=== PATIENT | female | born 1945 | race Caucasian/White ===

== ENCOUNTER → 2017-01-17 | Outpatient (CLI) | payer BC ==
[~2017-01-17] MED LIST: ACC10 PO; ALBUAER2 INH; ALL180 PO; ALL300 PO; ASPCH81 PO; CLTP PO; CLX20 PO; DIPH-437 PO; GLC500 PO; HYDC25 PO; LEVO137T14 PO; MCR5 PO; MEDR10TA PO; PLMIN200 INH
[2017-01-17 12:12] LABS: BASO ABS # 0.06 K/uL (0-0.2); COMPLETE YES; EOS % 3.5 %; HEMATOCRIT 37.3 % (37-47); IG% 0.2 %; LYMPH % 36.2 %; LYMPH ABS # 2.18 K/uL (1.2-3.4); MEAN CELL VOLUME 94.2 fL (80-100); MEAN CORPUSCULAR HEMOGLOBIN 31.3 pg (25-34); MEAN CORPUSCULAR HGB CONC 33.2 g/dl (32-36); MEAN PLATELET VOLUME 9.6 fL (7.4-10.4); MONO % 9.8 %; NEUT % 49.3 %; PLATELET COUNT 251 K/uL (130-400); RED BLOOD COUNT 3.96 M/uL (4.2-5.4); WHITE BLOOD COUNT 6.03 K/uL (4.8-10.8)
[2017-01-17 12:26] LABS: ESTIMATED AVERAGE GLUCOSE 128 mg/dl; HA1C FLAG Normal (Normal)
[2017-01-17 12:50] LABS: BLOOD UREA NITROGEN 10 mg/dl (7-18); BUN/CREATININE RATIO 15.4 (10-20); CREATININE 0.67 mg/dl (0.60-1.20); GLUCOSE 118 mg/dl (70-99); SODIUM 138 mmol/L (136-145)
[2017-01-17 12:51] LABS: AST/SGOT 14 U/L (15-37); CALCIUM 9.3 mg/dl (8.5-10.1); CARBON DIOXIDE 27 mmol/L (21-32); CHLORIDE 103 mmol/L (98-107); MAGNESIUM 1.6 mg/dl (1.8-2.4)
[2017-01-17 12:57] LABS: ALB/GLOB RATIO 1.1 (0.9-2); ALKALINE PHOSPHATASE 51 U/L (45-117); ALT/SGPT 21 U/L (12-78); CHOLESTEROL 145 mg/dl (0-200); HDL CHOLESTEROL 74 mg/dl; LDL CHOLESTEROL CALCULATED 54 mg/dl; THYROID STIMULATING HORMONE 0.477 uIu/ml (0.300-4.500); TRIGLYCERIDES 83 mg/dl (0-150); VERY LOW DENSITY LIPOPROT CALC 17 mg/dl
[2017-01-17 18:11] LABS: URINE APPEARANCE CLEAR (CLEAR); URINE BILIRUBIN NEG (NEG); URINE COLOR YELLOW; URINE EPITHELIAL CELL AUTO >30 /lpf (0-5); URINE NITRITE NEG (NEG); URINE SPECIFIC GRAVITY 1.017 (1.000-1.030); UROBILINOGEN NEG (NEG); ZZUR CULT IF INDIC CLEAN CATCH YES
[2017-01-17 18:21] LABS: MANUAL MICROSCOPIC REQUIRED? NO; REVIEW REQ? NO
[2017-01-17 18:30] LABS: RATIO 8.9 mcg/mg (0-30.0)
== END | disposition home or self-care (01) ==
LOC: C.LABBFT 07:38
PROVIDERS: ATTEND Internal Medicine
DX: E11.9 Type 2 diabetes mellitus without complications (principal); E03.9 Hypothyroidism, unspecified; E83.42 Hypomagnesemia

== ENCOUNTER → 2017-01-22 | Outpatient (CLI) | payer BC ==
[2017-01-22 19:18] LABS: URINE APPEARANCE CLEAR (CLEAR); URINE BILIRUBIN NEG (NEG); URINE COLOR YELLOW; URINE NITRITE NEG (NEG); UROBILINOGEN NEG (NEG); ZZUR CULT IF INDIC CLEAN CATCH NO
[2017-01-22 19:31] LABS: MANUAL MICROSCOPIC REQUIRED? NO; REVIEW REQ? NO
== END | disposition home or self-care (01) ==
LOC: C.LABBFT 10:12
PROVIDERS: ATTEND Internal Medicine
DX: R31.29 Other microscopic hematuria (principal)

== ENCOUNTER → 2017-03-14 | Outpatient (CLI) | payer BC | END | disposition home or self-care (01) | LOC: C.MAMM 07:41 | PROVIDERS: ATTEND Internal Medicine | DX: M81.0 Age-related osteoporosis without current pathological fracture (principal); Z78.0 Asymptomatic menopausal state ==

== ENCOUNTER → 2017-03-26 | Outpatient (CLI) | payer BC | END | disposition home or self-care (01) | LOC: C.LABBFT 12:29 | PROVIDERS: ATTEND Physician Assistant Medical | DX: M81.0 Age-related osteoporosis without current pathological fracture (principal) ==

== ENCOUNTER → 2017-07-02 | Outpatient (CLI) | payer BC ==
--- NOTE | 2017-07-03 07:35 | MAMMOGRAPHY REPORT ---
BILATERAL DIGITAL SCREENING MAMMOGRAM WITH CAD: 07/02/2017 CLINICAL HISTORY: Routine screening. Patient has no complaints. TECHNIQUE: Bilateral CC, MLO and repeat right MLO views were obtained. Current study was also evalua daniel with a Computer Aided Detection (CAD) system. COMPARISON: Comparison is made to exams dated: 06/16/2015 mammogram, 06/26/2016 mammogram, 4 mammogram, and 09/09/2013 mammogram. BREAST COMPOSITION: There are scattered areas of fibroglandular density in both breasts. FINDINGS: There are benign coarse calcifications scattered throughout the breasts. There is a metall ic biopsy marker in the left upper outer quadrant, in an area of segmental versus regional faint punc lerma microcalcifications. Both the biopsy marker clip in the calcifications appear similar on all av ailable prior mammograms dating back to at least 09/09/2013. Presumably these represent an area of c alcifications which were sampled and yielded benign pathology, although the specimen radiograph for s tereotactic biopsy images are not currently available. No new suspicious mass, architectural distort ion or cluster of microcalcifications is seen. IMPRESSION: ACR BI-RADS CATEGORY 1: NEGATIVE There is no mammographic evidence of malignancy. A 1 year screening mammogram is recommended. The pa tient will receive written notification of the results. Approximately 10% of breast cancers are not detected with mammography. A negative mammographic report should not delay biopsy if a clinically suggestive mass is present. Susannah Mckeon M.D. ay/:07/02/2017 16:18:57 Compression Molding Machine Tender: Rhianna VASQUEZ,R, M, [facility] letter sent: Normal 1/2 BI-RADS Code: ACR BI-RADS Category 1: Negative
== END | disposition home or self-care (01) ==
LOC: C.MAMM 10:33
PROVIDERS: ATTEND Internal Medicine
DX: Z12.31 Encounter for screening mammogram for malignant neoplasm of breast (principal)

== ENCOUNTER → 2017-07-18 | Outpatient (CLI) | payer BC ==
[2017-07-18 17:43] LABS: BASO % 0.4 %; BASO ABS # 0.03 K/uL (0-0.2); COMPLETE YES; EOS % 1.6 %; HEMATOCRIT 35.5 % (37-47); IG% 0.2 %; LYMPH % 36.1 %; LYMPH ABS # 3.08 K/uL (1.2-3.4); MEAN CORPUSCULAR HEMOGLOBIN 30.8 pg (25-34); MEAN CORPUSCULAR HGB CONC 33.8 g/dl (32-36); MEAN PLATELET VOLUME 8.6 fL (7.4-10.4); MONO % 8.5 %; NEUT % 53.2 %; PLATELET COUNT 238 K/uL (130-400); WHITE BLOOD COUNT 8.54 K/uL (4.8-10.8)
[2017-07-18 18:01] LABS: URINE APPEARANCE CLEAR (CLEAR); URINE BILIRUBIN NEG (NEG); URINE COLOR DK YELLOW; URINE NITRITE NEG (NEG); URINE SPECIFIC GRAVITY 1.021 (1.000-1.030); UROBILINOGEN NEG (NEG); ZZUR CULT IF INDIC CLEAN CATCH NO
[2017-07-18 18:08] LABS: ALT/SGPT 21 U/L (12-78); AST/SGOT 12 U/L (15-37); BLOOD UREA NITROGEN 10 mg/dl (7-18); BUN/CREATININE RATIO 18.3 (10-20); CARBON DIOXIDE 30 mmol/L (21-32); CHLORIDE 94 mmol/L (98-107); CREATININE 0.57 mg/dl (0.60-1.20); GLUCOSE 83 mg/dl (70-99); MAGNESIUM 1.5 mg/dl (1.8-2.4); POTASSIUM 4.1 mmol/L (3.5-5.1); SODIUM 129 mmol/L (136-145)
[2017-07-18 18:12] LABS: MANUAL MICROSCOPIC REQUIRED? NO; REVIEW REQ? NO
[2017-07-18 18:20] LABS: ALB/GLOB RATIO 0.9 (0.9-2); ALKALINE PHOSPHATASE 54 U/L (45-117); THYROID STIMULATING HORMONE 0.195 uIu/ml (0.300-4.500)
[2017-07-19 06:33] LABS: ESTIMATED AVERAGE GLUCOSE 123 mg/dl; HA1C FLAG Normal (Normal)
== END | disposition home or self-care (01) ==
LOC: C.LAB1850 16:58
PROVIDERS: ATTEND Internal Medicine
DX: R10.32 Left lower quadrant pain (principal); E83.42 Hypomagnesemia; E11.9 Type 2 diabetes mellitus without complications; E03.9 Hypothyroidism, unspecified

== ENCOUNTER → 2017-08-05 | Outpatient (CLI) | payer BC ==
[2017-08-05 18:29] LABS: BLOOD UREA NITROGEN 11 mg/dl (7-18); CALCIUM 9.3 mg/dl (8.5-10.1); CARBON DIOXIDE 26 mmol/L (21-32); CREATININE 0.72 mg/dl (0.60-1.20); GLUCOSE 146 mg/dl (70-99); POTASSIUM 4.5 mmol/L (3.5-5.1); SODIUM 131 mmol/L (136-145)
== END | disposition home or self-care (01) ==
LOC: C.LABBFT 12:38
PROVIDERS: ATTEND Internal Medicine
DX: E03.9 Hypothyroidism, unspecified (principal); E83.42 Hypomagnesemia

== ENCOUNTER → 2017-08-08 | Outpatient (CLI) | payer BC ==
[~2017-08-08] MED LIST changes: +OPTIRAY 320 IV PRN
--- NOTE | 2017-08-08 12:20 | DIAGNOSTIC IMAGING REPORT ---
CT SCAN OF THE ABDOMEN AND PELVIS WITH IV CONTRAST CLINICAL HISTORY: Left lower quadrant abdominal pain. COMPARISON STUDY: No priors. TECHNIQUE: Following the IV administration of 94 cc of Optiray 320, CT scan of the abdomen and pelvis is performed from the lung bases to the proximal femora. Images are reviewed in the axial, sagittal, and coronal planes. IV contrast was administered without complication. A dose lowering technique was utilized adhering to the principles of ALARA. The Examination is modestly degraded by motion artifact. CT DOSE: 907.05 mGycm FINDINGS: Lung bases: The heart is normal in size and without pericardial effusion. The lung bases are clear. There is a tiny hiatal hernia. Liver: The contrast-enhanced liver is normal in size, contour, and attenuation. There is no intrahepatic biliary ductal dilatation. The hepatic veins and portal veins are patent. Gallbladder: Surgically absent noting clips in the gallbladder fossa. Spleen: Normal in size and attenuation. Pancreas: Moderately atrophic and grossly unremarkable. Adrenal glands: Unremarkable. Kidneys: The contrast enhanced kidneys demonstrate mild cortical atrophy and are without hydronephrosis. The kidneys enhance symmetrically. There are at least 2 nonobstructing right renal calculi measuring up to 7 mm. Abdominal vasculature: The abdominal aorta is normal in course and caliber noting moderate atherosclerotic calcification. Bowel: There are postoperative changes from sigmoid colon resection with colocolonic anastomosis. No bowel obstruction is seen. There is moderate diverticulosis of the remaining colon without CT evidence of acute diverticulitis. Moderate colonic fecal retention is observed. The appendix is not identified and reported surgically absent. Peritoneum: There is no intraperitoneal free air or abdominal ascites. There is evidence of previous ventral hernia repair. Lymphadenopathy: None. Pelvic viscera: The bladder, uterus, and adnexa are normal as visualized. Skeletal structures: The skeletal structures are osteopenic. There is mild to moderate lumbosacral spondylosis. Degenerative changes also seen in the hips and sacroiliac joints. No lytic or blastic lesions are seen. IMPRESSION: 1. There are no acute infectious or inflammatory findings in the abdomen or pelvis. 2. There are postoperative changes from sigmoid colon resection with colocolonic anastomosis. No bowel obstruction is seen. 3. There is moderate diverticulosis of the remaining colon without CT evidence of acute diverticulitis. 4. Nonobstructing right renal calculi. 5. Additional findings as above. Electronically signed by: Zain Dasilva M.D. 08/08/2017 12:19 PM Dictated Date/Time: 08/08/2017 12:14 PM
== END | disposition home or self-care (01) ==
LOC: C.CTS 11:36
PROVIDERS: ATTEND Physician Assistant Medical
DX: R10.32 Left lower quadrant pain (principal)

== ENCOUNTER → 2017-08-09 | Outpatient (CLI) | payer BC ==
[~2017-08-09] MED LIST changes: -OPTIRAY 320 IV PRN
[2017-08-09 18:14] LABS: BLOOD UREA NITROGEN 7 mg/dl (7-18)
== END | disposition home or self-care (01) ==
LOC: C.LABBFT 12:29
PROVIDERS: ATTEND Physician Assistant Medical
DX: E11.9 Type 2 diabetes mellitus without complications (principal)

== ENCOUNTER → 2017-08-19 | Outpatient (CLI) | payer BC ==
[2017-08-19 17:59] LABS: BLOOD UREA NITROGEN 9 mg/dl (7-18); CALCIUM 8.8 mg/dl (8.5-10.1); CARBON DIOXIDE 27 mmol/L (21-32); CREATININE 0.64 mg/dl (0.60-1.20); GLUCOSE 105 mg/dl (70-99); SODIUM 130 mmol/L (136-145)
== END | disposition home or self-care (01) ==
LOC: C.LABBFT 11:31
PROVIDERS: ATTEND Internal Medicine
DX: I10 Essential (primary) hypertension (principal); E83.42 Hypomagnesemia

== ENCOUNTER → 2017-08-21 | Outpatient (CLI) | payer BC ==
[2017-08-21 17:53] LABS: BLOOD UREA NITROGEN 7 mg/dl (7-18); CALCIUM 9.2 mg/dl (8.5-10.1); CARBON DIOXIDE 25 mmol/L (21-32); CREATININE 0.65 mg/dl (0.60-1.20); GLUCOSE 131 mg/dl (70-99); POTASSIUM 4.2 mmol/L (3.5-5.1); SODIUM 131 mmol/L (136-145)
== END | disposition home or self-care (01) ==
LOC: C.LABBFT 13:32
PROVIDERS: ATTEND Internal Medicine
DX: E87.1 Hypo-osmolality and hyponatremia (principal)

== ENCOUNTER → 2017-08-22 | Outpatient (CLI) | payer BC ==
[~2017-08-22] MED LIST changes: +ACET-1047 PO; +ALEN70TA4 PO; +AMOX875T PO; +ASPI1CHW12 PO; +BUDE180I INH; +CALCCAP17 PO; +COLE1TAB PO; +DEXT1TAB50 PO; +EFFSR75 PO; +FEXO1TAB46 PO; +GLIM2TAB PO; +HYDR25TA4 PO; +LEVO125T72 PO; +LISI40TA PO; +MAGN400T6 PO; +METF500T5 PO; +QUIN40TA18 PO; +TRAZ50TA35 PO; +VENL150C56 PO; +VNTHFA/IN INH
== END | disposition home or self-care (01) ==
LOC: C.LABSPEC 09:51
PROVIDERS: ATTEND Internal Medicine
DX: E87.1 Hypo-osmolality and hyponatremia (principal)

== ENCOUNTER 2017-08-24 12:06 | Inpatient (IN) | payer BC, OTHER ==
[~2017-08-24] VITALS: Ht 160 cm; Wt 79.2 kg
[~2017-08-24 12:06] MED LIST changes: -ACET-1047 PO; -ALEN70TA4 PO; -AMOX875T PO; -ASPI1CHW12 PO; -BUDE180I INH; -CALCCAP17 PO; -COLE1TAB PO; -DEXT1TAB50 PO; -EFFSR75 PO; -FEXO1TAB46 PO; -GLIM2TAB PO; -HYDR25TA4 PO; -LEVO125T72 PO; -LISI40TA PO; -MAGN400T6 PO; -METF500T5 PO; -QUIN40TA18 PO; -TRAZ50TA35 PO; -VENL150C56 PO; -VNTHFA/IN INH
[2017-08-24] MEDS ORDERED: SODIUM CHLORIDE 0.9% 1000ML 1,000 ML IV STA (12:34)
[2017-08-24] MEDS ORDERED: FEXO1TAB46 PO (12:50)
[2017-08-24] MEDS ORDERED: CALCCAP17 PO (12:50)
[2017-08-24] MEDS ORDERED: ASPI1CHW12 PO (12:50)
[2017-08-24] MEDS ORDERED: VNTHFA/IN INH (12:50)
[2017-08-24] MEDS ORDERED: MCR5 PO (12:50)
[2017-08-24] MEDS ORDERED: ALL300 PO (12:50)
[2017-08-24] MEDS ORDERED: GLC500 PO (12:50)
[2017-08-24] MEDS ORDERED: QUIN40TA18 PO (12:50)
[2017-08-24] MEDS ORDERED: BUDE180I INH (12:50)
[2017-08-24] MEDS ORDERED: LEVO125T72 PO (13:13)
--- NOTE | 2017-08-24 13:13 | EMERGENCY ROOM VISIT NOTE ---
History Report prepared by August: Miki Weir Under the Supervision of: Dr. Salomón Montoya M.D. First contact with patient: 12:34 Chief Complaint: ILLNESS Stated Complaint: GENERAL WEAKNESS/FREQ URINATION History of Present Illness The patient is a 72 year old female who presents to the Emergency Room with complaints of generalized weakness that began last night. She has a past medical history of hypertension, diabetes, a hernia repair, a colon resection, an appendectomy, and a cholecystectomy. Four days ago, the patient began to experience sinus congestion, a cough, with a moderate headache. While these symptoms persisted, the patient began to feel moderately weak last night. Throughout the night, she felt chilled and had to urinate very frequently which has never happened to her before. She notes that she has some neck pain that started yesterday as well. This morning, she tried to get out of bed, but felt too weak so she lowered herself to the ground. She then could not get up so her brought her to the ER. Pt denies LOC, fevers, diaphoresis, visual changes, chest pain, breathing difficulties, nausea, vomiting, abdominal pain, back pain, melena, hematochezia, urinary burning or hematuria, numbness, weakness, lymphadenopathy, rash, or other complaints. She notes that she had a mildly low sodium level that was recorded 1 week ago. Source of History: patient Onset: last night Position: other (global) Symptom Intensity: moderate Quality: other (Generalized weakness) Timing: constant Associated Symptoms: + headache, + cough, + neck pain, + urinary symptoms ( frequency) Note: Positive sinus congestion Review of Systems See HPI for pertinent positives and negatives. A total of ten systems were reviewed and were otherwise negative. Past Medical & Surgical Medical Problems: (1) Diabetes (2) HTN (hypertension) Surgical Problems: (1) History of appendectomy (2) History of cholecystectomy (3) History of colon resection (4) History of hernia repair Family History Omitted secondary to the patient's age. Social History Smoking Status: Never Smoker Smokeless Tobacco Use: No Drug Use: none Marital Status: Housing Status: lives with significant other Occupation Status: retired Current/Historical Medications Scheduled Alendronate Sodium (Fosamax), 70 MG PO WK Allopurinol (Allopurinol), 1 TAB PO DAILY Aspirin (Aspirin 81 Low Dose), 1 TAB PO DAILY Calcium Carbonate-Vitamin D (Calcium/Vitamin D), 1 TAB PO DAILY Colestipol Hcl (Colestid), 1 GM PO DAILY Dextromethorphan-Guaifenesin (Mucinex Dm Maximum Streng), 1 TAB PO BID Fexofenadine Hcl (Sarah), 180 MG PO DAILY Glyburide (Glyburide), 1 TAB PO DAILY Hydrochlorothiazide (Hctz), 25 MG PO DAILY Levothyroxine Sodium (Synthroid), 125 MCG PO DAILY Lisinopril (Zestril), 40 MG PO DAILY Magnesium Oxide (Mag-Ox), 400 MG PO BID Metformin Hcl Er (Glucophage Er), 1,000 MG PO BID Quinapril Hcl (Accupril), 40 MG PO DAILY Trazodone Hcl (Trazodone), 0.5-1 TAB PO HS Venlafaxine Hcl (Effexor Extended Rel), 150 MG PO DAILY Scheduled PRN Albuterol Hfa (Ventolin Hfa), 2 PUFFS INH QID PRN for SOB/Wheezing Budesonide (Inhalation) (Pulmicort Flexhaler), 1 PUFF INH UD PRN for SOB/ Wheezing Allergies Coded Allergies: POLLEN (Unverified Allergy, Mild, sneezing, 08/24/17) Animal Dander (Unverified Allergy, Unknown, unknown, 08/24/17) Uncoded Allergies: CIGARETTS (Allergy, Mild, sob, 08/10/09) PINE TREE/ SCENTS (Allergy, Unknown, unknown, 08/10/09) Physical Exam Vital Signs Date Time Temp Pulse Resp B/P (MAP) Pulse Ox O2 Delivery O2 Flow Rate FiO2 08/24/17 14:20 82 16 117/64 93 08/24/17 12:16 80 08/24/17 12:12 37.6 83 20 136/50 95 Room Air Physical Exam GENERAL: Awake, alert, very tired appearing, in no distress HENT: Normocephalic, atraumatic. Oropharynx unremarkable. EYES: Normal conjunctiva. Sclera non-icteric. NECK: Supple. No nuchal rigidity. FROM. No JVD. RESPIRATORY: Clear to auscultation. CARDIAC: Regular rate, normal rhythm. Extremities warm and well perfused. Pulses equal. ABDOMEN: Soft, non-distended. Mild suprapubic tenderness to palpation. No rebound or guarding. No masses. RECTAL: Deferred. MUSCULOSKELETAL: Chest examination reveals no tenderness. The back is symmetrical on inspection without obvious abnormality. There is no CVA tenderness to palpation. No joint edema. LOWER EXTREMITIES: Calves are equal size bilaterally and non-tender. No edema. No discoloration. NEURO: Normal sensorium. No sensory or motor deficits noted. SKIN: No rash or jaundice noted. Medical Decision & Procedures ER Provider Diagnostic Interpretation: Radiology results as stated below per my review and radiologist interpretation: CHEST ONE VIEW PORTABLE CLINICAL HISTORY: Weakness. COMPARISON STUDY: Chest radiograph August 10, 2009. FINDINGS: Lung volumes are normal. No pneumothorax or pleural effusion is noted. There is no consolidation to suggest pneumonia. Pulmonary vascularity is normal. Cardiomediastinal silhouette is normal. IMPRESSION: No acute cardiopulmonary findings. Electronically signed by: Polo Christensen M.D. 08/24/2017 1:27 PM Dictated Date/Time: 08/24/2017 1:27 PM ABDOMEN AND PELVIS CT WITH IV CONTRAST CT DOSE: 993.92 mGycm HISTORY: dysuria, lower abd pain TECHNIQUE: Multiaxial CT images of the abdomen and pelvis were performed following the use of intravenous contrast. A dose lowering technique was utilized adhering to the principles of ALARA. COMPARISON STUDY: Abdomen and pelvis CT 08/08/2017. FINDINGS: There is again noted a tiny hiatus hernia. Mild bibasilar subsegmental atelectasis. The gallbladder surgically absent. The liver, spleen, adrenal glands, and pancreas are unremarkable. There is a 5 mm stone within the lower pole the right kidney. The kidneys enhance normally. Mild bilateral perinephric edema which is not significantly changed. No retroperitoneal lymphadenopathy. Prior ventral hernia repair. The bladder, uterus, bilateral adnexa are unremarkable. There is no additional 3 mm stone within the right kidney. Prior sigmoid anastomosis. Colonic diverticulosis. The appendix is not identified and reportedly surgically absent. IMPRESSION: 1. No change compared to the prior study. 2. No bowel wall thickening or obstruction. 3. Right-sided nephrolithiasis. No ureteral stones. No hydronephrosis. 4. Mild bilateral perinephric edema which is likely chronic. Recommend correlation with urinalysis. 5. Colonic diverticulosis. Electronically signed by: Kyrie Woodard M.D. 08/24/2017 3:17 PM Dictated Date/Time: 08/24/2017 3:10 PM Laboratory Results 08/24/17 13:30 Red Blood Count 4.06, Mean Corpuscular Volume 89.9, Mean Corpuscular Hemoglobin 31.0, Mean Corpuscular Hemoglobin Concent 34.5, Mean Platelet Volume 8.8, Neutrophils (%) (Auto) 90.0, Lymphocytes (%) (Auto) 3.4, Monocytes (%) (Auto) 6.2, Eosinophils (%) (Auto) 0.0, Basophils (%) (Auto) 0.1, Neutrophils # (Auto) 15.63, Lymphocytes # (Auto) 0.59, Monocytes # (Auto) 1.07, Eosinophils # (Auto) 0.00, Basophils # (Auto) 0.02 08/24/17 13:30 Test 08/24/17 12:46 08/24/17 13:00 08/24/17 13:30 Influenza Type A Antigen Neg for Influ A (NEG) Influenza Type B Antigen Neg for Influ B (NEG) Urine Color DK YELLOW Urine Appearance CLEAR (CLEAR) Urine pH 5.5 (4.5-7.5) Urine Specific [place] 1.021 (1.000-1.030) Urine Protein TRACE (NEG) Urine Glucose (UA) TRACE (NEG) Urine Ketones 3+ (NEG) Urine Occult Blood NEG (NEG) Urine Nitrite NEG (NEG) Urine Bilirubin NEG (NEG) Urine Urobilinogen NEG (NEG) Urine Leukocyte Esterase NEG (NEG) Urine WBC (Auto) 1-5 /hpf (0-5) Urine RBC (Auto) 0-4 /hpf (0-4) Urine Hyaline Casts (Auto) 1-5 /lpf (0-5) Urine Epithelial Cells (Auto) 20-30 /lpf (0-5) Urine Bacteria (Auto) NEG (NEG) White Blood Count 17.36 K/uL (4.8-10.8) Red Blood Count 4.06 M/uL (4.2-5.4) Hemoglobin 12.6 g/dL (12.0-16.0) Hematocrit 36.5 % (37-47) Mean Corpuscular Volume 89.9 fL (80-100) Mean Corpuscular Hemoglobin 31.0 pg (25-34) Mean Corpuscular Hemoglobin Concent 34.5 g/dl (32-36) Platelet Count 227 K/uL (130-400) Mean Platelet Volume 8.8 fL (7.4-10.4) Neutrophils (%) (Auto) 90.0 % Lymphocytes (%) (Auto) 3.4 % Monocytes (%) (Auto) 6.2 % Eosinophils (%) (Auto) 0.0 % Basophils (%) (Auto) 0.1 % Neutrophils # (Auto) 15.63 K/uL (1.4-6.5) Lymphocytes # (Auto) 0.59 K/uL (1.2-3.4) Monocytes # (Auto) 1.07 K/uL (0.11-0.59) Eosinophils # (Auto) 0.00 K/uL (0-0.5) Basophils # (Auto) 0.02 K/uL (0-0.2) RDW Standard Deviation 48.9 fL (36.4-46.3) RDW Coefficient of Variation 15.1 % (11.5-14.5) Immature Granulocyte % (Auto) 0.3 % Immature Granulocyte # (Auto) 0.05 K/uL (0.00-0.02) Prothrombin Time 11.5 SECONDS (9.0-12.0) Prothromb Time International Ratio 1.1 (0.9-1.1) Activated Partial Thromboplast Time 25.7 SECONDS (21.0-31.0) Partial Thromboplastin Ratio 1.0 Anion Gap 6.0 mmol/L (3-11) Est Creatinine Clear Calc Drug Dose 68.8 ml/min Estimated GFR () 96.0 Estimated GFR (Non- 82.9 BUN/Creatinine Ratio 18.3 (10-20) Calcium Level 8.9 mg/dl (8.5-10.1) Magnesium Level 1.3 mg/dl (1.8-2.4) Total Bilirubin 0.8 mg/dl (0.2-1) Direct Bilirubin 0.2 mg/dl (0-0.2) Aspartate Amino Transf (AST/SGOT) 11 U/L (15-37) Alanine Aminotransferase (ALT/SGPT) 18 U/L (12-78) Alkaline Phosphatase 53 U/L (45-117) Total Creatine Kinase 114 U/L (26-192) Creatine Kinase MB 1.2 ng/ml (0.5-3.6) Creatine Kinase MB Ratio 1.1 (0-3.0) Troponin I < 0.015 ng/ml (0-0.045) Total Protein 7.6 gm/dl (6.4-8.2) Albumin 3.4 gm/dl (3.4-5.0) Lipase 93 U/L (73-393) Thyroid Stimulating Hormone (TSH) 0.243 uIu/ml (0.300-4.500) Laboratory results reviewed by me Medications Administered Medications (Trade) Dose Ordered Sig/Agustin Route Start Time Stop Time Status Last Admin Dose Admin Sodium Chloride 1,000 ml @ 125 mls/hr Q8H STAT IV 08/24/17 12:34 08/24/17 18:33 DC 08/24/17 13:23 125 MLS/HR Magnesium Sulfate (Magnesium Sulfate) 2 gm NOW STAT IV 08/24/17 14:28 08/24/17 14:29 DC 08/24/17 14:35 2 GM Ceftriaxone Sodium (Rocephin Inj) 1 gm NOW STAT IV 08/24/17 15:30 08/24/17 15:32 DC 08/24/17 17:07 1 GM ECG Indication: weakness Rate (beats per minute): 81 Rhythm: normal sinus Findings: no acute ischemic change, no ectopy Change: ECG interpreted by me ED Course 1234: The patient was evaluated in room C1. A complete history and physical exam was performed. 1234: Ordered Sodium Chloride 1000 ml @ 125 mls/hr IV 1358: Upon reevaluation, the patient is resting and is stable. 1428: Ordered Magnesium Sulfate 2 gm IV 1530: Ordered Rocephin Inj 1 gm IV 1546: Upon reexamination, the patient was resting. I discussed the test results and treatment plan with her. I discussed the patient's case with Dr. Galvna of [facility]. The patient will be evaluated for further management. Medical Decision Prior records/ancillary studies reviewed and summarized above. Nursing notes reviewed and agree them. Additional history obtained from her . The patient's history was concerning for weakness. Differential diagnosis: Etiologies such as metabolic, infection, hypo/hyperglycemia, electrolyte abnormalities, cardiac sources, intracerebral event, toxicologic, neurologic, as well as others were entertained. Physical examination: As above. ER treatment provided: IV Lock IV normal saline IV magnesium IV Rocephin On reassessment the patient felt better. Diagnostics interpretation by me: ECG: Normal The labs revealed a significant leukocytosis on CBC. Chemistry panel revealed hyponatremia and hypomagnesemia. Flu testing negative. Urinalysis unremarkable Imaging studies: Chest x-ray and CT scan as above The patient had significant urinary symptoms. Her kidneys appeared abnormal on CT imaging. She does not have any evidence of pneumonia significant sinusitis, meningitis, or influenza on her physical or laboratory workup. There is concerns about possible UTI even though her urinalysis is unremarkable. Culture is pending. She was empirically treated with a dose of IV Rocephin pending culture results. As she is weak, has hypomagnesemia and hyponatremia she will benefit from treatment in the hospital. The patient and were in agreement. Consultation: A consultation was placed with the hospitalist. The case was discussed and diagnostics were reviewed. The patient was evaluated in the ER for further treatment. Medication Reconcilliation Current Medication List: was personally reviewed by me Blood Pressure Screening Patient's blood pressure: Normal blood pressure Blood pressure disposition: Did not require urgent referral Consults Time Called: 1540 Consulting Physician: Dr. Cole DUBOIS Returned Call: [phone] Discussed the patient's case. The patient will be evaluated for further treatment and disposition. Impression Primary Impression: Hyponatremia Additional Impressions: Hypomagnesemia Leukocytosis Weakness Symptoms of urinary tract infection Scribe Attestation The scribe's documentation has been prepared under my direction and personally reviewed by me in its entirety. I confirm that the note above accurately reflects all work, treatment, procedures, and medical decision making performed by me. Departure Information Dispostion Being Evaluated By Hospitalist Referrals Abad Garcia M.D. (PCP) Patient Instructions My [facility] Problem Qualifiers
[2017-08-24] MEDS ORDERED: DEXT1TAB50 PO (13:17)
[2017-08-24] MEDS ORDERED: VENL150C56 PO (13:17)
[2017-08-24] MEDS ORDERED: TRAZ50TA35 PO (13:17)
[2017-08-24] MEDS ORDERED: ALEN70TA4 PO (13:17)
[2017-08-24] MEDS ORDERED: HYDR25TA4 PO (13:17)
[2017-08-24] MEDS ORDERED: LISI40TA PO (13:17)
[2017-08-24] MEDS ORDERED: COLE1TAB PO (13:17)
[2017-08-24] MEDS ORDERED: MAGN400T6 PO (13:17)
--- NOTE | 2017-08-24 13:28 | DIAGNOSTIC IMAGING REPORT ---
CHEST ONE VIEW PORTABLE CLINICAL HISTORY: Weakness. COMPARISON STUDY: Chest radiograph August 10, 2009. FINDINGS: Lung volumes are normal. No pneumothorax or pleural effusion is noted. There is no consolidation to suggest pneumonia. Pulmonary vascularity is normal. Cardiomediastinal silhouette is normal. IMPRESSION: No acute cardiopulmonary findings. Electronically signed by: Polo Christensen M.D. 08/24/2017 1:27 PM Dictated Date/Time: 08/24/2017 1:27 PM
[2017-08-24] MEDS ORDERED: GLIM2TAB PO (13:32)
[2017-08-24] MEDS ORDERED: METF500T5 PO (13:32)
[2017-08-24 13:41] LABS: INFLUENZA B ANTIGEN Neg for Influ B (NEG)
[2017-08-24 13:54] LABS: BASO % 0.1 %; BASO ABS # 0.02 K/uL (0-0.2); HEMATOCRIT 36.5 % (37-47); HEMOGLOBIN 12.6 g/dL (12.0-16.0); IG# 0.05 K/uL (0.00-0.02); LYMPH % 3.4 %; LYMPH ABS # 0.59 K/uL (1.2-3.4); MEAN CELL VOLUME 89.9 fL (80-100); MEAN CORPUSCULAR HGB CONC 34.5 g/dl (32-36); MEAN PLATELET VOLUME 8.8 fL (7.4-10.4); MONO % 6.2 %; MONO ABS # 1.07 K/uL (0.11-0.59); NEUT ABS # 15.63 K/uL (1.4-6.5); PLATELET COUNT 227 K/uL (130-400); RED CELL DISTRIBUTION WIDTH CV 15.1 % (11.5-14.5); RED CELL DISTRIBUTION WIDTH SD 48.9 fL (36.4-46.3); WHITE BLOOD COUNT 17.36 K/uL (4.8-10.8)
[2017-08-24 14:13] LABS: ALBUMIN 3.4 gm/dl (3.4-5.0); ALT/SGPT 18 U/L (12-78); AST/SGOT 11 U/L (15-37); BLOOD UREA NITROGEN 13 mg/dl (7-18); CALCIUM 8.9 mg/dl (8.5-10.1); CARBON DIOXIDE 27 mmol/L (21-32); CREATININE 0.73 mg/dl (0.60-1.20); GLUCOSE 186 mg/dl (70-99); INR 1.1 (0.9-1.1); LIPASE 93 U/L (73-393); POTASSIUM 3.7 mmol/L (3.5-5.1); PTT PATIENT 25.7 SECONDS (21.0-31.0); SODIUM 128 mmol/L (136-145)
[2017-08-24] MEDS ORDERED: OPTIRAY 320 IV PRN (14:15)
[2017-08-24 14:21] LABS: ALKALINE PHOSPHATASE 53 U/L (45-117); CKMB 1.2 ng/ml (0.5-3.6); TOTAL PROTEIN 7.6 gm/dl (6.4-8.2)
[2017-08-24] MEDS ORDERED: MAGNESIUM SULFATE 1GM / D5W 1 GM BAG IV STA (14:28)
--- NOTE | 2017-08-24 15:18 | DIAGNOSTIC IMAGING REPORT ---
ABDOMEN AND PELVIS CT WITH IV CONTRAST CT DOSE: 993.92 mGycm HISTORY: dysuria, lower abd pain TECHNIQUE: Multiaxial CT images of the abdomen and pelvis were performed following the use of intravenous contrast. A dose lowering technique was utilized adhering to the principles of ALARA. COMPARISON STUDY: Abdomen and pelvis CT 08/08/2017. FINDINGS: There is again noted a tiny hiatus hernia. Mild bibasilar subsegmental atelectasis. The gallbladder surgically absent. The liver, spleen, adrenal glands, and pancreas are unremarkable. There is a 5 mm stone within the lower pole the right kidney. The kidneys enhance normally. Mild bilateral perinephric edema which is not significantly changed. No retroperitoneal lymphadenopathy. Prior ventral hernia repair. The bladder, uterus, bilateral adnexa are unremarkable. There is no additional 3 mm stone within the right kidney. Prior sigmoid anastomosis. Colonic diverticulosis. The appendix is not identified and reportedly surgically absent. IMPRESSION: 1. No change compared to the prior study. 2. No bowel wall thickening or obstruction. 3. Right-sided nephrolithiasis. No ureteral stones. No hydronephrosis. 4. Mild bilateral perinephric edema which is likely chronic. Recommend correlation with urinalysis. 5. Colonic diverticulosis. Electronically signed by: Kyrie Woodard M.D. 08/24/2017 3:17 PM Dictated Date/Time: 08/24/2017 3:10 PM
[2017-08-24] MEDS ORDERED: CEFTRIAXONE SOD INJ 1 GM ADDVIAL IV STA (15:30)
[2017-08-24] MEDS ORDERED: GLUCOSE 10 TABS/TUBE PO PRN (16:30)
[2017-08-24] MEDS ORDERED: ONDANSETRON INJ 2 MG/ML 2 ML VIAL IV PRN (16:30)
[2017-08-24] MEDS ORDERED: MAGNESIUM HYDROXIDE SUSP 30 ML UDC PO PRN (16:30)
[2017-08-24] MEDS ORDERED: TRAZODONE HCL 50 MG TAB PO PRN (16:30)
[2017-08-24] MEDS ORDERED: GLUCOSE 40% GEL 15 GM TUBE PO PRN (16:30)
[2017-08-24] MEDS ORDERED: ACETAMINOPHEN 325 MG TAB PO PRN (16:30)
[2017-08-24] MEDS ORDERED: ALBUTEROL HFA 8 GM INHALER INH PRN (16:30)
[2017-08-24] MEDS ORDERED: GLUCAGON FOR INJ 1 MG VIAL SQ PRN (16:30)
[2017-08-24] MEDS ORDERED: DEXTROSE 50% 50 ML SYR IV PRN (16:30)
--- NOTE | 2017-08-24 16:48 | History and Physical ---
History & Physical Date & Time of Service: Aug 24, 2017 at 16:29 Chief Complaint: General Weakness/Freq Urination Primary Care Physician: Abad Garcia M.D. History of Present Illness Source: patient 72 y/o F c/o increased urination. Pt states that she was having a regular day yesterday. They ate a rather large meal including dessert with their daughter and her family last night and she had no issues with this. She came home and noted that her BS was 159 after this meal. She attempted to go to bed and was unable to sleep at all due to excessive urination. She states she was urinating large volumes of urine each time she felt triggered to urinate. She had no feelings of dysuria or incomplete voiding. She does admit to being more thirsty as well. She states her BS are generally in the 80s and she checks 4x/ day. After not sleeping all night, pt noted this morning that she was very weak and had difficulty getting out of bed. Pt denies fever, SOB, chest pain, abd pain, n/v/c/d, LE pain or swelling. Pt has been working with Dr. Damon for hypoNa. She saw him last week and it was noted that her Na is continuing to drop. Her HCTZ had been stopped 3 weeks ago, however ongoing Na issues. Dr. Damon has been concerned that pt's hypoNa is related to her effexor use, as this was just started in April at 75mg. It was increased to 150mg around the end of June due to not helping to manage pt's depression. Pt was hesitant to d/c effexor because at the 150mg dose she felt that her sx were well managed and "it's the best I have felt in a long time". Dr. Damon has dx pt with hyperosmolic hyperNa. He referred pt back to PCP to discuss antidepressant options with his recommendation being for amitriptyline or nortriptyline to avoid further Na issues. Pt is willing to change medications at this time. Pt had also seen her PCP in June for abd pain. She had a CT AP 08/08/17 which showed nonobstructing renal stones. This pain has since resolved. Past Medical/Surgical History Medical Problems: (1) Diabetes Status: Chronic (2) HTN (hypertension) Status: Chronic Surgical Problems: (1) History of appendectomy Status: Resolved (2) History of cholecystectomy Status: Resolved (3) History of colon resection Status: Resolved (4) History of hernia repair Status: Resolved Depression HypoNa HypoMg Social History Smoking Status: Never Smoker Smokeless Tobacco Use: No Alcohol Use: none Drug Use: none Marital Status: Occupational Status: retired Allergies Coded Allergies: POLLEN (Unverified Allergy, Mild, sneezing, 08/24/17) Animal Dander (Unverified Allergy, Unknown, unknown, 08/24/17) Uncoded Allergies: CIGARETTS (Allergy, Mild, sob, 08/10/09) PINE TREE/ SCENTS (Allergy, Unknown, unknown, 08/10/09) Home Medications Scheduled Alendronate Sodium (Fosamax), 70 MG PO WK Allopurinol (Allopurinol), 1 TAB PO DAILY Aspirin (Aspirin 81 Low Dose), 1 TAB PO DAILY Calcium Carbonate-Vitamin D (Calcium/Vitamin D), 1 TAB PO DAILY Colestipol Hcl (Colestid), 1 GM PO DAILY Dextromethorphan-Guaifenesin (Mucinex Dm Maximum Streng), 1 TAB PO BID Fexofenadine Hcl (Sarah), 180 MG PO DAILY Glimepiride (Amaryl), 2 MG PO DAILY Glyburide (Glyburide), 1 TAB PO BID Hydrochlorothiazide (Hctz), 25 MG PO DAILY Levothyroxine Sodium (Synthroid), 125 MCG PO DAILY Lisinopril (Zestril), 40 MG PO DAILY Magnesium Oxide (Mag-Ox), 400 MG PO BID Metformin Hcl Er (Glucophage Er), 1,000 MG PO BID Quinapril Hcl (Accupril), 40 MG PO DAILY Trazodone Hcl (Trazodone), 0.5-1 TAB PO HS Venlafaxine Hcl (Effexor Extended Rel), 150 MG PO DAILY Scheduled PRN Albuterol Hfa (Ventolin Hfa), 2 PUFFS INH QID PRN for SOB/Wheezing Budesonide (Inhalation) (Pulmicort Flexhaler), 1 PUFF INH UD PRN for SOB/ Wheezing Review of Systems Pertinent positives and negatives reviewed in HPI--all others negative Physical Exam Vital Signs Date Time Temp Pulse Resp B/P (MAP) Pulse Ox O2 Delivery O2 Flow Rate FiO2 1/27/18 14:20 82 16 117/64 93 08/24/17 12:16 80 08/24/17 12:12 37.6 83 20 136/50 95 Room Air General Appearance: WD/WN, no apparent distress Head: normocephalic, atraumatic Eyes: normal inspection, sclerae normal Respiratory/Chest: normal breath sounds, no respiratory distress Cardiovascular: regular rate, rhythm, no edema Abdomen/GI: non tender, soft Extremities/Musculoskelatal: no calf tenderness, no pedal edema Neurologic/Psych: alert, normal mood/affect, oriented x 3 Skin: normal color, warm/dry Diagnostics Laboratory Results Results Past 24 Hours Test 08/24/17 12:46 08/24/17 13:00 08/24/17 13:30 Range/Units Influenza Type A Antigen Neg for Influ A NEG Influenza Type B Antigen Neg for Influ B NEG Urine Color DK YELLOW Urine Appearance CLEAR CLEAR Urine pH 5.5 4.5-7.5 Urine Specific [place] 1.021 1.000-1.030 Urine Protein TRACE NEG Urine Glucose (UA) TRACE NEG Urine Ketones 3+ NEG Urine Occult Blood NEG NEG Urine Nitrite NEG NEG Urine Bilirubin NEG NEG Urine Urobilinogen NEG NEG Urine Leukocyte Esterase NEG NEG Urine WBC (Auto) 1-5 0-5 /hpf Urine RBC (Auto) 0-4 0-4 /hpf Urine Hyaline Casts (Auto) 1-5 0-5 /lpf Urine Epithelial Cells (Auto) 20-30 0-5 /lpf Urine Bacteria (Auto) NEG NEG White Blood Count 17.36 4.8-10.8 K/uL Red Blood Count 4.06 4.2-5.4 M/uL Hemoglobin 12.6 12.0-16.0 g/dL Hematocrit 36.5 37-47 % Mean Corpuscular Volume 89.9 80-100 fL Mean Corpuscular Hemoglobin 31.0 25-34 pg Mean Corpuscular Hemoglobin Concent 34.5 32-36 g/dl Platelet Count 227 130-400 K/uL Mean Platelet Volume 8.8 7.4-10.4 fL Neutrophils (%) (Auto) 90.0 % Lymphocytes (%) (Auto) 3.4 % Monocytes (%) (Auto) 6.2 % Eosinophils (%) (Auto) 0.0 % Basophils (%) (Auto) 0.1 % Neutrophils # (Auto) 15.63 1.4-6.5 K/uL Lymphocytes # (Auto) 0.59 1.2-3.4 K/uL Monocytes # (Auto) 1.07 0.11-0.59 K/uL Eosinophils # (Auto) 0.00 0-0.5 K/uL Basophils # (Auto) 0.02 0-0.2 K/uL RDW Standard Deviation 48.9 36.4-46.3 fL RDW Coefficient of Variation 15.1 11.5-14.5 % Immature Granulocyte % (Auto) 0.3 % Immature Granulocyte # (Auto) 0.05 0.00-0.02 K/uL Prothrombin Time 11.5 9.0-12.0 SECONDS Prothromb Time International Ratio 1.1 0.9-1.1 Activated Partial Thromboplast Time 25.7 21.0-31.0 SECONDS Partial Thromboplastin Ratio 1.0 Sodium Level 128 136-145 mmol/L Potassium Level 3.7 3.5-5.1 mmol/L Chloride Level 95 98-107 mmol/L Carbon Dioxide Level 27 21-32 mmol/L Anion Gap 6.0 3-11 mmol/L Blood Urea Nitrogen 13 7-18 mg/dl Creatinine 0.73 0.60-1.20 mg/dl Est Creatinine Clear Calc Drug Dose 68.8 ml/min Estimated GFR () 96.0 Estimated GFR (Non- 82.9 BUN/Creatinine Ratio 18.3 10-20 Random Glucose 186 70-99 mg/dl Calcium Level 8.9 8.5-10.1 mg/dl Magnesium Level 1.3 1.8-2.4 mg/dl Total Bilirubin 0.8 0.2-1 mg/dl Direct Bilirubin 0.2 0-0.2 mg/dl Aspartate Amino Transf (AST/SGOT) 11 15-37 U/L Alanine Aminotransferase (ALT/SGPT) 18 12-78 U/L Alkaline Phosphatase 53 45-117 U/L Total Creatine Kinase 114 26-192 U/L Creatine Kinase MB 1.2 0.5-3.6 ng/ml Creatine Kinase MB Ratio 1.1 0-3.0 Troponin I < 0.015 0-0.045 ng/ml Total Protein 7.6 6.4-8.2 gm/dl Albumin 3.4 3.4-5.0 gm/dl Lipase 93 73-393 U/L Thyroid Stimulating Hormone (TSH) 0.243 0.300-4.500 uIu/ml Microbiology Results 08/24/17 Blood Culture, Received Pending 08/24/17 Blood Culture, Received Pending 08/24/17 Urine Culture, Received Pending Diagnostic Radiology CXR neg for acute CT AP: 1. No change compared to the prior study. 2. No bowel wall thickening or obstruction. 3. Right-sided nephrolithiasis. No ureteral stones. No hydronephrosis. 4. Mild bilateral perinephric edema which is likely chronic. Recommend correlation with urinalysis. 5. Colonic diverticulosis. Impression Assessment and Plan 72 y/o F who was admitted on 08/24 for weakness and hypoNa Weakness: likely related to worsening hypoNa Some concern from ED for UTI, however further discussion with pt suggests her increased urination was actually volume based and may have been related to a higher than usual BS/hyperglycemia after a large and carb/sugar heavy meal late last night. BS elevated to 186 in the ED today, which is fasting for the pt at this time and atypical CT AP noted, however UA is WNL other than 3+ ketones which would be consistent with hyperglycemia I think the edema noted on CT AP could be related to her recent kidney stones seen on 08/08/17 Started on rocephin in the ED, will hold further abx until urine cx is available, pt will have 24hrs of coverage from rocephin Leukocytosis noted, however may be related to elevated BS Monitor CXR neg, flu neg PT/OT pending HypoNa: currently being seen with Dr. Damon and felt to have hyperosmolar hypoNa Recs were for d/c of effexor, however pt was hesitant to do so due to its perceived efficacy Trial of d/c HCTZ was attempted, however ongoing and worsening hypoNa Even with Na corrected for mildly elevated BS, Na is still at 129 which is lower than last week Give Na 500mg x1 and recheck in AM May need mild Na replacement as outpt as she tapers off of effexor Depression: can taper effexor as pt has been on 150mg for 4 weeks Drop to 75mg, advised for 2 week taper but Na levels may require something faster Start amitriptyline 50mg and can titrate as needed with PCP HypoMg: replace and monitor DM: holding metformin due to IV contrast SSI PRN A1c pending HTN: continue home meds Hypothyroid: TSH mildly depressed in ED Monitor on home dose Other: Full code, although does not want prolonged mechanical life support, including no feeding tubes SCDs for DVT proph DM diet Level of Care Med/Surg Resuscitation Status FULL RESUSCITATION VTE Prophylaxis VTE Risk Assessment Done? Y/N: Yes Risk Level: Low
[2017-08-24] MEDS ORDERED: SODIUM CHLORIDE 1 GM TAB PO ONE (18:25)
[2017-08-24 18:38] VITALS: BP 126/35; PULSE 90; TEMP 39.6; O2SAT 94
[2017-08-24 18:49] VITALS: BP 130/48
[2017-08-24 19:00] VITALS: BP 126/35; PULSE 90; TEMP 39.6; O2SAT 94; Ht 160 cm; Wt 79.2 kg
[2017-08-24 20:21] VITALS: TEMP 38.1
[2017-08-24] MEDS: INSULIN ASPART 100 UNITS/ML 3 ML PEN SC SCH (21:15)
[2017-08-24] MEDS: GUAIFENESIN 600 MG TABCR PO SCH (21:16)
[2017-08-24] MEDS: MAGNESIUM OXIDE 400 MG TAB PO SCH (21:16)
[2017-08-24 21:19] VITALS: TEMP 37.2
[2017-08-24 23:30] VITALS: BP 115/66; PULSE 59; TEMP 36.8; O2SAT 96
[2017-08-25] MEDS: LEVOTHYROXINE 125 MCG TAB PO SCH (06:56)
[2017-08-25 07:24] LABS: HEMATOCRIT 34.9 % (37-47); HEMOGLOBIN 11.7 g/dL (12.0-16.0); MEAN CELL VOLUME 90.6 fL (80-100); MEAN CORPUSCULAR HEMOGLOBIN 30.4 pg (25-34); MEAN CORPUSCULAR HGB CONC 33.5 g/dl (32-36); MEAN PLATELET VOLUME 8.9 fL (7.4-10.4); PLATELET COUNT 207 K/uL (130-400); RED CELL DISTRIBUTION WIDTH CV 15.2 % (11.5-14.5); RED CELL DISTRIBUTION WIDTH SD 49.4 fL (36.4-46.3); WHITE BLOOD COUNT 11.03 K/uL (4.8-10.8)
[2017-08-25 07:46] VITALS: BP 114/51; PULSE 66; TEMP 36.7; O2SAT 95
[2017-08-25] MEDS: MAGNESIUM OXIDE 400 MG TAB PO SCH ×2 (07:52→21:00)
[2017-08-25] MEDS: VENLAFAXINE HCL XR 75 MG CAPXR PO SCH (07:52)
[2017-08-25] MEDS: ASPIRIN 81 MG CHEW PO SCH (07:52)
[2017-08-25] MEDS: FEXOFENADINE HCL 180 MG TAB PO SCH (07:52)
[2017-08-25] MEDS: ALLOPURINOL 300 MG TAB PO SCH (07:52)
[2017-08-25] MEDS: GUAIFENESIN 600 MG TABCR PO SCH ×2 (07:52→21:00)
[2017-08-25] MEDS: CALCIUM 600MG + VIT D 400 IU TAB PO SCH (07:52)
[2017-08-25] MEDS: INSULIN ASPART 100 UNITS/ML 3 ML PEN SC SCH ×4 (07:58→21:00)
[2017-08-25 08:01] LABS: CALCIUM 8.7 mg/dl (8.5-10.1); CREATININE 0.64 mg/dl (0.60-1.20); POTASSIUM 3.8 mmol/L (3.5-5.1)
[2017-08-25] MEDS ORDERED: GLIMEPIRIDE 2 MG TAB PO SCH (09:00)
[2017-08-25] MEDS ORDERED: HYDROCHLOROTHIAZIDE 25 MG TAB PO SCH (09:00)
[2017-08-25] MEDS: LISINOPRIL 20 MG TAB PO SCH (09:00)
[2017-08-25] MEDS ORDERED: LISINOPRIL 40 MG TAB PO SCH (09:00)
[2017-08-25] MEDS ORDERED: NON-FORMULARY MEDICATION (Quinapril Hcl (Accupril) 40 MG) PO SCH (09:00)
[2017-08-25] MEDS ORDERED: AMITRIPTYLINE HCL 50 MG TAB PO SCH (09:00)
[2017-08-25] MEDS: COLESTIPOL HCL 1 GM TAB PO SCH (09:51)
[2017-08-25 13:00] VITALS: BP 133/71; PULSE 64; O2SAT 96
--- NOTE | 2017-08-25 13:22 | Hospitalist Progress Note ---
Hospitalist Progress Note Date of Service Aug 25, 2017. Subjective Pt evaluation today including: conversation w/ patient, conversation w/ family PO Intake: tolerating po Voiding: no voiding problems Pt feeling significantly improved today. Much stronger, urinary symptoms resolved. Has noticed her nose is swollen, and very tender in her maxilla region bilaterally. Blowing out yellow and some bloody sputum from her nose. Had a DUARET yesterday which is now resolved, has had some neck pain off and on for a week, had a sore throat and ear pressure/pain 2 days ago. She cannot recall anything that happened last evening when she was here. Spiked high fevers last evening. Constitutional: + fever Eyes: No problem reported (no photophobia) ENT: + nasal symptoms, + sore throat Respiratory: No cough, No sputum, No shortness of breath Cardiovascular: No chest pain Abdomen: No pain, No nausea, No vomiting, No diarrhea Female : No dysuria, No urinary frequency Neurologic: + memory loss All Other Systems: Reviewed and Negative Objective Vital Signs Date Time Temp Pulse Resp B/P (MAP) Pulse Ox O2 Delivery O2 Flow Rate FiO2 08/25/17 08:00 Room Air 08/25/17 07:46 36.7 66 20 114/51 (72) 95 Room Air 08/25/17 00:00 Room Air 08/24/17 23:30 36.8 59 20 115/66 (82) 96 Room Air 08/24/17 21:19 37.2 08/24/17 20:21 38.1 08/24/17 19:00 39.6 90 18 126/35 94 Room Air 08/24/17 18:49 130/48 (75) 08/24/17 18:38 39.6 90 18 126/35 (65) 94 Room Air 08/24/17 17:07 95 18 135/53 97 08/24/17 14:20 82 16 117/64 93 Physical Exam General Appearance: WD/WN, no apparent distress Eyes: normal inspection, PERRL, EOMI, sclerae normal ENT: hearing grossly normal, pharynx normal, + pertinent finding (+exquisite tenderness to palpation over bilateral maxillae, with mild erythema of cheeks and nose, nose with bulbous papearance) Neck: supple, no adenopathy, thyroid normal, trachea midline Respiratory/Chest: lungs clear, normal breath sounds, no respiratory distress, no accessory muscle use Cardiovascular: regular rate, rhythm, no edema, no gallop, no murmur Abdomen: normal bowel sounds, non tender, soft Extremities: normal range of motion, non-tender, normal inspection, no pedal edema, no calf tenderness Neurologic/Psychiatric: design engineering specialist II-XII nml as tested, no motor/sensory deficits, alert, normal mood/affect, oriented x 3 Skin: normal color (except cheeks as above are flushed), warm/dry Laboratory Results Last 24 Hours Test 08/24/17 13:30 08/24/17 18:18 08/24/17 19:54 08/25/17 06:48 White Blood Count 17.36 K/uL 11.03 K/uL Red Blood Count 4.06 M/uL 3.85 M/uL Hemoglobin 12.6 g/dL 11.7 g/dL Hematocrit 36.5 % 34.9 % Mean Corpuscular Volume 89.9 fL 90.6 fL Mean Corpuscular Hemoglobin 31.0 pg 30.4 pg Mean Corpuscular Hemoglobin Concent 34.5 g/dl 33.5 g/dl Platelet Count 227 K/uL 207 K/uL Mean Platelet Volume 8.8 fL 8.9 fL Neutrophils (%) (Auto) 90.0 % Lymphocytes (%) (Auto) 3.4 % Monocytes (%) (Auto) 6.2 % Eosinophils (%) (Auto) 0.0 % Basophils (%) (Auto) 0.1 % Neutrophils # (Auto) 15.63 K/uL Lymphocytes # (Auto) 0.59 K/uL Monocytes # (Auto) 1.07 K/uL Eosinophils # (Auto) 0.00 K/uL Basophils # (Auto) 0.02 K/uL RDW Standard Deviation 48.9 fL 49.4 fL RDW Coefficient of Variation 15.1 % 15.2 % Immature Granulocyte % (Auto) 0.3 % Immature Granulocyte # (Auto) 0.05 K/uL Prothrombin Time 11.5 SECONDS Prothromb Time International Ratio 1.1 Activated Partial Thromboplast Time 25.7 SECONDS Partial Thromboplastin Ratio 1.0 Sodium Level 128 mmol/L 131 mmol/L Potassium Level 3.7 mmol/L 3.8 mmol/L Chloride Level 95 mmol/L 97 mmol/L Carbon Dioxide Level 27 mmol/L 27 mmol/L Anion Gap 6.0 mmol/L 7.0 mmol/L Blood Urea Nitrogen 13 mg/dl 13 mg/dl Creatinine 0.73 mg/dl 0.64 mg/dl Est Creatinine Clear Calc Drug Dose 68.8 ml/min 79.2 ml/min Estimated GFR () 96.0 104.1 Estimated GFR (Non- 82.9 89.8 BUN/Creatinine Ratio 18.3 20.8 Random Glucose 186 mg/dl 139 mg/dl Calcium Level 8.9 mg/dl 8.7 mg/dl Magnesium Level 1.3 mg/dl Total Bilirubin 0.8 mg/dl Direct Bilirubin 0.2 mg/dl Aspartate Amino Transf (AST/SGOT) 11 U/L Alanine Aminotransferase (ALT/SGPT) 18 U/L Alkaline Phosphatase 53 U/L Total Creatine Kinase 114 U/L Creatine Kinase MB 1.2 ng/ml Creatine Kinase MB Ratio 1.1 Troponin I < 0.015 ng/ml Total Protein 7.6 gm/dl Albumin 3.4 gm/dl Lipase 93 U/L Thyroid Stimulating Hormone (TSH) 0.243 uIu/ml Bedside Glucose 160 mg/dl 144 mg/dl Test 08/25/17 07:40 08/25/17 12:32 08/25/17 12:39 Bedside Glucose 140 mg/dl 156 mg/dl Assessment and Plan This pt is a 72 y/o F who was admitted on 08/24 for weakness and hypoNa, with recent sore throat and headache, found to have sepsis and symptoms of acute sinusitis after admission. Sepsis/Acute sinusitis/Acute metabolic encephalopathy- WBC count elevated at 17k -->11k now, febrile Tmax 39.6, tachycardia, exquisite tenderness over maxillae. CXR normal, Flu swab neg, UA without evidence of infection. CT abd/pel with chronic perinephric stranding but no evidence of pyelo on UA. Pt cannot recall events of night of admission and was found down on floor by , delirious. -check CT sinuses now given sepsis, r/o any complicated sinusitis -continue Rocephin 1 gram IV q24 hrs -follow CBC -follow BCxs, Ur cx -received IVF resuscitation and BPs stable, mentating well Hyponatremia-acute on chronic-Na+ 128 on admission, now improved to 131 with baseline being 130-131 since increasing her dose of Effexor as outpt in Jun 2017. Seen by [facility] as outpt and suspected her SNRI was the culprit. Was treated with IVFs for sepsis and sodium tablet x 1 -continue reduced dose of Effexor -continue IVFs NS 75 mls/hr -follow PRP while here and as outpt with Nephro Major depressive disorder/SAD: can taper effexor as pt has been on 150mg for 4 weeks -Dropped to 75mg, reports she never had hyponatremia at the 75mg dose -consider starting amitriptyline and can titrate as needed with PCP, but will hold off until acute infection resolved given its potential side effects, not all that efficacious for depression unless higher doses which are limited by ASEs HypoMg: replaced and monitor DMII: holding metformin due to IV contrast SSI PRN A1c pending -continue glyburide as long as taking po HTN: BPs on lower side - continue home meds but lower lisinopril to 20mg daily -NO LONGER ON HCTZ-removed from home med rec Hypothyroid: TSH mildly depressed in ED Monitor on home dose Other: Full code, although does not want prolonged mechanical life support, including no feeding tubes SCDs and Lovenox SQ for DVT proph DM diet
--- NOTE | 2017-08-25 13:41 | DIAGNOSTIC IMAGING REPORT ---
SINUS CT WITHOUT CONTRAST CLINICAL HISTORY: Sinusitis. Sepsis. COMPARISON STUDY: None. Technique: Helical axial images of the sinuses were obtained without IV contrast. Coronal reformats were viewed. A dose lowering technique was utilized adhering to the principles of ALARA. CT DOSE: 687.02 mGy.cm FINDINGS: Orbits are unremarkable on this unenhanced examination. Visualized portions of the intracranial contents are also unremarkable on this unenhanced exam. Multiple dental amalgams are present. There is a small to moderate-sized air-fluid level within the right maxillary sinus. Otherwise, there is minimal mucosal thickening of the sinuses. No bony destruction is present. There is mild rightward deviation the nasal septum with minimal spur formation. The major drainage pathways are patent. The cribriform plate is intact. IMPRESSION: 1. Right maxillary sinus air-fluid level which suggests acute sinusitis. 2. Patent major drainage pathways. 3. Mild rightward deviation of the nasal septum. Electronically signed by: Polo Christensen M.D. 08/25/2017 1:40 PM Dictated Date/Time: 08/25/2017 1:36 PM
[2017-08-25] MEDS: SODIUM CHLORIDE 0.9% 1000ML 1,000 ML IV SCH (13:50)
[2017-08-25] MEDS ORDERED: ENOXAPARIN 40 MG/0.4 ML SYR SQ ONE (14:00)
[2017-08-25 15:25] VITALS: BP 121/72; PULSE 64; TEMP 36.6; O2SAT 98
[2017-08-25] MEDS ORDERED: CEFTRIAXONE SOD INJ 1 GM in DEXTROSE 5% ADD-VANTAGE 50ML 50 ML IV SCH (17:00)
[2017-08-25] MEDS ORDERED: AMITRIPTYLINE HCL 25 MG TAB PO SCH (21:00)
[2017-08-25 23:51] VITALS: BP 119/65; PULSE 58; TEMP 36.7; O2SAT 95
[2017-08-26] MEDS: SODIUM CHLORIDE 0.9% 1000ML 1,000 ML IV SCH (03:27)
[2017-08-26] MEDS: LEVOTHYROXINE 125 MCG TAB PO SCH (06:31)
[2017-08-26 07:37] LABS: HEMOGLOBIN A1C 5.9 % (4.5-5.6)
[2017-08-26 07:50] LABS: BASO % 0.4 %; BASO ABS # 0.03 K/uL (0-0.2); EOS % 2.9 %; EOS ABS # 0.22 K/uL (0-0.5); HEMATOCRIT 34.5 % (37-47); HEMOGLOBIN 11.8 g/dL (12.0-16.0); IG# 0.01 K/uL (0.00-0.02); LYMPH % 23.7 %; LYMPH ABS # 1.77 K/uL (1.2-3.4); MEAN CELL VOLUME 89.8 fL (80-100); MEAN CORPUSCULAR HEMOGLOBIN 30.7 pg (25-34); MEAN CORPUSCULAR HGB CONC 34.2 g/dl (32-36); MEAN PLATELET VOLUME 8.9 fL (7.4-10.4); MONO % 10.2 %; MONO ABS # 0.76 K/uL (0.11-0.59); NEUT % 62.7 %; NEUT ABS # 4.69 K/uL (1.4-6.5); PLATELET COUNT 206 K/uL (130-400); RED CELL DISTRIBUTION WIDTH CV 15.1 % (11.5-14.5); WHITE BLOOD COUNT 7.48 K/uL (4.8-10.8)
[2017-08-26 07:58] VITALS: BP 125/64; PULSE 63; TEMP 36.8; O2SAT 95
[2017-08-26] MEDS: ASPIRIN 81 MG CHEW PO SCH (08:04)
[2017-08-26] MEDS: FEXOFENADINE HCL 180 MG TAB PO SCH (08:04)
[2017-08-26] MEDS: CALCIUM 600MG + VIT D 400 IU TAB PO SCH (08:04)
[2017-08-26] MEDS: MAGNESIUM OXIDE 400 MG TAB PO SCH (08:04)
[2017-08-26] MEDS: VENLAFAXINE HCL XR 75 MG CAPXR PO SCH (08:04)
[2017-08-26] MEDS: ALLOPURINOL 300 MG TAB PO SCH (08:05)
[2017-08-26] MEDS: LISINOPRIL 20 MG TAB PO SCH (08:05)
[2017-08-26] MEDS: GUAIFENESIN 600 MG TABCR PO SCH (08:05)
[2017-08-26] MEDS: INSULIN ASPART 100 UNITS/ML 3 ML PEN SC SCH (08:10)
[2017-08-26 08:15] LABS: CALCIUM 8.8 mg/dl (8.5-10.1); CREATININE 0.44 mg/dl (0.60-1.20); POTASSIUM 3.9 mmol/L (3.5-5.1)
[2017-08-26] MEDS ORDERED: MAGNESIUM SULFATE 1GM / D5W 1 GM in PREMIXED IN D5W 100 ML IV SCH (08:45)
[2017-08-26] MEDS ORDERED: ENOXAPARIN 40 MG/0.4 ML SYR SQ SCH (09:00)
[2017-08-26] MEDS: COLESTIPOL HCL 1 GM TAB PO SCH (09:31)
[2017-08-26] MEDS ORDERED: AMOX875T PO (10:02)
[2017-08-26] MEDS ORDERED: LISI40TA PO (10:02)
[2017-08-26] MEDS ORDERED: EFFSR75 PO (10:02)
--- NOTE | 2017-08-26 10:07 | Discharge Instructions ---
Discharge Instructions Date of Service Aug 26, 2017. Admission Reason for Admission: Hypomagnesemia, Hyponatremia, Weakness Discharge Discharge Diagnosis / Problem: Sepsis, Acute sinusitis, Hyponatremia, Hypomagnesemia Discharge Goals Goal(s): Improve disease control, Diagnostic testing, Therapeutic intervention Activity Recommendations Activity Limitations: resume your previous activity Lifting Limitations: none Exercise/Sports Limitations: gradually increase as tolerated Shower/Bathe: no limitations Driving or Machine Use: no limitations . Instructions / Follow-Up Instructions / Follow-Up You were admitted with low sodium and magnesium, weakness. You were having fevers and sinus pain. CT scan of the sinuses proved an acute sinusitis and you were treated with antibiotics with improvement in your symptoms prior to discharge. Your magnesium was replaced. Your sodium level was much improved after reducing your Effexor dose to 75mg daily and providing you with IV fluids for dehydration. Please finish out the whole course of antibiotics for your sinus infection. Your lisinopril dose was lowered to 20mg daily as your blood pressures were in the low-normal range. Please follow up with your PCP within 1-2 weeks. Current Hospital Diet Patient's current hospital diet: Diabetes Type 2 Diet Discharge Diet Recommended Diet: Diabetes Type 2 Diet Procedures Procedures Performed: CT sinuses Chest xray CT abdomen/pelvis Pending Studies Studies pending at discharge: yes List of pending studies: Final Blood culture result-no growth to date Laboratory Results Last 24 Hours Test 08/25/17 12:39 08/25/17 16:25 08/25/17 16:46 08/25/17 20:19 Bedside Glucose 156 mg/dl 55 mg/dl 70 mg/dl 115 mg/dl Test 08/26/17 07:27 08/26/17 07:50 White Blood Count 7.48 K/uL Red Blood Count 3.84 M/uL Hemoglobin 11.8 g/dL Hematocrit 34.5 % Mean Corpuscular Volume 89.8 fL Mean Corpuscular Hemoglobin 30.7 pg Mean Corpuscular Hemoglobin Concent 34.2 g/dl Platelet Count 206 K/uL Mean Platelet Volume 8.9 fL Neutrophils (%) (Auto) 62.7 % Lymphocytes (%) (Auto) 23.7 % Monocytes (%) (Auto) 10.2 % Eosinophils (%) (Auto) 2.9 % Basophils (%) (Auto) 0.4 % Neutrophils # (Auto) 4.69 K/uL Lymphocytes # (Auto) 1.77 K/uL Monocytes # (Auto) 0.76 K/uL Eosinophils # (Auto) 0.22 K/uL Basophils # (Auto) 0.03 K/uL RDW Standard Deviation 49.0 fL RDW Coefficient of Variation 15.1 % Immature Granulocyte % (Auto) 0.1 % Immature Granulocyte # (Auto) 0.01 K/uL Sodium Level 135 mmol/L Potassium Level 3.9 mmol/L Chloride Level 103 mmol/L Carbon Dioxide Level 22 mmol/L Anion Gap 10.0 mmol/L Blood Urea Nitrogen 10 mg/dl Creatinine 0.44 mg/dl Est Creatinine Clear Calc Drug Dose 116.8 ml/min Estimated GFR () 117.7 Estimated GFR (Non- 101.6 BUN/Creatinine Ratio 22.9 Random Glucose 142 mg/dl Calcium Level 8.8 mg/dl Magnesium Level 1.7 mg/dl Bedside Glucose 138 mg/dl Hemoglobin A1c Test 08/25/17 06:48 Range/Units Estimated Average Glucose 123 mg/dl Hemoglobin A1c 5.9 H 4.5-5.6 % Medical Emergencies . Who to Call and When: Medical Emergencies: If at any time you feel your situation is an emergency, please call 911 immediately. . Non-Emergent Contact Non-Emergency issues call your: Primary Care Provider Call Non-Emergent contact if: temperature is above 100.5, your pain is not controlled, your pain is worsening, your pain is unusual for you, your pain is concerning you, you have any medication questions you have worsening facial pain, headache, rising fevers again, or worsening weakness. . . "Provider Documentation" section prepared by Anne Grimm. . VTE Core Measure Inpt VTE Proph given/why not?: Enoxaparin (Lovenox)SQ
[2017-08-26] MEDS ORDERED: ACET-1047 PO (10:08)
[2017-08-26 10:20] VITALS: BP 125/64; PULSE 63; TEMP 36.8; O2SAT 95
--- NOTE | 2017-08-26 10:26 | Discharge Summary ---
Discharge Summary Date of Service Aug 26, 2017. Discharge Summary Admission Date: Aug 24, 2017 at 16:26 Discharge Date: Aug 26, 2017 Discharge Disposition: Home Principal Diagnosis: Sepsis, Acute sinusitis Problems/Secondary Diagnoses: Hyponatremia Hypomagnesemia Acute metabolic encephalopathy Chronic perinephric stranding Nephrolithiasis Major depressive disorder/SAD DMII HTN Hypothyroidism Procedures: CT Sinuses CT abd/pel CXR Consultations: None Medication Reconciliation New Medications: Amoxicillin & Pot Clavulanate (Augmentin 875-125 mg) 1 Tab Tab 875 MG PO BID for 8 Days, #16 TAB Acetaminophen (Mapap) 325 Mg Tab 650 MG PO Q4H PRN for Pain or Fever for 7 Days Venlafaxine Hcl (Effexor Extended Rel) 75 Mg Capcr 75 MG PO QAM for 30 Days, #30 CAP Changed Medications: Lisinopril (Zestril) 40 Mg Tab 20 MG PO DAILY for 30 Days (Changed from: 40 MG) Continued Medications: Albuterol Hfa (Ventolin Hfa) 200 Puffs/76720 Mcg Aers 2 PUFFS INH QID PRN for SOB/Wheezing, #1 INHALER Alendronate Sodium (Fosamax) 70 Mg Tab 70 MG PO WK, TAB Allopurinol (Allopurinol) 300 Mg Tab 1 TAB PO DAILY Aspirin (Aspirin 81 Low Dose) 81 Mg Chw 1 TAB PO DAILY Budesonide (Inhalation) (Pulmicort Flexhaler) 180 Mcg/Act Inh 1 PUFF INH UD PRN for SOB/Wheezing for 30 Days, #1 INHALER 6 Refills Calcium Carbonate-Vitamin D (Calcium/Vitamin D) 1 Cap Cap 1 TAB PO DAILY Colestipol Hcl (Colestid) 1 Gm Tab 1 GM PO DAILY, TAB Dextromethorphan-Guaifenesin (Mucinex Dm Maximum Streng) 1 Tab Tab 1 TAB PO BID for 15 Days, #30 TAB Fexofenadine Hcl (Sarah) 180 Mg Tab 180 MG PO DAILY, TAB Glyburide (Glyburide) 5 Mg Tab 1 TAB PO DAILY CHANGE MADE PER DR. HARDY Levothyroxine Sodium (Synthroid) 125 Mcg Tab 125 MCG PO DAILY, TAB Magnesium Oxide (Mag-Ox) 400 Mg Tab 400 MG PO BID, TAB Metformin Hcl Er (Glucophage Er) 500 Mg Tab 1000 MG PO BID, TAB Trazodone Hcl (Trazodone) 50 Mg Tab 0.5-1 TAB PO HS, TAB Discontinued Medications: Venlafaxine Hcl (Effexor Extended Rel) 150 Mg Cap 150 MG PO DAILY, CAP Discharge Exam Pt much improved since admission, no further fevers. Pain in face over maxillae is improved, still with some facial swelling and erythema R>L. Is blowing out and coughing up post-nasal drainage that is yellow in color. No chest congestion , no CP or SOB. No abd pain, no diarrhea. No urinary symptoms. Ready for discharge. Physical Exam General Appearance: WD/WN, no apparent distress Eyes: normal inspection, PERRL, EOMI, sclerae normal ENT: hearing grossly normal, pharynx normal, + pertinent finding (+mild tenderness to palpation over bilateral maxillae R>L improved from previous, with mild erythema of cheeks and nose, nose with bulbous appearance) Neck: supple, no adenopathy, thyroid normal, trachea midline Respiratory/Chest: lungs clear, normal breath sounds, no respiratory distress, no accessory muscle use Cardiovascular: regular rate, rhythm, no edema, no gallop, no murmur Abdomen: normal bowel sounds, non tender, soft Extremities: normal range of motion, non-tender, normal inspection, no pedal edema, no calf tenderness Neurologic/Psychiatric: senior visual designer II-XII nml as tested, no motor/sensory deficits, alert, normal mood/affect, oriented x 3 Skin: normal color (except cheeks as above are flushed), warm/dry Review of Systems: Constitutional: No fever, No chills Eyes: No problem reported ENT: + nasal symptoms, + sore throat, No trouble swallowing Respiratory: + cough (from post-nasal gtt) Cardiovascular: No chest pain Abdomen: No pain, No nausea, No vomiting, No diarrhea, No constipation Musculoskeletal: No problem reported Genitourinary - Female: No problem reported Neurologic: No problem reported Psychiatric: No problem reported Endocrine: No problem reported Hematologic / Lymphatic: No problem reported Integumentary: No problem reported Hospital Course This pt is a 72 y/o F who was admitted on 08/24 for weakness and hypoNa, with recent sore throat and headache, found to have sepsis and symptoms of acute sinusitis after admission with fevers, tachycardia,leukocytosis. CT sinuses showed acute right maxillary sinusitis. Sepsis/Acute sinusitis/Acute metabolic encephalopathy- WBC count elevated at 17k -->11k--> 7k now, febrile Tmax 39.6 and now no further fevers in over 24 hrs since starting Rocephin. CT sinuses with acute rt maxillary sinusitis. CXR normal, Flu swab neg, UA and Ur cx without evidence of infection. CT abd/pel with chronic perinephric stranding but no evidence of pyelo on UA. BCxs no growth to date at time of discharge. Pt cannot recall events of night of admission and was found down on floor by , delirious. All delirium resolved. -finish out course of Augmentin 875mg bid for total 10 days of antibiotics -received IVF resuscitation and BPs stable, mentating well -can use nasal saline spray -f/u with PCP within 1-2 weeks Hyponatremia-acute on chronic-Na+ 128 on admission, now improved to 135 with baseline being 130-131 since increasing her dose of Effexor as outpt in Jun 2017. Seen by Nephro as outpt and suspected her SNRI was the culprit. Was treated with IVFs for sepsis and sodium tablet x 1. -continue reduced dose of Effexor 75mg upon discharge -follow up with PCP and Nephro as outpt but most likely will remain stable Major depressive disorder/SAD: decreasing Effexor as above for hyponatremia -Dropped to 75mg, reports she never had hyponatremia at the 75mg dose -consider starting amitriptyline and can titrate as needed with PCP, but will hold off until acute infection resolved given its potential side effects, not all that efficacious for depression unless higher doses which are limited by ASEs HypoMg: replaced DMII: held metformin but can restart on discharge. A1C only 5.9%, very well controlled -continue glyburide HTN: BPs on lower side - continue home meds but lowered lisinopril to 20mg daily -NO LONGER ON HCTZ-removed from home med rec Hypothyroid: TSH mildly depressed in ED Monitor on home dose Stable for dc to home today Total Time Spent: Greater than 30 minutes This includes examination of the patient, discharge planning, medication reconciliation, and communication with other providers. Discharge Instructions Please refer to the electronic Patient Visit Report (Discharge Instructions) for additional information. Follow-Up PCP within 1-2 weeks Additional Copies To Moshe Damon M.D.; Abad Garcia M.D.
--- NOTE | 2017-08-28 12:22 | EDITING REQUIRED CODING QUERY ---
PRESENT ON ADMISSION QUERY To promote full compliance with coding requirements relating to pateint care, physician participation is requested in all cases of radio interference expert uncertainty. Please assist us with the question(s) below: Please place an X within the parenthesis (x). The following diagnosis(es) listed in this patient's medical record require physician assistance to determine if they were present on admission (POA) or not. Please advise for each diagnosis whether it was present on admission, not present on admission, or if it was clinically undetermined. 1.Sepsis - documented from 1st Progress Note on 08/25/17 to Discharge Summary. (x ) Present On Admission ( ) Not Present On Admission ( ) Clinically Undetermined Thank you Liliana Woodward *Definition of the present on admission (POA)-Present on admission is defined as present at the time the order for inpatient admission occurs. Conditions that develop during an outpatient encounter prior to a written order for inpatient admission (including emergency department, observation, or outpatient surgery) are considered present on admission.
== END 2017-08-26 12:05 | disposition home or self-care (01) | DRG 871 ==
LOC: EDBD 12:06 → C.EDC 12:07 → C.MS2W 16:26 → ENRESERV 17:03
PROVIDERS: ADMIT Family Medicine; ATTEND Family Medicine
DX: A41.9 Sepsis, unspecified organism (principal); J01.90 Acute sinusitis, unspecified; G93.41 Metabolic encephalopathy; E87.1 Hypo-osmolality and hyponatremia; E83.42 Hypomagnesemia; R35.0 Frequency of micturition; E11.65 Type 2 diabetes mellitus with hyperglycemia; I10 Essential (primary) hypertension; F32.9 Major depressive disorder, single episode, unspecified; E03.9 Hypothyroidism, unspecified; Z79.899 Other long term (current) drug therapy; Z79.82 Long term (current) use of aspirin; Z79.84 Long term (current) use of oral hypoglycemic drugs

== ENCOUNTER → 2017-09-03 | Outpatient (CLI) | payer BC, OTHER ==
[~2017-09-03] MED LIST changes: -ACC10 PO; +ACET-1047 PO; -ALBUAER2 INH; +ALEN70TA4 PO; -ALL180 PO; +AMOX875T PO; -ASPCH81 PO; +ASPI1CHW12 PO; +BUDE180I INH; +CALCCAP17 PO; -CLTP PO; -CLX20 PO; +COLE1TAB PO; +DEXT1TAB50 PO; -DIPH-437 PO; +EFFSR75 PO; +FEXO1TAB46 PO; -GLC500 PO; -HYDC25 PO; +LEVO125T72 PO; -LEVO137T14 PO; +LISI40TA PO; +MAGN400T6 PO; -MEDR10TA PO; +METF500T5 PO; -PLMIN200 INH; +TRAZ50TA35 PO; +VNTHFA/IN INH
[2017-09-03 17:57] LABS: BASO % 0.3 %; BASO ABS # 0.03 K/uL (0-0.2); EOS % 1.7 %; EOS ABS # 0.17 K/uL (0-0.5); HEMATOCRIT 34.3 % (37-47); HEMOGLOBIN 11.6 g/dL (12.0-16.0); IG# 0.05 K/uL (0.00-0.02); LYMPH % 34.7 %; LYMPH ABS # 3.42 K/uL (1.2-3.4); MEAN CELL VOLUME 90.5 fL (80-100); MEAN CORPUSCULAR HEMOGLOBIN 30.6 pg (25-34); MEAN CORPUSCULAR HGB CONC 33.8 g/dl (32-36); MEAN PLATELET VOLUME 8.9 fL (7.4-10.4); MONO % 7.4 %; MONO ABS # 0.73 K/uL (0.11-0.59); NEUT % 55.4 %; NEUT ABS # 5.46 K/uL (1.4-6.5); PLATELET COUNT 362 K/uL (130-400); RED CELL DISTRIBUTION WIDTH CV 14.9 % (11.5-14.5); RED CELL DISTRIBUTION WIDTH SD 49.1 fL (36.4-46.3); WHITE BLOOD COUNT 9.86 K/uL (4.8-10.8)
[2017-09-03 18:14] LABS: BLOOD UREA NITROGEN 11 mg/dl (7-18); CALCIUM 9.4 mg/dl (8.5-10.1); CARBON DIOXIDE 27 mmol/L (21-32); GLUCOSE 117 mg/dl (70-99); POTASSIUM 4.2 mmol/L (3.5-5.1); SODIUM 130 mmol/L (136-145)
== END | disposition home or self-care (01) ==
LOC: C.LABBFT 15:17
PROVIDERS: ATTEND Physician Assistant Medical
DX: E87.1 Hypo-osmolality and hyponatremia (principal); A41.9 Sepsis, unspecified organism; E03.9 Hypothyroidism, unspecified

== ENCOUNTER → 2017-09-05 | Outpatient (CLI) | payer BC, OTHER | END | disposition home or self-care (01) | LOC: C.LABBFT 10:18 | PROVIDERS: ATTEND Physician Assistant Medical | DX: R32 Unspecified urinary incontinence (principal) ==

== ENCOUNTER → 2017-09-13 | Outpatient (CLI) | payer BC, OTHER ==
[~2017-09-13] MED LIST changes: -AMOX875T PO
[2017-09-13 12:49] LABS: HEMATOCRIT 36.6 % (37-47); HEMOGLOBIN 11.8 g/dL (12.0-16.0); MEAN CELL VOLUME 91.7 fL (80-100); MEAN CORPUSCULAR HEMOGLOBIN 29.6 pg (25-34); MEAN CORPUSCULAR HGB CONC 32.2 g/dl (32-36); MEAN PLATELET VOLUME 8.8 fL (7.4-10.4); PLATELET COUNT 337 K/uL (130-400); RED CELL DISTRIBUTION WIDTH CV 15.6 % (11.5-14.5); RED CELL DISTRIBUTION WIDTH SD 52.3 fL (36.4-46.3); WHITE BLOOD COUNT 6.39 K/uL (4.8-10.8)
[2017-09-13 13:04] LABS: ALBUMIN 3.5 gm/dl (3.4-5.0); BLOOD UREA NITROGEN 10 mg/dl (7-18); CALCIUM 9.7 mg/dl (8.5-10.1); CARBON DIOXIDE 28 mmol/L (21-32); CREATININE 0.79 mg/dl (0.60-1.20); GLUCOSE 162 mg/dl (70-99); POTASSIUM 4.6 mmol/L (3.5-5.1); SODIUM 135 mmol/L (136-145)
[2017-09-13 13:05] LABS: PHOSPHORUS 3.6 mg/dl (2.5-4.9)
== END | disposition home or self-care (01) ==
LOC: C.LABBFT 09:31
PROVIDERS: ATTEND Physician Assistant Medical
DX: E87.1 Hypo-osmolality and hyponatremia (principal); D64.9 Anemia, unspecified

== ENCOUNTER → 2017-11-01 | Outpatient (CLI) | payer BC ==
[2017-11-01 17:38] LABS: BLOOD UREA NITROGEN 11 mg/dl (7-18); CALCIUM 9.3 mg/dl (8.5-10.1); CARBON DIOXIDE 26 mmol/L (21-32); CREATININE 0.68 mg/dl (0.60-1.20); GLUCOSE 111 mg/dl (70-99); POTASSIUM 4.1 mmol/L (3.5-5.1); SODIUM 135 mmol/L (136-145)
== END | disposition home or self-care (01) ==
LOC: C.LABBFT 11:02
PROVIDERS: ATTEND Student in an Organized Health Care Education/Training Program
DX: Z79.899 Other long term (current) drug therapy (principal)

== ENCOUNTER → 2017-11-20 | Outpatient (CLI) | payer BC | END | disposition home or self-care (01) | LOC: C.LABBFT 08:29 | PROVIDERS: ATTEND Internal Medicine | DX: E11.9 Type 2 diabetes mellitus without complications (principal); M81.0 Age-related osteoporosis without current pathological fracture ==

== ENCOUNTER → 2017-11-27 | Outpatient (CLI) | payer BC | END | disposition home or self-care (01) | LOC: C.PAPS 18:04 | PROVIDERS: ATTEND Internal Medicine | DX: Z00.00 Encounter for general adult medical examination without abnormal findings (principal) ==

== ENCOUNTER → 2017-12-03 | Outpatient (CLI) | payer BC ==
[2017-12-03 18:21] LABS: ALBUMIN 3.5 gm/dl (3.4-5.0); BLOOD UREA NITROGEN 9 mg/dl (7-18); CALCIUM 8.9 mg/dl (8.5-10.1); CARBON DIOXIDE 28 mmol/L (21-32); CREATININE 0.71 mg/dl (0.60-1.20); GLUCOSE 168 mg/dl (70-99); POTASSIUM 4.3 mmol/L (3.5-5.1); SODIUM 134 mmol/L (136-145)
[2017-12-03 18:22] LABS: PHOSPHORUS 3.5 mg/dl (2.5-4.9)
== END | disposition home or self-care (01) ==
LOC: C.LABBFT 13:44
PROVIDERS: ATTEND Internal Medicine Nephrology
DX: I10 Essential (primary) hypertension (principal); E83.42 Hypomagnesemia; E87.1 Hypo-osmolality and hyponatremia

== ENCOUNTER → 2018-03-20 | Outpatient (CLI) | payer BC ==
[2018-03-20 17:53] LABS: BLOOD UREA NITROGEN 10 mg/dl (7-18); CALCIUM 9.5 mg/dl (8.5-10.1); CARBON DIOXIDE 26 mmol/L (21-32); CREATININE 0.73 mg/dl (0.60-1.20); GLUCOSE 114 mg/dl (70-99); POTASSIUM 4.9 mmol/L (3.5-5.1); SODIUM 132 mmol/L (136-145)
== END | disposition home or self-care (01) ==
LOC: C.LABBFT 12:24
PROVIDERS: ATTEND Student in an Organized Health Care Education/Training Program
DX: Z79.899 Other long term (current) drug therapy (principal)

== ENCOUNTER 2019-02-10 06:26 | Inpatient (IN) ==
--- NOTE | 2019-01-28 10:32 | PAT Medication Instructions ---
Medication Instructions Date of Service January 28, 2019 Home Medications Medication Instructions Recorded albuterol sulfate HFA 90 2 puffs INH QID PRN #18 gm 12/30/18 mcg/actuation aerosol inhaler metformin 500 mg tablet 1,000 mg PO BID #360 tab 12/30/18 albuterol sulfate HFA 90 mcg/actuation aerosol inhaler 2 puffs INH QID NEEDED aspirin 81 mg tablet,delayed release 81 mg PO QPM bupropion HCl 150 mg tablet,12 hr sustained-release(smoking deterrent) 150 mg PO BID cholecalciferol (vitamin D3) 2,000 unit capsule 2,000 units PO QDD diclofenac 1 % topical gel 2 gm TOP DAILY NEEDED fexofenadine 180 mg tablet 180 mg PO QAM magnesium oxide 400 mg (241.3 mg magnesium) tablet 400 mg PO TID metformin 500 mg tablet 1,000 mg PO BID nystatin 100,000 unit/gram topical powder 1 appln TOP BID NEEDED omeprazole 20 mg capsule,delayed release PO QAM turmeric root extract 500 mg capsule 500 mg PO QDL alendronate [Fosamax] 70 mg PO WK allopurinol 300 mg PO QAM calcium carbonate-vitamin D3 [Calcium 600 + D(3)] 1 tab PO BID colestipol 1 gm PO QDL glimepiride 2 mg PO QPM levothyroxine 125 mcg PO QAM lisinopril 20 mg PO QAM meloxicam 15 mg PO QAM mirtazapine 30 mg PO HS mometasone [Asmanex Twisthaler] 1 puffs INH QAM Continue as directed alendronate [Fosamax] 70 mg PO WK ASK your surgeon for instructions meloxicam 15 mg PO QAM STOP taking 2 weeks before surgery turmeric root extract 500 mg capsule 500 mg PO QDL STOP taking 24 hours before surgery diclofenac 1 % topical gel 2 gm TOP DAILY NEEDED nystatin 100,000 unit/gram topical powder 1 appln TOP BID NEEDED colestipol 1 gm PO QDL DO NOT take the morning of surgery fexofenadine 180 mg tablet 180 mg PO QAM magnesium oxide 400 mg (241.3 mg magnesium) tablet 400 mg PO TID metformin 500 mg tablet 1,000 mg PO BID omeprazole 20 mg capsule,delayed release 20 mg PO QAM allopurinol 300 mg PO QAM calcium carbonate-vitamin D3 [Calcium 600 + D(3)] 1 tab PO BID lisinopril 20 mg PO QAM Take morning of surgery With a small sip of water, OTHERWISE NOTHING TO EAT OR DRINK AFTER MIDNIGHT: bupropion HCl 150 mg tablet,12 hr sustained-release(smoking deterrent) 150 mg PO BID levothyroxine 125 mcg PO QAM mometasone [Asmanex Twisthaler] 1 puffs INH QAM albuterol sulfate HFA 90 mcg/actuation aerosol inhaler 2 puffs INH QID NEEDED (if needed, bring to hospital) Take evening before surgery albuterol sulfate HFA 90 mcg/actuation aerosol inhaler 2 puffs INH QID NEEDED (if needed) aspirin 81 mg tablet,delayed release 81 mg PO QPM bupropion HCl 150 mg tablet,12 hr sustained-release(smoking deterrent) 150 mg PO BID cholecalciferol (vitamin D3) 2,000 unit capsule 2,000 units PO QDD albuterol sulfate HFA 90 mcg/actuation aerosol inhaler 2 puffs INH QID NEEDED magnesium oxide 400 mg (241.3 mg magnesium) tablet 400 mg PO TID metformin 500 mg tablet 1,000 mg PO BID calcium carbonate-vitamin D3 [Calcium 600 + D(3)] 1 tab PO BID glimepiride 2 mg PO QPM mirtazapine 30 mg PO HS Other Notes If you have any questions please call us at [phone] or [phone] or [phone] or [phone]
--- NOTE | 2019-01-28 11:38 | Anesthesiology Consultation ---
Date of Service January 28, 2019 Assessment & Plan (1) Encounter for pre-operative examination: - Discussed sisters history of anesthesia complications with Dr. Story and no further testing needed at this time. - No previous anesthesia records available. Chart Review Chart Review: Acceptable Risk for Surgery and Patient seen in Pre Admission Testing Consults Requested none Teaching & Discussion Pre-Anesthesia Teaching/Discussion Notes: Instructed NPO after midnight before surgery, except medications with 15 cc of water. Medication instructions provided according to the PAT guidelines. History Surgery Operation Date: 02/10/19 10:40 Proposed Procedures p Right Total Knee Arthroplasty - Alexei Lazo MD Height/Weight Height: 5 ft 3 in Weight: 95.8 kg Allergies Allergy/AdvReac Type Severity Reaction Status Date / Time pollen extracts Allergy Mild sneezing Verified 01/21/19 12:21 animal dander Allergy Unknown Sneezing Verified 01/21/19 12:21 naproxen Allergy Rash Verified 01/21/19 12:21 Medications Home Medications Medication Instructions Recorded Confirmed Last Taken albuterol sulfate HFA 90 2 puffs INH QID PRN #18 gm 12/30/18 01/21/19 Unknown mcg/actuation aerosol inhaler aspirin 81 mg tablet,delayed 81 mg PO QPM 12/30/18 01/21/19 Unknown release blood sugar diagnostic strips #10 ea 12/30/18 01/21/19 Unknown bupropion HCl 150 mg tablet,12 hr 150 mg PO BID 12/30/18 01/21/19 Unknown sustained-release(smoking deterrent) cholecalciferol (vitamin D3) 2,000 2,000 units PO QDD 12/30/18 01/21/19 Unknown unit capsule diclofenac 1 % topical gel 2 gm TOP DAILY PRN 12/30/18 01/21/19 Unknown fexofenadine 180 mg tablet 180 mg PO QAM 12/30/18 01/21/19 Unknown magnesium oxide 400 mg (241.3 mg 400 mg PO TID tab 12/30/18 01/21/19 Unknown magnesium) tablet metformin 500 mg tablet 1,000 mg PO BID #360 tab 12/30/18 01/21/19 Unknown nystatin 100,000 unit/gram topical 1 appln TOP BID PRN 12/30/18 01/21/19 Unknown powder omeprazole 20 mg capsule,delayed 20 mg PO QAM 12/30/18 01/21/19 Unknown release turmeric root extract 500 mg 500 mg PO QDL 12/30/18 01/21/19 Unknown capsule alendronate [Fosamax] 70 mg PO WK 01/21/19 01/21/19 Unknown allopurinol 300 mg PO QAM 01/21/19 01/21/19 Unknown calcium carbonate-vitamin D3 1 tab PO BID 01/21/19 01/21/19 Unknown [Calcium 600 + D(3)] colestipol 1 gm PO QDL 01/21/19 01/21/19 Unknown glimepiride 2 mg PO QPM 01/21/19 01/21/19 Unknown levothyroxine 125 mcg PO QAM 01/21/19 01/21/19 Unknown lisinopril 20 mg PO QAM 01/21/19 01/21/19 Unknown meloxicam 15 mg PO QAM 01/21/19 01/21/19 Unknown mirtazapine 30 mg PO HS 01/21/19 01/21/19 Unknown mometasone [Asmanex Twisthaler] 1 puffs INH QAM 01/21/19 01/21/19 Unknown Past Medical History Medical History Anxiety Asthma Depression Diabetes mellitus, type 2 Environmental allergies History of diverticulitis History of kidney stones Hx of gout Hx of intestinal obstruction Hypertension Hypothyroidism Macular degeneration both Osteopenia Osteoporosis Seasonal allergies Exercise / Class Metabolic Activity III < 4 Walking/Shop/Light housework (Very limited currently due to knee pain x 3 months. Able to climb stairs very slowly if holding on to railing. Denies CP. Has had some SOB with activity recently since gaining weight. ) Past Family History Family History Father Family history of diabetes mellitus Grandmother (Paternal) Family history of diabetes mellitus Grandmother (Maternal) Family history of diabetes mellitus Sister Family history of diabetes mellitus Past Surgical History Surgical History History of bowel resection History of cholecystectomy also had appy at same surgery Hx of appendectomy Hx of cataract extraction both eyes Hx of hernia repair Hx of lithotripsy Hx of tubal ligation S/P tonsillectomy Past Anesthesia History No Hx of Anesthesia Complications Sister recently had a colonoscopy 3 months ago where she " on the table" and had to stay on ventilator for at least 24 hours. Patient is unsure of details (fevers, etc). Patient also states that her, her sisters, and her mother all bleed very easily. No one has every been checked for any bleeding/clotting disorders that she is aware of. History of PONV No Hx of PONV and No Hx of Motion Sickness Social History Smoking Status: Never smoker Do You Dip or Chew Tobacco: No Hx Alcohol Use: Yes Alcohol type: wine alcohol intake frequency: holidays/special occasions only Hx Substance Use: No Review of Systems Patient denies chest pain, shortness of breath, dyspnea on exertion, cough, wheezing, palpitations. +Joint Pain (Right Knee, wrist, neck, back, etc) +Acid reflux (Controlled with current medications) Physical Exam Vital Signs BP: 125/68 P: 72 R: 16 T: 98.3 SPO2: 97% on RA Constitutional + obese ENMT Mouth: + dental restorations Thyromental Distance: > or= 3.5 Finger Breadths (4) Mallampati Class: II Neck normal visual inspection and trachea midline; neck extension not limited Respiratory normal respiratory effort Auscultation: lungs clear to auscultation bilaterally Cardiovascular Rate/Rhythm: regular rate and regular rhythm Heart Sounds: no murmur Vessels: no carotid bruit Neurologic moves all extremities Psychiatric Orientation: alert and oriented x 3 Testing Laboratory Results 01/28/19 11:50 01/28/19 11:50 PT 10.1 Seconds (9.0-12.0) 01/28/19 11:50 INR 1.0 (0.9-1.1) 01/28/19 11:50 APTT 25.2 Seconds (21.0-31.0) 01/28/19 11:50 Hemoglobin A1c 7.1 % (4.5-5.6) H 01/28/19 11:50 Blood Type A Positive 01/28/19 11:50 Antibody Screen NEGATIVE 01/28/19 11:50 Electrocardiogram Date: 05/28/18 Findings: + NSR @ (72) Nonspecific T-wave abnormality Chest X-Ray Date: 01/28/19 Findings: + NAD FINDINGS: The lungs are clear. Cardiac silhouette is normal in size. No pleural effusions. No pneumothorax. IMPRESSION: No acute process. Stress Test Date: 06/30/18 Type: DSE Findings: + WNL Resting EF: 55% Other Testing Negative dobutamine stress echo for myocardial ischemia at 88% maximum predicted heart rate. Negative dobutamine stress ECG for myocardial ischemia at 88% maximum predicted heart rate. No dobutamine induced chest pain. The baseline echocardiogram notes normal left ventricular function. Resting ECHO Images: The left ventricle is normal in size and systolic function. There is mild concentric left ventricular hypertrophy. There is no evidence of wall motion abnormalities present. An estimated left ventricular EF is 55%. The left atrial size is normal. The right ventricle is not well seen. The right atrium is not well seen. The aortic root is normal size. The mitral valve is normal. There is mitral annular calcification noted. There is no mitral regurgitation. The aortic valve is not well seen. There is no aortic valve stenosis. No aortic valve insufficiency. The pulmonic valve is not well seen, but is grossly normal. No pulmonic valvular regurgitation. The tricuspid valve is normal. There is no tricuspid regurgitation. No evidence of a pericardial effusion, cardiac mass, or thrombus.
--- NOTE | 2019-01-28 12:44 | XRay Report ---
XR chest Pre-admission PA/Lat HISTORY: Preop. COMPARISON: Chest 08/24/2017. FINDINGS: The lungs are clear. Cardiac silhouette is normal in size. No pleural effusions. No pneumot horax. IMPRESSION: No acute process. Electronically signed by: Kyrie Woodard M.D. 01/28/2019 12:43 PM
[2019-01-28 13:10] LABS: Basophils # (auto) 0.03 K/uL (0-0.2); Basophils % (auto) 0.4 %; Eosinophils # (auto) 0.16 K/uL (0-0.5); Eosinophils % (auto) 2.2 %; Hematocrit (blood only) 35.2 % (37-47); Hemoglobin 11.4 g/dL (12.0-16.0); Immature Granulocytes # (auto) 0.02 K/uL (0.00-0.02); Immature Granulocytes % (auto) 0.3 %; Lymphocytes # (auto) 2.94 K/uL (1.2-3.4); Lymphocytes % (auto) 41.1 %; Mean Corpuscular Hgb Conc 32.4 g/dL (32-36); Mean Corpuscular Volume 86.9 fL (80-100); Mean Platelet Volume 9.4 fL (7.4-10.4); Monocytes # (auto) 0.58 K/uL (0.11-0.59); Monocytes % (auto) 8.1 %; Neutrophils # (auto) 3.42 K/uL (1.4-6.5); Neutrophils % (auto) 47.9 %; Platelet Count 277 K/uL (130-400); RDW Coefficient of Variation 16.6 % (11.5-14.5); RDW Standard Deviation 53.1 fL (36.4-46.3); Red Blood Count 4.05 M/uL (4.2-5.4); White Blood Count 7.15 K/uL (4.8-10.8)
[2019-01-28 13:19] LABS: BUN Creatinine Ratio 18.9 (10-20); Calcium 9.3 mg/dl (8.5-10.1); Creatinine Clr Calc Pharmacy 72.7 ml/min; Est GFR (African American) 89.4; Est GFR (Non-African American) 77.1; Potassium 5.2 mmol/L (3.5-5.1)
[2019-01-28 13:25] LABS: Estimated Average Glucose 157 mg/dl; Hemoglobin A1C 7.1 % (4.5-5.6)
[2019-01-28 13:27] LABS: Partial Thromboplastin Ratio 0.9; Partial Thromboplastin Time 25.2 Seconds (21.0-31.0); Prothrombin Time 10.1 Seconds (9.0-12.0)
--- NOTE | 2019-02-06 18:39 | History and Physical Report ---
DATE OF ADMISSION: 02/10/2019 CHIEF COMPLAINT: Bilateral knee pain and discomfort, right side greater than left. HISTORY OF PRESENT ILLNESS: The patient is a 73-year-old female referred by my partner, Dr. Haque, for surgical treatment of her knees. She has got a long history of bilateral knee pain and discomfort that has gotten gradually worse over time. It is just becoming more debilitating as time goes on. The right side is worse than the left. It is mostly medial pain but some global pain. The more she walks, the more it hurts. She has a limited walking tolerance of a couple blocks. She has difficulty going up and down stairs. She has swelling and nighttime pain. She would like to proceed with surgical treatment. PAST MEDICAL HISTORY: 1. Hypertension. 2. Asthma. 3. Diabetes with an A1c of 7.1. 4. Neuropathy. 5. Anxiety. 6. Hiatal hernia. 7. Arthritis. PAST SURGICAL HISTORY: Includes: 1. Tubal ligation. 2. Cholecystectomy. 3. Lithotripsy. 4. Diverticulitis. ALLERGIES: NAPROXEN. CURRENT MEDICINES: 1. Baby aspirin once a day. 2. Sarah 180 mg a day. 3. Macular Vitamin 2 at supper. 4. Calcium 600 twice a day. 5. Vitamin D3 2000 international units a day. 6. Turmeric. 7. Allopurinol 300 mg in the morning. 8. Metformin 500 mg 2 in the morning, 1 in the evening. 9. Glimepiride 2 mg a day. 10. Levothyroxine 125 mcg daily. 11. Lisinopril 20 mg a day. 12. Magnesium oxide 400 mg with each meal. 13. Asmanex 220 mcg as needed. 14. Nystatin powder as needed. 15. Colestipol 1 g a day. 16. Mirtazapine 30 mg before bedtime. 17. Ventolin inhaler p.r.n. 18. Voltaren gel as needed. 19. Fosamax once a week. 20. Various supplements including vitamin E, Vitamin C, thiamin, riboflavin, and niacin. SOCIAL HISTORY: A 73-year-old female. She is a patient of Dr. Craven. She lives in [place]. She is . Rare alcohol intake. FAMILY HISTORY: Significant for heart disease, diabetes and uterine cancer. REVIEW OF SYSTEMS: Significant for diabetes. Her A1c is 7.1. Denies any chest pain or shortness of breath. No history of DVT or PE. No known bleeding problems. PHYSICAL EXAMINATION: GENERAL: Reveals a healthy, pleasant middle-aged female. Looks to be in reasonably good health. HEENT: Benign. NECK: Supple. No lymphadenopathy. LUNGS: Clear to auscultation. HEART: Regular rate and rhythm. ABDOMEN: Soft, nontender, nondistended. EXTREMITIES: Grossly neurovascularly intact except as follows: Examination of the knees reveals patient ambulates independently. She waddles and has a varus alignment to both knees. She has a varus thrust with weightbearing. Examination of the right knee reveals moderate soft tissue envelope. Varus alignment. Varus thrust with weightbearing. Small knee effusion. She is tender over the medial joint line. Range of motion is 5-120. No instability. She does have some stiffness with hip motion but no particular pain. Negative straight leg raise. X-RAYS: X-rays of the right knee were reviewed. It shows advanced right knee medial compartment DJD. She has complete loss of medial joint space. She has tibial femoral subluxation. She has got diffuse osteopenia. X-rays of the hip reveal fairly mild hip arthritis. ASSESSMENT: A 73-year-old female with advanced right knee degenerative joint disease, unresponsive to conservative treatment. She has got some mild hip arthritis but her knee is a limiting factor. She has failed conservative treatment and would like to have her right knee replaced. PLAN: We will take her to the operating room and do right total knee replacement. The risks and benefits of this procedure were explained to the patient including but not limited to DVT, PE, , infection, neurological injury, vascular injury, bleeding problem, pain, limited range of motion, stiffness, failure to relieve symptoms, incomplete relief of symptoms, need for further surgery in the future, fracture, leg length inequality, nerve palsy, etc. The patient understands and desires to proceed. Informed consent was obtained. As far as discharge plans, she is planning to be discharged to home using [facility] home health program. We did talk about holding her metformin and lisinopril on the morning of surgery. ZORAIDA
[~2019-02-10 06:26] MED LIST changes: -ACET-1047 PO; +ACETAMINOPHEN 500 MG TAB PO SCH; -ALEN70TA4 PO; -ALL300 PO; -ASPI1CHW12 PO; -BUDE180I INH; +BUPIVACAINE LIPOSOME/PF 266 MG, BUPIVACAINE/EPINEPHRINE 50 ML, SODIUM CHLORIDE 0.9% 30 ... INFIL SCH; -CALCCAP17 PO; +CEFAZOLIN 2000MG 2,000 MG/15 ML SYR IV SCH; -COLE1TAB PO; -DEXT1TAB50 PO; -EFFSR75 PO; +FAMOTIDINE 20 MG TAB PO SCH; -FEXO1TAB46 PO; +GABAPENTIN 300 MG CAP PO SCH; -LEVO125T72 PO; -LISI40TA PO; +LR 500ML BOLUS, THEN 15ML/HR IV SCH; +LR 60ML/HR IV SCH; -MAGN400T6 PO; -MCR5 PO; -METF500T5 PO; +METOCLOPRAMIDE HCL 10 MG TABLET PO SCH; +TRANEXAMIC ACID 1,000 MG **IV Pre-op IV SCH; -TRAZ50TA35 PO; -VNTHFA/IN INH
--- NOTE | 2019-02-10 06:44 | History & Physical Bridge Note ---
Date of Service February 10, 2019 History & Physical Bridge Note I have examined the patient, reviewed the History & Physical and in the interval since the performance of the History & Physical I have noted the following changes of clinical significance: no changes noted
[2019-02-10] MEDS ORDERED: LIDOCAINE HCL 2% 2 ML VIAL/AMP(20MG/ML) INFIL ONE (07:18)
[2019-02-10] MEDS ORDERED: MIDAZOLAM HCL 1 MG/ML 2ML VIAL ONE (07:18)
[2019-02-10] MEDS ORDERED: PROPOFOL IV EMULSION 10 MG/ML 20 ML VIAL IV ONE (07:18)
[2019-02-10] MEDS ORDERED: BUPIVACAINE 0.5 % 5 MG/1 ML PF 10ML VIAL ONE (07:30)
[2019-02-10] MEDS ORDERED: ROPIVACAINE 0.5% 5 MG/ML 30 ML VIAL ONE (07:31)
[2019-02-10] MEDS ORDERED: ATROPINE SULFATE 0.1 MG/ML 10ML SYR IV PRN (08:06)
[2019-02-10] MEDS ORDERED: ePHEDrine sulfate 50 MG/ML AMP IV PRN (08:06)
[2019-02-10] MEDS ORDERED: fentaNYL citrate 100 MCG/2 ML VIAL IV PRN (08:06)
[2019-02-10] MEDS ORDERED: ONDANSETRON INJ 2 MG/ML 2 ML VIAL IV PRN ×2 (08:06→12:20)
[2019-02-10] MEDS ORDERED: SODIUM CHLORIDE 0.9% PF 50 ML VIAL ONE (08:26)
[2019-02-10] MEDS ORDERED: BUPIVACAINE LIPOSOME 1.3% 266 MG/20 ML VIAL ONE (08:26)
[2019-02-10] MEDS ORDERED: BACITRACIN INJ 50,000 UNIT VIAL ONE (08:26)
[2019-02-10] MEDS ORDERED: EPINEPHrine INJ 1 MG/ML AMP ONE (08:26)
[2019-02-10] MEDS ORDERED: BUPIVACAINE 0.25% 30 ML VIAL ONE (08:27)
[2019-02-10] MEDS ORDERED: PHENYLEPHRINE 100MCG/ML 5ML SYR ONE (09:13)
--- NOTE | 2019-02-10 10:17 | Post Operative Brief Note ---
Immediate Post Op Note v1 Date of Surgery February 10, 2019 Pre & Post Diagnosis Operation Date: 02/10/19 08:50 Pre-Op Diagnosis: Right Knee Advanced Degenerative Joint Disease Post-Op Diagnosis: Right Knee Advanced Degenerative Joint Disease Procedure Operation Date: 02/10/19 08:50 Actual Procedures p Right Total Knee Arthroplasty(Right) - Alexei Lazo MD Surgeon Alexei Lazo MD Aircraft Maintenance Instructor Scott, PAC Estimated Blood Loss 50 Findings Consistent with Post-Op Diagnosis Fluids 1100 cc Specimens Right Knee Drains Anne Catheter (A 16 Greek anne catheter was inserted by DANDRE Silva, without difficulty, clear yellow urine obtained, output to be monitored by Anesthesia.) Anesthesia Type Spinal MAC Complications none Disposition Accompanied Patient To Recovery: No Disposition: Recovery Room
--- NOTE | 2019-02-10 11:23 | XRay Report ---
TWO VIEWS RIGHT KNEE CLINICAL HISTORY: Postoperative examination. FINDINGS: AP and crosstable lateral portable views of the right knee are obtained. A right knee arthr oplasty is in near anatomic alignment. There has been undersurface remodeling of the patella. No acut e fracture is seen. There are expected postoperative changes around the knee including skin clips, so ft tissue edema, and subcutaneous gas. IMPRESSION: Expected postoperative changes status post right knee arthroplasty. No acute fracture is seen. Electronically signed by: Zain Dasilva M.D. 02/10/2019 11:21 AM
--- NOTE | 2019-02-10 11:35 | Anesthesiology Progress Note ---
Date of Service February 10, 2019 Anesthesia Post Procedure Vital Signs Vital Signs: Temp Pulse Pulse Resp BP Pulse Ox 02/10/19 11:30 68 18 125/58 L 100 02/10/19 11:20 65 17 125/56 L 100 02/10/19 11:10 66 19 110/59 L 100 02/10/19 11:00 66 15 117/53 L 100 02/10/19 10:50 62 14 131/62 100 02/10/19 10:40 66 15 110/47 L 100 02/10/19 10:30 67 16 102/49 L 100 02/10/19 10:21 97.2 F L 65 14 107/51 L 100 02/10/19 07:09 98.2 F 91 H 20 142/73 H 97 Pain Intensity Right Knee: Pain Intensity: 4 Transfer of Care Handoff Completed per policy Notes Mental Status: alert / awake / arousable and participated in evaluation Patient Amnestic to Procedure: Yes Nausea / Vomiting: adequately controlled Pain: adequately controlled Airway Patency, RR, SpO2: stable & adequate BP & HR: stable & adequate Hydration State: stable & adequate Neuraxial Anesthesia: was administered and sensory block is resolving Anesthetic Complications: no major complications apparent and Pt Satisfied with anesthetic care
[2019-02-10] MEDS ORDERED: GLUCAGON FOR INJ 1 MG VIAL SQ PRN (12:20)
[2019-02-10] MEDS ORDERED: BISACODYL 10 MG SUPP PR PRN (12:20)
[2019-02-10] MEDS ORDERED: NYSTATIN POWDER 15GM BTL EXT PRN (12:20)
[2019-02-10] MEDS ORDERED: NALOXONE HCL 0.4 MG/1 ML VIAL/CARP IV PRN (12:20)
[2019-02-10] MEDS ORDERED: GLUCOSE 40% GEL 15 GM TUBE PO PRN (12:20)
[2019-02-10] MEDS ORDERED: [UNRECOGNIZED DRUG - OTHER] SCH (12:20)
[2019-02-10] MEDS ORDERED: DICLOFENAC SOD 1% GEL 100 GM TUBE EXT PRN (12:20)
[2019-02-10] MEDS ORDERED: HYDROmorphone INJ 0.5 MG/0.5 ML SYR IV PRN (12:20)
[2019-02-10] MEDS ORDERED: ALUMINUM/MAGNESIUM SUSP 30 ML UDC PO PRN (12:20)
[2019-02-10] MEDS ORDERED: MAGNESIUM HYDROXIDE SUSP 30 ML UDC PO PRN (12:20)
[2019-02-10] MEDS ORDERED: PHARMACY GLYCEMIC MGMT CONSULT STA (12:20)
[2019-02-10] MEDS ORDERED: CARBOHYDRATES FOR HYPOGLYCEMIA PO PRN (12:20)
[2019-02-10] MEDS ORDERED: DEXTROSE 50% 50 ML SYRINGE IV PRN (12:20)
[2019-02-10] MEDS ORDERED: ALBUTEROL HFA 8 GM INHALER INH PRN (12:20)
[2019-02-10] MEDS ORDERED: BLOOD SUGAR DIAGNOSTIC SCH (12:20)
[2019-02-10] MEDS ORDERED: GLUCOSE 10 TABS/TUBE PO PRN (12:20)
[2019-02-10] MEDS ORDERED: NON-FORMULARY MEDICATION (Turmeric Root Extract 500 MG) PO SCH (12:20)
[2019-02-10] MEDS ORDERED: METOCLOPRAMIDE HCL INJ 5 MG/ML 2 ML VIAL IV PRN (12:20)
[2019-02-10] MEDS ORDERED: PHARMACY GLYCEMIC MGMT CONSULT PRN (12:25)
[2019-02-10] MEDS: SODIUM CHLORIDE 0.9% 1000ML 1,000 ML IV SCH (13:18)
[2019-02-10] MEDS: MAGNESIUM OXIDE 400 MG TAB PO SCH ×2 (13:18→21:27)
[2019-02-10] MEDS: ACETAMINOPHEN 500 MG TAB PO SCH ×2 (13:19→21:29)
[2019-02-10] MEDS: KETOROLAC TROMETHAMINE 15 MG/ML VIAL IV SCH ×3 (13:19→23:54)
--- NOTE | 2019-02-10 13:25 | Operative Report ---
DATE OF OPERATION: 02/10/2019 SURGEON: Alexei Lazo MD CLINIC OFFICE MANAGER: DANDRE Sharma PREOPERATIVE DIAGNOSIS: Right knee degenerative joint disease. POSTOPERATIVE DIAGNOSIS: Right knee degenerative joint disease. PROCEDURE PERFORMED: Right cemented posterior stabilized total knee arthroplasty. COMPLICATIONS: None. ESTIMATED BLOOD LOSS: 50 mL. FLUID REPLACEMENT: 1100 mL crystalloid fluid replacement. ANESTHESIA: Spinal with adductor canal block. DRAINS: None. SPECIMENS: Right knee sent for pathology. OPERATIVE INDICATIONS: The patient is a 73-year-old female diabetic who has had a long history of bilateral knee pain and discomfort, right side greater than left. She has been through extensive conservative treatment over the years, which became less successful over time. X-rays show advanced right knee DJD. She elected to proceed with right total knee arthroplasty. OPERATIVE FINDINGS: Operative findings revealed advanced right knee DJD. She had extensive grade 4 [id number] disease in all 3 compartments, most severe in the medial side. She had eburnation of the medial femoral condyle and medial tibial plateau. She had osteophytes in the medial femoral condyle and medial tibial plateau. She had a fixed varus deformity to her knee with a large knee joint effusion. She also had diffuse osteopenia. OPERATIVE IMPLANTS: Operative implants consisted of: 1. Biomet Vanguard size 62.5 right posterior stabilized femoral component. 2. Biomet size 63 tibial tray. 3. A 12 mm posterior stabilized polyethylene insert. 4. A 28 x 8 all poly patella. OPERATIVE PROCEDURE: The patient was taken to the operating room, identified and placed on the operating table in supine position. All contact areas were appropriately padded. IV antibiotics were provided by anesthesia team. A spinal anesthetic and adductor canal block had been provided in the holding area. Dahl catheter was placed in sterile fashion. Right thigh tourniquet was then placed and the right lower extremity was then prepped and draped in usual sterile fashion. The right leg was elevated and exsanguinated with Esmarch and tourniquet was placed at 300 mmHg. An anterior approach of the right knee was then performed through a longitudinal incision centered over the patella. Sharp dissection was carried through subcutaneous tissues down to the level of the extensor mechanism. A medial parapatellar arthrotomy incision was made. Some subperiosteal dissection was carried out medially. The fat pad resected from beneath the patellar tendon. The lateral patellofemoral ligament was released. The patella was everted and the knee was flexed. The osteophytes were taken off the distal femur. The ACL and PCL were then released from the distal femur. The tibia subluxated anteriorly. The external tibial alignment jig was then placed in the anterior face of the tibia and adjusted 14 mm medially. Proximal tibial cut was made to remove about a millimeter of bone from most deficient aspect of the medial tibial plateau. Some osteophytes were taken off medial and posteromedially. Tibia sized to a size 63. Attention was then drawn to the femur. The distal femur was entered with a sharp drill bit. Intramedullary canal was suctioned. A right 5-degree valgus cutting guide was placed. Distal femoral cutting block was pinned in place. Distal femoral cut was made to take an additional 3 mm of bone off the distal femur. The femur was then sized to a size 62.5. We did downsize this slightly. The AP cutting block was pinned parallel to the epicondylar axis, which was 3 degrees of external rotation. The anterior cut, anterior chamfer, posterior cut, posterior chamfer cuts were made. Box cutting guide was placed and adjusted slightly lateral and the box cut was made. The knee was flexed. The remnants of the medial and lateral menisci were excised. The osteophytes were taken off the posterior aspect of the femur. Trial femoral component was placed. Tibial tray was pinned in maximum external rotation and the drill and stem punch were used to create defect in proximal tibia for the tibial tray. The knee was then trialed and the 12 mm insert fit most appropriately. Attention was then drawn to the patella. The patella was cleaned of all soft tissues. Patella thickness measured 18 mm in thickness, it was cut down to 13. It was sized to a size 28 patella. Lug holes were drilled for the 28 patella. Lateral osteophyte was removed. Patella button was placed. Knee was taken through range of motion and patella tracked nicely with no thumbs test. Attention was then drawn toward placement of the permanent components. All trial components were removed. Bone plug was placed in the distal femur. A double batch of Palacos G cement was mixed. A Biomet Vanguard size 62.5 right posterior stabilized femoral component, size 63 tibial tray, 12 mm posterior stabilized polyethylene insert, 28 x 8 all poly patella then cemented in place. Knee was brought down to full extension until cement hardened. A final cement check was then performed. Pericapsular tissues were injected with a total of 100 mL of a combination of 20 mL of Exparel, 30 mL of normal saline, 50 mL of 0.25% Marcaine with epinephrine. The patient did receive 1 gram of tranexamic acid. The tourniquet was then let down for final tourniquet time of 53 minutes. Hemostasis was assured with use of electrocautery. The extensor mechanism was then closed with a combination of #1 PDS suture and #1 Vicryl suture in [id number] fashion. Extensor mechanism was checked and found to be intact. The subcutaneous tissues were then closed with #2 Dexon suture in buried interrupted fashion. Skin was closed with skin jamie. Leg was then cleaned, dried and a sterile dressing of Xeroform, 4 x 4, sterile cast padding and Med bandage were applied. The patient then transferred to the recovery room in stable condition. The patient tolerated the procedure well with no complication. All needle and sponge counts were correct at the end of the operation. I attest to the content of the Intraoperative Record and any orders documented therein. Any exception s are noted below.
[2019-02-10] MEDS: INSULIN ASPART 100 UNITS/ML 3 ML PEN SC SCH ×3 (13:26→21:34)
--- NOTE | 2019-02-10 13:34 | Pharmacy Report ---
Glycemic Control Consultation - Date of Service February 10, 2019 - Scope Scope: Glycemic Pharmacist consulted by Dr Lazo on 02/10 for glycemic control and to write orders per [facility] inpatient glycemic control protocol - Objective Weight: 93.848 kg Accuchecks BSG (last 24hrs): 02/10/19 02/10/19 02/10/19 06:59 10:26 12:14 POC Glucose 123 H 114 H 101 H HbA1c: Hemoglobin A1c 7.1 % (4.5-5.6) H 01/28/19 11:50 - Recent Pertinent Medications Outpatient Anti-diabetic Regimen: * glimepiride 2 mg Qpm, metformin 1 gm bid * A1c = 7.1 % [02/10] Risk Factors for Insulin Resistance: * Steroids: none * Recent Surgery: POD 0 * Diet: T2DM - Assessment & Plan Assessment & Plan: ASSESSMENT: * 73 year old female now s/p knee arthroplasty. PMHx significant for type 2 diabetes, htn, asthma, anxiety. Managed only on oral agents at home for diabetes * Did not received steroids in OR. BSG after surgery at 101 mg/dL - will utilize novolog postop. Will not initiate Lantus at this time. PLAN FOR INPATIENT GLYCEMIC CONTROL: * Holding outpatient oral diabetes medications * Basal insulin * Lantus - hold for now * Bolus insulin * NovoLog per scale ACHS or Q6hrs while NPO * Goal Range: Low 110 mg/dL - High 140 mg/dL * Correction Factor: 25 mg/dL/unit * Nutritional / Prandial insulin per carb ratio of 1 unit per 8 grams CHO consumed * Please note that the plan above was derived based on current level of insulin resistance and hospital stress. These recommendations are appropriate for inpatient admission only. Plan of care upon discharge will need to be reassessed to avoid potential outpatient hypo/hyperglycemia. Thank you.
[2019-02-10] MEDS: TRAMADOL HCL 50 MG TABLET PO PRN (16:09)
[2019-02-10] MEDS: CEFAZOLIN 2000MG 2,000 MG/15 ML SYR IV SCH (16:12)
[2019-02-10] MEDS: ASCORBIC ACID 500 MG TAB PO SCH (16:15)
[2019-02-10] MEDS: FERROUS GLUCONATE 324 MG TAB PO SCH (16:15)
[2019-02-10] MEDS ORDERED: TRANEXAMIC ACID 1,000 MG in 0.9 % SODIUM CHLORIDE 100 ML IV SCH (16:30)
--- NOTE | 2019-02-10 18:17 | Hospitalist Consultation ---
Date of Consultation February 10, 2019 Assessment & Plan (1) S/P total knee arthroplasty: s/p Right TKA by Dr. Singh on 02/10/19 post-op care as per Dr. singh -pain control, bowel regimen -ASA 81 bid for DVT proph -PT/OT evals -follow CBC in AM (2) Asthma: stable, no acute issues -continue albuterol prn -continue Asmanex from home for maintenance ICS (3) Hypertension: Controlled BPs here -continue lisinopril and watch BP, renal function (4) Anxiety: Stable, follows with Psych Dr. Correia -continue Mirtazapine but dose is actually 45 mg qhs--> corrected here and on home med rec -continue buproprion but dose is actually SR 100mg po bid-corrected on home med rec and here (5) Depression: stab;e -continue meds as above (6) Diabetes mellitus, type 2: controlled, HgbA1C 7.1% -holding home po meds and giving insulin while here -Pharmacy managing (7) Hypothyroidism: TSH 0.53 about 9 months ago -continue home LT4 (8) Osteoporosis: -continue home Fosmax, has upcoming DEXA (9) Hx of gout: no acute flare -continue allopurinol for prophylaxis (10) GERD (gastroesophageal reflux disease): stable -continue PPI (11) Seasonal allergies: noted (12) Hyperlipidemia: continue colestipol (13) Hypomagnesemia: continue po magnesium -follow mag level in AM (14) Anemia: mild, hgb 11.4 on preop labs, normocytic -check iron studies, B12, folate -on po iron here post-op had EGD in 2015 and colonoscopy in 2017 that were normal as per pt -follow CBC in AM (15) DVT prophylaxis: ASA 81mg po bid x 4 weeks SCDs Dispo-Hospitalist Service will follow along History of Present Illness Reason for Consultation: Postop medical management and diabetes Requesting Physician: Dr. Singh Attending Physician: Alexei Singh MD History of Present Illness This patient is a 73-year-old female with a history of HTN, DM 2, osteoporosis, asthma and allergies, gout, GERD, depression/anxiety, osteoarthritis, hypothyroidism, nephrolithiasis, hypomagnesemia and hyponatremia, who is here for a right TKA. She is doing very well, has some burning in right knee. Denies lightheadedness, nausea/vomiting, no CP, no SOB, no abd pain. Allergies Allergy/AdvReac Type Severity Reaction Status Date / Time animal dander Allergy Mild Sneezing Verified 02/10/19 06:59 pollen extracts Allergy Mild sneezing Verified 02/10/19 06:59 naproxen Allergy Rash Verified 02/10/19 06:59 Home Medications Home Medications Medication Instructions Recorded Confirmed Type albuterol sulfate HFA 90 2 puffs INH QID PRN #18 gm 12/30/18 02/10/19 Rx mcg/actuation aerosol inhaler aspirin 81 mg tablet,delayed 81 mg PO QPM 12/30/18 02/10/19 History release blood sugar diagnostic strips #10 ea 12/30/18 01/21/19 History cholecalciferol (vitamin D3) 2,000 2,000 units PO DAILY 12/30/18 02/10/19 History unit capsule diclofenac 1 % topical gel 2 gm TOP DAILY PRN 12/30/18 02/10/19 History fexofenadine 180 mg tablet 180 mg PO QAM 12/30/18 02/10/19 History magnesium oxide 400 mg (241.3 mg 400 mg PO TID tab 12/30/18 02/10/19 History magnesium) tablet metformin 500 mg tablet 1,000 mg PO BID #360 tab 12/30/18 02/10/19 Rx nystatin 100,000 unit/gram topical 1 appln TOP BID PRN 12/30/18 02/10/19 History powder omeprazole 20 mg capsule,delayed 20 mg PO QAM 12/30/18 02/10/19 History release turmeric root extract 500 mg 500 mg PO QDL 12/30/18 02/10/19 History capsule alendronate [Fosamax] 70 mg PO WK 01/21/19 02/10/19 History allopurinol 300 mg PO QAM 01/21/19 02/10/19 History calcium carbonate-vitamin D3 1 tab PO BID 01/21/19 02/10/19 History [Calcium 600 + D(3)] colestipol 1 gm PO DAILY 01/21/19 02/10/19 History glimepiride 2 mg PO QPM 01/21/19 02/10/19 History levothyroxine 125 mcg PO QAM 01/21/19 02/10/19 History lisinopril 20 mg PO QAM 01/21/19 02/10/19 History meloxicam 15 mg PO QAM 01/21/19 02/10/19 History mometasone [Asmanex Twisthaler] 1 puffs INH QAM 01/21/19 02/10/19 History bupropion HCl 100 mg PO BID 02/11/19 02/11/19 History mirtazapine 45 mg PO HS 02/11/19 02/11/19 History Patient History Medical History Anxiety Asthma Depression Diabetes mellitus, type 2 Environmental allergies GERD (gastroesophageal reflux disease) History of diverticulitis History of kidney stones Hx of gout Hx of intestinal obstruction Hyperlipidemia Hypertension Hypomagnesemia Hypothyroidism Macular degeneration both Osteopenia Osteoporosis Seasonal allergies Surgical History History of bowel resection History of cholecystectomy also had appy at same surgery Hx of cataract extraction both eyes Hx of hernia repair Hx of lithotripsy Hx of tubal ligation Hx of appendectomy S/P tonsillectomy Family History Father Family history of diabetes mellitus Grandmother (Paternal) Family history of diabetes mellitus Grandmother (Maternal) Family history of diabetes mellitus Sister Family history of diabetes mellitus Social History Preferred Language: Romansh Communication Ability: Effective Beliefs That Will Affect Care: None marital status: Current Living Situation: Spouse Other Information That Helps Us Care for You: No Feels Safe at Home: Yes Safety Concerns: Feels Safe At This Time Smoking Status: Never smoker Do You Dip or Chew Tobacco: No Second Hand Exposure: No Hx Alcohol Use: Yes Alcohol type: wine Hx Substance Use: No Review of Systems Review of Systems: All systems reviewed & are unremarkable except as noted in HPI & below Physical Exam Constitutional: WD/WN, vitals as above Eyes: PERRL, conjunctivae normal, anicteric sclerae ENMT: external ear and nose normal, oropharynx normal Neck: trachea midline, no thyromegaly Respiratory: normal respiratory effort, lungs clear to auscultation Cardiovascular: RRR, no murmur, no edema Gastrointestinal (Abdomen): normal bowel sounds, soft, nontender, no hepatosplenomegaly Musculoskeletal: Extremities: + extremities abnormal to inspection (R knee w/large DANNY wrap in place not removed, can plantar/dorsiflex ankles), no cyanosis and no clubbing Skin: no rashes, warm and dry Neurologic: moves all extremities and awake; no focal motor deficits Psychiatric: A+Ox3, euthymic affect Results & Data Vital Signs (Past 12 Hours) Vital Signs Temp Pulse Pulse Pulse Pulse Resp BP 02/10/19 14:54 67 16 157/86 H 02/10/19 13:53 36.6 C 72 16 133/76 02/10/19 13:07 36.7 C 79 19 117/74 02/10/19 12:26 36.5 C 62 16 113/69 02/10/19 12:09 36.6 C 66 16 111/70 02/10/19 11:40 36.5 C 65 13 109/55 L 02/10/19 11:30 68 18 125/58 L 02/10/19 11:20 65 17 125/56 L 02/10/19 11:10 66 19 110/59 L 02/10/19 11:00 66 15 117/53 L 02/10/19 10:50 62 14 131/62 02/10/19 10:40 66 15 110/47 L 02/10/19 10:30 67 16 102/49 L 02/10/19 10:21 36.2 C L 65 14 107/51 L 02/10/19 07:09 36.8 C 91 H 20 142/73 H Pulse Ox 02/10/19 14:54 98 02/10/19 13:53 98 02/10/19 13:07 98 02/10/19 12:26 94 02/10/19 12:09 100 02/10/19 11:40 99 02/10/19 11:30 100 02/10/19 11:20 100 02/10/19 11:10 100 02/10/19 11:00 100 02/10/19 10:50 100 02/10/19 10:40 100 02/10/19 10:30 100 02/10/19 10:21 100 02/10/19 07:09 97 Laboratory Results 02/11/19 02/10/1902/10/19 Range/Units 00:00 20:55 17:24 POC Glucose 91 216 H 149 H (70-99) 02/10/19 02/10/19 02/10/19 Range/Units 12:14 10:26 06:59 POC Glucose 101 H 114 H 123 H (70-99) PG Care Time/CCT Total # of Minutes Spent Total Time Spent with Patient: Total time spent is greater than 50% in coordination of care (as documented) at patient's floor/unit and/or counseling patient:
--- NOTE | 2019-02-10 19:22 | Progress Note ---
DATE: 02/10/2019 SUBJECTIVE: A 73-year-old white female postop from right knee replacement. She is doing well. Described she has a burning sensation in her leg. No chest pain or shortness of breath. Not feeling dizzy or lightheaded. OBJECTIVE: VITAL SIGNS: Temperature 36.6. Vital signs stable. PHYSICAL EXAMINATION: GENERAL: Reveals a pleasant elderly female. She is sitting up in bed and talking to her family. LUNGS: Clear to auscultation. HEART: Regular rate and rhythm. ABDOMEN: Soft, nontender, nondistended. EXTREMITIES: Grossly neurovascularly intact except as follows: Examination of the right lower extremity reveals the leg to be well aligned. Dressing is clean, dry and intact. She can dorsiflex and plantarflex her foot appropriately. She is neurologically intact. X-RAYS: X-rays of the right knee from recovery room were reviewed. She has right cemented posterior stabilized total knee arthroplasty. Components looked to be in good position. No signs of problems. ASSESSMENT: A 73-year-old white female postoperative from right knee replacement, doing well. Pain is controlled. She is neurologically intact. PLAN: 1. DVT prophylaxis including thigh-high TEDs, SCDs, and aspirin twice a day. 2. PT/OT. Weight bear as tolerated. Right total knee protocol. 3. Pain control. Doing well with current pain regimen. 4. IV antibiotics x24 hours. 5. Diabetes pill, continue insulin sliding scale coverage. 6. Disposition: Plan to discharge to home with some home health once adequately recovered.
[2019-02-10] MEDS ORDERED: GLIMEPIRIDE 2 MG TAB PO SCH (21:00)
[2019-02-10] MEDS ORDERED: LANTUS PER UNIT CHARGE SQ SCH (21:00)
[2019-02-10] MEDS ORDERED: MIRTAZAPINE TAB 15 MG TAB PO SCH (21:00)
[2019-02-10] MEDS ORDERED: BuPROPion SR 150 MG TABCR PO SCH (21:00)
[2019-02-10] MEDS: DOCUSATE SODIUM 100 MG CAP PO SCH (21:25)
[2019-02-10] MEDS: ASPIRIN 81 MG ECTAB PO SCH (21:27)
[2019-02-10] MEDS: CALCIUM 600MG + VIT D 400 IU TAB PO SCH (21:27)
[2019-02-10] MEDS: SENNA 8.6 MG TAB PO SCH (21:28)
[2019-02-11] MEDS ORDERED: INSULIN ASPART 100 UNITS/ML 3 ML PEN SC SCH
[2019-02-11] MEDS: CEFAZOLIN 2000MG 2,000 MG/15 ML SYR IV SCH (00:24)
[2019-02-11] MEDS: SODIUM CHLORIDE 0.9% 1000ML 1,000 ML IV SCH (00:25)
[2019-02-11] MEDS: TRAMADOL HCL 50 MG TABLET PO PRN ×3 (02:29→20:36)
[2019-02-11] MEDS: KETOROLAC TROMETHAMINE 15 MG/ML VIAL IV SCH ×4 (05:46→23:52)
[2019-02-11] MEDS: ACETAMINOPHEN 500 MG TAB PO SCH ×3 (05:46→21:20)
[2019-02-11] MEDS: LEVOTHYROXINE SODIUM 125 MCG TABLET PO SCH (05:47)
[2019-02-11 06:12] LABS: Hematocrit (blood only) 30.3 % (37-47); Mean Corpuscular Volume 86.8 fL (80-100); Mean Platelet Volume 9.2 fL (7.4-10.4); Platelet Count 233 K/uL (130-400); RDW Coefficient of Variation 16.4 % (11.5-14.5); RDW Standard Deviation 52.5 fL (36.4-46.3); Red Blood Count 3.49 M/uL (4.2-5.4); White Blood Count 7.74 K/uL (4.8-10.8)
[2019-02-11 06:55] LABS: BUN Creatinine Ratio 13.5 (10-20); Calcium 7.9 mg/dl (8.5-10.1); Creatinine Clr Calc Pharmacy 74.8 ml/min; Est GFR (African American) 93.8; Est GFR (Non-African American) 80.9; Magnesium 1.6 mg/dl (1.8-2.4); Potassium 4.3 mmol/L (3.5-5.1)
[2019-02-11 06:57] LABS: Ferritin 17.4 ng/ml (8-388)
[2019-02-11] MEDS: DOCUSATE SODIUM 100 MG CAP PO SCH ×2 (08:45→20:24)
[2019-02-11] MEDS: CALCIUM 600MG + VIT D 400 IU TAB PO SCH ×2 (08:45→20:35)
[2019-02-11] MEDS: ASCORBIC ACID 500 MG TAB PO SCH ×2 (08:45→17:03)
[2019-02-11] MEDS: LISINOPRIL 20 MG TAB PO SCH (08:45)
[2019-02-11] MEDS: ASPIRIN 81 MG ECTAB PO SCH ×2 (08:45→20:26)
[2019-02-11] MEDS: FERROUS GLUCONATE 324 MG TAB PO SCH ×2 (08:45→17:05)
[2019-02-11] MEDS: CHOLECALCIFEROL 1,000 UNITS TAB PO SCH (08:45)
[2019-02-11] MEDS: PANTOprazole 40 MG TAB PO SCH (08:45)
[2019-02-11] MEDS: MOMETASONE FUROATE 14 PUFF/1 INHALER INH SCH (08:46)
[2019-02-11] MEDS: BuPROPion SR 100 MG TABCR PO SCH ×2 (08:46→20:24)
[2019-02-11] MEDS: MAGNESIUM OXIDE 400 MG TAB PO SCH ×3 (08:46→20:26)
[2019-02-11] MEDS: FEXOFENADINE HCL 180 MG TAB PO SCH (08:46)
[2019-02-11] MEDS: MULTIVITAMIN TAB PO SCH (08:46)
[2019-02-11] MEDS: INSULIN ASPART 100 UNITS/ML 3 ML PEN SC SCH ×5 (08:54→23:53)
[2019-02-11 09:05] LABS: Folate (Folic Acid) > 24.00 ng/ml (>5.38); Vitamin B12 468 pg/ml (211-911)
[2019-02-11] MEDS ORDERED: MAGNESIUM SULFATE / D5W 1 GM/100 ML BAG IV ONE (09:51)
[2019-02-11] MEDS: ALLOPURINOL 300 MG TAB PO SCH (10:11)
[2019-02-11] MEDS: COLESTIPOL HCL 1 GM TAB PO SCH (10:11)
--- NOTE | 2019-02-11 13:01 | Hospitalist Progress Note ---
Date of Service February 11, 2019 Assessment & Plan (1) S/P total knee arthroplasty: s/p Right TKA by Dr. Lazo on 02/10/19-she is doing very well Hemoglobin today with only mild drop to 10.0 from 11.4, hemodynamically stable post-op care as per Dr. Lazo -Continue pain control, bowel regimen -ASA 81 bid for DVT proph -PT/OT evals-patient's plan is for home at the time of discharge (2) Asthma: stable, no acute issues -continue albuterol prn -continue Asmanex from home for maintenance ICS (3) Hypertension: Blood pressure is mildly elevated here likely secondary to pain and recent surgery, not concerning Renal function is acceptable -continue lisinopril at current dosing (4) Anxiety: Stable, follows with Psych Dr. Correia -continue Mirtazapine but dose is actually 45 mg qhs--> corrected here and on home med rec -continue buproprion but dose is actually SR 100mg po bid-corrected on home med rec and here (5) Depression: stable -continue meds as above (6) Diabetes mellitus, type 2: controlled, HgbA1C 7.1% Had one episode of hypoglycemia this morning -holding home po meds and giving insulin while here -Pharmacy managing -Can return to p.o. 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 She has seen nephrology in the past -Continue po magnesium as per home dosing Magnesium level here today is mildly low at 1.6 -Replace with magnesium sulfate 1 g IV x1 -follow mag level as an outpatient with PCP (14) Anemia: mild, hgb 11.4 on preop labs, normocytic Iron studies here show iron deficiency with a transferrin saturation low at 11% and a ferritin very low at 17 B12, folate both normal -on po iron here post-op and would recommend continuing ferrous sulfate 325 mg p.o. twice daily along with docusate 100 mg p.o. twice daily after discharge She had EGD in 2016 and colonoscopy in 2017 that were normal as per pt Hemoccult stool ordered while here but if does not give a sample, can follow-up as an outpatient -Would recommend to PCP to return to GI for further evaluation for celiac disease versus source of occult GI bleeding to see if needs repeat EGD/colonoscopy -Should have iron levels followed in 4 to 6 weeks with PCP (15) DVT prophylaxis: ASA 81mg po bid x 4 weeks SCDs Dispo-Hospitalist Service will sign off at this time, please reconsult if new or acute issues arise. Thank you for the consultation. Subjective Patient feeling well today. She worked with PT/OT and is proud of herself for all the work she did. She denies chest pain or shortness of breath, no nausea or vomiting. She is tolerating p.o. She denies abdominal pain. She has not yet moved her bowels. Her pain in the knee is controlled We discussed her iron deficiency. As far as she knows, she is only had bright red blood on the toilet paper with wiping after bowel movement one time, but otherwise no hematuria or melena, no hematochezia or hematemesis. Review of Systems Review of Systems: All systems reviewed & are unremarkable except as noted in HPI & below Physical Exam Constitutional: WD/WN, vitals as above + obese Eyes: PERRL, conjunctivae normal, anicteric sclerae ENMT: external ear and nose normal, oropharynx normal Neck: trachea midline, no thyromegaly Respiratory: normal respiratory effort, lungs clear to auscultation Cardiovascular: RRR, no murmur, no edema Gastrointestinal (Abdomen): normal bowel sounds, soft, nontender, no hepatosplenomegaly Musculoskeletal: Extremities: + extremities abnormal to inspection (R knee w/large DANNY wrap in place not removed, can plantar/dorsiflex ankles), no cyanosis and no clubbing Skin: no rashes, warm and dry Neurologic: moves all extremities and awake; no focal motor deficits Psychiatric: A+Ox3, euthymic affect Results & Data Vital Signs (Past 12 Hours) Vital Signs Temp Pulse Resp BP Pulse Ox 02/11/19 11:04 36.8 C 76 17 156/84 H 97 02/11/19 07:18 36.9 C 76 16 157/76 H 97 02/11/19 03:44 37.1 C 74 16 151/78 H 96 Laboratory Results 02/11/19 02/11/19 02/11/19 Range/Units 08:14 05:33 05:33 WBC (4.8-10.8) K/uL RBC (4.2-5.4) M/uL Hgb (12.0-16.0) g/dL Hct (37-47) % MCV (80-100) fL MCH (25-34) pg MCHC (32-36) g/dL RDW Std Deviation (36.4-46.3) fL RDW Coeff of Carlyle (11.5-14.5) % Plt Count (130-400) K/uL MPV (7.4-10.4) fL Sodium (136-145) mmol/L Potassium (3.5-5.1) mmol/L Chloride (98-107) mmol/L Carbon Dioxide (21-32) mmol/L Anion Gap (3-11) BUN (7-18) mg/dl Creatinine (0.6-1.2) mg/dl Est Cr Clr Drug Dosing ml/min Est GFR ( Amer) Est GFR (Non-Af Amer) BUN/Creatinine Ratio (10-20) Glucose (70-99) mg/dl POC Glucose 212 H (70-99) Calcium (8.5-10.1) mg/dl Magnesium (1.8-2.4) mg/dl Iron (35-150) mcg/dl TIBC (250-450) mcg/dl Transferrin (200-360) mg/dl Transferrin % Sat (15-50) % Ferritin (8-388) ng/ml Vitamin B12 468 (211-911) pg/ml Folate > 24.00 (>5.38) ng/ml Hepatitis C Ab Screen Neg (Neg) 02/11/19 02/11/19 02/11/19 Range/Units 05:33 05:33 00:00 WBC 7.74 (4.8-10.8) K/uL RBC 3.49 L (4.2-5.4) M/uL Hgb 10.0 L (12.0-16.0) g/dL Hct 30.3 L (37-47) % MCV 86.8 (80-100) fL MCH 28.7 (25-34) pg MCHC 33.0 (32-36) g/dL RDW Std Deviation 52.5 H (36.4-46.3) fL RDW Coeff of Carlyle 16.4 H (11.5-14.5) % Plt Count 233 (130-400) K/uL MPV 9.2 (7.4-10.4) fL Sodium 137 (136-145) mmol/L Potassium 4.3 (3.5-5.1) mmol/L Chloride 106 (98-107) mmol/L Carbon Dioxide 25 (21-32) mmol/L Anion Gap 6.0 (3-11) BUN 10 (7-18) mg/dl Creatinine 0.74 (0.6-1.2) mg/dl Est Cr Clr Drug Dosing 74.8 ml/min Est GFR ( Amer) 93.8 Est GFR (Non-Af Amer) 80.9 BUN/Creatinine Ratio 13.5 (10-20) Glucose 133 H (70-99) mg/dl POC Glucose 91 (70-99) Calcium 7.9 L (8.5-10.1) mg/dl Magnesium 1.6 L (1.8-2.4) mg/dl Iron 44 (35-150) mcg/dl TIBC 333 (250-450) mcg/dl Transferrin 279 (200-360) mg/dl Transferrin % Sat 11 L (15-50) % Ferritin 17.4 (8-388) ng/ml Vitamin B12 (211-911) pg/ml Folate (>5.38) ng/ml Hepatitis C Ab Screen (Neg) 02/10/19 02/10/19 02/10/19 Range/Units 20:55 17:24 12:14 WBC (4.8-10.8) K/uL RBC (4.2-5.4) M/uL Hgb (12.0-16.0) g/dL Hct (37-47) % MCV (80-100) fL MCH (25-34) pg MCHC (32-36) g/dL RDW Std Deviation (36.4-46.3) fL RDW Coeff of Carlyle (11.5-14.5) % Plt Count (130-400) K/uL MPV (7.4-10.4) fL Sodium (136-145) mmol/L Potassium (3.5-5.1) mmol/L Chloride (98-107) mmol/L Carbon Dioxide (21-32) mmol/L Anion Gap (3-11) BUN (7-18) mg/dl Creatinine (0.6-1.2) mg/dl Est Cr Clr Drug Dosing ml/min Est GFR ( Amer) Est GFR (Non-Af Amer) BUN/Creatinine Ratio (10-20) Glucose (70-99) mg/dl POC Glucose 216 H 149 H 101 H (70-99) Calcium (8.5-10.1) mg/dl Magnesium (1.8-2.4) mg/dl Iron (35-150) mcg/dl TIBC (250-450) mcg/dl Transferrin (200-360) mg/dl Transferrin % Sat (15-50) % Ferritin (8-388) ng/ml Vitamin B12 (211-911) pg/ml Folate (>5.38) ng/ml Hepatitis C Ab Screen (Neg) PG Care Time/CCT Total # of Minutes Spent Total Time Spent with Patient: Total time spent is greater than 50% in coordination of care (as documented) at patient's floor/unit and/or counseling patient:
--- NOTE | 2019-02-11 13:51 | Progress Note ---
DATE: 02/11/2019 SUBJECTIVE: A 73-year-old white female postop day 1 from right knee replacement. She is doing well. Having a little bit more pain in the middle of the night last night, but doing better this morning. Therapy went pretty well. No chest pain or shortness of breath. Not feeling dizzy or lightheaded. OBJECTIVE: VITAL SIGNS: Temperature 36.8. Vital signs stable. GENERAL: Physical examination shows a pleasant 73-year-old female. She is lying in bed, looks pretty comfortable. EXTREMITIES: Examination of the right leg reveals the leg to be well aligned. Dressing is clean, dry and intact. She can dorsiflex and plantarflex her foot appropriately. She is neurologically intact. LABORATORY DATA: Hemoglobin 10.0, hematocrit 30.3. Electrolytes are stable. ASSESSMENT: A 73-year-old white female postop day 1 from right knee replacement, doing reasonably well. Pain is controlled. She is neurologically intact. PLAN: 1. DVT prophylaxis including thigh-high TEDs, SCDs, and aspirin twice a day. 2. PT/OT. Weight bear as tolerated. Right total knee protocol. 3. Pain control, doing well with current pain regimen. 4. Disposition: She is planning to be discharged to home with home health once adequately recovered.
--- NOTE | 2019-02-11 14:44 | Pharmacy Report ---
Pharmacy Glycemic Short Note 2 - Date of Service February 11, 2019 - Glycemic Short BSG Results (Last 24 hours): 02/10/19 02/10/19 02/11/19 17:24 20:55 00:00 Glucose POC Glucose 149 H 216 H 91 02/11/19 02/11/19 02/11/19 05:33 08:14 12:00 Glucose 133 H POC Glucose 212 H 239 H ASSESSMENT: * see 02/10 note for background information 02/11: * Patient received total of 25 units of insulin yesterday, of which 10 were b fareed * Fasting BSG w/in range at 133 mg/dL - rechecked later at 212 mg/dL. Had called up to nurse and she had given patient crackers to take with morning medications and did not cover carbs * Lunchtime BSG trending up at 239 mg/dL - collected later, nurse already covered. Will tighten carb coverage with dinner. Patient appears to be eating more, will utilize scale for Lantus dosing tonight PLAN FOR INPATIENT GLYCEMIC CONTROL: * Hold outpatient oral diabetes medications * Basal insulin * Lantus HS per scale -For BSG 180 or less - 10 units -For BSG greater than 180 - 15 units * Bolus insulin - tighten * NovoLog per scale ACHS or Q6hrs while NPO * Goal Range: Low 110 mg/dL - High 140 mg/dL * Correction Factor: 25 mg/dL/unit * Nutritional / Prandial insulin per carb ratio of 1 unit per 6 grams CHO consumed
[2019-02-11] MEDS: SENNA 8.6 MG TAB PO SCH (20:24)
[2019-02-11] MEDS ORDERED: MIRTAZAPINE SOLTAB 15 MG PO SCH (21:00)
[2019-02-11] MEDS ORDERED: INSULIN GLARGINE SOLOSTAR 100 UNITS/ML 3 ML PEN SC SCH (21:00)
[2019-02-12] MEDS: TRAMADOL HCL 50 MG TABLET PO PRN ×2 (04:01→10:52)
[2019-02-12] MEDS: INSULIN ASPART 100 UNITS/ML 3 ML PEN SC SCH ×2 (04:24→08:54)
[2019-02-12] MEDS: ACETAMINOPHEN 500 MG TAB PO SCH (05:54)
[2019-02-12] MEDS: LEVOTHYROXINE SODIUM 125 MCG TABLET PO SCH (05:54)
[2019-02-12] MEDS: KETOROLAC TROMETHAMINE 15 MG/ML VIAL IV SCH (05:54)
--- NOTE | 2019-02-12 08:06 | Progress Note ---
DATE: 02/12/2019 SUBJECTIVE: A 73-year-old white female postop day 2 from right knee replacement. She is doing pretty well. Pain seems to be a little bit better this morning. No chest pain or shortness of breath. Not feeling dizzy or lightheaded. OBJECTIVE: VITAL SIGNS: Temperature 36.5. Vital signs stable. GENERAL: Physical examination shows a pleasant elderly female. She is lying in bed, looks pretty comfortable. EXTREMITIES: Examination of the right leg reveals the leg to be well aligned. Some mild swelling. No drainage. Calf is soft and supple. She is neurologically intact. ASSESSMENT: A 73-year-old white female postop day 2 from right knee replacement, doing well. Pain is controlled. PLAN: 1. DVT prophylaxis including thigh-high TEDs, SCDs, and aspirin twice a day. 2. PT/OT. Weight bear as tolerated. Right total knee protocol. 3. Pain control, doing well with current pain regimen. 4. Disposition: Plan to discharge to home with some home health later today.
[2019-02-12] MEDS: CHOLECALCIFEROL 1,000 UNITS TAB PO SCH (08:51)
[2019-02-12] MEDS: MULTIVITAMIN TAB PO SCH (08:51)
[2019-02-12] MEDS: BuPROPion SR 100 MG TABCR PO SCH (08:51)
[2019-02-12] MEDS: PANTOprazole 40 MG TAB PO SCH (08:51)
[2019-02-12] MEDS: DOCUSATE SODIUM 100 MG CAP PO SCH (08:52)
[2019-02-12] MEDS: CALCIUM 600MG + VIT D 400 IU TAB PO SCH (08:52)
[2019-02-12] MEDS: MAGNESIUM OXIDE 400 MG TAB PO SCH (08:52)
[2019-02-12] MEDS: FERROUS GLUCONATE 324 MG TAB PO SCH (08:52)
[2019-02-12] MEDS: ALLOPURINOL 300 MG TAB PO SCH (08:52)
[2019-02-12] MEDS: ASCORBIC ACID 500 MG TAB PO SCH (08:52)
[2019-02-12] MEDS: LISINOPRIL 20 MG TAB PO SCH (08:52)
[2019-02-12] MEDS: FEXOFENADINE HCL 180 MG TAB PO SCH (08:53)
[2019-02-12] MEDS: MOMETASONE FUROATE 14 PUFF/1 INHALER INH SCH (08:53)
[2019-02-12] MEDS: ASPIRIN 81 MG ECTAB PO SCH (10:39)
[2019-02-12] MEDS: COLESTIPOL HCL 1 GM TAB PO SCH (10:39)
--- NOTE | 2019-02-18 12:32 | Discharge Summary ---
ADMITTING PHYSICIAN AND SURGEON: Alexei Lazo MD. ADMITTING DIAGNOSIS: Right knee degenerative joint disease. SURGERY PERFORMED: Right total knee arthroplasty. SECONDARY DIAGNOSES: Asthma, hypertension, diabetes, neuropathy, anxiety, hiatal hernia, arthritis. CONSULTS: [facility] for postoperative medical management. HISTORY AND PHYSICAL EXAMINATION: Well documented in the patient's chart. HOSPITAL COURSE: The patient was admitted on 02/10/2019, underwent a total knee arthroplasty, tolerated the procedure well. There were no complications. She was transferred to the PACU postoperatively and later to the orthopedic floor for further care. She was given Ancef for antibiotic prophylaxis, FIGUEROA stockings, SCDs and aspirin for DVT prophylaxis. Hemoglobin, hematocrit and vital signs were monitored during her hospital stay and remained stable. She did have some postoperative anemia. She was given iron supplement, did not require any blood transfusions. There were no complications. She was followed by the hospitalist service during her stay. By postoperative day 2, she was tolerating a diabetic diet. Pain was controlled with oral pain medicine. She was participating in physical therapy. On postop day 2, she was discharged home, set up with home health services. She was given printed discharge instructions as well as new prescriptions for extra-strength Tylenol, aspirin, docusate, iron supplement and tramadol. Continue her home medications, continue physical therapy, weightbearing as tolerated, FIGUEORA stockings. Follow up in approximately 2 weeks postoperatively or sooner if there are any problems or concerns.
== END 2019-02-12 11:20 | disposition home health service (06) | DRG 470 ==
LOC: ASU 06:26 → 3E 10:23

== ENCOUNTER 2020-06-04 17:22 | Inpatient (IN) ==
--- NOTE | 2020-06-04 17:28 | Emergency Department Note ---
Impression & Plan Syncope, Acute hyponatremia, Fracture, humerus closed, Acute leg pain, Fall ED Provider Note NAME: ALIYAH JALLOH AGE: 75 SEX: F : 1945 ARRIVES VIA: Ambulance INFORMANT: Patient, ED PROVIDER(S): Eduar Bui MD Chief Complaint: Dizziness, fall HPI: Patient does present after having a dizzy spell around 1 PM and the patient subsequently was found down at the bottom of a set of stairs. The patient was complaining of some left upper arm and left ankle pain. The patient does take a baby aspirin but no blood thinning medications. Patient states that she had no presyncopal symptoms. Per EMS the patient did have a BSG in the 150s. Patient was tachycardic into the 130s. The patient currently denies any head neck chest or abdominal pain. The patient does not have pain in the right upper or right lower extremity. Patient's pain is fairly constant and worse with movement or palpation in both the left upper arm and left ankle. The patient is right-hand dominant. Patient denies any numbness tingling or weakness.Patient does not complain of any chest pains or shortness of breath. ROS: See HPI for pertinent positives and negatives. A total of 10 systems were reviewed and otherwise negative. Past medical history: See below Surgical history: See below Social history: See below Physical Exam: GENERAL: C-collar in place on a backboard. NAD, non-toxic. EYE EXAM: Normal conjunctiva. PERRL, no anisocoria and EOM's grossly intact w/o pain. [OROPHARYNX: Moist mucus membranes. Grossly normal dentition. ] NECK: Supple, no nuchal rigidity, no adenopathy, non-tender. No signs of meni ngismus. C-collar broken down momentarily for inspection. No midline C-spine TTP, trachea midline. LUNGS: Clear to auscultation. Normal chest wall mechanics. No reproducible chest wall pain. HEART: Tachycardic and regular, no MRG. ABDOMEN: Abdomen soft, non-tender, normo-active bowel sounds, no masses, no rebound or guarding. BACK: No CVA TTP. SKIN: No rashes and no bruising. UPPER EXTREMITIES: Mild pain to the right proximal humerus with no obvious deformity, neurovascular intact distally, slightly decreased range of motion secondary to pain. LOWER EXTREMITIES: Mild pain and bruising to the distal aspect of the medial tibia. Neurovascular intact no obvious deformities. Patient is able to flex and extend at the hip and knee. The patient is able to wiggle her toes. NEURO EXAM: A&O x3, cranial nerves II-XII grossly intact, normal speech, moves all 4 extremities on command w/o issue. Differential diagnoses: Fracture, dislocation, contusion, intra-abdominal, pneumothorax, intrathoracic, intracranial, neurologic, compartment syndrome, rhabdomyolysis, as well as other pathologies. Course: Patient was seen and evaluated the bedside. Full history physical exam was performed. EKG: Location: Dizziness Sinus tachycardia, rate of 121, normal intervals, normal axis, T wave inversion in the high lateral leads. T wave inversions may be new from prior EKG August 24, 2017. [place] appears unchanged. The patient does have an increase in rate. Imaging Studies: Radiology results as stated below per my review in the radiologist's interpretation: CT abd pelvis IV con only CLINICAL HISTORY: Abdominal pain status post trauma. Elevated white count. COMPARISON STUDY: July 2017 TECHNIQUE: The patient was scanned in a dynamic helical fashion during intravenous and ministration of 90 cc of Optiray 320 A dose lowering technique was utilized adhering to the principles of ALARA. CT DOSE: 869.07 mGy.cm FINDINGS: Lower chest: The heart is normal in size and configuration, without pericardial effusion. The lung bases and pleural spaces are clear. Liver: The contrast-enhanced liver is normal in size, contour, and attenuation. There is no intrahepatic biliary ductal dilatation. The hepatic veins and portal veins are patent. Gallbladder: Surgically absent Spleen: Normal in size and attenuation. 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 There is no pancreatic ductal dilatation. Adrenal glands: Unremarkable. Kidneys: There are bilateral nonobstructing renal calculi. The largest is locate d within the lower pole the right kidney measuring 6 mm. Bowel: There are no transition zones to indicate bowel obstruction. There is pandiverticulosis. Postsurgical changes are present within the rectosigmoid. There is no evidence of acute diverticulitis. There are no findings to indicate acute appendicitis. There are no extraluminal gas collections. There is no pathologic interloop fluid. Peritoneum: There is no intraperitoneal free air or abdominal ascites. There are postsurgical changes of a ventral hernia repair Vasculature: The abdominal aorta is normal in course and caliber. Adenopathy: None. Pelvic viscera: The bladder, and pelvic viscera are unremarkable. Skeletal structures: No destructive osseous lesions are seen. IMPRESSION: 1. No acute intra-abdominal or pelvic findings. No evidence of acute intra- abdominal or pelvic injury 2. No evidence of bowel obstruction. No evidence of free air 3. Bilateral nephrolithiasis. No hydronephrosis 4. No acute inflammatory changes ACT 112: Negative or not required by law. Electronically signed by: Abhishek Sharma M.D. 06/04/2020 7:06 PM Dictated: 06/04/201900 Transcribed: 06/04/201901 XR tibia fibula LT 2V CLINICAL HISTORY: Left lower leg pain status post trauma COMPARISON: None. DISCUSSION: No acute fractures or dislocations are visualized. There is a lower leg medial soft tissue edema. There is chondrocalcinosis within the knee. Degenerative changes are present within the knee. There are faint vascular calcifications. IMPRESSION: No acute fractures identified ACT 112: Negative or not required by law. Electronically signed by: Abhishek Sharma M.D. 06/04/2020 7:51 PM Dictated: 06/04/201950 Transcribed: 06/04/201950 XR shoulder LT min 2V routine CLINICAL HISTORY: Left shoulder pain status post trauma COMPARISON: None. DISCUSSION: There is an acute proximal humeral fracture involving the humeral neck and greater tuberosity. There is no dislocation. IMPRESSION: Acute proximal humeral fracture. No evidence of dislocation. ACT 112: Negative or not required by law. Electronically signed by: Abhishek Sharma M.D. 06/04/2020 7:50 PM Dictated: 06/04/201949 Transcribed: 06/04/201949 XR humerus LT 2V CLINICAL HISTORY: Left humeral pain status post trauma COMPARISON: None. DISCUSSION: There is a proximal humeral fracture involving the humeral neck and greater tuberosity. There is no dislocation. No additional humeral fractures are visualized. IMPRESSION: Acute proximal humeral fracture. No evidence of dislocation ACT 112: Negative or not required by law. Electronically signed by: Abhishek Sharma M.D. 06/04/2020 7:48 PM Dictated: 06/04/201946 Transcribed: 06/04/201946 CT head/brain wo con CLINICAL HISTORY: Head pain status post trauma COMPARISON STUDY: No previous studies for comparison. TECHNIQUE: Axial CT of the brain is performed from the vertex to the skull base. IV contrast was not administered for this examination. A dose lowering technique was utilized adhering to the principles of ALARA. CT DOSE: FINDINGS: No intra or extra-axial mass lesions are visualized. There is no CT evidence of acute cortical infarction. There is no evidence of midline shift. There is no acute hemorrhage. No calvarial fractures are visualized. There are patchy white matter hypodensities likely on a small vessel basis. There is mild ventricular prominence, finding which is felt to be secondary to volume loss There is no evidence of acute sinusitis There is a scalp hematoma at the vertex. IMPRESSION: 1. Scalp hematoma 2. No acute intracranial findings. ACT 112: Negative or not required by law. Electronically signed by: Abhishek Sharma M.D. 06/04/2020 6:56 PM Dictated: 06/04/201854 Transcribed: 06/04/201854 XR chest 1V portable CLINICAL HISTORY: Trauma COMPARISON STUDY: 01/28/2019 FINDINGS: The cardiac and mediastinal contours appear normal given the supine technique. There is no focal pulmonary consolidation. No pneumothorax is visualized on this supine study. There is a proximal left humeral fracture. There is a lucency through the proximal right humerus which may be artifactual.[ IMPRESSION: 1. No acute pulmonary findings on this supine study 2. Proximal left humeral fracture 3. Lucency to the proximal right humerus, possibly artifactual. Correlation with patient's symptoms is recommended ACT 112: Negative or not required by law. Electronically signed by: Abhishek Sharma M.D. 06/04/2020 7:47 PM Dictated: 06/04/201945 Transcribed: 06/04/201945 CT OF THE CERVICAL SPINE CLINICAL HISTORY: Neck pain status post trauma COMPARISON STUDY: No previous studies for comparison. CT DOSE: 1162.62 mGy.cm TECHNIQUE: CT scan of the cervical spine was performed from the skull base to the thoracic inlet. Images are reviewed in the axial, sagittal, and coronal planes. IV contrast was not administered for this examination. A dose lowering technique was utilized adhering to the principles of ALARA. FINDINGS: The visualized portions of the lung apices reveal no evidence of pneumothorax. The prevertebral soft tissues are normal. No fractures or subluxations are visualized. There are multilevel degenerative changes IMPRESSION: No evidence of acute fracture or traumatic subluxation. ACT 112: Negative or not required by law. Electronically signed by: Abhishek Sharma M.D. 06/04/2020 6:59 PM Dictated: 06/04/201855 Transcribed: 06/04/201855 XR ankle LT min 3V routine CLINICAL HISTORY: Ankle pain status post trauma COMPARISON: None. DISCUSSION: The bones are osteopenic. There is calcaneal spurring. There is plantar fascial calcification. There are no acute fractures. The ankle mortise appears intact. There are corticated bony densities adjacent the medial malleolus which are felt to be old. There is medial soft tissue swelling. IMPRESSION: Soft tissue edema. No acute fractures or dislocations identified. ACT 112: Negative or not required by law. Electronically signed by: Abhishek Sharma M.D. 06/04/2020 7:41 PM Dictated: 06/04/201940 Transcribed: 06/04/201940 Cardiac monitoring: An order was placed for continuous cardiac monitoring. The monitor shows a rate of 121 with sinus tachycardia rhythm. MDM: Patient does present with concern for dizziness and fall. The patient did have blood work completed along with an EKG. patient CT of the abdomen pelvis CT head and neck unremarkable. The patient does have some hyponatremia. Patient's heart rate has improved with IV fluids and pain medication. Upon reassessment of the patient patient was informed of her humerus fracture. The patient C- spine was clinically cleared. Given the patient's syncope and hyponatremia I did speak with the on-call hospitalist Dr. Brenda MD. The patient was admitted to the medicine service. I did consider the possibility of PE in a patient with syncope and an elevated heart rate but the patient does not complain of any chest pains or shortness of breath. The patient really does not have great clinical change concerning for right-sided heart strain based on EKG and the patient's heart rate has improved with IV fluids and pain medication. Patient did have some borderline hypoxia after being given narcotic pain medication. Past Med/Surg History Medical History Anxiety Asthma Depression Diabetes mellitus, type 2 Environmental allergies GERD (gastroesophageal reflux disease) History of diverticulitis History of kidney stones Hx of gout Hx of intestinal obstruction Hyperlipidemia Hypertension Hypomagnesemia Hypothyroidism Macular degeneration both Osteopenia Osteoporosis Seasonal allergies Surgical History History of bowel resection History of cholecystectomy also had appy at same surgery Hx of appendectomy Hx of cataract extraction both eyes Hx of hernia repair Hx of lithotripsy Hx of tubal ligation S/P tonsillectomy S/P total knee arthroplasty Status post right knee replacement Family History Father Family history of diabetes mellitus Alcohol abuse Cardiac disorder Diabetes Hypertension Myocardial infarction Grandmother (Paternal) Family history of diabetes mellitus Grandmother (Maternal) Family history of diabetes mellitus Breast cancer Sister Family history of diabetes mellitus Mother Anxiety Depression Lung disease Brother Colonic polyp Denies family history of Ovarian cancer Prostate cancer Colorectal cancer Social History Smoking Status: Never smoker Second Hand Exposure: No; Hx Alcohol Use: Yes Alcohol type: wine Hx Substance Use: No Preferred Language: Mexican Communication Ability: Effective Beliefs That Will Affect Care: None marital status: Current Living Situation: Spouse current occupational status: retired Feels Safe at Home: Yes Dental Care, Regularly: Yes Physical Activity Frequency: Does not Exercise Assistive Devices: Walker Allergies Allergies Allergy/AdvReac Type Severity Reaction Status Date / Time animal dander Allergy Mild Sneezing Verified 06/04/20 18:46 hyde Allergy Mild Verified 06/04/20 18:46 pollen extracts Allergy Mild sneezing Verified 06/04/20 18:46 cigarette smoke Allergy sneezing Verified 06/04/20 18:46 naproxen Allergy Rash Verified 06/04/20 18:46 Home Meds Home Medications Medication Instructions Recorded Confirmed aspirin 81 mg tablet,delayed 81 mg PO QPM 12/30/18 06/04/20 release blood sugar diagnostic #10 ea 12/30/18 05/10/20 fexofenadine 180 mg tablet 180 mg PO QAM 12/30/18 06/04/20 turmeric root extract 500 mg 500 mg PO QDL 12/30/18 06/04/20 capsule Asmanex Twisthaler 1 puffs INH QAM 01/21/19 06/04/20 calcium carbonate-vitamin D3 1 tab PO BID 01/21/19 06/04/20 [Calcium 600 + D(3)] mirtazapine 45 mg PO HS 02/11/19 06/04/20 cholecalciferol (vitamin D3) 50 2,000 units PO PM cap 04/09/19 06/04/20 mcg (2,000 unit) capsule diclofenac sodium [Voltaren] 2 g TOPICAL BID PRN 06/04/20 06/04/20 ferrous sulfate 325 mg PO PM 06/04/20 06/04/20 glimepiride 4 mg PO PM 06/04/20 06/04/20 levothyroxine 175 mcg PO QAM 06/04/20 06/04/20 lisinopril 40 mg PO QAM 06/04/20 06/04/20 loperamide 4 mg PO QID 06/04/20 06/04/20 metformin 1,000 mg PO BID 06/04/20 06/04/20 mirabegron [Myrbetriq] 25 mg PO PM 06/04/20 06/04/20 omeprazole 20 mg PO QAM 06/04/20 06/04/20 vitamins A,C,P-rksh-uxials 1 cap PO BID 06/04/20 06/04/20 [PreserVision AREDS] Previous Rx's Medication Instructions Recorded albuterol sulfate 90 mcg/actuation 2 puffs INH QID PRN #18 gm 12/30/18 aerosol inhaler colestipol 1 gram tablet 1 gm PO DAILY #90 tab 11/12/19 nystatin 100,000 unit/gram topical 1 appln TOP BID #60 gm 12/18/19 powder allopurinol 300 mg tablet 300 mg PO QAM #30 tab 12/28/19 alendronate 70 mg tablet 70 mg PO WEEKLY #4 tab 12/29/19 magnesium oxide 400 mg (241.3 mg 400 mg PO QID 90 Days #360 tab 02/16/20 magnesium) tablet trospium 60 mg capsule,extended 60 mg PO QAM #30 cap 03/23/20 release 24 hr bupropion HCl 150 mg tablet,12 hr 150 mg PO BID #180 ea 04/12/20 sustained-release meloxicam 15 mg tablet 15 mg PO QAM PRN #30 tab 04/12/20 Results & Data (ED) Vital Signs Vital Signs - 24 hr 06/04/20 17:24 06/04/20 19:55 06/04/20 20:07 Temperature 36.6 C Temperature Source Oral Pulse Rate 134 H Pulse Rate [Right Finger] 113 H Respiratory Rate 18 21 Blood Pressure 141/112 H Blood Pressure [Right Arm] 155/66 H Blood Pressure Mean 121 Blood Pressure Mean [Right Arm] 95 Pulse Oximetry 95 93 89 L Oxygen Delivery Method Room Air Room Air Room Air Oxygen Flow Rate Sepsis Recent Fever Within 48 Hours No Sepsis New/Unexplained Change in Mental Status N/A Sepsis Action Taken by Nursing No Action Required 06/04/20 20:10 06/04/20 20:18 Temperature Temperature Source Pulse Rate Pulse Rate [Right Finger] Respiratory Rate Blood Pressure Blood Pressure [Right Arm] Blood Pressure Mean Blood Pressure Mean [Right Arm] Pulse Oximetry 95 97 Oxygen Delivery Method Nasal Cannula Nasal Cannula Oxygen Flow Rate 3 3 Sepsis Recent Fever Within 48 Hours Sepsis New/Unexplained Change in Mental Status Sepsis Action Taken by Intermediate Medications Current Medication List: was personally reviewed by me Laboratory Data Attestation: I reviewed the patient's lab results. Result diagrams: 06/04/20 17:45 06/04/20 17:45 Lab Results 06/04/20 06/04/20 06/04/20 Range/Units 17:45 17:45 17:45 WBC 20.11 H (4.8-10.8) K/uL RBC 4.37 (4.2-5.4) M/uL Hgb 12.4 (12.0-16.0) g/dL Hct 37.9 (37-47) % MCV 86.7 (80-100) fL MCH 28.4 (25-34) pg MCHC 32.7 (32-36) g/dL RDW Std Deviation 59.0 H (36.4-46.3) fL RDW Coeff of Carlyle 18.4 H (11.5-14.5) % Plt Count 264 (130-400) K/uL MPV 8.7 (7.4-10.4) fL Immature Gran % (Auto) 0.5 % Neut % (Auto) 83.7 % Lymph % (Auto) 8.3 % Douglas % (Auto) 7.2 % Eos % (Auto) 0.2 % Baso % (Auto) 0.1 % Neut # (Auto) 16.83 H (1.4-6.5) K/uL Lymph # (Auto) 1.67 (1.2-3.4) K/uL Douglas # (Auto) 1.44 H (0.11-0.59) K/uL Eos # (Auto) 0.04 (0-0.5) K/uL Baso # (Auto) 0.02 (0-0.2) K/uL Immature Gran # (Auto) 0.11 H (0.00-0.02) K/uL PT 10.9 (9.0-12.0) Seconds INR 1.0 (0.9-1.1) Sodium 128 L (136-145) mmol/L Potassium 4.6 (3.5-5.1) mmol/L Chloride 98 (98-107) mmol/L Carbon Dioxide 22 (21-32) mmol/L Anion Gap 8.0 (3-11) BUN 13 (7-18) mg/dl Creatinine 0.90 (0.6-1.2) mg/dl Est Cr Clr Drug Dosing 62.5 ml/min Est GFR ( Amer) 73.0 Est GFR (Non-Af Amer) 63.0 BUN/Creatinine Ratio 14.8 (10-20) Glucose 298 H (70-99) mg/dl Calcium 9.0 (8.5-10.1) mg/dl Magnesium 1.5 L (1.8-2.4) mg/dl Total Bilirubin 0.6 (0.2-1) mg/dl AST 19 (15-37) U/L ALT 23 (12-78) U/L Alkaline Phosphatase 68 (45-117) U/L Troponin I < 0.015 (0-0.045) ng/ml Total Protein 7.2 (6.4-8.2) gm/dl Albumin 3.5 (3.4-5.0) gm/dl Globulin 3.7 (2.5-4.0) gm/dl Albumin/Globulin Ratio 0.9 (0.9-2) Blood Type Antibody Screen 06/04/20 Range/Units 18:35 WBC (4.8-10.8) K/uL RBC (4.2-5.4) M/uL Hgb (12.0-16.0) g/dL Hct (37-47) % MCV (80-100) fL MCH (25-34) pg MCHC (32-36) g/dL RDW Std Deviation (36.4-46.3) fL RDW Coeff of Carlyle (11.5-14.5) % Plt Count (130-400) K/uL MPV (7.4-10.4) fL Immature Gran % (Auto) % Neut % (Auto) % Lymph % (Auto) % Douglas % (Auto) % Eos % (Auto) % Baso % (Auto) % Neut # (Auto) (1.4-6.5) K/uL Lymph # (Auto) (1.2-3.4) K/uL Douglas # (Auto) (0.11-0.59) K/uL Eos # (Auto) (0-0.5) K/uL Baso # (Auto) (0-0.2) K/uL Immature Gran # (Auto) (0.00-0.02) K/uL PT (9.0-12.0) Seconds INR (0.9-1.1) Sodium (136-145) mmol/L Potassium (3.5-5.1) mmol/L Chloride (98-107) mmol/L Carbon Dioxide (21-32) mmol/L Anion Gap (3-11) BUN (7-18) mg/dl Creatinine (0.6-1.2) mg/dl Est Cr Clr Drug Dosing ml/min Est GFR ( Amer) Est GFR (Non-Af Amer) BUN/Creatinine Ratio (10-20) Glucose (70-99) mg/dl Calcium (8.5-10.1) mg/dl Magnesium (1.8-2.4) mg/dl Total Bilirubin (0.2-1) mg/dl AST (15-37) U/L ALT (12-78) U/L Alkaline Phosphatase (45-117) U/L Troponin I (0-0.045) ng/ml Total Protein (6.4-8.2) gm/dl Albumin (3.4-5.0) gm/dl Globulin (2.5-4.0) gm/dl Albumin/Globulin Ratio (0.9-2) Blood Type A Positive Antibody Screen NEGATIVE Administered Medications Discontinued Medications Sodium Chloride (Nss 1000ml) 1,000 mls @ 999 mls/hr IV .Q1H1M DUSTIN Stop: 06/04/20 18:45 Last Infusion: 06/04/20 19:15 Dose: 0 mls/hr Documented by: [id number] Admin: 06/04/20 18:11 Dose: 999 mls/hr Documented by: [id number] Sodium Chloride (Nss 1000ml) 500 mls @ 999 mls/hr IV .Q31M ONE Stop: 06/04/20 20:16 Last Infusion: 06/04/20 20:26 Dose: 0 mls/hr Documented by: [id number] Admin: 06/04/20 19:54 Dose: 999 mls/hr Documented by: [id number] Sodium Chloride (Nss 1000ml) 1,000 mls @ 999 mls/hr IV .Q1H1M DUSTIN Stop: 06/04/20 21:59 Last Admin: 06/04/20 22:25 Dose: 999 mls/hr Documented by: [id number] Ioversol (Ioversol 100ml) 90 ml IV ONCE ONE Stop: 06/04/20 18:49 Last Admin: 06/04/20 18:48 Dose: 90 ml Documented by: [id number] Metoprolol Tartrate (Metoprolol Tartrate 1 Mg/Ml Vial) 5 mg IV NOW STA Stop: 06/04/20 21:04 Last Admin: 06/04/20 21:55 Dose: Not Given Documented by: [id number] Metoprolol Tartrate (Metoprolol Tartrate 1 Mg/Ml Vial) Confirm Administered Dose 5 mg IV .STK-MED ONE Stop: 06/04/20 21:07 Last Admin: 06/04/20 21:09 Dose: 5 mg Documented by: [id number] Morphine Sulfate (Morphine Sulfate 4 Mg/Ml 1 Ml Carp\Vial) 4 mg IV NOW STA Stop: 06/04/20 17:39 Last Admin: 06/04/20 18:10 Dose: 4 mg Documented by: [id number] Morphine Sulfate (Morphine Sulfate 4 Mg/Ml 1 Ml Carp\Vial) 4 mg IV NOW STA Stop: 06/04/20 19:47 Last Admin: 06/04/20 19:52 Dose: 4 mg Documented by: [id number] Ondansetron HCl (Ondansetron Inj 2 Mg/Ml 2 Ml Vial) 4 mg IV NOW STA Stop: 06/04/20 17:39 Last Admin: 06/04/20 18:11 Dose: 4 mg Documented by: [id number] Ondansetron HCl (Ondansetron Inj 2 Mg/Ml 2 Ml Vial) 4 mg IV NOW STA Stop: 06/04/20 20:49 Last Admin: 06/04/20 20:52 Dose: 4 mg Documented by: [id number] Ondansetron HCl (Ondansetron Inj 2 Mg/Ml 2 Ml Vial) Confirm Administered Dose 4 mg .ROUTE .STK-MED ONE Stop: 06/04/20 20:50 Last Admin: 06/04/20 20:57 Dose: Not Given Documented by: [id number] Discharge Plan Visit Data Chief Complaint: Fall ED Provider: Eduar Bui Discharge Problem: Syncope, Acute hyponatremia, Fracture, humerus closed, Acute leg pain, Fall Patient Disposition: Admitted As Inpatient Discharge Instructions Interventions: ED Discharge Assessment Last Done: 06/04/20 21:01 Discharge Problem: Syncope Qualifiers: Syncope type: unspecified Qualified Code(s): R55 - Syncope and collapse Fracture, humerus closed Qualifiers: Encounter type: initial encounter Humerus Location: proximal Fracture morphology: other fracture Fracture alignment: displaced Laterality: left Qualified Code(s): S42.292A - Other displaced fracture of upper end of left humerus, initial encounter for closed fracture Acute leg pain Qualifiers: Laterality: left Qualified Code(s): M79.605 - Pain in left leg Fall Qualifiers: Encounter type: initial encounter Qualified Code(s): W19.XXXA - Unspecified fall, initial encounter
[2020-06-04] MEDS ORDERED: MoRPHine SULFATE 4 MG/ML 1 ML CARP\\VIAL IV STA ×2 (17:38→19:46)
[2020-06-04] MEDS ORDERED: ONDANSETRON INJ 2 MG/ML 2 ML VIAL IV STA ×2 (17:38→20:48)
[2020-06-04] MEDS ORDERED: SODIUM CHLORIDE 0.9% 1000ML 1,000 ML IV SCH ×2 (17:45→20:59)
[2020-06-04 18:11] LABS: Basophils # (auto) 0.02 K/uL (0-0.2); Basophils % (auto) 0.1 %; Eosinophils # (auto) 0.04 K/uL (0-0.5); Eosinophils % (auto) 0.2 %; Hematocrit (blood only) 37.9 % (37-47); Hemoglobin 12.4 g/dL (12.0-16.0); Immature Granulocytes # (auto) 0.11 K/uL (0.00-0.02); Immature Granulocytes % (auto) 0.5 %; Lymphocytes # (auto) 1.67 K/uL (1.2-3.4); Lymphocytes % (auto) 8.3 %; Mean Corpuscular Hemoglobin 28.4 pg (25-34); Mean Corpuscular Hgb Conc 32.7 g/dL (32-36); Mean Corpuscular Volume 86.7 fL (80-100); Mean Platelet Volume 8.7 fL (7.4-10.4); Monocytes # (auto) 1.44 K/uL (0.11-0.59); Monocytes % (auto) 7.2 %; Neutrophils # (auto) 16.83 K/uL (1.4-6.5); Neutrophils % (auto) 83.7 %; Platelet Count 264 K/uL (130-400); RDW Coefficient of Variation 18.4 % (11.5-14.5); Red Blood Count 4.37 M/uL (4.2-5.4); White Blood Count 20.11 K/uL (4.8-10.8)
[2020-06-04 18:23] LABS: Prothrombin Time 10.9 Seconds (9.0-12.0)
[2020-06-04 18:28] LABS: Alanine Aminotransferase 23 U/L (12-78); Albumin Level 3.5 gm/dl (3.4-5.0); Aspartate Aminotransferase 19 U/L (15-37); BUN Creatinine Ratio 14.8 (10-20); Blood Urea Nitrogen 13 mg/dl (7-18); Carbon Dioxide 22 mmol/L (21-32); Chloride 98 mmol/L (98-107); Creatinine Clr Calc Pharmacy 62.5 ml/min; Glucose 298 mg/dl (70-99); Magnesium 1.5 mg/dl (1.8-2.4); Potassium 4.6 mmol/L (3.5-5.1); Sodium 128 mmol/L (136-145)
[2020-06-04 18:33] LABS: Albumin Globulin Ratio 0.9 (0.9-2); Alkaline Phosphatase 68 U/L (45-117); Bilirubin,Total 0.6 mg/dl (0.2-1); Globulin 3.7 gm/dl (2.5-4.0); Total Protein 7.2 gm/dl (6.4-8.2); Troponin I < 0.015 ng/ml (0-0.045)
[2020-06-04] MEDS ORDERED: IOVERSOL 100ml IV ONE (18:48)
--- NOTE | 2020-06-04 18:58 | CT Scan Report ---
CT head/brain wo con CLINICAL HISTORY: Head pain status post trauma COMPARISON STUDY: No previous studies for comparison. TECHNIQUE: Axial CT of the brain is performed from the vertex to the skull base. IV contrast was not administered for this examination. A dose lowering technique was utilized adhering to the principles of ALARA. CT DOSE: FINDINGS: No intra or extra-axial mass lesions are visualized. There is no CT evidence of acute cortical infarc tion. There is no evidence of midline shift. There is no acute hemorrhage. No calvarial fractures ar e visualized. There are patchy white matter hypodensities likely on a small vessel basis. There is mild ventricular prominence, finding which is felt to be secondary to volume loss There is no evidence of acute sinusitis There is a scalp hematoma at the vertex. IMPRESSION: 1. Scalp hematoma 2. No acute intracranial findings. ACT 112: Negative or not required by law. Electronically signed by: Abhishek Sharma M.D. 06/04/2020 6:56 PM
--- NOTE | 2020-06-04 19:01 | CT Scan Report ---
CT OF THE CERVICAL SPINE CLINICAL HISTORY: Neck pain status post trauma COMPARISON STUDY: No previous studies for comparison. CT DOSE: 1162.62 mGy.cm TECHNIQUE: CT scan of the cervical spine was performed from the skull base to the thoracic inlet. Jessica ges are reviewed in the axial, sagittal, and coronal planes. IV contrast was not administered for thi s examination. A dose lowering technique was utilized adhering to the principles of ALARA. FINDINGS: The visualized portions of the lung apices reveal no evidence of pneumothorax. The prevertebral soft tissues are normal. No fractures or subluxations are visualized. There are multilevel degenerative changes IMPRESSION: No evidence of acute fracture or traumatic subluxation. ACT 112: Negative or not required by law. Electronically signed by: Abhishek Sharma M.D. 06/04/2020 6:59 PM
--- NOTE | 2020-06-04 19:07 | CT Scan Report ---
CT abd pelvis IV con only CLINICAL HISTORY: Abdominal pain status post trauma. Elevated white count. COMPARISON STUDY: July 2017 TECHNIQUE: The patient was scanned in a dynamic helical fashion during intravenous and ministration o f 90 cc of Optiray 320 A dose lowering technique was utilized adhering to the principles of ALARA. CT DOSE: 869.07 mGy.cm FINDINGS: Lower chest: The heart is normal in size and configuration, without pericardial effusion. The lung ba ses and pleural spaces are clear. Liver: The contrast-enhanced liver is normal in size, contour, and attenuation. There is no intrahepa tic biliary ductal dilatation. The hepatic veins and portal veins are patent. Gallbladder: Surgically absent Spleen: Normal in size and attenuation. 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 There is no pancreatic ductal dilatation. Adrenal glands: Unremarkable. Kidneys: There are bilateral nonobstructing renal calculi. The largest is located within the lower po le the right kidney measuring 6 mm. Bowel: There are no transition zones to indicate bowel obstruction. There is pandiverticulosis. Posts urgical changes are present within the rectosigmoid. There is no evidence of acute diverticulitis. Th ere are no findings to indicate acute appendicitis. There are no extraluminal gas collections. There is no pathologic interloop fluid. Peritoneum: There is no intraperitoneal free air or abdominal ascites. There are postsurgical changes of a ventral hernia repair Vasculature: The abdominal aorta is normal in course and caliber. Adenopathy: None. Pelvic viscera: The bladder, and pelvic viscera are unremarkable. Skeletal structures: No destructive osseous lesions are seen. IMPRESSION: 1. No acute intra-abdominal or pelvic findings. No evidence of acute intra-abdominal or pelvic injury 2. No evidence of bowel obstruction. No evidence of free air 3. Bilateral nephrolithiasis. No hydronephrosis 4. No acute inflammatory changes ACT 112: Negative or not required by law. Electronically signed by: Abhishek Sharma M.D. 06/04/2020 7:06 PM
--- NOTE | 2020-06-04 19:43 | XRay Report ---
XR ankle LT min 3V routine CLINICAL HISTORY: Ankle pain status post trauma COMPARISON: None. DISCUSSION: The bones are osteopenic. There is calcaneal spurring. There is plantar fascial calcifica tion. There are no acute fractures. The ankle mortise appears intact. There are corticated bony densi ties adjacent the medial malleolus which are felt to be old. There is medial soft tissue swelling. IMPRESSION: Soft tissue edema. No acute fractures or dislocations identified. ACT 112: Negative or not required by law. Electronically signed by: Abhishek Sharma M.D. 06/04/2020 7:41 PM
[2020-06-04] MEDS ORDERED: SODIUM CHLORIDE 0.9% 1000ML 500 ML IV ONE (19:46)
--- NOTE | 2020-06-04 19:48 | XRay Report ---
XR chest 1V portable CLINICAL HISTORY: Trauma COMPARISON STUDY: 01/28/2019 FINDINGS: The cardiac and mediastinal contours appear normal given the supine technique. There is no focal pulmonary consolidation. No pneumothorax is visualized on this supine study. There is a proxima l left humeral fracture. There is a lucency through the proximal right humerus which may be artifactu al.[ IMPRESSION: 1. No acute pulmonary findings on this supine study 2. Proximal left humeral fracture 3. Lucency to the proximal right humerus, possibly artifactual. Correlation with patient's symptoms i s recommended ACT 112: Negative or not required by law. Electronically signed by: Abhishek Sharma M.D. 06/04/2020 7:47 PM
--- NOTE | 2020-06-04 19:49 | XRay Report ---
XR humerus LT 2V CLINICAL HISTORY: Left humeral pain status post trauma COMPARISON: None. DISCUSSION: There is a proximal humeral fracture involving the humeral neck and greater tuberosity. T here is no dislocation. No additional humeral fractures are visualized. IMPRESSION: Acute proximal humeral fracture. No evidence of dislocation ACT 112: Negative or not required by law. Electronically signed by: Abhishek Sharma M.D. 06/04/2020 7:48 PM
--- NOTE | 2020-06-04 19:52 | XRay Report ---
XR shoulder LT min 2V routine CLINICAL HISTORY: Left shoulder pain status post trauma COMPARISON: None. DISCUSSION: There is an acute proximal humeral fracture involving the humeral neck and greater tubero sity. There is no dislocation. IMPRESSION: Acute proximal humeral fracture. No evidence of dislocation. ACT 112: Negative or not required by law. Electronically signed by: Abhishek Sharma M.D. 06/04/2020 7:50 PM
--- NOTE | 2020-06-04 19:53 | XRay Report ---
XR tibia fibula LT 2V CLINICAL HISTORY: Left lower leg pain status post trauma COMPARISON: None. DISCUSSION: No acute fractures or dislocations are visualized. There is a lower leg medial soft tissu e edema. There is chondrocalcinosis within the knee. Degenerative changes are present within the knee . There are faint vascular calcifications. IMPRESSION: No acute fractures identified ACT 112: Negative or not required by law. Electronically signed by: Abhishek Sharma M.D. 06/04/2020 7:51 PM
--- NOTE | 2020-06-04 20:14 | History & Physical Report ---
Date of Service June 04, 2020 Assessment & Plan (1) Syncope: - Admit to med surg with tele - Check 2 D echo - Initial troponin is negative, trend x2 more sets - Given 1.5 L NSS in the ER, give additional 1 L now followed by 125 mL/h x 1 day - EKG reviewed, appears to be in sinus tach, bedside heart rate is in the 120s- appears to be clinically dry with dry mucous membranes, hyponatremia, possibly syncopal episode related to dehydration-we will order one-time dose IV Lopressor 5 mg and give additional fluids -Imaging per EMR reviewed - negative cervical spine, abd/pelvis, tibia/fibula, shoulder, + L humerus fracture - Leukocytosis with WBC 20.11, left shift - Follow infectious work-up, UA and urine culture pending, will order straight cath, history of UTI/nephrolithiasis - Check Blood cultures, UA, UCx - Check CK with likely rhabdomyolysis with lying on the floor for upwards of 3 hours - PT/OT (2) Acute hyponatremia: -Sodium 128 on admission, check random urine sodium and creatinine - -IVF as above -Allow diet for solute if can tolerate PO intake (3) Fracture, humerus closed: -Left -Sustained on fall, orthopedics consulted, Dr. Caesar Espinoza, patient follows with Dr. Lazo as an outpatient however he is not on-call at this time patient would prefer to follow with Dr. Lazo as outpatient (4) Type 2 diabetes mellitus: -ISS with Accu-Cheks AC at bedtime, holding Metformin and glimepiride -Check A1c with a.m. labs -Glucose elevated at 298 on arrival (5) Hypertension: -Hypertensive 155/95, missed afternoon medications - Continue lisinopril 40 mg daily (6) Hyperlipidemia: -Continue colestipol, not on statin therapy (7) Hypothyroidism: -Continue levothyroxine 175 mcg daily (8) Gastroesophageal reflux disease: -Continue PPI (9) Osteoporosis: -Continue vitamin D and calcium supplementation (10) Vitamin D deficiency: -Continue supplementation (11) Anemia: -Hemoglobin 12.4, HCT = 37.9 (12) Anxiety: (13) Depression: - Continue Wellbutrin DVT ppx: - teds, scds CODE: Full code Dispo: From home, likely to remain in the hospital x 1-2 days History of Present Illness Primary Care Provider: Abad Garcia MD This is a 75 yo F with PMhx of HTN, HLD, GERD, asthma, anemia, DM II, hypothyroidism, peripheral neuropathy, osteoporosis, vit D deficiency, with hx of nephrolithiasis who presents after a fall sustained around 1pm. Patient was walking from the bottom of her basement steps upstairs and subsequently became lightheaded and dizzy and fell down backwards. She believes that this occurred around 1 PM, however laid on the ground for approximately 3 hours as she was home by herself. She feels quite sore, denies any acute focal areas of pain at this point. She cannot recall the event itself very well. Her is present at bedside and states that she typically helps with laundry going up and down the basement stairs once every 2 weeks. Patient admits to having history of UTIs and kidney stones, but denies any increased frequency, dysuria, hematuria recently. She wears a brief at all times and changes it 4 times per day. She reports her diet has been fine, no changes in intake and felt well prior to this event. She notes that 13 days ago was at dinner with a family member who 2 days after her exposure tested positive for Covid. She denies any respiratory symptoms, afebrile, no diarrhea and has since been isolating at home and symptom monitoring. Allergies Allergy/AdvReac Type Severity Reaction Status Date / Time animal dander Allergy Mild Sneezing Verified 06/04/20 18:46 hyde Allergy Mild Verified 06/04/20 18:46 pollen extracts Allergy Mild sneezing Verified 06/04/20 18:46 cigarette smoke Allergy sneezing Verified 06/04/20 18:46 naproxen Allergy Rash Verified 06/04/20 18:46 Home Medications Home Medications Medication Instructions Recorded Confirmed Type albuterol sulfate 90 mcg/actuation 2 puffs INH QID PRN #18 gm 12/30/18 06/04/20 Rx aerosol inhaler aspirin 81 mg tablet,delayed 81 mg PO QPM 12/30/18 06/04/20 History release blood sugar diagnostic #10 ea 12/30/18 05/10/20 History fexofenadine 180 mg tablet 180 mg PO QAM 12/30/18 06/04/20 History turmeric root extract 500 mg 500 mg PO QDL 12/30/18 06/04/20 History capsule Asmanex Twisthaler 1 puffs INH QAM 01/21/19 06/04/20 History calcium carbonate-vitamin D3 1 tab PO BID 01/21/19 06/04/20 History [Calcium 600 + D(3)] mirtazapine 45 mg PO HS 02/11/19 06/04/20 History cholecalciferol (vitamin D3) 50 2,000 units PO PM cap 04/09/19 06/04/20 History mcg (2,000 unit) capsule colestipol 1 gram tablet 1 gm PO DAILY #90 tab 11/12/19 06/04/20 Rx nystatin 100,000 unit/gram topical 1 appln TOP BID #60 gm 12/18/19 06/04/20 Rx powder allopurinol 300 mg tablet 300 mg PO QAM #30 tab 12/28/19 06/04/20 Rx alendronate 70 mg tablet 70 mg PO WEEKLY #4 tab 12/29/19 06/04/20 Rx magnesium oxide 400 mg (241.3 mg 400 mg PO QID 90 Days #360 tab 02/16/20 06/04/20 Rx magnesium) tablet trospium 60 mg capsule,extended 60 mg PO QAM #30 cap 03/23/20 06/04/20 Rx release 24 hr bupropion HCl 150 mg tablet,12 hr 150 mg PO BID #180 ea 04/12/20 06/04/20 Rx sustained-release meloxicam 15 mg tablet 15 mg PO QAM PRN #30 tab 04/12/20 06/04/20 Rx diclofenac sodium [Voltaren] 2 g TOPICAL BID PRN 06/04/20 06/04/20 History ferrous sulfate 325 mg PO PM 06/04/20 06/04/20 History glimepiride 4 mg PO PM 06/04/20 06/04/20 History levothyroxine 175 mcg PO QAM 06/04/20 06/04/20 History lisinopril 40 mg PO QAM 06/04/20 06/04/20 History loperamide 4 mg PO QID 06/04/20 06/04/20 History metformin 1,000 mg PO BID 06/04/20 06/04/20 History mirabegron [Myrbetriq] 25 mg PO PM 06/04/20 06/04/20 History omeprazole 20 mg PO QAM 06/04/20 06/04/20 History vitamins A,C,W-zzky-ohhiry 1 cap PO BID 06/04/20 06/04/20 History [PreserVision AREDS] Past Med/Surg History Medical History (Updated 06/05/20 @ 23:13 by Anne Grimm MD) Anxiety Asthma Depression Diabetes mellitus, type 2 Environmental allergies GERD (gastroesophageal reflux disease) History of diverticulitis History of kidney stones Hx of gout Hx of intestinal obstruction Hyperlipidemia Hypertension Hypomagnesemia Hypothyroidism Macular degeneration both Osteopenia Osteoporosis Pancreatic cyst Seasonal allergies Surgical History History of bowel resection History of cholecystectomy also had appy at same surgery Hx of appendectomy Hx of cataract extraction both eyes Hx of hernia repair Hx of lithotripsy Hx of tubal ligation S/P tonsillectomy S/P total knee arthroplasty Status post right knee replacement Family History Father Family history of diabetes mellitus Alcohol abuse Cardiac disorder Diabetes Hypertension Myocardial infarction Grandmother (Paternal) Family history of diabetes mellitus Grandmother (Maternal) Family history of diabetes mellitus Breast cancer Sister Family history of diabetes mellitus Mother Anxiety Depression Lung disease Brother Colonic polyp Denies family history of Ovarian cancer Prostate cancer Colorectal cancer Social History Smoking Status: Unknown if ever smoked Second Hand Exposure: No; Hx Alcohol Use: No Hx Substance Use: No Preferred Language: American Communication Ability: Effective Gear Shaper Required: No Beliefs That Will Affect Care: Restoration marital status: Current Living Situation: Spouse current occupational status: retired Other Information That Helps Us Care for You: No Feels Safe at Home: Yes Safety Concerns: Feels Safe At This Time Dental Care, Regularly: Yes Physical Activity Frequency: Does not Exercise Assistive Devices: Brace/Splint/Immobilizer Review of Systems Review of Systems: Constitutional: No fever, sweats or chills Eyes: No diplopia, no worsening or blurred vision ENT: normal hearing, no trouble swallowing Respiratory: No cough, sputum, dyspnea at rest or on exertion Cardiovascular: No chest pain, tightness or palpitations Abdomen: No pain, + nausea, no vomiting, diarrhea or constipation, last bowel mo vement was 1 day ago Musculoskeletal: + Multiple areas of joint pain s/p fall, worse in the left elbow, no, calf pain, swelling Neurologic: No weakness, numbness/tingling, or balance problems, does not use assistive devices for ambulation Psychiatric: No anxiety or depression Skin: No rash or itch Physical Exam Physical Exam: General: awake, alert, no apparent distress, morbidly obese Head: Normocephalic, atraumatic ENT: PERRL, EOMI, no pharyngeal exudate, + mucous membranes dry Chest: Clear to auscultation, on 3L via NC, no adventitious breath sounds Cardiac: + Sinus tach, HR = 120 at bedside, no murmur, no JVD, normal peripheral pulses, good capillary refill Abdominal: NABS x 4 quadrants, soft, nondistended, nontender to palpation, no rebound or guarding Extremities: Normal inspection, + abrasion over the right knee, scar overlying the area status post right knee replacement 1 year ago, + ecchymosis developing on right medial ankle, left arm in a sling, no peripheral edema or erythema, calfs nontender to palpation Psych: Normal mood and affect Neuro: AAO x 3, strength intact bilaterally and rated 5/5, no motor deficits, speech is clear, no peripheral sensory deficits Results & Data Results & Data ([facility]) Vital Signs (Past 12 Hours) Vital Signs Temp Pulse Pulse Resp BP BP Pulse Ox 06/04/20 19:55 113 H 21 155/66 H 93 06/04/20 17:24 36.6 C 134 H 18 141/112 H 95 Diagnostic Findings XR humerus LT 2V CLINICAL HISTORY: Left humeral pain status post trauma COMPARISON: None. DISCUSSION: There is a proximal humeral fracture involving the humeral neck and greater tuberosity. There is no dislocation. No additional humeral fractures are visualized. IMPRESSION: Acute proximal humeral fracture. No evidence of dislocation XR shoulder LT min 2V routine CLINICAL HISTORY: Left shoulder pain status post trauma COMPARISON: None. DISCUSSION: There is an acute proximal humeral fracture involving the humeral neck and greater tuberosity. There is no dislocation. IMPRESSION: Acute proximal humeral fracture. No evidence of dislocation. CT head/brain wo con CLINICAL HISTORY: Head pain status post trauma COMPARISON STUDY: No previous studies for comparison. TECHNIQUE: Axial CT of the brain is performed from the vertex to the skull base. IV contrast was not administered for this examination. A dose lowering technique was utilized adhering to the principles of ALARA. CT DOSE: FINDINGS: No intra or extra-axial mass lesions are visualized. There is no CT evidence of acute cortical infarction. There is no evidence of midline shift. There is no acute hemorrhage. No calvarial fractures are visualized. There are patchy white matter hypodensities likely on a small vessel basis. There is mild ventricular prominence, finding which is felt to be secondary to volume loss There is no evidence of acute sinusitis There is a scalp hematoma at the vertex. IMPRESSION: 1. Scalp hematoma 2. No acute intracranial findings. XR tibia fibula LT 2V CLINICAL HISTORY: Left lower leg pain status post trauma COMPARISON: None. DISCUSSION: No acute fractures or dislocations are visualized. There is a lower leg medial soft tissue edema. There is chondrocalcinosis within the knee. Degenerative changes are present within the knee. There are faint vascular calcifications. IMPRESSION: No acute fractures identified CT abd pelvis IV con only CLINICAL HISTORY: Abdominal pain status post trauma. Elevated white count. COMPARISON STUDY: July 2017 TECHNIQUE: The patient was scanned in a dynamic helical fashion during intravenous and ministration of 90 cc of Optiray 320 A dose lowering technique was utilized adhering to the principles of ALARA. CT DOSE: 869.07 mGy.cm FINDINGS: Lower chest: The heart is normal in size and configuration, without pericardial effusion. The lung bases and pleural spaces are clear. Liver: The contrast-enhanced liver is normal in size, contour, and attenuation. There is no intrahepatic biliary ductal dilatation. The hepatic veins and portal veins are patent. Gallbladder: Surgically absent Spleen: Normal in size and attenuation. 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 There is no pancreatic ductal dilatation. Adrenal glands: Unremarkable. Kidneys: There are bilateral nonobstructing renal calculi. The largest is located within the lower pole the right kidney measuring 6 mm. Bowel: There are no transition zones to indicate bowel obstruction. There is pandiverticulosis. Postsurgical changes are present within the rectosigmoid. There is no evidence of acute diverticulitis. There are no findings to indicate acute appendicitis. There are no extraluminal gas collections. There is no pathologic interloop fluid. Peritoneum: There is no intraperitoneal free air or abdominal ascites. There are postsurgical changes of a ventral hernia repair Vasculature: The abdominal aorta is normal in course and caliber. Adenopathy: None. Pelvic viscera: The bladder, and pelvic viscera are unremarkable. Skeletal structures: No destructive osseous lesions are seen. IMPRESSION: 1. No acute intra-abdominal or pelvic findings. No evidence of acute intra- abdominal or pelvic injury 2. No evidence of bowel obstruction. No evidence of free air 3. Bilateral nephrolithiasis. No hydronephrosis 4. No acute inflammatory changes Code Status & VTE Plan Code Status Full code-discussed with the patient and her at bedside Supervising Physician Co-Signing Physician Notes Attending addendum: I have physically seen this patient, have supervised the physician resident assistant activities, and agree with the H&P unless as otherwise noted. Assessment and Plan: Syncope and collapse- The patient will be admitted to telemetry for serial cardiac enzymes, serial EKG's, cardiac rhythm monitoring and a 2-D echocardiogram with Dopplers. Given 1.5 L normal saline in the ER, plus additional 1 L now, then 125 mils per hour for 24 hours. Sinus tachycardia secondary to volume depletion Follow urine culture sensitivities, and blood cultures to assess for potential UTI because. Closed left humerus fracture- N.p.o. after midnight Orthopedic surgery Dr. Lazo as noted as outpatient, to be seen by Dr. Gagan varma as inpatient. Hyponatremia- Sodium 128 upon admission. Check serum and urine osmolalities. IV fluids as noted above Diabetes mellitus- Place in Accu-Cheks before meals and at bedtime with NovoLog coverage per scale Hold metformin and glimepiride. Remaining orders and notations as noted PG Care Time/CCT Total # of Minutes Spent Total Time Spent with Patient: Total time spent is greater than 50% in coordination of care (as documented) at patient's floor/unit and/or counseling patient: Coding Level of Care Code 46228 Initial Inpt Care Lvl 3 Diagnoses Syncope R55 Syncope type: unspecified Acute hyponatremia E87.1 Fracture, humerus closed S42.292A Encounter type: initial encounter Fracture alignment: displaced Fracture morphology: other fracture Humerus Location: proximal Laterality: left Type 2 diabetes mellitus E11.9 Hypertension I10 Hyperlipidemia E78.5 Hypothyroidism E03.9 Gastroesophageal reflux disease K21.9 Osteoporosis M81.0 Vitamin D deficiency E55.9 Anemia D64.9 Anxiety F41.9 Depression F32.9 (1) Fracture, humerus closed Encounter type: initial encounter Fracture alignment: displaced Fracture morphology: other fracture Humerus Location: proximal Laterality: left Qualified Code(s): S42.292A - Other displaced fracture of upper end of left humerus, initial encounter for closed fracture (2) Syncope Syncope type: unspecified Qualified Code(s): R55 - Syncope and collapse
[2020-06-04] MEDS ORDERED: ONDANSETRON INJ 2 MG/ML 2 ML VIAL ONE (20:49)
[2020-06-04] MEDS ORDERED: ONDANSETRON INJ 2 MG/ML 2 ML VIAL IV PRN (20:54)
[2020-06-04] MEDS ORDERED: METOPROLOL TARTRATE 1 MG/ML VIAL IV STA (21:03)
[2020-06-04] MEDS ORDERED: METOPROLOL TARTRATE 1 MG/ML VIAL IV ONE (21:06)
[2020-06-04] MEDS ORDERED: CARBOHYDRATES FOR HYPOGLYCEMIA PO PRN (21:53)
[2020-06-04] MEDS ORDERED: MELOXICAM 7.5 MG TAB PO PRN (21:53)
[2020-06-04] MEDS ORDERED: GLUCAGON FOR INJ 1 MG VIAL SQ PRN (21:53)
[2020-06-04] MEDS ORDERED: GLUCOSE 40% GEL 15 GM TUBE PO PRN (21:53)
[2020-06-04] MEDS ORDERED: GLUCOSE 10 TABS/TUBE PO PRN (21:53)
[2020-06-04] MEDS ORDERED: DICLOFENAC SOD 1% GEL 100 GM TUBE EXT PRN (21:53)
[2020-06-04] MEDS ORDERED: ALBUTEROL HFA 8 GM INHALER INH PRN (21:53)
[2020-06-04] MEDS ORDERED: DEXTROSE 50% 50 ML SYRINGE IV PRN (21:53)
[2020-06-04] MEDS: SODIUM CHLORIDE 0.9% 1000ML 1,000 ML IV SCH (23:35)
[2020-06-04 23:50] LABS: Creatine Kinase 271 U/L (26-192); Troponin I < 0.015 ng/ml (0-0.045)
[2020-06-04] MEDS: INSULIN ASPART 100 UNITS/ML 3 ML PEN SC SCH (23:54)
[2020-06-04] MEDS: ASPIRIN 81 MG ECTAB PO SCH (23:58)
[2020-06-04] MEDS: MAGNESIUM OXIDE 400 MG TAB PO SCH (23:59)
[2020-06-04] MEDS: CEROVITE ADV FORMULA TAB PO SCH (23:59)
[2020-06-04] MEDS: FERROUS SULFATE 325 MG TAB PO SCH (23:59)
[2020-06-05] MEDS: MIRTAZAPINE SOLTAB 15 MG PO SCH ×2 (00:01→21:22)
[2020-06-05] MEDS: CALCIUM 600MG + VIT D 400 IU TAB PO SCH ×3 (00:01→21:21)
[2020-06-05] MEDS: CHOLECALCIFEROL 1,000 UNITS 25 MCG TAB PO SCH ×2 (00:02→21:22)
[2020-06-05] MEDS: LOPERAMIDE HCL 2 MG CAP PO SCH ×5 (00:02→21:19)
[2020-06-05] MEDS: NYSTATIN POWDER 15GM BTL EXT SCH ×3 (00:03→21:22)
[2020-06-05] MEDS ORDERED: MoRPHine SULFATE 2 MG/ML CARP IV STA (03:02)
[2020-06-05] MEDS ORDERED: MoRPHine SULFATE 2 MG/ML CARP ONE (03:14)
[2020-06-05 04:47] LABS: Appearance Urine Clear (Clear); Bacteria Urine Automated Negative (Negative); Bilirubin Urine Negative (Negative); Blood Urine Negative (Negative); Color Urine Yellow; Epithelial Cell Urine Auto 0-5 /lpf (0-5); Glucose Urine UA 3+ (Negative); Ketones Urine 2+ (Negative); Leukocyte Esterase Urine Negative (Negative); Nitrite Urine Negative (Negative); Protein Urine Trace (Negative); RBC Urine Automated 0-4 /hpf (0-4); Specific Gravity Urine 1.025 (1.000-1.030); Urobilinogen Urine Negative (Negative); WBC Urine Automated 0 /hpf (0-5); pH Urine 5.5 (4.5-7.5)
[2020-06-05 05:07] LABS: Creatinine Urine Random 86.8 mg/dl
[2020-06-05] MEDS: LEVOTHYROXINE SODIUM 175 MCG TABLET PO SCH (06:11)
[2020-06-05] MEDS: ACETAMINOPHEN 325 MG TAB PO PRN (06:11)
[2020-06-05 06:21] LABS: Hematocrit (blood only) 29.6 % (37-47); Hemoglobin 9.7 g/dL (12.0-16.0); Mean Corpuscular Hemoglobin 28.2 pg (25-34); Mean Corpuscular Hgb Conc 32.8 g/dL (32-36); Mean Platelet Volume 8.4 fL (7.4-10.4); Platelet Count 197 K/uL (130-400); RDW Coefficient of Variation 18.7 % (11.5-14.5); RDW Standard Deviation 58.9 fL (36.4-46.3); Red Blood Count 3.44 M/uL (4.2-5.4); White Blood Count 8.16 K/uL (4.8-10.8)
[2020-06-05 06:54] LABS: BUN Creatinine Ratio 16.7 (10-20); Bilirubin,Total 0.7 mg/dl (0.2-1); Calcium 7.6 mg/dl (8.5-10.1); Creatinine Clr Calc Pharmacy 81.6 ml/min; Est GFR (African American) 99.9; Est GFR (Non-African American) 86.2; Magnesium 1.6 mg/dl (1.8-2.4); Phosphorus 3.2 mg/dl (2.5-4.9); Potassium 4.3 mmol/L (3.5-5.1)
[2020-06-05] MEDS: SODIUM CHLORIDE 0.9% 1000ML 1,000 ML IV SCH ×2 (07:50→16:09)
[2020-06-05] MEDS: FLUTICASONE FUROATE 100MCG 14 PUFFS/INHALER INH SCH (08:04)
[2020-06-05] MEDS: CEROVITE ADV FORMULA TAB PO SCH ×2 (08:04→21:22)
[2020-06-05] MEDS: MAGNESIUM OXIDE 400 MG TAB PO SCH ×4 (08:04→21:22)
[2020-06-05] MEDS: buPROPion SR 150 MG TABCR PO SCH ×3 (08:04→21:22)
[2020-06-05] MEDS: PANTOprazole 40 MG TAB PO SCH (08:05)
[2020-06-05] MEDS: FEXOFENADINE HCL 180 MG TAB PO SCH (08:05)
[2020-06-05] MEDS: allopurinoL 300 MG TAB PO SCH (08:05)
[2020-06-05] MEDS: lisinopril 40 MG TAB PO SCH (08:05)
[2020-06-05] MEDS: INSULIN ASPART 100 UNITS/ML 3 ML PEN SC SCH ×4 (08:06→21:35)
--- NOTE | 2020-06-05 08:10 | Hospitalist Progress Note ---
Date of Service June 05, 2020 Assessment & Plan (1) Syncope: - Admit to med surg with tele -She did not pass out, this was presyncope, possibly related to dehydration from hyponatremia versus hyperventilating from going up the stairs and being deconditioned - Check 2 D echo-pending - troponin x 3 negative - Given 2.5 L NSS in the ER, continue 125 mL/h x 1 day - Remains in sinus tach - given one-time dose IV Lopressor 5 mg in ER, appears to be improved today with fluids. Continue maintenance fluids for today, if diet improves then dc. - Imaging per EMR reviewed - negative cervical spine, CT abd/pelvis, tibia/fibula, shoulder, + L humerus fracture - Leukocytosis with WBC 20.11, left shift - improved to 8K and was likely stress response - Follow infectious work-up, UA negative and urine culture pending - Check Blood cultures - CK 271 with likely rhabdomyolysis with lying on the floor for upwards of 3 hours - IVF as above - PT/OT (2) Acute hyponatremia: -Sodium 128 on admission, improved to 133 with IV fluid hydration, random urine sodium 71 - unlikely siadh, more likely volume depletion - dc fluids once improved PO intake Follow BMP in the morning (3) Fracture, humerus closed: -Left -Sustained on fall, orthopedics consulted, Dr. Burns has seen the pt -More imaging ordered per their team today - await recs, appreciate -Add on pain control with tramadol and IV morphine (4) Type 2 diabetes mellitus: -ISS with Accu-Cheks AC at bedtime, holding Metformin and glimepiride -A1c pending -Glucose elevated at 298 - improved at this point (5) Hypertension: - Hypertensive 134/63, missed afternoon medications - Continue lisinopril 40 mg daily (6) Hyperlipidemia: -Continue colestipol, not on statin therapy (7) Hypothyroidism: -Continue levothyroxine 175 mcg daily (8) Gastroesophageal reflux disease: -Continue PPI (9) Osteoporosis: -Continue vitamin D and calcium supplementation (10) Vitamin D deficiency: -Continue supplementation (11) Anemia: -Hemoglobin 12.4, HCT = 37.9 -- dropped to 9.7/29.6 on recheck today, likely due to fluid resuscitation but could have some blood loss from humerus fractures and various areas of ecchymosis (12) Anxiety: (13) Pancreatic cyst: Cystic lesion seen in the head of the pancreas on CT abdomen/pelvis Could be IPMN's Follow as an outpatient (14) Depression: - Continue Wellbutrin DVT ppx: - teds, scds CODE: Full code Dispo: From home, likely to remain in the hospital x 1-2 days, may need rehab placement. PT/OT consultations requested Admission and Anticipated Discharge Date Admission Date: June 04, 2020 Supervising Physician Co-Signing Physician Notes PA Supervision Note: I did not personally see or examine the patient today, but I verified all har[place] points of DANDRE Sena's assessment and plan with the following exceptions/additions: Blood sugars are elevated-tighten down sliding scale insulin. It appears she most likely will be nonsurgical management of her humerus fracture. Continue pain control, follow CBC in the morning for blood loss anemia. Appreciate orthopedic evaluation. Subjective The patient was seen and examined this morning. Pt states she is very sore today , feels pain is generalized. She has not gotten up out of bed yet, but was willing to get up and move to help mobility and soreness. Pt attempted some breakfast, no nausea or vomiting. Urinating without issues. No BM yet. Denies other acute complaints. Review of Systems Review of Systems: Constitutional: No fever, sweats or chills, + generalized soreness Eyes: No diplopia, no worsening or blurred vision ENT: normal hearing, no trouble swallowing Respiratory: No cough, sputum, dyspnea at rest or on exertion Cardiovascular: No chest pain, tightness or palpitations Abdomen: No pain, nausea, vomiting, diarrhea or constipation Musculoskeletal: + multiple areas of pain, low back, legs, left ankle, Left arm. No calf pain, no swelling Neurologic: +generalized weakness, no numbness/tingling, no balance problems Psychiatric: No anxiety or depression Skin: No rash or itch Physical Exam Physical Exam: General: awake, alert, no apparent distress, morbidly obese Head: Normocephalic, atraumatic ENT: PERRL, EOMI, no pharyngeal exudate, mucous membranes moist Chest: Clear to auscultation, on room air O2 sats 95%, no adventitious breath sounds Cardiac: + Sinus tach, HR = 100 at bedside, no murmur, no JVD, normal peripheral pulses, good capillary refill Abdominal: NABS x 4 quadrants, soft, nondistended, nontender to palpation, no rebound or guarding Extremities: Normal inspection, + abrasion over the right knee, scar overlying the area status post right knee replacement 1 year ago, + ecchymosis developing on right medial ankle, left arm in a sling, no peripheral edema or erythema, calfs nontender to palpation Psych: Normal mood and affect Neuro: AAO x 3, no gross motor deficits, speech is clear, no peripheral sensory deficits Results & Data Results & Data ([facility]) Vital Signs (Past 12 Hours) Vital Signs Temp Pulse Pulse Resp BP BP Pulse Ox 06/05/20 07:37 36.9 C 104 H 20 134/63 95 06/05/20 04:00 37.2 C 100 H 18 150/65 H 94 06/04/20 22:40 36.8 C 103 H 18 127/77 93 06/04/20 22:20 102 H 06/04/20 21:09 112 H 157/95 H 06/04/20 20:56 112 H 20 157/95 H 95 06/04/20 20:18 97 PG Care Time/CCT Total # of Minutes Spent Total Time Spent with Patient: Total time spent is greater than 50% in coordination of care (as documented) at patient's floor/unit and/or counseling patient: Coding Level of Care Code 73602 Subseq Hosp Care Lvl 3 Diagnoses Syncope R55 Syncope type: unspecified Acute hyponatremia E87.1 Fracture, humerus closed S42.292A Encounter type: initial encounter Fracture alignment: displaced Fracture morphology: other fracture Humerus Location: proximal Laterality: left Type 2 diabetes mellitus E11.9 Hypertension I10 Hyperlipidemia E78.5 Hypothyroidism E03.9 Gastroesophageal reflux disease K21.9 Osteoporosis M81.0 Vitamin D deficiency E55.9 Anemia D64.9 Anxiety F41.9 Pancreatic cyst K86.2 Depression F32.9 (1) Fracture, humerus closed Encounter type: initial encounter Fracture alignment: displaced Fracture morphology: other fracture Humerus Location: proximal Laterality: left Qualified Code(s): S42.292A - Other displaced fracture of upper end of left humerus, initial encounter for closed fracture (2) Syncope Syncope type: unspecified Qualified Code(s): R55 - Syncope and collapse
[2020-06-05] MEDS: traMADol HCL 50 MG TABLET PO PRN ×2 (08:52→14:41)
[2020-06-05] MEDS: MAGNESIUM SULFATE / D5W 1 GM/100 ML BAG IV SCH ×2 (08:54→10:47)
--- NOTE | 2020-06-05 10:46 | XRay Report ---
XR shoulder LT 1V CLINICAL HISTORY: pain, grashey view only COMPARISON: Left shoulder radiographs June 04, 2020. FINDINGS: Note is made of a comminuted displaced proximal left humeral fracture with displacement of the greater tuberosity. Fracture also extends to the humeral neck. IMPRESSION: Comminuted proximal left humeral fracture with displacement of the greater tuberosity and extension through the humeral neck. ACT 112: Negative or not required by law. Electronically signed by: Polo Christensen M.D. 06/05/2020 10:44 AM
--- NOTE | 2020-06-05 10:47 | Consultation Report ---
DATE OF CONSULTATION: 06/05/2020 CHIEF COMPLAINT: Left shoulder pain. HISTORY OF PRESENT ILLNESS: Chelsie got lightheaded yesterday and fell down the steps. She injured her left shoulder. She is admitted to the hospital. She complains of soreness all over her body, but more significantly in the left shoulder. She is afebrile and her vital signs are stable. Hemoglobin 10, hematocrit 30, platelets 197. PAST MEDICAL HISTORY: Vitamin D deficiency, osteoporosis, diabetes with neuropathy, anxiety. MEDICATIONS: Noted and reviewed on the medical record. She is getting vitamin D and is on alendronate. Her orthopedic doctor is Dr. Lazo. I have reviewed the reports and/or films of her abdomen and pelvis CT, tib-fib x-ray, left shoulder and humerus, head CT, cervical spine CT and ankle x-rays. Reports are noted. There is an impacted, minimally displaced, minimally angulated fracture without dislocation of the left proximal humerus. PHYSICAL EXAMINATION: There is no deformity, bruising or swelling noted. There is tenderness of the left proximal humerus. The scapula and clavicle are nontender. She has no tenderness of the fingers, wrist and forearm, but she does have a diminished movement of the elbow and some tenderness of the elbow. This may be related to pain from the shoulder. She can flex and extend the elbow against resistance and her sensation in the lateral shoulder and throughout the arm is intact. Her musculocutaneous, median, radial and ulnar motor functions are intact with a 1+ radial pulse. IMPRESSION: Fall resulting in a pathological fracture of the left proximal humerus secondary to osteoporosis. PLAN: She is in a sling. This is an appropriate treatment for now. Ice, pain medication. Nonweightbearing on the left upper extremity. We will check a Grashey view of the left shoulder and a left elbow series. Provided that there are no significant changes, I would recommend that she follow up with Dr. Lazo as an outpatient upon her discharge. At this time, she does not appear to require any surgery to address the left shoulder injury.
--- NOTE | 2020-06-05 10:47 | XRay Report ---
XR elbow LT 2V CLINICAL HISTORY: pain COMPARISON: Left humerus radiographs June 04, 2020. FINDINGS: Alignment of the left elbow is in anatomic. No distal left humeral fracture is present. No proximal left radial or ulnar fracture is present. Spurring of the olecranon at the insertion of the triceps is noted. 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 There may be several puncta te joint bodies. IMPRESSION: 1. No acute fracture or joint effusion of the left elbow. 2. Suspected punctate joint bodies. ACT 112: Negative or not required by law. Electronically signed by: Polo Christensen M.D. 06/05/2020 10:45 AM
[2020-06-05] MEDS: COLESTIPOL HCL 1 GM TAB PO SCH (10:48)
--- NOTE | 2020-06-05 12:31 | Electrocardiogram Report ---
Test Reason : Blood Pressure : / mmHG Vent. Rate : 121 BPM Atrial Rate : 121 BPM P-R Int : 178 ms QRS Dur : 084 ms QT Int : 310 ms P-R-T Axes : 061 -08 096 degrees QTc Int : 440 ms Sinus tachycardia Nonspecific T wave abnormality Abnormal ECG When compared with ECG of 24-AUG-2017 12:48, Vent. rate has increased BY 40 BPM Inverted T waves have replaced nonspecific T wave abnormality in Lateral leads Confirmed by Isaías Snyder ([id number]) on 06/05/2020 12:30:54 PM Referred By: REFERRED SELF Confirmed By:Isaías Snyder
[2020-06-05] MEDS: FERROUS SULFATE 325 MG TAB PO SCH (21:21)
[2020-06-05] MEDS: ASPIRIN 81 MG ECTAB PO SCH (21:21)
[2020-06-05] MEDS: MIRABEGRON ER 25 MG TAB PO SCH ×2 (21:22)
--- NOTE | 2020-06-06 | Billing Data ---
Date of Service June 06, 2020 Coding Level of Care Code 63449 Initial Inpt Care Lvl 3
[2020-06-06] MEDS: ACETAMINOPHEN 325 MG TAB PO PRN ×4 (00:18→21:07)
[2020-06-06 05:34] LABS: Hematocrit (blood only) 25.8 % (37-47); Hemoglobin 8.4 g/dL (12.0-16.0); Mean Corpuscular Hemoglobin 28.2 pg (25-34); Mean Corpuscular Hgb Conc 32.6 g/dL (32-36); Mean Corpuscular Volume 86.6 fL (80-100); Mean Platelet Volume 8.6 fL (7.4-10.4); Platelet Count 167 K/uL (130-400); RDW Coefficient of Variation 18.8 % (11.5-14.5); RDW Standard Deviation 59.9 fL (36.4-46.3); Red Blood Count 2.98 M/uL (4.2-5.4); White Blood Count 7.66 K/uL (4.8-10.8)
[2020-06-06 05:39] LABS: Albumin Level 2.7 gm/dl (3.4-5.0); BUN Creatinine Ratio 13.1 (10-20); Calcium 7.6 mg/dl (8.5-10.1); Creatinine Clr Calc Pharmacy 106.7 ml/min; Est GFR (African American) 109.1; Est GFR (Non-African American) 94.1; Potassium 3.9 mmol/L (3.5-5.1)
[2020-06-06 05:42] LABS: Albumin Globulin Ratio 0.9 (0.9-2); Bilirubin,Total 0.8 mg/dl (0.2-1); Globulin 3.1 gm/dl (2.5-4.0); Total Protein 5.8 gm/dl (6.4-8.2)
[2020-06-06] MEDS: LEVOTHYROXINE SODIUM 175 MCG TABLET PO SCH (06:14)
[2020-06-06] MEDS: ALENDRONATE SODIUM 70 MG TAB PO SCH (06:14)
[2020-06-06 06:21] LABS: Estimated Average Glucose 146 mg/dl; Hemoglobin A1C 6.7 % (4.5-5.6)
[2020-06-06] MEDS: FEXOFENADINE HCL 180 MG TAB PO SCH (08:21)
[2020-06-06] MEDS: PANTOprazole 40 MG TAB PO SCH (08:21)
[2020-06-06] MEDS: lisinopril 40 MG TAB PO SCH (08:21)
[2020-06-06] MEDS: buPROPion SR 150 MG TABCR PO SCH ×2 (08:21→21:07)
[2020-06-06] MEDS: allopurinoL 300 MG TAB PO SCH (08:21)
[2020-06-06] MEDS: CEROVITE ADV FORMULA TAB PO SCH ×2 (08:22→21:06)
[2020-06-06] MEDS: NYSTATIN POWDER 15GM BTL EXT SCH ×2 (08:22→21:09)
[2020-06-06] MEDS: MAGNESIUM OXIDE 400 MG TAB PO SCH ×4 (08:22→21:08)
[2020-06-06] MEDS: CALCIUM 600MG + VIT D 400 IU TAB PO SCH ×2 (08:22→21:08)
[2020-06-06] MEDS: FLUTICASONE FUROATE 100MCG 14 PUFFS/INHALER INH SCH (08:22)
[2020-06-06] MEDS: LOPERAMIDE HCL 2 MG CAP PO SCH ×4 (08:22→21:10)
[2020-06-06] MEDS: INSULIN ASPART 100 UNITS/ML 3 ML PEN SC SCH ×4 (08:26→21:10)
[2020-06-06] MEDS ORDERED: dilTIAZem HCl 5 MG/ML 5 ML VIAL IV STA (08:50)
--- NOTE | 2020-06-06 08:59 | Hospitalist Progress Note ---
Date of Service June 06, 2020 Assessment & Plan (1) SVT (supraventricular tachycardia): rates in the 180's this morning, she felt light headed, palpitations, no chest pain resolved with Diltiazem 10mg IV and then Lopressor 5mg IV started on Lopressor 25mg BID appreciate consultation from Dr. Rodriguez, he discussed options with patient such as ablation vs medical therapy he is recommending ablation as this could have been cause of syncope will try medical therapy with Diltiazem 240mg PO qAM, patient will discuss further with her family will stop the Lopressor after this evening's dose (2) Syncope: seems like most likely cause was SVT with rates in 180's today she felt light headed during this episode, she was laying down when it happened - Check 2 D echo-pending - troponin x 3 negative - Imaging per EMR reviewed - negative cervical spine, CT abd/pelvis, tibia/fibula, shoulder, + L humerus fracture - Leukocytosis with WBC 20.11, left shift - improved to 8K and was likely stress response - Follow infectious work-up, UA negative and urine culture pending - Check Blood cultures - no growth PT/OT (3) Acute hyponatremia: -Sodium 128 on admission, improved to 135 today, was likely volume depletion repeat BMP tomorrow (4) Fracture, humerus closed: -Left -Sustained on fall, orthopedics consulted, Dr. Burns continue sling, NWB left arm, can perform PT/OT no plans for surgery (5) Type 2 diabetes mellitus: -ISS with Accu-Cheks AC at bedtime, holding Metformin and glimepiride monitor for hypoglycemia, no episodes (6) Hypertension: - Continue lisinopril 40 mg daily added Diltiazem 240mg daily for HR control (7) Hyperlipidemia: -Continue colestipol, not on statin therapy (8) Hypothyroidism: -Continue levothyroxine 175 mcg daily (9) Gastroesophageal reflux disease: -Continue PPI (10) Osteoporosis: -Continue vitamin D and calcium supplementation (11) Vitamin D deficiency: -Continue supplementation (12) Anemia: -Hemoglobin 12.4, HCT = 37.9 -- dropped to 9.7/29.6 on recheck today, likely due to fluid resuscitation but could have some blood loss from humerus fractures and various areas of ecchymosis (13) Anxiety: (14) Depression: - Continue Wellbutrin DVT ppx: - teds, scds CODE: Full code Dispo: From home, likely to remain in the hospital x 1-2 days, may need rehab placement. PT/OT consultations requested Admission and Anticipated Discharge Date Admission Date: June 04, 2020 Subjective patient is feeling light headed, a little short of breath this morning called to the room for SVT with rates in the 180's, earlier a strip showed atrial fibrillation patient has not history of this, here for syncope spoke with RN, we can push Diltiazem, cannot run a drip on [employer], will need to transfer patient to PCU, charge nurse aware patient converted to sinus rhythm into the 70's after Diltiazem and Lopressor IV pushes discussed with Dr. Rodriguez, he inspected her rhythm strips, likely a re-entry rhythm he would recommend ablation, the patient would like to wait and discuss with her family, try medical therapy will plan for Diltiazem 240mg PO daily reviewed chart, reviewed labs, Hb is 8.8, up from 8.4 this morning Cr and electrolytes are stable Review of Systems Review of Systems: All systems reviewed & are unremarkable except as noted in Subjective Constitutional: + fatigue and + weakness; no fever Cardiovascular: + palpitations, + lightheadedness and + syncope (presented with syncope) Gastrointestinal: no nausea and no vomiting Musculoskeletal: + joint pain (left shoulder) Physical Exam Constitutional: well developed and well nourished; no acute distress Neck: trachea midline, no thyromegaly Respiratory: normal respiratory effort, lungs clear to auscultation Cardiovascular: Rate/Rhythm: + tachycardic and + irregularly irregular Heart Sounds: normal S1 and normal S2; no murmur Vessels: no JVD Extremities: normal capillary refill; no edema Gastrointestinal (Abdomen): normal bowel sounds, soft, nontender, no hepatosplenomegaly Musculoskeletal: no cyanosis or clubbing, extremities motor strength 5/5 Extremities: + extremities abnormal to inspection (left arm in sling) Skin: no rashes, warm and dry (bruising over both shoulders) Neurologic: patellar DTR's 2+ bilat, sensation intact and PERRL, EOMI, accommodation nl, no face palsy, no dysarthria Psychiatric: A+Ox3, euthymic affect Lymphatic: no cervical or axillary lymphadenopathy Results & Data Results & Data ([facility]) Vital Signs (Past 12 Hours) Vital Signs Temp Pulse Pulse Resp BP Pulse Ox 06/06/20 08:50 180 H 20 149/98 H 97 06/06/20 07:44 36.9 C 89 16 153/69 H 92 06/06/20 07:22 90 06/06/20 03:15 36.9 C 97 H 20 145/75 H 92 06/06/20 01:33 101 H 06/05/20 23:00 37.0 C 111 H 20 184/80 H 93 Laboratory Results Laboratory Results - last 24 hr 06/05/20 06/05/20 06/05/20 05:41 05:41 05:41 WBC 8.16 D RBC 3.44 L Hgb 9.7 L Hct 29.6 L MCV 86.0 MCH 28.2 MCHC 32.8 RDW Std Deviation 58.9 H RDW Coeff of Carlyle 18.7 H Plt Count 197 MPV 8.4 Sodium 133 L Potassium 4.3 Chloride 103 Carbon Dioxide 24 Anion Gap 6.0 BUN 11 Creatinine 0.68 Est Cr Clr Drug Dosing 81.6 Est GFR ( Amer) 99.9 Est GFR (Non-Af Amer) 86.2 BUN/Creatinine Ratio 16.7 Glucose 196 H POC Glucose Estimat Average Glucose 146 Hemoglobin A1c 6.7 H Calcium 7.6 L D Phosphorus 3.2 Magnesium 1.6 L Total Bilirubin 0.7 AST 15 ALT 20 Alkaline Phosphatase 51 Total Creatine Kinase Total Protein 6.0 L Albumin 3.0 L Globulin 3.0 Albumin/Globulin Ratio 1.0 06/05/20 06/05/20 06/06/20 16:17 20:07 05:00 WBC 7.66 RBC 2.98 L Hgb 8.4 L Hct 25.8 L MCV 86.6 MCH 28.2 MCHC 32.6 RDW Std Deviation 59.9 H RDW Coeff of Carlyle 18.8 H Plt Count 167 MPV 8.6 Sodium Potassium Chloride Carbon Dioxide Anion Gap BUN Creatinine Est Cr Clr Drug Dosing Est GFR ( Amer) Est GFR (Non-Af Amer) BUN/Creatinine Ratio Glucose POC Glucose 215 H 159 H Estimat Average Glucose Hemoglobin A1c Calcium Phosphorus Magnesium Total Bilirubin AST ALT Alkaline Phosphatase Total Creatine Kinase Total Protein Albumin Globulin Albumin/Globulin Ratio 06/06/20 06/06/2006/06/20 05:00 07:40 11:45 WBC RBC Hgb Hct MCV MCH MCHC RDW Std Deviation RDW Coeff of Carlyle Plt Count MPV Sodium 135 L Potassium 3.9 Chloride 105 Carbon Dioxide 24 Anion Gap 6.0 BUN 7 Creatinine 0.52 L Est Cr Clr Drug Dosing 106.7 Est GFR ( Amer) 109.1 Est GFR (Non-Af Amer) 94.1 BUN/Creatinine Ratio 13.1 Glucose 177 H POC Glucose 192 H 222 H Estimat Average Glucose Hemoglobin A1c Calcium 7.6 L Phosphorus Magnesium 2.0 Total Bilirubin 0.8 AST 12 L ALT 15 Alkaline Phosphatase 46 Total Creatine Kinase 176 Total Protein 5.8 L Albumin 2.7 L Globulin 3.1 Albumin/Globulin Ratio 0.9 06/06/20 14:57 WBC RBC Hgb 8.8 L Hct 27.2 L MCV MCH MCHC RDW Std Deviation RDW Coeff of Carlyle Plt Count MPV Sodium Potassium Chloride Carbon Dioxide Anion Gap BUN Creatinine Est Cr Clr Drug Dosing Est GFR ( Amer) Est GFR (Non-Af Amer) BUN/Creatinine Ratio Glucose POC Glucose Estimat Average Glucose Hemoglobin A1c Calcium Phosphorus Magnesium Total Bilirubin AST ALT Alkaline Phosphatase Total Creatine Kinase Total Protein Albumin Globulin Albumin/Globulin Ratio Medications Administered Current Inpatient Medications Acetaminophen (Acetaminophen 325 Mg Tab) 650 mg PO Q4H PRN PRN Reason: Moderate Pain Stop: 07/04/20 21:52 Last Admin: 06/06/20 13:51 Dose: 650 mg Documented by: Albuterol (Albuterol Hfa 8 Gm Inhaler) 2 puffs INH QID PRN PRN Reason: asthma Stop: 07/04/20 21:52 Alendronate Sodium (Alendronate Sodium 70 Mg Tab) 70 mg PO Q7D [facility] Stop: 07/06/20 06:29 Last Admin: 06/06/20 06:14 Dose: 70 mg Documented by: Allopurinol (Allopurinol 300 Mg Tab) 300 mg PO QAM [facility] Stop: 07/05/20 08:59 Last Admin: 06/06/20 08:21 Dose: 300 mg Documented by: Aspirin (Aspirin 81 Mg Ectab) 81 mg PO QPM [facility] Stop: 07/04/20 21:52 Last Admin: 06/05/20 21:21 Dose: 81 mg Documented by: Bupropion HCl (Bupropion Sr 150 Mg Tabcr) 150 mg PO BID [facility] Stop: 07/04/20 21:52 Last Admin: 06/06/20 08:21 Dose: 150 mg Documented by: Colestipol HCl (Colestipol Hcl 1 Gm Tab) 1 gm PO DAILY@1100 [facility] Stop: 07/05/20 10:59 Last Admin: 06/06/20 12:00 Dose: 1 gm Documented by: Dextrose (Dextrose 50% 50 Ml Syringe) 25 - 50 ml IV UD PRN; Protocol PRN Reason: Hypoglycemia Protocol Stop: 07/04/20 21:52 Diclofenac Sodium (Diclofenac Sod 1% Gel 100 Gm Tube) 2 gm EXT BID PRN PRN Reason: Pain Stop: 07/04/20 21:52 Diltiazem HCl (Diltiazem Hcl 240 Mg Capcr) 240 mg PO QAM [facility] Stop: 07/06/20 12:29 Last Admin: 06/06/20 13:13 Dose: 240 mg Documented by: Ferrous Sulfate (Ferrous Sulfate 325 Mg Tab) 325 mg PO PM [facility] Stop: 07/04/20 22:29 Last Admin: 06/05/20 21:21 Dose: 325 mg Documented by: Fexofenadine HCl (Fexofenadine Hcl 180 Mg Tab) 180 mg PO QAM [facility] Stop: 07/05/20 08:59 Last Admin: 06/06/20 08:21 Dose: 180 mg Documented by: Fluticasone Furoate (Fluticasone Furoate 100mcg 14 Puffs/Inhaler) 1 puffs INH QAM [facility] Stop: 07/05/20 08:59 Last Admin: 06/06/20 08:22 Dose: 1 puffs Documented by: Glucagon (Glucagon For Inj 1 Mg Vial) 1 mg SQ UD PRN; Protocol PRN Reason: Hypoglycemia Protocol Stop: 07/04/20 21:52 Glucose (Glucose 10 Tabs/Tube) 4 - 8 tabs PO UD PRN; Protocol PRN Reason: Hypoglycemia Protocol Stop: 07/04/20 21:52 Glucose (Glucose 40% Gel 15 Gm Tube) 15 - 30 gm PO UD PRN; Protocol PRN Reason: Hypoglycemia Protocol Stop: 07/04/20 21:52 Insulin Aspart (Insulin Aspart 100 Units/Ml 3 Ml Pen) 0 units SC ACHS [facility] Stop: 07/04/20 21:52 Last Admin: 06/06/20 12:00 Dose: 5 units Documented by: Levothyroxine Sodium (Levothyroxine Sodium 175 Mcg Tablet) 175 mcg PO DAILYBB [facility] Stop: 07/05/20 06:29 Last Admin: 06/06/20 06:14 Dose: 175 mcg Documented by: Lisinopril (Lisinopril 40 Mg Tab) 40 mg PO QAM [facility] Stop: 07/05/20 08:59 Last Admin: 06/06/20 08:21 Dose: 40 mg Documented by: Loperamide HCl (Loperamide Hcl 2 Mg Cap) 4 mg PO QID [facility] Stop: 07/04/20 21:52 Last Admin: 06/06/20 13:17 Dose: Not Given Documented by: Magnesium Oxide (Magnesium Oxide 400 Mg Tab) 400 mg PO QIDM [facility] Stop: 07/04/20 21:52 Last Admin: 06/06/20 13:13 Dose: 400 mg Documented by: Meloxicam (Meloxicam 7.5 Mg Tab) 15 mg PO QAM PRN PRN Reason: Osteoarthritis Stop: 07/04/20 21:52 Last Admin: 06/05/20 08:05 Dose: 15 mg Documented by: Metoprolol Tartrate (Metoprolol Tartrate 25 Mg Tab) 25 mg PO BID [facility] Stop: 07/06/20 09:39 Last Admin: 06/06/20 10:30 Dose: 25 mg Documented by: Mirabegron (Mirabegron Er 25 Mg Tab) 25 mg PO PM [facility] Stop: 07/04/20 21:52 Last Admin: 06/05/20 21:22 Dose: 25 mg Documented by: Mirtazapine (Mirtazapine Soltab 15 Mg) 45 mg PO HS [facility] Stop: 07/04/20 21:52 Last Admin: 06/05/20 21:22 Dose: 45 mg Documented by: Miscellaneous (Trospium: Order Awaiting Action) 1 ea N/A QS [facility] Stop: 07/05/20 07:59 Last Admin: 06/06/20 15:26 Dose: Not Given Documented by: Miscellaneous (Carbohydrates For Hypoglycemia ) 15 - 30 gm PO UD PRN PRN Reason: Hypoglycemia Protocol Stop: 07/04/20 21:52 Morphine Sulfate (Morphine Sulfate 2 Mg/Ml Carp) 1 mg IV Q4H PRN PRN Reason: Pain Stop: 06/19/20 08:11 Multivitamins/Minerals (Cerovite Adv Formula Tab) 1 tab PO BID [facility] Stop: 07/04/20 22:29 Last Admin: 06/06/20 08:22 Dose: 1 tab Documented by: Multivitamins/Minerals (Calcium 600mg + Vit D 400 Iu Tab) 1 tab PO BID [facility] Stop: 07/04/20 22:29 Last Admin: 06/06/20 08:22 Dose: 1 tab Documented by: Nystatin (Nystatin Powder 15gm Btl) 1 appln EXT BID [facility] Stop: 07/04/20 21:52 Last Admin: 06/06/20 08:22 Dose: Not Given Documented by: Ondansetron HCl (Ondansetron Inj 2 Mg/Ml 2 Ml Vial) 4 mg IV Q4H PRN PRN Reason: Nausea And Vomiting Stop: 07/04/20 20:53 Last Admin: 06/05/20 10:43 Dose: 4 mg Documented by: Pantoprazole Sodium (Pantoprazole 40 Mg Tab) 40 mg PO QAM [facility] Stop: 07/05/20 08:59 Last Admin: 06/06/20 08:21 Dose: 40 mg Documented by: Tramadol HCl (Tramadol Hcl 50 Mg Tablet) 50 mg PO Q4H PRN PRN Reason: Pain Stop: 07/05/20 08:11 Last Admin: 06/05/20 14:41 Dose: 50 mg Documented by: Vitamin D (Cholecalciferol 1,000 Units 25 Mcg Tab) 2,000 units PO PM [facility] Stop: 07/04/20 21:52 Last Admin: 06/05/20 21:22 Dose: 2,000 units Documented by: PG Care Time/CCT Total # of Minutes Spent Total Time Spent with Patient: Total time spent is greater than 50% in coordination of care (as documented) at patient's floor/unit and/or counseling patient: Coding Level of Care Code 79414 Subseq Hosp Care Lvl 3 Diagnoses SVT (supraventricular tachycardia) I47.1 Syncope R55 Syncope type: unspecified Acute hyponatremia E87.1 Fracture, humerus closed S42.292A Encounter type: initial encounter Fracture alignment: displaced Fracture morphology: other fracture Humerus Location: proximal Laterality: left Type 2 diabetes mellitus E11.9 Hypertension I10 Hyperlipidemia E78.5 Hypothyroidism E03.9 Gastroesophageal reflux disease K21.9 Osteoporosis M81.0 Vitamin D deficiency E55.9 Anemia D64.9 Anxiety F41.9 Depression F32.9 (1) Fracture, humerus closed Encounter type: initial encounter Fracture alignment: displaced Fracture morphology: other fracture Humerus Location: proximal Laterality: left Qualified Code(s): S42.292A - Other displaced fracture of upper end of left humerus, initial encounter for closed fracture (2) Syncope Syncope type: unspecified Qualified Code(s): R55 - Syncope and collapse
[2020-06-06] MEDS ORDERED: METOPROLOL TARTRATE 1 MG/ML VIAL IV STA (09:06)
[2020-06-06] MEDS ORDERED: METOPROLOL TARTRATE 1 MG/ML VIAL IV ONE (09:08)
[2020-06-06] MEDS: METOPROLOL TARTRATE 25 MG TAB PO SCH ×2 (10:30→21:08)
--- NOTE | 2020-06-06 10:43 | Cardiology Consultation ---
Date of Consultation June 06, 2020 Assessment & Plan (1) Fall: Her fall in my estimation was likely due to SVT although of course we cannot be confident of that. She does not have palpitations, but did not during her episode this morning either which is clearly documented. The lighthead edness would be consistent, and she also had another episode several years ago which occurred when she got up out of bed. Although she does not recall having other episodes of lightheadedness she may have had them and does not recall. (2) Syncope: I believe she did lose consciousness, at least briefly, however the fact that she remembers falling backwards and hitting the floor probably suggest that she did not lose consciousness until she hit the floor, possibly from striking her head. She was not hypotensive during the arrhythmia this morning despite its rate, however she was not upright. (3) SVT (supraventricular tachycardia): She has well-documented SVT which occurred suddenly this morning, lasted about 20 minutes and then resolved to sinus rhythm. 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 I discussed various options with her which include not doing anything (which I think would be risky since this is a likely cause of her fall and her heart rate is very fast) versus medical therapy which might eliminate the tachycardia but more likely would either slow the rate down and make it more tolerable or perhaps decrease the frequency and duration of episodes. I also discussed ablation with her and her family. My recommendation would be ablation due to the potential risk if this arrhythmia was a cause of her fall. She is not willing to make a decision to do that now, although perhaps with in the future, but did prefer medical therapy. I am going to start diltiazem, although I pointed out to her and her family that this is unlikely to eliminate the arrhythmia. If she decides to proceed with ablation we can do it on May. This could be either as an inpatient or an outpatient. History of Present Illness Reason for Consultation: Fall, tachycardia Attending Physician: Maykel Starr, History of Present Illness This is a 75-year-old woman with a history of diabetes mellitus, GERD, hyperlipidemia, hypertension and a history of bowel resection. She presented to the emergency room on June 04, 2020 with a fall down her basement steps. She apparently had a dizzy spell around 1 PM that day while walking up the steps and fell over backwards, about 3 hours later she was found at the bottom of a set of steps. She was having some left arm upper arm and left ankle discomfort in the emergency room and she was noted to be tachycardic with a heart rate in the 130 bpm range. Evaluation in the emergency room included x-ray studies which showed a humeral fracture on the left, a scalp hematoma on CT scanning but no intracranial. She was found to be mildly hyponatremic (although she is often been in this range in the past), troponin was negative for cardiac injury and her blood sugar was 298 on arrival.. Her initial electrocardiogram in the emergency room showed sinus tachycardia at 120 bpm with no acute findings. She was hypertensive on arrival. She did have a dobutamine stress echo done June 30, 2018 and that was negative for ischemia. An echocardiogram done June 06, 2020 shows normal left ventricular size with normal left ventricular wall motion, and ejection fraction of 55 to 60%. No significant abnormality. Her blood count has fallen, her hemoglobin today is 8.4, it was 12.4 on admission which is similar to what it has been in the past. Serial troponins were done and they are negative x3. She developed SVT this morning at around 8:40 AM, that lasted about 20 minutes before terminating although she did receive intravenous diltiazem and metoprolol before termination. Review of telemetry and her electrocardiogram during the arrhythmia suggest that this is typical AV lima reentry and the rate initially was about 170 bpm. She was minimally symptomatic during it with no palpitations. I discussed her symptoms both prior to the fall down the steps and the episodes of SVT today with her, her and daughter were present. She has a history of some similar event perhaps 3 to 4 years ago where she was getting out of bed and felt lightheaded and slid to the floor but with no injury. She then describes having the dizziness at the top of the basement steps, she does recall falling backwards but she probably lost consciousness briefly, very possibly after hitting the floor since she remembers the fall. She thinks she was out briefly if at all. Today she says that she felt funny during the arrhythmia, but denies specific lightheadedness or palpitations during the arrhythmia and of course there was a lot of commotion going on during her event and if that had not occurred perhaps she would not of been aware of it. She has no other awareness of having palpitations and does not recall having symptoms like this in the past. Allergies Allergy/AdvReac Type Severity Reaction Status Date / Time animal dander Allergy Mild Sneezing Verified 06/04/20 18:46 hyde Allergy Mild Verified 06/04/20 18:46 pollen extracts Allergy Mild sneezing Verified 06/04/20 18:46 cigarette smoke Allergy sneezing Verified 06/04/20 18:46 naproxen Allergy Rash Verified 06/04/20 18:46 Home Medications Home Medications Medication Instructions Recorded Confirmed Type albuterol sulfate 90 mcg/actuation 2 puffs INH QID PRN #18 gm 12/30/18 06/04/20 Rx aerosol inhaler aspirin 81 mg tablet,delayed 81 mg PO QPM 12/30/18 06/04/20 History release blood sugar diagnostic #10 ea 12/30/18 05/10/20 History fexofenadine 180 mg tablet 180 mg PO QAM 12/30/18 06/04/20 History turmeric root extract 500 mg 500 mg PO QDL 12/30/18 06/04/20 History capsule Asmanex Twisthaler 1 puffs INH QAM 01/21/19 06/04/20 History calcium carbonate-vitamin D3 1 tab PO BID 01/21/19 06/04/20 History [Calcium 600 + D(3)] mirtazapine 45 mg PO HS 02/11/19 06/04/20 History cholecalciferol (vitamin D3) 50 2,000 units PO PM cap 04/09/19 06/04/20 History mcg (2,000 unit) capsule colestipol 1 gram tablet 1 gm PO DAILY #90 tab 11/12/19 06/04/20 Rx nystatin 100,000 unit/gram topical 1 appln TOP BID #60 gm 12/18/19 06/04/20 Rx powder allopurinol 300 mg tablet 300 mg PO QAM #30 tab 12/28/19 06/04/20 Rx alendronate 70 mg tablet 70 mg PO WEEKLY #4 tab 12/29/19 06/04/20 Rx magnesium oxide 400 mg (241.3 mg 400 mg PO QID 90 Days #360 tab 02/16/20 06/04/20 Rx magnesium) tablet trospium 60 mg capsule,extended 60 mg PO QAM #30 cap 03/23/20 06/04/20 Rx release 24 hr bupropion HCl 150 mg tablet,12 hr 150 mg PO BID #180 ea 04/12/20 06/04/20 Rx sustained-release meloxicam 15 mg tablet 15 mg PO QAM PRN #30 tab 04/12/20 06/04/20 Rx diclofenac sodium [Voltaren] 2 g TOPICAL BID PRN 06/04/20 06/04/20 History ferrous sulfate 325 mg PO PM 06/04/20 06/04/20 History glimepiride 4 mg PO PM 06/04/20 06/04/20 History levothyroxine 175 mcg PO QAM 06/04/20 06/04/20 History lisinopril 40 mg PO QAM 06/04/20 06/04/20 History loperamide 4 mg PO QID 06/04/20 06/04/20 History metformin 1,000 mg PO BID 06/04/20 06/04/20 History mirabegron [Myrbetriq] 25 mg PO PM 06/04/20 06/04/20 History omeprazole 20 mg PO QAM 06/04/20 06/04/20 History vitamins A,C,W-hvis-zommpf 1 cap PO BID 06/04/20 06/04/20 History [PreserVision AREDS] Patient History Medical History Anxiety Asthma Depression Diabetes mellitus, type 2 Environmental allergies GERD (gastroesophageal reflux disease) History of diverticulitis History of kidney stones Hx of gout Hx of intestinal obstruction Hyperlipidemia Hypertension Hypomagnesemia Hypothyroidism Macular degeneration both Osteopenia Osteoporosis Pancreatic cyst Seasonal allergies Surgical History History of bowel resection History of cholecystectomy also had appy at same surgery Hx of appendectomy Hx of cataract extraction both eyes Hx of hernia repair Hx of lithotripsy Hx of tubal ligation S/P tonsillectomy S/P total knee arthroplasty Status post right knee replacement Family History Father Family history of diabetes mellitus Alcohol abuse Cardiac disorder Diabetes Hypertension Myocardial infarction Grandmother (Paternal) Family history of diabetes mellitus Grandmother (Maternal) Family history of diabetes mellitus Breast cancer Sister Family history of diabetes mellitus Mother Anxiety Depression Lung disease Brother Colonic polyp Denies family history of Ovarian cancer Prostate cancer Colorectal cancer Social History Smoking Status: Unknown if ever smoked Second Hand Exposure: No; Hx Alcohol Use: No Hx Substance Use: No Preferred Language: Monegasque Communication Ability: Effective Youth Development Professional Required: No Beliefs That Will Affect Care: Temple marital status: Current Living Situation: Spouse current occupational status: retired Other Information That Helps Us Care for You: No Feels Safe at Home: Yes Safety Concerns: Feels Safe At This Time Dental Care, Regularly: Yes Physical Activity Frequency: Does not Exercise Assistive Devices: Brace/Splint/Immobilizer Review of Systems Review of Systems: All systems reviewed & are unremarkable except as noted in HPI & below Physical Exam Physical Exam: Constitutional: Alert, cooperative and in no distress. HEENT: Unremarkable Neck: No jugular venous distention, carotid pulses are normal and equal bilaterally without bruits. Pulmonary: Clear to auscultation bilaterally. Cardiac: Regular rhythm with no murmur, gallop or rub. Abdomen: Soft, nontender with normal bowel sounds. Extremities: No edema. Distal pulses intact. Neurologic: No focal findings. Gait is steady. Skin: No rash, ecchymoses or petechiae. Results & Data ([facility]) Vital Signs (Past 12 Hours) Vital Signs Temp Pulse Pulse Resp BP BP Pulse Ox 06/06/20 09:42 82 06/06/20 09:40 36.6 C 81 18 122/75 91 06/06/20 09:16 110 H 160/104 H 06/06/20 08:50 180 H 20 149/98 H 97 06/06/20 07:44 36.9 C 89 16 153/69 H 92 06/06/20 07:22 90 06/06/20 03:15 36.9 C 97 H 20 145/75 H 92 06/06/20 01:33 101 H 06/05/20 23:00 37.0 C 111 H 20 184/80 H 93 Laboratory Results Cardiac Enzymes 06/05/20 06/06/20 Range/Units 05:41 05:00 AST 15 12 L (15-37) U/L CBC 06/05/20 06/06/20 Range/Units 05:41 05:00 WBC 8.16 D 7.66 (4.8-10.8) K/uL RBC 3.44 L 2.98 L (4.2-5.4) M/uL Hgb 9.7 L 8.4 L (12.0-16.0) g/dL Hct 29.6 L 25.8 L (37-47) % Plt Count 197 167 (130-400) K/uL Comprehensive Metabolic Panel 06/05/20 06/06/20 Range/Units 05:41 05:00 Sodium 133 L 135 L (136-145) mmol/L Potassium 4.3 3.9 (3.5-5.1) mmol/L Chloride 103 105 (98-107) mmol/L Carbon Dioxide 24 24 (21-32) mmol/L BUN 11 7 (7-18) mg/dl Creatinine 0.68 0.52 L (0.6-1.2) mg/dl Glucose 196 H 177 H (70-99) mg/dl Calcium 7.6 L D 7.6 L (8.5-10.1) mg/dl AST 15 12 L (15-37) U/L ALT 20 15 (12-78) U/L Alkaline Phosphatase 51 46 (45-117) U/L Total Protein 6.0 L 5.8 L (6.4-8.2) gm/dl Albumin 3.0 L 2.7 L (3.4-5.0) gm/dl Intake and Output 06/05/20 06/06/20 06/06/20 22:59 06:59 14:59 Intake Total 1000 / 4304.167 1870 / 4304.167 Output Total 1924 Balance 1000 / 2179.167 -55 / 2179.167 Intake: IV 1000 / 3194.167 1000 / 3194.167 Nss 1000ML 1,000 ml @ 125 mls/ 1000 / 3000 1000 / 3000 hr IV .Q8H [facility] Rx#:[id number] Oral 870 / 1110 * Output: Urine Amount (Catheter) 1924 External 1924 Diagnostic Findings Her presenting electrocardiogram appears to be sinus tachycardia at [address]-T abnormalities. A second electrocardiogram done today at 9:07 AM shows a supraventricular tachycardia at 177 bpm, this is suggestive of typical AV lima reentry. A third electrocardiogram done today at 1010 shows sinus rhy thm at 92 bpm with premature atrial beats. Evaluation of her telemetry monitoring shows sinus rhythm with PACs and a run of SVT which is initiated by an atrial couplet and is a classic induction for typical AV lima reentry. This slowed slightly toward the end of the episode prior to abrupt termination to sinus rhythm. The termination is also consistent with AV lima reentry. PG Care Time/CCT Total # of Minutes Spent Total Time Spent with Patient: Total time spent is greater than 50% in coordi nation of care (as documented) at patient's floor/unit and/or counseling patient: Coding Level of Care Code 12381 Initial Inpt Care Lvl 3 Diagnoses Fall W19.XXXA Encounter type: initial encounter Syncope R55 Syncope type: unspecified SVT (supraventricular tachycardia) I47.1 (1) Syncope Syncope type: unspecified Qualified Code(s): R55 - Syncope and collapse (2) Fall Encounter type: initial encounter Qualified Code(s): W19.XXXA - Unspecified fall, initial encounter
[2020-06-06] MEDS: COLESTIPOL HCL 1 GM TAB PO SCH (12:00)
[2020-06-06] MEDS: dilTIAZem HCL 240 MG CAPCR PO SCH (13:13)
--- NOTE | 2020-06-06 13:26 | Progress Notes ---
DATE: 06/06/2020 CHIEF COMPLAINT: Fall resulting in a pathologic fracture of the left proximal humerus secondary to osteoporosis. HISTORY OF PRESENT ILLNESS: A 75-year-old female seen today by the orthopedic service, admitted under medicine for the above injury. The patient is resting comfortably in bed with family. She recently was transferred to med/surg with telemetry due to having a presyncopal event. She has been seen by Cardiology and is being worked up. In regards to her left shoulder, she states that her pain yesterday was not controlled. Today, it is better controlled. She has been requiring less pain medication. She has been wearing the sling, but notes that her left upper extremity feels stiff, especially with waking up in the morning. She also has increased pain with transfers and bed mobility. She denies any numbness or tingling into her left upper extremity. PHYSICAL EXAMINATION: GENERAL: She is resting in bed. Her sling is olu but ill-fitting. She is alert and oriented. EXTREMITIES: The patient has left upper extremity tenderness to her proximal humerus. Functional cervical spine motion. No tenderness to the elbow, forearm, wrist and hand. No significant bruising or swelling is noted. Upon removal of the sling, she was able to extend her left elbow and actively flex her elbow to her chest. She had functional supination and pronation, wrist, hand and finger motion. She has palpable radial pulse. Sensation was intact to light touch. Motor was intact to the median, radial, ulnar and musculocutaneous nerves. DIAGNOSTIC STUDIES: X-rays of the left elbow and repeat x-rays of left shoulder were performed and reviewed by [facility] Greg radiologist as well as Dr. Burns. Left shoulder Grayshey view reveals a comminuted proximal left humeral fracture with displacement of the greater tuberosity and extension through the humeral neck. Left elbow x-ray reveals no acute fracture or joint effusion of the elbow. IMPRESSION: Fall resulting in a pathologic fracture of the left proximal humerus secondary to osteoporosis. PLAN: Orthopedic plan has not changed. Dr. Burns has recommended continued use of the sling, ice, pain medication as needed. Nonweightbearing to the left upper extremity. Continued PT, OT. The patient can perform gentle active assistive left elbow, forearm, wrist and hand motion. We do recommend followup with Dr. Lazo as an outpatient upon her discharge. I discussed this with the patient as well as her family in the hospital room today. Their questions were answered. ZORAIDA
--- NOTE | 2020-06-06 14:29 | Electrocardiogram Report ---
Test Reason : Blood Pressure : / mmHG Vent. Rate : 177 BPM Atrial Rate : 141 BPM P-R Int : 000 ms QRS Dur : 078 ms QT Int : 258 ms P-R-T Axes : 000 -21 154 degrees QTc Int : 442 ms Supraventricular tachycardia Abnormal ECG When compared with ECG of 04-JUN-2020 17:41, ST now depressed in Inferior leads ST now depressed in Anterolateral leads Supraventricular tachycardia has replaced Sinus tachycardia Confirmed by Vamsi Rodriguez ([id number]) on 06/06/2020 2:29:35 PM Referred By: REFERRED SELF Confirmed By:Vamsi Rodriguez
--- NOTE | 2020-06-06 14:32 | Electrocardiogram Report ---
Test Reason : Blood Pressure : / mmHG Vent. Rate : 092 BPM Atrial Rate : 092 BPM P-R Int : 170 ms QRS Dur : 096 ms QT Int : 352 ms P-R-T Axes : 024 -07 041 degrees QTc Int : 435 ms Sinus rhythm with Premature atrial complexes Otherwise normal ECG When compared with ECG of 06-JUN-2020 09:07, (unconfirmed) Supraventricular tachycardia is no longer Present Vent. rate has decreased BY [address] no longer depressed in Inferior leads ST no longer depressed in Anterolateral leads T wave inversion no longer evident in Lateral leads Confirmed by Vamsi Rodriguez ([id number]) on 06/06/2020 2:31:57 PM Referred By: REFERRED SELF Confirmed By:Vamsi Rodriguez
[2020-06-06 15:05] LABS: Hematocrit (blood only) 27.2 % (37-47); Hemoglobin 8.8 g/dL (12.0-16.0)
[2020-06-06] MEDS: MIRABEGRON ER 25 MG TAB PO SCH (21:06)
[2020-06-06] MEDS: CHOLECALCIFEROL 1,000 UNITS 25 MCG TAB PO SCH (21:06)
[2020-06-06] MEDS: MIRTAZAPINE SOLTAB 15 MG PO SCH (21:07)
[2020-06-06] MEDS: FERROUS SULFATE 325 MG TAB PO SCH (21:07)
[2020-06-06] MEDS: ASPIRIN 81 MG ECTAB PO SCH (21:09)
[2020-06-07] MEDS: LEVOTHYROXINE SODIUM 175 MCG TABLET PO SCH (05:56)
[2020-06-07 07:01] LABS: Hematocrit (blood only) 28.6 % (37-47); Hemoglobin 8.8 g/dL (12.0-16.0); Mean Corpuscular Hemoglobin 27.1 pg (25-34); Mean Corpuscular Hgb Conc 30.8 g/dL (32-36); Mean Platelet Volume 8.6 fL (7.4-10.4); Platelet Count 192 K/uL (130-400); RDW Coefficient of Variation 18.5 % (11.5-14.5); RDW Standard Deviation 59.8 fL (36.4-46.3); Red Blood Count 3.25 M/uL (4.2-5.4); White Blood Count 8.94 K/uL (4.8-10.8)
[2020-06-07 07:26] LABS: BUN Creatinine Ratio 11.9 (10-20); Calcium 8.5 mg/dl (8.5-10.1); Est GFR (African American) 105.2; Est GFR (Non-African American) 90.8; Magnesium 1.7 mg/dl (1.8-2.4); Potassium 3.9 mmol/L (3.5-5.1)
[2020-06-07 07:30] LABS: Albumin Globulin Ratio 0.9 (0.9-2); Bilirubin,Total 0.7 mg/dl (0.2-1); Globulin 3.3 gm/dl (2.5-4.0); Total Protein 6.3 gm/dl (6.4-8.2)
[2020-06-07] MEDS: LOPERAMIDE HCL 2 MG CAP PO SCH ×4 (07:59→19:56)
[2020-06-07] MEDS: CALCIUM 600MG + VIT D 400 IU TAB PO SCH ×2 (08:00→19:58)
[2020-06-07] MEDS: allopurinoL 300 MG TAB PO SCH (08:00)
[2020-06-07] MEDS: CEROVITE ADV FORMULA TAB PO SCH ×2 (08:00→19:57)
[2020-06-07] MEDS: MAGNESIUM OXIDE 400 MG TAB PO SCH ×4 (08:00→19:57)
[2020-06-07] MEDS: buPROPion SR 150 MG TABCR PO SCH ×2 (08:00→19:57)
[2020-06-07] MEDS: PANTOprazole 40 MG TAB PO SCH (08:01)
[2020-06-07] MEDS: dilTIAZem HCL 240 MG CAPCR PO SCH (08:01)
[2020-06-07] MEDS: NYSTATIN POWDER 15GM BTL EXT SCH ×2 (08:01→19:59)
[2020-06-07] MEDS: FLUTICASONE FUROATE 100MCG 14 PUFFS/INHALER INH SCH (08:01)
[2020-06-07] MEDS: FEXOFENADINE HCL 180 MG TAB PO SCH (08:01)
[2020-06-07] MEDS: INSULIN ASPART 100 UNITS/ML 3 ML PEN SC SCH ×4 (08:02→20:59)
[2020-06-07] MEDS: lisinopril 40 MG TAB PO SCH (09:44)
--- NOTE | 2020-06-07 11:08 | Cardiology Progress Note ---
Date of Service June 07, 2020 Assessment & Plan (1) Fall: (2) Syncope: (3) SVT (supraventricular tachycardia): (1) Fall: Her fall in my estimation was likely due to SVT although of course we cannot be confident of that. She does not have palpitations, but did not during her episode of documented SVT on the morning of June 06, 2020 but it is clearly documented. The lightheadedness would be consistent, and she also had another episode of lightheadedness and presyncope several years ago which occurred when she got up out of bed. Although she does not recall having other episodes of lightheadedness she may have had them and does not recall. (2) Syncope: I believe she did lose consciousness when she fell down the steps, at least briefly, however the fact that she remembers falling backwards and hitting the floor probably suggest that she did not lose consciousness until she hit the floor, possibly from striking her head. She was not hypotensive during the arrhythmia during this hospitalization despite its rate, however she was not upright. (3) SVT (supraventricular tachycardia): She has well-documented SVT which occurred suddenly on the morning of June 06, 2020, lasted about 20 minutes and then resolved to sinus rhythm. 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 I discussed various options with her yesterday which included not doing anything (which I think would be risky since this is a likely cause of her fall and her heart rate is very fast) versus medical therapy (which might eliminate the tachycardia but more likely would either slow the rate down and make it more tolerable or perhaps decrease the frequency and duration of episodes). I also discussed ablation with her and her family. My recommendation were ablation due to the potential risk that this arrhythmia was a cause of her fall and the excellent success of ablation in curing these types of arrhythmias. She was not sure she wanted to agree to ablation yesterday, however I discussed again with her today as well as with her daughter who is present in room, her other daughter on a conference call using her phone and the patient's also on the conference call on her phone. She is now agreea ble to proceed with ablation. I am therefore going to discontinue diltiazem (which she got today but might interfere with the study) and we will plan on ablation on . Admission and Anticipated Discharge Date Admission Date: June 04, 2020 Subjective She has no palpitations, she did ambulate from her bed to the bedside chair while I was in the room and although she has a halting gait and uses a cane she was able to do that. At the moment she has no specific complaints referable to her arrhythmia and no shortness of breath or chest discomfort. Physical Exam Physical Exam: Constitutional: Alert, cooperative and in no distress. HEENT: Unremarkable Neck: No jugular venous distention, carotid pulses are normal and equal bilaterally without bruits. Pulmonary: Clear to auscultation bilaterally. Cardiac: Regular rhythm with no murmur, gallop or rub. Abdomen: Soft, nontender with normal bowel sounds. Extremities: No edema. Distal pulses intact. Neurologic: No focal findings. Gait is steady. Skin: No rash, ecchymoses or petechiae. Results & Data ([facility]) Vital Signs (Past 12 Hours) Vital Signs Temp Pulse Pulse Resp BP Pulse Ox 06/07/20 08:00 73 06/07/20 07:18 36.8 C 73 16 153/90 H 95 06/07/20 05:00 36.9 C 78 18 142/79 H 94 06/06/20 23:29 37 C 67 18 152/85 H 92 Laboratory Results Cardiac Enzymes 06/07/20 Range/Units 06:36 AST 14 L (15-37) U/L CBC 06/06/20 06/07/20 Range/Units 14:57 06:36 WBC 8.94 (4.8-10.8) K/uL RBC 3.25 L (4.2-5.4) M/uL Hgb 8.8 L 8.8 L (12.0-16.0) g/dL Hct 27.2 L 28.6 L (37-47) % Plt Count 192 (130-400) K/uL Comprehensive Metabolic Panel 06/07/20 Range/Units 06:36 Sodium 132 L (136-145) mmol/L Potassium 3.9 (3.5-5.1) mmol/L Chloride 102 (98-107) mmol/L Carbon Dioxide 26 (21-32) mmol/L BUN 7 (7-18) mg/dl Creatinine 0.58 L (0.6-1.2) mg/dl Glucose 218 H (70-99) mg/dl Calcium 8.5 (8.5-10.1) mg/dl AST 14 L (15-37) U/L ALT 15 (12-78) U/L Alkaline Phosphatase 50 (45-117) U/L Total Protein 6.3 L (6.4-8.2) gm/dl Albumin 3.0 L (3.4-5.0) gm/dl Intake and Output 06/06/20 06/07/20 06/07/20 22:59 06:59 14:59 Intake Total 300 / 815 240 / 815 Output Total 1100 / 2225 825 / 2225 Balance -800 / -1410 -585 / -1410 Intake: Oral 300 / 815 240 / 815 Output: Urine Amount (Catheter) 1100 / 2225 825 / 2225 External 1100 / 2225 825 / 2225 Other: Weight 100 kg Weight Measurement Method Built in [facility] Diagnostic Findings Telemetry: Sinus rhythm, PACs, no SVT PG Care Time/CCT Total # of Minutes Spent Total Time Spent with Patient: Total time spent is greater than 50% in coordination of care (as documented) at patient's floor/unit and/or counseling patient: Coding Level of Care Code 03326 Subseq Hosp Care Lvl 3 Diagnoses Fall W19.XXXA Encounter type: initial encounter Syncope R55 Syncope type: unspecified SVT (supraventricular tachycardia) I47.1 (1) Fall Encounter type: initial encounter Qualified Code(s): W19.XXXA - Unspecified fall, initial encounter (2) Syncope Syncope type: unspecified Qualified Code(s): R55 - Syncope and collapse
[2020-06-07] MEDS: COLESTIPOL HCL 1 GM TAB PO SCH (11:09)
[2020-06-07] MEDS: traMADol HCL 50 MG TABLET PO PRN ×2 (12:05→19:58)
--- NOTE | 2020-06-07 16:21 | Hospitalist Progress Note ---
Date of Service June 07, 2020 Assessment & Plan (1) SVT (supraventricular tachycardia): rates in the 180's morning of 06/06, she felt light headed, palpitations, no chest pain resolved with Diltiazem 10mg IV and then Lopressor 5mg IV started on Lopressor 25mg BID appreciate consultation from Dr. Rodriguez, he discussed options with patient such as ablation vs medical therapy he is recommending ablation as this could have been cause of syncope patient and family agree with ablation, Dr. Alcantara will perform ablation on (2) Syncope: seems like most likely cause was SVT with rates in 180's she felt light headed during this episode, she was laying down when it happened - Check 2 D echo- normal EF - troponin x 3 negative - Imaging per EMR reviewed - negative cervical spine, CT abd/pelvis, tibia/fibula, shoulder, + L humerus fracture - Leukocytosis with WBC 20.11, left shift - improved to 8K and was likely stress response - Follow infectious work-up, UA negative and urine culture pending - Check Blood cultures - no growth PT/OT (3) Acute hyponatremia: -Sodium 128 on admission, improved to 132 today, was likely volume depletion repeat BMP tomorrow (4) Fracture, humerus closed: -Left -Sustained on fall, orthopedics consulted, Dr. Burns continue sling, NWB left arm, can perform PT/OT no plans for surgery follow up with orthopedics in a few weeks (5) Type 2 diabetes mellitus: -ISS with Accu-Cheks AC at bedtime, holding Metformin and glimepiride monitor for hypoglycemia, no episodes (6) Hypertension: - Continue lisinopril 40 mg daily added Diltiazem 240mg daily for HR control (7) Hyperlipidemia: -Continue colestipol, not on statin therapy (8) Hypothyroidism: -Continue levothyroxine 175 mcg daily (9) Gastroesophageal reflux disease: -Continue PPI (10) Osteoporosis: -Continue vitamin D and calcium supplementation (11) Vitamin D deficiency: -Continue supplementation (12) Anemia: -Hemoglobin 12.4, HCT = 37.9 -- dropped to 9.7 on 06/05, likely due to fluid resuscitation but could have some blood loss from humerus fractures and various areas of ecchymosis Hb down to 8.8, will monitor (13) Anxiety: (14) Depression: - Continue Wellbutrin DVT ppx: - teds, scds CODE: Full code Dispo: From home, likely to remain in the hospital x 1-2 days, may need rehab placement. PT/OT consultations requested (15) Muscle spasm: try some Baclofen 5mg TID PRN Admission and Anticipated Discharge Date Admission Date: June 04, 2020 Subjective patient doing well today, no episodes of SVT discussed with Dr. Rodriguez, he is planning for ablation with Dr. Alcantara on patient is in agreement with plan she is c/o some muscle spasms in her back, left chest discussed that it was probably from the trauma of falling updated her daughter and then her at the bedside Review of Systems Review of Systems: All systems reviewed & are unremarkable except as noted in Subjective Musculoskeletal: + back pain (spasms), + joint pain (left shoulder) and + body aches Physical Exam Constitutional: well developed and well nourished; no acute distress Neck: trachea midline, no thyromegaly Respiratory: normal respiratory effort, lungs clear to auscultation Cardiovascular: Rate/Rhythm: + tachycardic and + irregularly irregular Heart Sounds: normal S1 and normal S2; no murmur Vessels: no JVD Extremities: normal capillary refill; no edema Gastrointestinal (Abdomen): normal bowel sounds, soft, nontender, no hepatosplenomegaly Musculoskeletal: no cyanosis or clubbing, extremities motor strength 5/5 Extremities: + extremities abnormal to inspection (left arm in sling) Skin: no rashes, warm and dry (bruising over both shoulders) Neurologic: patellar DTR's 2+ bilat, sensation intact and PERRL, EOMI, accommodation nl, no face palsy, no dysarthria Psychiatric: A+Ox3, euthymic affect Lymphatic: no cervical or axillary lymphadenopathy Results & Data Results & Data ([facility]) Vital Signs (Past 12 Hours) Vital Signs Temp Pulse Pulse Resp BP Pulse Ox 06/07/20 15:30 37.3 C 90 18 159/79 H 93 06/07/20 12:12 36.7 C 91 H 20 135/81 95 06/07/20 08:00 73 06/07/20 07:18 36.8 C 73 16 153/90 H 95 06/07/20 05:00 36.9 C 78 18 142/79 H 94 Laboratory Results Laboratory Results - last 24 hr 06/06/20 06/06/20 06/07/20 16:24 20:13 06:36 WBC 8.94 RBC 3.25 L Hgb 8.8 L Hct 28.6 L MCV 88.0 MCH 27.1 MCHC 30.8 L RDW Std Deviation 59.8 H RDW Coeff of Carlyle 18.5 H Plt Count 192 MPV 8.6 Sodium Potassium Chloride Carbon Dioxide Anion Gap BUN Creatinine Est Cr Clr Drug Dosing Est GFR ( Amer) Est GFR (Non-Af Amer) BUN/Creatinine Ratio Glucose POC Glucose 228 H 207 H Calcium Magnesium Total Bilirubin AST ALT Alkaline Phosphatase Total Protein Albumin Globulin Albumin/Globulin Ratio 06/07/20 06/07/20 06/07/20 06:36 07:36 11:10 WBC RBC Hgb Hct MCV MCH MCHC RDW Std Deviation RDW Coeff of Carlyle Plt Count MPV Sodium 132 L Potassium 3.9 Chloride 102 Carbon Dioxide 26 Anion Gap 4.0 BUN 7 Creatinine 0.58 L Est Cr Clr Drug Dosing 96.0 Est GFR ( Amer) 105.2 Est GFR (Non-Af Amer) 90.8 BUN/Creatinine Ratio 11.9 Glucose 218 H POC Glucose 237 H 283 H Calcium 8.5 Magnesium 1.7 L Total Bilirubin 0.7 AST 14 L ALT 15 Alkaline Phosphatase 50 Total Protein 6.3 L Albumin 3.0 L Globulin 3.3 Albumin/Globulin Ratio 0.9 Medications Administered Current Inpatient Medications Acetaminophen (Acetaminophen 325 Mg Tab) 650 mg PO Q4H PRN PRN Reason: Moderate Pain Stop: 07/04/20 21:52 Last Admin: 06/06/20 21:07 Dose: 650 mg Documented by: Albuterol (Albuterol Hfa 8 Gm Inhaler) 2 puffs INH QID PRN PRN Reason: asthma Stop: 07/04/20 21:52 Alendronate Sodium (Alendronate Sodium 70 Mg Tab) 70 mg PO Q7D DUSTIN Stop: 07/06/20 06:29 Last Admin: 06/06/20 06:14 Dose: 70 mg Documented by: Allopurinol (Allopurinol 300 Mg Tab) 300 mg PO QAM DUSTIN Stop: 07/05/20 08:59 Last Admin: 06/07/20 08:00 Dose: 300 mg Documented by: Aspirin (Aspirin 81 Mg Ectab) 81 mg PO QPM [facility] Stop: 07/04/20 21:52 Last Admin: 06/06/20 21:09 Dose: 81 mg Documented by: Bupropion HCl (Bupropion Sr 150 Mg Tabcr) 150 mg PO BID [facility] Stop: 07/04/20 21:52 Last Admin: 06/07/20 08:00 Dose: 150 mg Documented by: Colestipol HCl (Colestipol Hcl 1 Gm Tab) 1 gm PO DAILY@1100 [facility] Stop: 07/05/20 10:59 Last Admin: 06/07/20 11:09 Dose: 1 gm Documented by: Dextrose (Dextrose 50% 50 Ml Syringe) 25 - 50 ml IV UD PRN; Protocol PRN Reason: Hypoglycemia Protocol Stop: 07/04/20 21:52 Diclofenac Sodium (Diclofenac Sod 1% Gel 100 Gm Tube) 2 gm EXT BID PRN PRN Reason: Pain Stop: 07/04/20 21:52 Ferrous Sulfate (Ferrous Sulfate 325 Mg Tab) 325 mg PO PM [facility] Stop: 07/04/20 22:29 Last Admin: 06/06/20 21:07 Dose: 325 mg Documented by: Fexofenadine HCl (Fexofenadine Hcl 180 Mg Tab) 180 mg PO QAM [facility] Stop: 07/05/20 08:59 Last Admin: 06/07/20 08:01 Dose: 180 mg Documented by: Fluticasone Furoate (Fluticasone Furoate 100mcg 14 Puffs/Inhaler) 1 puffs INH QAM [facility] Stop: 07/05/20 08:59 Last Admin: 06/07/20 08:01 Dose: 1 puffs Documented by: Glucagon (Glucagon For Inj 1 Mg Vial) 1 mg SQ UD PRN; Protocol PRN Reason: Hypoglycemia Protocol Stop: 07/04/20 21:52 Glucose (Glucose 10 Tabs/Tube) 4 - 8 tabs PO UD PRN; Protocol PRN Reason: Hypoglycemia Protocol Stop: 07/04/20 21:52 Glucose (Glucose 40% Gel 15 Gm Tube) 15 - 30 gm PO UD PRN; Protocol PRN Reason: Hypoglycemia Protocol Stop: 07/04/20 21:52 Insulin Aspart (Insulin Aspart 100 Units/Ml 3 Ml Pen) 0 units SC ACHS [facility] Stop: 07/04/20 21:52 Last Admin: 06/07/20 12:23 Dose: 8 units Documented by: Levothyroxine Sodium (Levothyroxine Sodium 175 Mcg Tablet) 175 mcg PO DAILYBB [facility] Stop: 07/05/20 06:29 Last Admin: 06/07/20 05:56 Dose: 175 mcg Documented by: Lisinopril (Lisinopril 40 Mg Tab) 40 mg PO QAM [facility] Stop: 07/05/20 08:59 Last Admin: 06/07/20 09:44 Dose: 40 mg Documented by: Loperamide HCl (Loperamide Hcl 2 Mg Cap) 4 mg PO QID DUSTIN Stop: 07/04/20 21:52 Last Admin: 06/07/20 13:16 Dose: Not Given Documented by: Magnesium Oxide (Magnesium Oxide 400 Mg Tab) 400 mg PO QIDM [facility] Stop: 07/04/20 21:52 Last Admin: 06/07/20 12:05 Dose: 400 mg Documented by: Meloxicam (Meloxicam 7.5 Mg Tab) 15 mg PO QAM PRN PRN Reason: Osteoarthritis Stop: 07/04/20 21:52 Last Admin: 06/05/20 08:05 Dose: 15 mg Documented by: Mirabegron (Mirabegron Er 25 Mg Tab) 25 mg PO PM DUSTIN Stop: 07/04/20 21:52 Last Admin: 06/06/20 21:06 Dose: 25 mg Documented by: Mirtazapine (Mirtazapine Soltab 15 Mg) 45 mg PO HS [facility] Stop: 07/04/20 21:52 Last Admin: 06/06/20 21:07 Dose: 45 mg Documented by: Miscellaneous (Trospium: Order Awaiting Action) 1 ea N/A QS DUSTIN Stop: 07/05/20 07:59 Last Admin: 06/07/20 16:15 Dose: Not Given Documented by: Miscellaneous (Carbohydrates For Hypoglycemia ) 15 - 30 gm PO UD PRN PRN Reason: Hypoglycemia Protocol Stop: 07/04/20 21:52 Morphine Sulfate (Morphine Sulfate 2 Mg/Ml Carp) 1 mg IV Q4H PRN PRN Reason: Pain Stop: 06/19/20 08:11 Multivitamins/Minerals (Cerovite Adv Formula Tab) 1 tab PO BID DUSTIN Stop: 07/04/20 22:29 Last Admin: 06/07/20 08:00 Dose: 1 tab Documented by: Multivitamins/Minerals (Calcium 600mg + Vit D 400 Iu Tab) 1 tab PO BID [facility] Stop: 07/04/20 22:29 Last Admin: 06/07/20 08:00 Dose: 1 tab Documented by: Nystatin (Nystatin Powder 15gm Btl) 1 appln EXT BID DUSTIN Stop: 07/04/20 21:52 Last Admin: 06/07/20 08:01 Dose: 1 appln Documented by: Ondansetron HCl (Ondansetron Inj 2 Mg/Ml 2 Ml Vial) 4 mg IV Q4H PRN PRN Reason: Nausea And Vomiting Stop: 07/04/20 20:53 Last Admin: 06/05/20 10:43 Dose: 4 mg Documented by: Pantoprazole Sodium (Pantoprazole 40 Mg Tab) 40 mg PO QAM DUSTIN Stop: 07/05/20 08:59 Last Admin: 06/07/20 08:01 Dose: 40 mg Documented by: Tramadol HCl (Tramadol Hcl 50 Mg Tablet) 50 mg PO Q4H PRN PRN Reason: Pain Stop: 07/05/20 08:11 Last Admin: 06/07/20 12:05 Dose: 50 mg Documented by: Vitamin D (Cholecalciferol 1,000 Units 25 Mcg Tab) 2,000 units PO PM DUSTIN Stop: 07/04/20 21:52 Last Admin: 06/06/20 21:06 Dose: 2,000 units Documented by: PG Care Time/CCT Total # of Minutes Spent Total Time Spent with Patient: Total time spent is greater than 50% in coordination of care (as documented) at patient's floor/unit and/or counseling patient: Coding Level of Care Code 47722 Subseq Hosp Care Lvl 3 Diagnoses SVT (supraventricular tachycardia) I47.1 Syncope R55 Syncope type: unspecified Acute hyponatremia E87.1 Fracture, humerus closed S42.292A Encounter type: initial encounter Fracture alignment: displaced Fracture morphology: other fracture Humerus Location: proximal Laterality: left Type 2 diabetes mellitus E11.9 Hypertension I10 Hyperlipidemia E78.5 Hypothyroidism E03.9 Gastroesophageal reflux disease K21.9 Osteoporosis M81.0 Vitamin D deficiency E55.9 Anemia D64.9 Anxiety F41.9 Depression F32.9 Muscle spasm M62.838 (1) Fracture, humerus closed Encounter type: initial encounter Fracture alignment: displaced Fracture morphology: other fracture Humerus Location: proximal Laterality: left Qualified Code(s): S42.292A - Other displaced fracture of upper end of left humerus, initial encounter for closed fracture (2) Syncope Syncope type: unspecified Qualified Code(s): R55 - Syncope and collapse
[2020-06-07] MEDS ORDERED: ENOXAPARIN INJ 40 MG/0.4 ML SYR SQ SCH (16:45)
[2020-06-07] MEDS: BACLOFEN 10 MG TAB PO PRN (17:23)
[2020-06-07] MEDS: ENOXAPARIN INJ 40 MG/0.4 ML SYR SQ SCH (17:53)
[2020-06-07] MEDS: MIRABEGRON ER 25 MG TAB PO SCH (19:57)
[2020-06-07] MEDS: CHOLECALCIFEROL 1,000 UNITS 25 MCG TAB PO SCH (19:57)
[2020-06-07] MEDS: FERROUS SULFATE 325 MG TAB PO SCH (19:58)
[2020-06-07] MEDS: ASPIRIN 81 MG ECTAB PO SCH (19:59)
[2020-06-07] MEDS: ACETAMINOPHEN 325 MG TAB PO PRN (19:59)
[2020-06-07] MEDS: MIRTAZAPINE SOLTAB 15 MG PO SCH (19:59)
[2020-06-07] MEDS: MoRPHine SULFATE 2 MG/ML CARP IV PRN (23:17)
[2020-06-08] MEDS: MoRPHine SULFATE 2 MG/ML CARP IV PRN (05:47)
[2020-06-08] MEDS: LEVOTHYROXINE SODIUM 175 MCG TABLET PO SCH (05:47)
[2020-06-08] MEDS: BACLOFEN 10 MG TAB PO PRN ×3 (06:12→19:56)
[2020-06-08] MEDS: INSULIN ASPART 100 UNITS/ML 3 ML PEN SC SCH ×4 (08:06→21:00)
[2020-06-08] MEDS: FLUTICASONE FUROATE 100MCG 14 PUFFS/INHALER INH SCH (08:09)
[2020-06-08] MEDS: MAGNESIUM OXIDE 400 MG TAB PO SCH ×4 (08:10→19:56)
[2020-06-08] MEDS: FEXOFENADINE HCL 180 MG TAB PO SCH (08:10)
[2020-06-08] MEDS: PANTOprazole 40 MG TAB PO SCH (08:10)
[2020-06-08] MEDS: lisinopril 40 MG TAB PO SCH (08:10)
[2020-06-08] MEDS: CEROVITE ADV FORMULA TAB PO SCH ×2 (08:10→19:56)
[2020-06-08] MEDS: buPROPion SR 150 MG TABCR PO SCH ×2 (08:10→19:56)
[2020-06-08] MEDS: CALCIUM 600MG + VIT D 400 IU TAB PO SCH ×2 (08:10→19:56)
[2020-06-08] MEDS: NYSTATIN POWDER 15GM BTL EXT SCH ×2 (08:11→19:55)
[2020-06-08] MEDS: allopurinoL 300 MG TAB PO SCH (08:11)
[2020-06-08] MEDS: LOPERAMIDE HCL 2 MG CAP PO SCH ×4 (08:32→19:53)
[2020-06-08] MEDS: INSULIN GLARGINE SOLOSTAR 100 UNITS/ML 3 ML PEN SC SCH (09:20)
[2020-06-08] MEDS: COLESTIPOL HCL 1 GM TAB PO SCH (11:25)
--- NOTE | 2020-06-08 12:28 | Cardiology Progress Note ---
Date of Service June 08, 2020 Assessment & Plan (1) Fall: (2) Syncope: (3) SVT (supraventricular tachycardia): (1) Fall: Her fall in my estimation was likely due to SVT although of course we cannot be confident of that. She does not have palpitations, but did not during her episode of documented SVT on the morning of June 06, 2020 but it is clearly documented. The lightheadedness would be consistent, and she also had another episode of lightheadedness and presyncope several years ago which occurred when she got up out of bed. Although she does not recall having other episodes of lightheadedness she may have had them and does not recall. (2) Syncope: I believe she did lose consciousness when she fell down the steps, at least briefly, however the fact that she remembers falling backwards and hitting the floor probably suggest that she did not lose consciousness until she hit the floor, possibly from striking her head. She was not hypotensive during the arrhythmia during this hospitalization despite its rate, however she was not upright. (3) SVT (supraventricular tachycardia): She has well-documented SVT which occurred suddenly on the morning of June 06, 2020, lasted about 20 minutes and then resolved to sinus rhythm. 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 I had discussed various options with her which included not doing anything (which I think would be risky since this is a likely cause of her fall and her heart rate is very fast) versus medical therapy (which might eliminate the tachycardia but more likely would either slow the rate down and make it more tolerable or perhaps decrease the frequency and duration of episodes). I also discussed ablation with her and her family. My recommendation is ablation due to the potential risk that this arrhythmia was a cause of her fall and the excellent success of ablation in curing these types of arrhythmias. She was not sure she wanted to agree to ablation initially, however I discussed again with her as well as with her daughter who is present in room yesterday, her other daughter on a conference call using her phone and the patient's also on the conference call on her phone yesterday. She remainsagreeable to proceed with ablation. I did discontinue diltiazem (which she got yesterday but might interfere with the study if it was continued) and we will plan on ablation on . Admission and Anticipated Discharge Date Admission Date: June 04, 2020 Subjective She is feeling well today, Dr. Alcantara discussed the ablation tomorrow with her and she feels comfortable with proceeding. No palpitations. Physical Exam Physical Exam: Constitutional: Alert, cooperative and in no distress. HEENT: Unremarkable Neck: No jugular venous distention, carotid pulses are normal and equal bilaterally without bruits. Pulmonary: Clear to auscultation bilaterally. Cardiac: Regular rhythm with no murmur, gallop or rub. Abdomen: Soft, nontender with normal bowel sounds. Extremities: No edema. Distal pulses intact. Neurologic: No focal findings. Gait is steady. Skin: No rash, ecchymoses or petechiae. Results & Data ([facility]) Vital Signs (Past 12 Hours) Vital Signs Temp Pulse Resp BP Pulse Ox 06/08/20 11:45 36.3 C L 90 20 148/79 H 96 06/08/20 07:29 36.8 C 87 18 156/76 H 95 06/08/20 04:05 36.6 C 93 H 22 158/81 H 94 Laboratory Results Intake and Output 06/07/20 06/08/20 06/08/20 22:59 06:59 14:59 Intake Total 150 / 785 Output Total 400 / 1400 800 / 1400 900 / 900 Balance -250 / -615 -800 / -615 -900 / -900 Intake: Oral 150 / 785 Output: Urine 400 / 600 Other 900 / 900 Urine Amount (Catheter) 800 / 800 External 800 / 800 Other: Weight 100.9 kg Weight Measurement Method Built in [facility] Diagnostic Findings Telemetry: Sinus rhythm, heart rate generally in the normal range, no further SVT PG Care Time/CCT Total # of Minutes Spent Total Time Spent with Patient: Total time spent is greater than 50% in coordination of care (as documented) at patient's floor/unit and/or counseling patient: Coding Level of Care Code 49261 Subseq Hosp Care Lvl 2 Diagnoses Fall W19.XXXA Encounter type: initial encounter Syncope R55 Syncope type: unspecified SVT (supraventricular tachycardia) I47.1 (1) Fall Encounter type: initial encounter Qualified Code(s): W19.XXXA - Unspecified fall, initial encounter (2) Syncope Syncope type: unspecified Qualified Code(s): R55 - Syncope and collapse
[2020-06-08] MEDS: traMADol HCL 50 MG TABLET PO PRN ×2 (14:30→19:56)
--- NOTE | 2020-06-08 16:40 | Hospitalist Progress Note ---
Date of Service June 08, 2020 Assessment & Plan (1) SVT (supraventricular tachycardia): rates in the 180's morning of 06/06, she felt light headed, palpitations, no chest pain resolved with Diltiazem 10mg IV and then Lopressor 5mg IV started on Lopressor 25mg BID appreciate consultation from Dr. Rodriguez, he discussed options with patient such as ablation vs medical therapy he is recommending ablation as this could have been cause of syncope patient and family agree with ablation, Dr. Alcantara will perform ablation on 06/09 NPO after midnight (2) Syncope: seems like most likely cause was SVT with rates in 180's she felt light headed during this episode, she was laying down when it happened - Check 2 D echo- normal EF - troponin x 3 negative - Imaging per EMR reviewed - negative cervical spine, CT abd/pelvis, tibia/fibula, shoulder, + L humerus fracture - Leukocytosis with WBC 20.11, left shift - improved to 8K and was likely stress response - Follow infectious work-up, UA negative and urine culture clear - Check Blood cultures - no growth PT/OT (3) Acute hyponatremia: -Sodium 128 on admission, improved to 132 yesterday, likely from volume depletion (4) Fracture, humerus closed: -Left -Sustained on fall, orthopedics consulted, Dr. Burns continue sling, NWB left arm, can perform PT/OT no plans for surgery follow up with orthopedics in a few weeks (5) Type 2 diabetes mellitus: -ISS with Accu-Cheks AC at bedtime, holding Metformin and glimepiride patient with significant hyperglycemia today gave Lantus 12 units, sugar 300's prior to lunch, tighten Novolog SS even though she is NPO after midnight, still feel she would need the Lantus in the morning follow closely (6) Hypertension: - Continue lisinopril 40 mg daily pressures high after Diltiazem stopped in anticipation of ablation (7) Hyperlipidemia: -Continue colestipol, not on statin therapy (8) Hypothyroidism: -Continue levothyroxine 175 mcg daily (9) Gastroesophageal reflux disease: -Continue PPI (10) Osteoporosis: -Continue vitamin D and calcium supplementation (11) Vitamin D deficiency: -Continue supplementation (12) Anemia: -Hemoglobin 12.4, HCT = 37.9 -- dropped to 9.7 on 06/05, likely due to fluid resuscitation but could have some blood loss from humerus fractures and various areas of ecchymosis Hb down to 8.8 on 06/07, repeat tomorrow (13) Anxiety: (14) Depression: - Continue Wellbutrin DVT ppx: - teds, scds CODE: Full code Dispo: From home, likely to remain in the hospital x 1-2 days, may need rehab placement. PT/OT consultations requested (15) Muscle spasm: try some Baclofen 5mg TID PRN Admission and Anticipated Discharge Date Admission Date: June 04, 2020 Subjective patient doing okay, said she had a long night with muscle spasms suggested we try a higher dose of Baclofen she is ready for the ablation tomorrow her left shoulder pain is controlled sugars up all day and night, will needle grinder her Lantus, tighten Novolog coverage talked with Dr. Alcantara, ready for ablation tomorrow updated at the bedside Review of Systems Review of Systems: All systems reviewed & are unremarkable except as noted in Subjective Respiratory: no cough and no dyspnea Cardiovascular: no chest pain, no palpitations and no syncope Gastrointestinal: no abdominal pain, no nausea, no vomiting, no constipation and no diarrhea/loose stools Musculoskeletal: + joint pain (left shoulder) Physical Exam Constitutional: well developed and well nourished; no acute distress Neck: trachea midline, no thyromegaly Respiratory: normal respiratory effort, lungs clear to auscultation Cardiovascular: Heart Sounds: normal S1 and normal S2; no murmur Vessels: no JVD Extremities: normal capillary refill; no edema Gastrointestinal (Abdomen): normal bowel sounds, soft, nontender, no hepatosplenomegaly Musculoskeletal: no cyanosis or clubbing, extremities motor strength 5/5 Extremities: + extremities abnormal to inspection (left arm in sling) Skin: no rashes, warm and dry (bruising over both shoulders) Neurologic: patellar DTR's 2+ bilat, sensation intact and PERRL, EOMI, accommodation nl, no face palsy, no dysarthria Psychiatric: A+Ox3, euthymic affect Lymphatic: no cervical or axillary lymphadenopathy Results & Data Results & Data ([facility]) Vital Signs (Past 12 Hours) Vital Signs Temp Pulse Resp BP Pulse Ox 06/08/20 15:49 36.6 C 104 H 18 175/89 H 96 06/08/20 11:45 36.3 C L 90 20 148/79 H 96 06/08/20 07:29 36.8 C 87 18 156/76 H 95 Laboratory Results Laboratory Results - last 24 hr 06/08/20 06/08/20 06/08/20 07:55 10:45 10:45 POC Glucose 237 H COVID-19 Eval [facility] [place] SARS-CoV-2, RNA, NAAT NEGATIVE 06/08/20 06/08/20 06/08/20 11:22 15:56 20:33 POC Glucose 328 H* 271 H 235 H COVID-19 Eval Order SARS-CoV-2, RNA, NAAT Medications Administered Current Inpatient Medications Acetaminophen (Acetaminophen 325 Mg Tab) 650 mg PO Q4H PRN PRN Reason: Moderate Pain Stop: 07/04/20 21:52 Last Admin: 06/07/20 19:59 Dose: 650 mg Documented by: Albuterol (Albuterol Hfa 8 Gm Inhaler) 2 puffs INH QID PRN PRN Reason: asthma Stop: 07/04/20 21:52 Alendronate Sodium (Alendronate Sodium 70 Mg Tab) 70 mg PO Q7D DUSTIN Stop: 07/06/20 06:29 Last Admin: 06/06/20 06:14 Dose: 70 mg Documented by: Allopurinol (Allopurinol 300 Mg Tab) 300 mg PO QAM DUSTIN Stop: 07/05/20 08:59 Last Admin: 06/08/20 08:11 Dose: 300 mg Documented by: Aspirin (Aspirin 81 Mg Ectab) 81 mg PO QPM DUSTIN Stop: 07/04/20 21:52 Last Admin: 06/08/20 19:56 Dose: 81 mg Documented by: Baclofen (Baclofen 10 Mg Tab) 10 mg PO TID PRN PRN Reason: Muscle Spasm Stop: 07/07/20 20:59 Last Admin: 06/08/20 19:56 Dose: 10 mg Documented by: Bupropion HCl (Bupropion Sr 150 Mg Tabcr) 150 mg PO BID DUSTIN Stop: 07/04/20 21:52 Last Admin: 06/08/20 19:56 Dose: 150 mg Documented by: Colestipol HCl (Colestipol Hcl 1 Gm Tab) 1 gm PO DAILY@1100 [facility] Stop: 07/05/20 10:59 Last Admin: 06/08/20 11:25 Dose: 1 gm Documented by: Dextrose (Dextrose 50% 50 Ml Syringe) 25 - 50 ml IV UD PRN; Protocol PRN Reason: Hypoglycemia Protocol Stop: 07/04/20 21:52 Diclofenac Sodium (Diclofenac Sod 1% Gel 100 Gm Tube) 2 gm EXT BID PRN PRN Reason: Pain Stop: 07/04/20 21:52 Enoxaparin Sodium (Enoxaparin Inj 40 Mg/0.4 Ml Syr) 40 mg SQ Q24H [facility] Stop: 07/07/20 16:59 Last Admin: 06/08/20 17:19 Dose: 40 mg Documented by: Ferrous Sulfate (Ferrous Sulfate 325 Mg Tab) 325 mg PO PM [facility] Stop: 07/04/20 22:29 Last Admin: 06/08/20 19:56 Dose: 325 mg Documented by: Fexofenadine HCl (Fexofenadine Hcl 180 Mg Tab) 180 mg PO QAM [facility] Stop: 07/05/20 08:59 Last Admin: 06/08/20 08:10 Dose: 180 mg Documented by: Fluticasone Furoate (Fluticasone Furoate 100mcg 14 Puffs/Inhaler) 1 puffs INH [facility] Stop: 07/05/20 08:59 Last Admin: 06/08/20 08:09 Dose: 1 puffs Documented by: Glucagon (Glucagon For Inj 1 Mg Vial) 1 mg SQ UD PRN; Protocol PRN Reason: Hypoglycemia Protocol Stop: 07/04/20 21:52 Glucose (Glucose 10 Tabs/Tube) 4 - 8 tabs PO UD PRN; Protocol PRN Reason: Hypoglycemia Protocol Stop: 07/04/20 21:52 Glucose (Glucose 40% Gel 15 Gm Tube) 15 - 30 gm PO UD PRN; Protocol PRN Reason: Hypoglycemia Protocol Stop: 07/04/20 21:52 Insulin Aspart (Insulin Aspart 100 Units/Ml 3 Ml Pen) 0 units [facility] Stop: 07/04/20 21:52 Last Admin: 06/08/20 21:00 Dose: 5 units Documented by: Insulin Glargine (Insulin Glargine Solostar 100 Units/Ml 3 Ml Pen) 12 units SC [facility] [place] Stop: 07/08/20 08:59 Last Admin: 06/08/20 09:20 Dose: 12 units Documented by: Levothyroxine Sodium (Levothyroxine Sodium 175 Mcg Tablet) 175 mcg PO DAILYBB [facility] Stop: 07/05/20 06:29 Last Admin: 06/08/20 05:47 Dose: 175 mcg Documented by: Lisinopril (Lisinopril 40 Mg Tab) 40 mg PO QAM [facility] Stop: 07/05/20 08:59 Last Admin: 06/08/20 08:10 Dose: 40 mg Documented by: Loperamide HCl (Loperamide Hcl 2 Mg Cap) 4 mg PO QID [facility] Stop: 07/04/20 21:52 Last Admin: 06/08/20 19:53 Dose: Not Given Documented by: Magnesium Oxide (Magnesium Oxide 400 Mg Tab) 400 mg PO QIDM [facility] Stop: 07/04/20 21:52 Last Admin: 06/08/20 19:56 Dose: 400 mg Documented by: Meloxicam (Meloxicam 7.5 Mg Tab) 15 mg PO QAM PRN PRN Reason: Osteoarthritis Stop: 07/04/20 21:52 Last Admin: 06/05/20 08:05 Dose: 15 mg Documented by: Mirabegron (Mirabegron Er 25 Mg Tab) 25 mg PO PM [facility] Stop: 07/04/20 21:52 Last Admin: 06/08/20 19:56 Dose: 25 mg Documented by: Mirtazapine (Mirtazapine Soltab 15 Mg) 45 mg PO HS [facility] Stop: 07/04/20 21:52 Last Admin: 06/08/20 19:56 Dose: 45 mg Documented by: Miscellaneous (Trospium: Order Awaiting Action) 1 ea N/A QS [facility] Stop: 07/05/20 07:59 Last Admin: 06/08/20 17:14 Dose: Not Given Documented by: Miscellaneous (Carbohydrates For Hypoglycemia ) 15 - 30 gm PO UD PRN PRN Reason: Hypoglycemia Protocol Stop: 07/04/20 21:52 Morphine Sulfate (Morphine Sulfate 2 Mg/Ml Carp) 1 mg IV Q4H PRN PRN Reason: Pain Stop: 06/19/20 08:11 Last Admin: 06/08/20 05:47 Dose: 1 mg Documented by: Multivitamins/Minerals (Cerovite Adv Formula Tab) 1 tab PO BID [facility] Stop: 07/04/20 22:29 Last Admin: 06/08/20 19:56 Dose: 1 tab Documented by: Multivitamins/Minerals (Calcium 600mg + Vit D 400 Iu Tab) 1 tab PO BID [facility] Stop: 07/04/20 22:29 Last Admin: 06/08/20 19:56 Dose: 1 tab Documented by: Nystatin (Nystatin Powder 15gm Btl) 1 appln EXT BID [facility] Stop: 07/04/20 21:52 Last Admin: 06/08/20 19:55 Dose: 1 appln Documented by: Ondansetron HCl (Ondansetron Inj 2 Mg/Ml 2 Ml Vial) 4 mg IV Q4H PRN PRN Reason: Nausea And Vomiting Stop: 07/04/20 20:53 Last Admin: 06/05/20 10:43 Dose: 4 mg Documented by: Pantoprazole Sodium (Pantoprazole 40 Mg Tab) 40 mg PO QAM [facility] Stop: 07/05/20 08:59 Last Admin: 06/08/20 08:10 Dose: 40 mg Documented by: Tramadol HCl (Tramadol Hcl 50 Mg Tablet) 50 mg PO Q4H PRN PRN Reason: Pain Stop: 07/05/20 08:11 Last Admin: 06/08/20 19:56 Dose: 50 mg Documented by: Vitamin D (Cholecalciferol 1,000 Units 25 Mcg Tab) 2,000 units PO PM [facility] Stop: 07/04/20 21:52 Last Admin: 06/08/20 19:56 Dose: 2,000 units Documented by: PG Care Time/CCT Total # of Minutes Spent Total Time Spent with Patient: Total time spent is greater than 50% in coordination of care (as documented) at patient's floor/unit and/or counseling patient: Coding Level of Care Code 44185 Subseq Hosp Care Lvl 3 Diagnoses SVT (supraventricular tachycardia) I47.1 Syncope R55 Syncope type: unspecified Acute hyponatremia E87.1 Fracture, humerus closed S42.292A Encounter type: initial encounter Fracture alignment: displaced Fracture morphology: other fracture Humerus Location: proximal Laterality: left Type 2 diabetes mellitus E11.9 Hypertension I10 Hyperlipidemia E78.5 Hypothyroidism E03.9 Gastroesophageal reflux disease K21.9 Osteoporosis M81.0 Vitamin D deficiency E55.9 Anemia D64.9 Anxiety F41.9 Depression F32.9 Muscle spasm M62.838 (1) Fracture, humerus closed Encounter type: initial encounter Fracture alignment: displaced Fracture morphology: other fracture Humerus Location: proximal Laterality: left Qualified Code(s): S42.292A - Other displaced fracture of upper end of left humerus, initial encounter for closed fracture (2) Syncope Syncope type: unspecified Qualified Code(s): R55 - Syncope and collapse
[2020-06-08] MEDS: ENOXAPARIN INJ 40 MG/0.4 ML SYR SQ SCH (17:19)
[2020-06-08] MEDS: MIRTAZAPINE SOLTAB 15 MG PO SCH (19:56)
[2020-06-08] MEDS: FERROUS SULFATE 325 MG TAB PO SCH (19:56)
[2020-06-08] MEDS: MIRABEGRON ER 25 MG TAB PO SCH (19:56)
[2020-06-08] MEDS: CHOLECALCIFEROL 1,000 UNITS 25 MCG TAB PO SCH (19:56)
[2020-06-08] MEDS: ASPIRIN 81 MG ECTAB PO SCH (19:56)
[2020-06-09] MEDS: traMADol HCL 50 MG TABLET PO PRN ×3 (04:04→19:15)
[2020-06-09] MEDS: BACLOFEN 10 MG TAB PO PRN ×2 (04:04→14:27)
[2020-06-09] MEDS: LEVOTHYROXINE SODIUM 175 MCG TABLET PO SCH (05:00)
[2020-06-09] MEDS: INSULIN ASPART 100 UNITS/ML 3 ML PEN SC SCH ×4 (06:03→20:37)
[2020-06-09 06:52] LABS: Hematocrit (blood only) 28.2 % (37-47); Hemoglobin 9.1 g/dL (12.0-16.0); Mean Corpuscular Hemoglobin 28.3 pg (25-34); Mean Corpuscular Hgb Conc 32.3 g/dL (32-36); Mean Corpuscular Volume 87.6 fL (80-100); Mean Platelet Volume 8.8 fL (7.4-10.4); Platelet Count 257 K/uL (130-400); RDW Coefficient of Variation 18.9 % (11.5-14.5); Red Blood Count 3.22 M/uL (4.2-5.4); White Blood Count 7.65 K/uL (4.8-10.8)
[2020-06-09 07:20] LABS: BUN Creatinine Ratio 19.3 (10-20); Calcium 8.5 mg/dl (8.5-10.1); Creatinine Clr Calc Pharmacy 116.6 ml/min; Est GFR (African American) 112.8; Est GFR (Non-African American) 97.3; Potassium 3.8 mmol/L (3.5-5.1)
[2020-06-09] MEDS ORDERED: MIDAZOLAM HCL 5 MG/ML 1 ML VIAL ONE ×2 (08:25→08:47)
[2020-06-09] MEDS ORDERED: fentaNYL citrate 100 MCG/2 ML VIAL ONE ×2 (08:26→08:48)
--- NOTE | 2020-06-09 08:29 | Pre Anesthesia Assessment ---
Date of Service June 09, 2020 Pre Sedation Assessment Vital Signs Temp Pulse Resp BP Pulse Ox 06/09/20 08:12 95 H 18 182/92 H 96 06/09/20 07:24 36.5 C 98 H 18 118/78 96 06/09/20 02:53 36.8 C 92 H 18 130/80 95 06/08/20 23:27 36.5 C 67 18 170/79 H 96 06/08/20 19:40 36.5 C 98 H 21 168/83 H 95 06/08/20 15:49 36.6 C 104 H 18 175/89 H 96 06/08/20 11:45 36.3 C L 90 20 148/79 H 96 Cardiovascular + regular rate Respiratory + respiratory effort normal Pre-Sedation Airway Assessment Smoking Status: Unknown if ever smoked Hx Sleep Apnea: No Hx Difficult Intubation: No Short, Thick Neck: No Thyromental Distance: > or= 3.5 Finger Breadths Oral Cavity: + WNL Mallampati Class: III ASA: ASA3 NPO Status Date of Last Intake of Fluids: 06/09/20 Time of Last Intake of Fluids: 07:00 Last Oral Intake of Fluids Comment: sip with meds Date of Last Intake of Solid Food: 06/08/20 Time of Last Intake of Solid Foods: 18:30 Procedure Planning Contraindications for Sedation: none Current Medications Reviewed: Yes Notes The planned sedation has been discussed with the patient. Informed Consent was obtained. I have identified the patient, determined the appropriateness of sedation and have assessed the patient immediately prior to the procedure. All medicine(s) and interventions are by my order.
[2020-06-09] MEDS ORDERED: ISOPROTERENOL HCL 0.2 MG/ML 5 ML AMP IV ONE (10:21)
[2020-06-09] MEDS ORDERED: ACETAMINOPHEN 325 MG TAB PO PRN (10:56)
--- NOTE | 2020-06-09 10:58 | Electrophysiology Report ---
Date of Service June 09, 2020 Electrophysiology Procedure Electrophysiology Procedure Report Procedure performed: Ablation of SVT, complete electrophysiologic testing including pacing from the left atrium via the coronary sinus, mapping of tachycardia site using roving catheter, arrhythmia induction on and off isoproterenol using programmed stimulation, ultrasound guided vascular access Staff inspector and clipper: Abad Alcantara MD Indication: The patient is a 75-year-old woman who recently sustained a fall and left arm fracture. It is unclear if she had a loss of consciousness. In the hospital she was noted to have an episode of SVT and there is some concern that the 2 were related. As such she was advised to consider catheter based therapy for evaluation and possible ablation. Procedure detail The patient was informed of the risks benefits and alternatives to the intended procedure. She understood which proceed. She was taken to the electrophysiology suite in a fasting state. Conscious sedation was administered per protocol the patient was monitored electrocardiographically throughout today's procedure. The right internal jugular area and right femoral areas were prepped and draped in usual sterile fashion. These areas were anesthetized using subcutaneous menstruation of lidocaine solution. The right internal jugular vein was accessed using modified Seldinger technique under ultrasound guidance and a 6 Australian venous sheath was placed at the site over a guidewire. The right femoral vein was accessed 3 times using modified Seldinger technique and sheath were placed over guidewires at this site. The sheaths were used to facilitate passage of the EP catheters to the respective chambers under fluoroscopic guidance. This included coronary sinus, right ventricular and his bundle catheters. Patient's baseline conduction system was characterize. Using programmed stimulation a tachycardia was induced with the elements of the tachycardia were known a radiofrequency ablation catheter was advanced to the area of interest in tachycardia sites mapped. Radiofrequency lesions were placed with good power and temperature until the tachycardia was no longer inducible. Repeat attempts at induction using isoproterenol and programmed stimulation were then performed. At the conclusion of the case the catheters and sheaths were removed. The patient tolerated procedure well. There were no immediate complications. Findings: Baseline intracardiac intervals Cycle length in the atrium 570 milliseconds Cycle length in the ventricle 547 milliseconds LA interval 159 milliseconds QRS duration 90 milliseconds QT interval 296 milliseconds AH interval 90 milliseconds HV interval 52 milliseconds Av Wenckebach occurred at 290 milliseconds VA Wenckebach occurred at 280 milliseconds Retrograde AV node refractory period was 260 milliseconds It should be noted the program stimulation from the ventricle produced retrograde conduction that was concentric and decremental He did appear to be dual AV lima physiology in the baseline state Av node effective refractory period of the fast pathway was 280 milliseconds In the baseline state there fracture. Of the slow pathway was not determined as the patient repeatedly developed her tachyarrhythmia with additional programmed stimulation Tachycardia: With program stimulation from the atrium and an acute prolongation of the AH interval, a tachycardia was induced VA time was 54 milliseconds Tachycardia cycle length was 340 milliseconds Ventricular entrainment of the tachycardia produced a post pacing interval greater than 115 milliseconds different from the tachycardia cycle length His refractory PVCs introduced during the tachycardia failed to advance the atrial signal except with extreme prematurity. 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 Catheter stability was difficult as the patient had a very large coronary sinus ostium. An SR 0 sheath was employed for stability. Radiofrequency lesions were placed in this area and there were frequent junctional beats that accelerated rapidly. During the last ablation we encountered a similar phenomenon, and when we discontinued delivery of radiofrequency energy there appeared to be a prolongation in the LA interval. No additional ablation was performed. Post ablation intervals Cycle length in the atrium 613 milliseconds Cycle length in the ventricle 616 milliseconds LA interval 271 milliseconds QRS duration 90 milliseconds QT interval 405 milliseconds AH interval 230 milliseconds HV interval 45 milliseconds Av Wenckebach occurred at 310 milliseconds AV node effective refractory period was 280 milliseconds There did not appear to be reliable retrograde conduction with pacing from the ventricle Attempts at arrhythmia induction was subsequently performed on and off isoproterenol infusion. Program stimulation from the atrium and playing up to 2 extrastimuli failed to induce a tachycardia. 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 No higher degree AV block noted at the conclusion of the case. Overall refractory periods were in the normal range. [facility] Electrophysiology codes EP Procedure 1: Electrophysiology: 09266 EPS and Ablation SVT Procedure 2: Electrophysiology: 70360-91 Comp EPS w/LA pacing Procedure 3: Electrophysiology: 99344 Catheter mapping Procedure 4: Electrophysiology: 37673 Arrhythmia induction Procedure 5: Electrophysiology: 93447 Drug Stimulation PG Moderate Sedation Codes Moderate Sedation Codes Procedure 1: Sedation/Anesthesia: 66049 Mod Sedation by the same physician;Init15 Min Child Age 5 & Up Procedure 2: Sedation/Anesthesia: 76706 Mod Sedation by the same physician; Ea [id number] Minutes
--- NOTE | 2020-06-09 10:59 | Post Anesthesia Assessment ---
Date of Service June 09, 2020 Post Sedation Assessment Vital Signs Temp Pulse Resp BP Pulse Ox 06/09/20 08:12 95 H 18 182/92 H 96 06/09/20 07:24 36.5 C 98 H 18 118/78 96 06/09/20 02:53 36.8 C 92 H 18 130/80 95 06/08/20 23:27 36.5 C 67 18 170/79 H 96 06/08/20 19:40 36.5 C 98 H 21 168/83 H 95 06/08/20 15:49 36.6 C 104 H 18 175/89 H 96 06/08/20 11:45 36.3 C L 90 20 148/79 H 96 Recovery Score Activity: Moves 4 extremities Respiration: Deep Breath/Cough Circulation: +/-20% PreAnes Value Consciousness: Arouseable (by name) Oxygen Saturation: > 92% On Room Air Discharge Sedation Level of Care: Fast Track Phase II Post Sedation Plan On clinical assessment, the patient appears to have tolerated the sedation without complications. Patient is recovering as anticipated. Patient will continue to be monitored by nursing and may be discharged when sedation discharge criteria are met per below protocol. Upon Completions of procedure up to 15 minutes continue every 5 minute vital signs and the P.A.R. score; then discharge to a Phase I or Fast Track to Phase II per the following guidelines: * Discharge Patient to appropriate Phase II area if PAR is 8 or greater or return to pre- procedure baseline. The post - procedure orders will be as directed. * If PAR score is less than 8 or not return to pre-procedure baseline then patient will follow Phase I monitoring till PAR is reached for Phase II. The Phase I may be done in procedure room or may call to secure a Phase I area. * If naloxone or flumazenil are used for reversal, hold in Phase I for continue d monitoring from when last reversal dose was given for a minimum of 60 minutes or longer pending the nurse and/or physician discretion of patient condition before discharge to Phase II. Please call the Sedation Physician to re-evaluate and complete post-note for discharge to Phase II area. Do NOT discharge from procedure sedation or Phase 1 until post- sedation evaluation note is complete by procedure /sedation MD Sedation Discharge Instructions to be given to the patient at discharge to home.
[2020-06-09] MEDS: MAGNESIUM OXIDE 400 MG TAB PO SCH ×4 (11:48→20:35)
[2020-06-09] MEDS: buPROPion SR 150 MG TABCR PO SCH ×2 (11:48→20:35)
[2020-06-09] MEDS: FEXOFENADINE HCL 180 MG TAB PO SCH (11:48)
[2020-06-09] MEDS: allopurinoL 300 MG TAB PO SCH (11:48)
[2020-06-09] MEDS: PANTOprazole 40 MG TAB PO SCH (11:49)
[2020-06-09] MEDS: CALCIUM 600MG + VIT D 400 IU TAB PO SCH ×2 (11:49→20:36)
[2020-06-09] MEDS: lisinopril 40 MG TAB PO SCH (11:49)
[2020-06-09] MEDS: CEROVITE ADV FORMULA TAB PO SCH ×2 (11:49→20:37)
[2020-06-09] MEDS: FLUTICASONE FUROATE 100MCG 14 PUFFS/INHALER INH SCH (11:50)
[2020-06-09] MEDS: LOPERAMIDE HCL 2 MG CAP PO SCH ×4 (11:51→20:36)
[2020-06-09] MEDS: INSULIN GLARGINE SOLOSTAR 100 UNITS/ML 3 ML PEN SC SCH (11:51)
[2020-06-09] MEDS: NYSTATIN POWDER 15GM BTL EXT SCH ×2 (11:52→20:37)
[2020-06-09] MEDS: COLESTIPOL HCL 1 GM TAB PO SCH (11:53)
[2020-06-09] MEDS ORDERED: amLODIPine BESYLATE 5 MG TAB PO ONE (16:05)
--- NOTE | 2020-06-09 16:08 | Electrocardiogram Report ---
Test Reason : Blood Pressure : / mmHG Vent. Rate : 103 BPM Atrial Rate : 103 BPM P-R Int : 198 ms QRS Dur : 088 ms QT Int : 330 ms P-R-T Axes : 062 024 092 degrees QTc Int : 432 ms Sinus tachycardia Nonspecific T wave abnormality Abnormal ECG When compared with ECG of 06-JUN-2020 10:10, Premature atrial complexes are no longer Present Nonspecific T wave abnormality now evident in Lateral leads Confirmed by Vamsi Rodriguez ([id number]) on 06/09/2020 4:07:44 PM Referred By: REFERRED SELF Confirmed By:Vamsi Rodriguez
--- NOTE | 2020-06-09 16:30 | Hospitalist Progress Note ---
Date of Service June 09, 2020 Assessment & Plan (1) SVT (supraventricular tachycardia): rates in the 180's morning of 06/06, she felt light headed, palpitations, no chest pain resolved with Diltiazem 10mg IV and then Lopressor 5mg IV started on Lopressor 25mg BID appreciate consultation from Dr. Rodriguez, he discussed options with patient such as ablation vs medical therapy he is recommending ablation as this could have been cause of syncope patient and family agree with ablation, Dr. 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 successful ablation performed (2) Syncope: seems like most likely cause was SVT with rates in 180's she felt light headed during this episode, she was laying down when it happened - Check 2 D echo- normal EF - troponin x 3 negative - Imaging per EMR reviewed - negative cervical spine, CT abd/pelvis, tibia/fibula, shoulder, + L humerus fracture - Leukocytosis with WBC 20.11, left shift - improved to 8K and was likely stress response - Follow infectious work-up, UA negative and urine culture clear - Check Blood cultures - no growth PT/OT, patient hoping to return home with home health she does not like the idea of being away from her family at rehab (3) Acute hyponatremia: -Sodium 128 on admission, up to 131 today (4) Fracture, humerus closed: -Left -Sustained on fall, orthopedics consulted, Dr. Burns continue sling, NWB left arm, can perform PT/OT no plans for surgery follow up with orthopedics in a few weeks (5) Type 2 diabetes mellitus: -ISS with Accu-Cheks AC at bedtime, holding Metformin and glimepiride patient's sugars a little beter today gave Lantus 12 units, sugar 300's prior to lunch, tighten Novolog SS even though she is NPO after midnight, still feel she would need the Lantus in the morning follow closely (6) Hypertension: - Continue lisinopril 40 mg daily start Norvasc 5mg today due to elevated BP (7) Hyperlipidemia: -Continue colestipol, not on statin therapy (8) Hypothyroidism: -Continue levothyroxine 175 mcg daily (9) Gastroesophageal reflux disease: -Continue PPI (10) Osteoporosis: -Continue vitamin D and calcium supplementation (11) Vitamin D deficiency: -Continue supplementation (12) Anemia: -Hemoglobin 12.4, HCT = 37.9 -- dropped to 9.7 on 06/05, likely due to fluid resuscitation but could have some blood loss from humerus fractures and various areas of ecchymosis Hb up to 9.1 today (13) Anxiety: (14) Depression: - Continue Wellbutrin DVT ppx: - teds, scds CODE: Full code Dispo: From home, continue therapy, she would like to try to go home tomorrow (15) Muscle spasm: try some Baclofen 5mg TID PRN Admission and Anticipated Discharge Date Admission Date: June 04, 2020 Subjective patient seen after her ablation Dr. 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 Alcantara, he recommends no AV node blocking agents after the ablation she continues to have left shoulder pain and intense muscle spasms she is motivated to return home, possibly as early as tomorrow Review of Systems Review of Systems: All systems reviewed & are unremarkable except as noted in Subjective Musculoskeletal: + joint pain (left shoulder) Physical Exam Constitutional: well developed and well nourished; no acute distress Neck: trachea midline, no thyromegaly Respiratory: normal respiratory effort, lungs clear to auscultation Cardiovascular: Rate/Rhythm: regular rhythm and + tachycardic Heart Sounds: normal S1 and normal S2; no murmur Vessels: no JVD Extremities: normal capillary refill; no edema Gastrointestinal (Abdomen): normal bowel sounds, soft, nontender, no hepatosplenomegaly Musculoskeletal: no cyanosis or clubbing, extremities motor strength 5/5 Extremities: + extremities abnormal to inspection (left arm in sling) Skin: no rashes, warm and dry (bruising over both shoulders) Neurologic: patellar DTR's 2+ bilat, sensation intact and PERRL, EOMI, accommodation nl, no face palsy, no dysarthria Psychiatric: A+Ox3, euthymic affect Lymphatic: no cervical or axillary lymphadenopathy Results & Data Results & Data ([facility]) Vital Signs (Past 12 Hours) Vital Signs Temp Pulse Resp BP Pulse Ox 06/09/20 15:01 36.6 C 95 H 18 157/84 H 95 11/12/20 13:10 100 H 16 152/84 H 96 06/09/20 12:40 103 H 18 140/78 95 06/09/20 12:10 36.6 C 102 H 18 152/85 H 96 06/09/20 11:40 36.5 C 105 H 18 169/91 H 95 06/09/20 11:30 102 H 18 150/81 H 95 06/09/20 11:17 104 H 18 162/96 H 96 06/09/20 08:12 95 H 18 182/92 H 96 06/09/20 07:24 36.5 C 98 H 18 118/78 96 Laboratory Results Laboratory Results - last 24 hr 06/08/20 06/09/20 06/09/20 20:33 05:57 06:29 WBC 7.65 RBC 3.22 L Hgb 9.1 L Hct 28.2 L MCV 87.6 MCH 28.3 MCHC 32.3 RDW Std Deviation 60.0 H RDW Coeff of Carlyle 18.9 H Plt Count 257 MPV 8.8 Sodium Potassium Chloride Carbon Dioxide Anion Gap BUN Creatinine Est Cr Clr Drug Dosing Est GFR ( Amer) Est GFR (Non-Af Amer) BUN/Creatinine Ratio Glucose POC Glucose 235 H 256 H Calcium 06/09/20 06/09/20 06/09/20 06:29 11:53 16:26 WBC RBC Hgb Hct MCV MCH MCHC RDW Std Deviation RDW Coeff of Carlyle Plt Count MPV Sodium 131 L Potassium 3.8 Chloride 99 Carbon Dioxide 25 Anion Gap 7.0 BUN 9 Creatinine 0.47 L Est Cr Clr Drug Dosing 116.6 Est GFR ( Amer) 112.8 Est GFR (Non-Af Amer) 97.3 BUN/Creatinine Ratio 19.3 Glucose 212 H POC Glucose 230 H 181 H Calcium 8.5 Medications Administered Current Inpatient Medications Acetaminophen (Acetaminophen 325 Mg Tab) 650 mg PO Q4H PRN PRN Reason: Moderate Pain Stop: 07/04/20 21:52 Last Admin: 06/07/20 19:59 Dose: 650 mg Documented by: Albuterol (Albuterol Hfa 8 Gm Inhaler) 2 puffs INH QID PRN PRN Reason: asthma Stop: 07/04/20 21:52 Alendronate Sodium (Alendronate Sodium 70 Mg Tab) 70 mg PO Q7D PENDING SALE TO [facility] Stop: 07/06/20 06:29 Last Admin: 06/06/20 06:14 Dose: 70 mg Documented by: Allopurinol (Allopurinol 300 Mg Tab) 300 mg PO QAM PENDING S[facility] TO [facility] Stop: 07/05/20 08:59 Last Admin: 06/09/20 11:48 Dose: 300 mg Documented by: Aspirin (Aspirin 81 Mg Ectab) 81 mg PO QPM DUSTIN Stop: 07/04/20 21:52 Last Admin: 06/08/20 19:56 Dose: 81 mg Documented by: Baclofen (Baclofen 10 Mg Tab) 10 mg PO TID PRN PRN Reason: Muscle Spasm Stop: 07/07/20 20:59 Last Admin: 06/09/20 14:27 Dose: 10 mg Documented by: Bupropion HCl (Bupropion Sr 150 Mg Tabcr) 150 mg PO BID [facility] S[facility] TO [facility] Stop: 07/04/20 21:52 Last Admin: 06/09/20 11:48 Dose: 150 mg Documented by: Colestipol HCl (Colestipol Hcl 1 Gm Tab) 1 gm PO DAILY@1100 [facility] Stop: 07/05/20 10:59 Last Admin: 06/09/20 11:53 Dose: 1 gm Documented by: Dextrose (Dextrose 50% 50 Ml Syringe) 25 - 50 ml IV UD PRN; Protocol PRN Reason: Hypoglycemia Protocol Stop: 07/04/20 21:52 Diclofenac Sodium (Diclofenac Sod 1% Gel 100 Gm Tube) 2 gm EXT BID PRN PRN Reason: Pain Stop: 07/04/20 21:52 Enoxaparin Sodium (Enoxaparin Inj 40 Mg/0.4 Ml Syr) 40 mg SQ Q24H PEND[facility] SALE TO [facility] Stop: 07/07/20 16:59 Last Admin: 06/08/20 17:19 Dose: 40 mg Documented by: Ferrous Sulfate (Ferrous Sulfate 325 Mg Tab) 325 mg PO PM DUSTIN Stop: 07/04/20 22:29 Last Admin: 06/08/20 19:56 Dose: 325 mg Documented by: Fexofenadine HCl (Fexofenadine Hcl 180 Mg Tab) 180 mg PO QAM [facility] TO [facility] Stop: 07/05/20 08:59 Last Admin: 06/09/20 11:48 Dose: 180 mg Documented by: Fluticasone Furoate (Fluticasone Furoate 100mcg 14 Puffs/Inhaler) 1 puffs INH QAM DUSTIN Stop: 07/05/20 08:59 Last Admin: 06/09/20 11:50 Dose: 1 puffs Documented by: Glucagon (Glucagon For Inj 1 Mg Vial) 1 mg SQ UD PRN; Protocol PRN Reason: Hypoglycemia Protocol Stop: 07/04/20 21:52 Glucose (Glucose 10 Tabs/Tube) 4 - 8 tabs PO UD PRN; Protocol PRN Reason: Hypoglycemia Protocol Stop: 07/04/20 21:52 Glucose (Glucose 40% Gel 15 Gm Tube) 15 - 30 gm PO UD PRN; Protocol PRN Reason: Hypoglycemia Protocol Stop: 07/04/20 21:52 Insulin Aspart (Insulin Aspart 100 Units/Ml 3 Ml Pen) 0 units SC ACHS [facility] Stop: 07/04/20 21:52 Last Admin: 06/09/20 12:06 Dose: 8 units Documented by: Insulin Glargine (Insulin Glargine Solostar 100 Units/Ml 3 Ml Pen) 12 units SC [facility] Stop: 07/08/20 08:59 Last Admin: 06/09/20 11:51 Dose: 12 units Documented by: Levothyroxine Sodium (Levothyroxine Sodium 175 Mcg Tablet) 175 mcg PO DAILYBB [facility] Stop: 07/05/20 06:29 Last Admin: 06/09/20 05:00 Dose: 175 mcg Documented by: Lisinopril (Lisinopril 40 Mg Tab) 40 mg PO QAM [facility] Stop: 07/05/20 08:59 Last Admin: 06/09/20 11:49 Dose: 40 mg Documented by: Loperamide HCl (Loperamide Hcl 2 Mg Cap) 4 mg PO QID [facility] Stop: 07/04/20 21:52 Last Admin: 06/09/20 12:07 Dose: Not Given Documented by: Magnesium Oxide (Magnesium Oxide 400 Mg Tab) 400 mg PO QIDM [facility]END[facility] S[facility] TO [facility] Stop: 07/04/20 21:52 Last Admin: 06/09/20 12:07 Dose: Not Given Documented by: Meloxicam (Meloxicam 7.5 Mg Tab) 15 mg PO QAM PRN PRN Reason: Osteoarthritis Stop: 07/04/20 21:52 Last Admin: 06/05/20 08:05 Dose: 15 mg Documented by: Mirabegron (Mirabegron Er 25 Mg Tab) 25 mg PO PM DUSTIN Stop: 07/04/20 21:52 Last Admin: 06/08/20 19:56 Dose: 25 mg Documented by: Mirtazapine (Mirtazapine Soltab 15 Mg) 45 mg PO HS DUSTIN Stop: 07/04/20 21:52 Last Admin: 06/08/20 19:56 Dose: 45 mg Documented by: Miscellaneous (Trospium: Order Awaiting Action) 1 ea N/A QS [facility] Stop: 07/05/20 07:59 Last Admin: 06/09/20 14:18 Dose: Not Given Documented by: Miscellaneous (Carbohydrates For Hypoglycemia ) 15 - 30 gm PO UD PRN PRN Reason: Hypoglycemia Protocol Stop: 07/04/20 21:52 Morphine Sulfate (Morphine Sulfate 2 Mg/Ml Carp) 1 mg IV Q4H PRN PRN Reason: Pain Stop: 06/19/20 08:11 Last Admin: 06/08/20 05:47 Dose: 1 mg Documented by: Multivitamins/Minerals (Cerovite Adv Formula Tab) 1 tab PO BID [facility] Stop: 07/04/20 22:29 Last Admin: 06/09/20 11:49 Dose: 1 tab Documented by: Multivitamins/Minerals (Calcium 600mg + Vit D 400 Iu Tab) 1 tab PO BID [facility] Stop: 07/04/20 22:29 Last Admin: 06/09/20 11:49 Dose: 1 tab Documented by: Nystatin (Nystatin Powder 15gm Btl) 1 appln EXT BID [facility]END[facility] Stop: 07/04/20 21:52 Last Admin: 06/09/20 11:52 Dose: Not Given Documented by: Ondansetron HCl (Ondansetron Inj 2 Mg/Ml 2 Ml Vial) 4 mg IV Q4H PRN PRN Reason: Nausea And Vomiting Stop: 07/04/20 20:53 Last Admin: 06/05/20 10:43 Dose: 4 mg Documented by: Oxycodone/Acetaminophen (Oxycodone/Acetaminophen 5mg/325mg Tab) 1 - 2 tab PO Q6H PRN PRN Reason: Moderate-Severe Pain Stop: 06/23/20 10:55 Pantoprazole Sodium (Pantoprazole 40 Mg Tab) 40 mg PO QAM [facility]END[facility] Stop: 07/05/20 08:59 Last Admin: 06/09/20 11:49 Dose: 40 mg Documented by: Tramadol HCl (Tramadol Hcl 50 Mg Tablet) 50 mg PO Q4H PRN PRN Reason: Pain Stop: 07/05/20 08:11 Last Admin: 06/09/20 14:25 Dose: 50 mg Documented by: Vitamin D (Cholecalciferol 1,000 Units 25 Mcg Tab) 2,000 units PO PM DUSTIN Stop: 07/04/20 21:52 Last Admin: 06/08/20 19:56 Dose: 2,000 units Documented by: PG Care Time/CCT Total # of Minutes Spent Total Time Spent with Patient: Total time spent is greater than 50% in coordination of care (as documented) at patient's floor/unit and/or counseling patient: Coding Level of Care Code 42049 Subseq Hosp Care Lvl 3 Diagnoses SVT (supraventricular tachycardia) I47.1 Syncope R55 Syncope type: unspecified Acute hyponatremia E87.1 Fracture, humerus closed S42.292A Encounter type: initial encounter Fracture alignment: displaced Fracture morphology: other fracture Humerus Location: proximal Laterality: left Type 2 diabetes mellitus E11.9 Hypertension I10 Hyperlipidemia E78.5 Hypothyroidism E03.9 Gastroesophageal reflux disease K21.9 Osteoporosis M81.0 Vitamin D deficiency E55.9 Anemia D64.9 Anxiety F41.9 Depression F32.9 Muscle spasm M62.838 (1) Fracture, humerus closed Encounter type: initial encounter Fracture alignment: displaced Fracture morphology: other fracture Humerus Location: proximal Laterality: left Qualified Code(s): S42.292A - Other displaced fracture of upper end of left humerus, initial encounter for closed fracture (2) Syncope Syncope type: unspecified Qualified Code(s): R55 - Syncope and collapse
[2020-06-09] MEDS: ENOXAPARIN INJ 40 MG/0.4 ML SYR SQ SCH (16:49)
[2020-06-09] MEDS: POTASSIUM CHLORIDE CRTAB 20 MEQ TABCR PO SCH (17:13)
[2020-06-09] MEDS: MIRTAZAPINE SOLTAB 15 MG PO SCH (20:35)
[2020-06-09] MEDS: ASPIRIN 81 MG ECTAB PO SCH (20:35)
[2020-06-09] MEDS: FERROUS SULFATE 325 MG TAB PO SCH (20:36)
[2020-06-09] MEDS: CHOLECALCIFEROL 1,000 UNITS 25 MCG TAB PO SCH (20:36)
[2020-06-09] MEDS: MIRABEGRON ER 25 MG TAB PO SCH (20:37)
[2020-06-09] MEDS: oxyCODONE/ACETAMINOPHEN 5mg/325mg TAB PO PRN (20:43)
[2020-06-10 03:38] LABS: Hematocrit (blood only) 29.7 % (37-47); Hemoglobin 9.6 g/dL (12.0-16.0); Mean Corpuscular Hemoglobin 28.7 pg (25-34); Mean Corpuscular Hgb Conc 32.3 g/dL (32-36); Mean Corpuscular Volume 88.9 fL (80-100); Mean Platelet Volume 8.4 fL (7.4-10.4); Nucleated RBC # (auto) 0.02 K/uL (0-0); Nucleated RBC % (auto) 0.2 %; Platelet Count 289 K/uL (130-400); RDW Coefficient of Variation 19.3 % (11.5-14.5); RDW Standard Deviation 61.8 fL (36.4-46.3); Red Blood Count 3.34 M/uL (4.2-5.4); White Blood Count 10.99 K/uL (4.8-10.8)
[2020-06-10] MEDS: LEVOTHYROXINE SODIUM 175 MCG TABLET PO SCH (05:10)
--- NOTE | 2020-06-10 08:02 | Progress Notes ---
DATE: 06/10/2020 SUBJECTIVE: A 75-year-old white female admitted status post a syncopal episode with a left proximal humerus fracture and multiple medical comorbidities. She has been under extensive cardiac evaluation and management for a syncopal event. Her arm is doing well. She denies any other real injuries or aches or pains. OBJECTIVE: VITAL SIGNS: Temperature 36.6. GENERAL: Shows a pleasant elderly female. She was lying in bed, sleeping this morning. She is easily arousable. She is awake, alert, oriented and appropriate. She denies any other complaints. EXTREMITIES: Examination of the left arm reveals the sling to be fitting pretty poorly and was a bit disheveled. Her arm looks reasonably well aligned. She has got a fairly large soft tissue envelope. She is neurologically intact. ASSESSMENT: A 75-year-old white female status post a syncopal episode likely cardiac in origin with a left proximal humerus fracture. Fracture was impacted and relatively minimally displaced and acceptable for nonoperative care at this point. PLAN: We will continue to wear the sling. She will be best to stay in a dependent position while in bed, meaning that she should have the head of the bed up at least 30 degrees and even more if possible. This will help align her arm and also keep her more comfortable. She should be in the sling at all times. She does not need any shoulder movement and should keep it immobilized for 2 weeks. I need to see her back somewhere between 2 and 3 weeks out from her injury date. Any orthopedic questions can be directed at [phone].
[2020-06-10] MEDS: INSULIN ASPART 100 UNITS/ML 3 ML PEN SC SCH ×4 (08:17→21:08)
[2020-06-10] MEDS: INSULIN GLARGINE SOLOSTAR 100 UNITS/ML 3 ML PEN SC SCH (08:18)
[2020-06-10] MEDS: FLUTICASONE FUROATE 100MCG 14 PUFFS/INHALER INH SCH (08:22)
[2020-06-10] MEDS: POTASSIUM CHLORIDE CRTAB 20 MEQ TABCR PO SCH (08:22)
[2020-06-10] MEDS: lisinopril 40 MG TAB PO SCH (08:23)
[2020-06-10] MEDS: buPROPion SR 150 MG TABCR PO SCH ×2 (08:24→21:07)
[2020-06-10] MEDS: CALCIUM 600MG + VIT D 400 IU TAB PO SCH ×2 (08:24→21:06)
[2020-06-10] MEDS: allopurinoL 300 MG TAB PO SCH (08:25)
[2020-06-10] MEDS: PANTOprazole 40 MG TAB PO SCH (08:25)
[2020-06-10] MEDS: NYSTATIN POWDER 15GM BTL EXT SCH ×2 (08:25→21:08)
[2020-06-10] MEDS: CEROVITE ADV FORMULA TAB PO SCH ×2 (08:25→21:06)
[2020-06-10] MEDS: MAGNESIUM OXIDE 400 MG TAB PO SCH ×4 (08:25→21:07)
[2020-06-10] MEDS: FEXOFENADINE HCL 180 MG TAB PO SCH (08:25)
[2020-06-10] MEDS: LOPERAMIDE HCL 2 MG CAP PO SCH ×4 (08:34→21:07)
[2020-06-10] MEDS: BACLOFEN 10 MG TAB PO PRN (08:35)
[2020-06-10] MEDS: oxyCODONE/ACETAMINOPHEN 5mg/325mg TAB PO PRN (09:58)
--- NOTE | 2020-06-10 09:59 | Cardiology Progress Note ---
Date of Service June 10, 2020 Assessment & Plan (1) SVT (supraventricular tachycardia): It is unclear the patient's SVT was involved in her recent fall and subsequent arm fracture. She did undergo electrophysiologic testing and ablation yesterday. She had inducible slow fast AVNRT. There was injury to the AV node at the time of her procedure and this resulted in 1st degree AV block. We have not seen any higher degree AV block. She actually had short refractory period is during testing immediately after ablation. No symptoms. Will obtain an EKG today. I think she would be safe for discharge. I would like to see her back in the clinic in approximately 1 month for re-evaluation. (2) Sinus tachycardia: Unclear why she has a persistent sinus tachycardia. Heart rates appeared range between 90 and 100 beats per minute most of the time. This includes being in bed. I suppose this is possibly related to her deconditioning and left shoulder discomfort. Given the injury to her AV node yesterday I would tend to avoid any rate controlling medications at this time. The rates we are seeing should not be detrimental to her health in any way. If she is otherwise feeling well think we can simply monitor this over time. Admission and Anticipated Discharge Date Admission Date: June 04, 2020 Subjective The patient was resting comfortably at the time of the interview. She did report some breathing difficulty. This did not appear to be severe. She denies any pain at her groin or neck access sites. She has not been aware of any palpitations. She has not been ambulatory. She has some moderate discomfort involving the left shoulder. Review of Systems Review of Systems: Per HPI Physical Exam Physical Exam: She is alert and oriented x3. Mood affect appear normal. She answered all questions appropriately. HEENT: Sclerae are anicteric. Pupils are equal and reactive to light and accommodation. Extraocular movements were intact. Neuro: Cranial nerves intact Neck: No bleeding in the right internal jugular access site Lungs: She has normal respiratory effort without use of accessory muscles. There is normal pulmonary excursion. Cardiac: The rhythm was regular and the rate was slightly elevated Groin: No evidence of hematoma or drainage at the right groin access site Abdomen: The abdomen was soft and nontender. Extremities: Left arm and sling Results & Data ([facility]) Vital Signs (Past 12 Hours) Vital Signs Temp Pulse Resp BP Pulse Ox 11/13/20 08:44 108 H 20 97 06/10/20 07:53 36.6 C 108 H 20 106/71 97 06/10/20 05:00 36.6 C 103 H 168/74 H 91 06/10/20 00:00 36.9 C 97 H 20 136/76 96 Laboratory Results Abnormal Lab Results 06/09/20 06/09/20 06/09/20 11:53 16:26 20:22 WBC RBC Hgb Hct MCV MCH MCHC RDW Std Deviation RDW Coeff of Carlyle Plt Count MPV Absolute Nucleated RBC Nucleated RBC % (auto) POC Glucose 230 H 181 H 192 H 06/10/20 06/10/20 03:23 07:35 WBC 10.99 H RBC 3.34 L Hgb 9.6 L Hct 29.7 L MCV 88.9 MCH 28.7 MCHC 32.3 RDW Std Deviation 61.8 H RDW Coeff of Carlyle 19.3 H Plt Count 289 MPV 8.4 Absolute Nucleated RBC 0.02 H Nucleated RBC % (auto) 0.2 POC Glucose 214 H PG Care Time/CCT Total # of Minutes Spent Total Time Spent with Patient: Total time spent is greater than 50% in coordination of care (as documented) at patient's floor/unit and/or counseling patient: Coding Level of Care Code 22863 Subseq Hosp Care Lvl 2 Diagnoses SVT (supraventricular tachycardia) I47.1 Sinus tachycardia R00.0
[2020-06-10] MEDS: COLESTIPOL HCL 1 GM TAB PO SCH (12:19)
--- NOTE | 2020-06-10 12:30 | Electrocardiogram Report ---
Test Reason : Blood Pressure : / mmHG Vent. Rate : 105 BPM Atrial Rate : 105 BPM P-R Int : 312 ms QRS Dur : 080 ms QT Int : 348 ms P-R-T Axes : 029 -11 085 degrees QTc Int : 459 ms Sinus tachycardia with 1st degree A-V block with Premature atrial complexes Nonspecific T wave abnormality Abnormal ECG When compared with ECG of 09-JUN-2020 12:54, Premature atrial complexes are now Present DC interval has increased Confirmed by Vamsi Rodriguez ([id number]) on 06/10/2020 12:30:46 PM Referred By: REFERRED SELF Confirmed By:Vamsi Rodriguez
--- NOTE | 2020-06-10 16:08 | Hospitalist Progress Note ---
Date of Service June 10, 2020 Assessment & Plan (1) SVT (supraventricular tachycardia): rates in the 180's morning of 06/06, she felt light headed, palpitations, no chest pain resolved with Diltiazem 10mg IV and then Lopressor 5mg IV started on Lopressor 25mg BID appreciate consultation from Dr. Rodriguez, he discussed options with patient such as ablation vs medical therapy he is recommending ablation as this could have been cause of syncope patient and family agree with ablation, Dr. 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 Alcantara, he recommends against AV node bl ocker right now (2) Syncope: seems like most likely cause was SVT with rates in 180's - Check 2 D echo- normal EF - troponin x 3 negative - Imaging per EMR reviewed - negative cervical spine, CT abd/pelvis, tibia/fibula, shoulder, + L humerus fracture - Leukocytosis with WBC 20.11, left shift - improved to 8K and was likely stress response - Follow infectious work-up, UA negative and urine culture clear - Check Blood cultures - no growth PT/OT, patient hoping to return home with home health patient is far too weak to go home, requiring cane for balance, NWB to left arm which is difficult will make referral to [facility] (3) Acute hyponatremia: -Sodium 128 on admission, up to 131 yesterday (4) Fracture, humerus closed: -Left -Sustained on fall, orthopedics consulted, Dr. Burns continue sling, NWB left arm, can perform PT/OT no plans for surgery follow up with orthopedics in a few weeks (5) Type 2 diabetes mellitus: -ISS with Accu-Cheks AC at bedtime, holding Metformin and glimepiride patient's sugars still running high despite Lantus 12 and Novolog will increase Lantus to 20 units qAM, (6) Hypertension: - Continue lisinopril 40 mg daily gave a dose of Norvasc 5mg on 06/09, BP is now low normal so hold on further dosing (7) Hyperlipidemia: -Continue colestipol, not on statin therapy (8) Hypothyroidism: -Continue levothyroxine 175 mcg daily (9) Gastroesophageal reflux disease: -Continue PPI (10) Osteoporosis: -Continue vitamin D and calcium supplementation (11) Vitamin D deficiency: -Continue supplementation (12) Anemia: -Hemoglobin 12.4, HCT = 37.9 -- dropped to 9.7 on 06/05, likely due to fluid resuscitation but could have some blood loss from humerus fractures and various areas of ecchymosis Hb up to 9.6 today (13) Anxiety: (14) Depression: - Continue Wellbutrin DVT ppx: - teds, scds CODE: Full code Dispo: From home, continue therapy, referral to [facility] (15) Muscle spasm: try some Baclofen 10mg TID PRN Admission and Anticipated Discharge Date Admission Date: June 04, 2020 Subjective patient did not do very well with therapy today, very unsteady with can, only took a few steps she knows she is not ready to go home, she is open to going to rehab she is eating well, no chest pain, no dyspnea, no fever vitals today show that BP is on the low side for her, she did get the Norvasc yesterday afternoon for SBP in the 160's CM discussed with family the need for rehab Review of Systems Review of Systems: All systems reviewed & are unremarkable except as noted in Subjective Physical Exam Constitutional: well developed and well nourished; no acute distress Neck: trachea midline, no thyromegaly Respiratory: normal respiratory effort, lungs clear to auscultation Cardiovascular: Rate/Rhythm: regular rhythm and + tachycardic Heart Sounds: normal S1 and normal S2; no murmur Vessels: no JVD Extremities: normal capillary refill; no edema Gastrointestinal (Abdomen): normal bowel sounds, soft, nontender, no hepatosplenomegaly Musculoskeletal: no cyanosis or clubbing, extremities motor strength 5/5 Extremities: + extremities abnormal to inspection (left arm in sling) Skin: no rashes, warm and dry (bruising over both shoulders) Neurologic: patellar DTR's 2+ bilat, sensation intact and PERRL, EOMI, accommodation nl, no face palsy, no dysarthria Psychiatric: A+Ox3, euthymic affect Lymphatic: no cervical or axillary lymphadenopathy Results & Data Results & Data ([facility]) Vital Signs (Past 12 Hours) Vital Signs Temp Pulse Pulse Resp BP Pulse Ox 06/10/20 15:11 36.4 C L 106 H 20 100/66 95 06/10/20 11:32 36.7 C 107 H 18 137/73 97 06/10/20 08:44 108 H 20 97 06/10/20 08:00 103 H 06/10/20 07:53 36.6 C 108 H 20 106/71 97 06/10/20 05:00 36.6 C 103 H 168/74 H 91 Laboratory Results Laboratory Results - last 24 hr 06/09/20 06/09/20 06/10/20 16:26 20:22 03:23 WBC 10.99 H RBC 3.34 L Hgb 9.6 L Hct 29.7 L MCV 88.9 MCH 28.7 MCHC 32.3 RDW Std Deviation 61.8 H RDW Coeff of Carlyle 19.3 H Plt Count 289 MPV 8.4 Absolute Nucleated RBC 0.02 H Nucleated RBC % (auto) 0.2 POC Glucose 181 H 192 H 06/10/20 06/10/20 06/10/20 07:35 09:47 11:22 WBC RBC Hgb Hct MCV MCH MCHC RDW Std Deviation RDW Coeff of Carlyle Plt Count MPV Absolute Nucleated RBC Nucleated RBC % (auto) POC Glucose 214 H 290 H 256 H 06/10/20 15:16 WBC RBC Hgb Hct MCV MCH MCHC RDW Std Deviation RDW Coeff of Carlyle Plt Count MPV Absolute Nucleated RBC Nucleated RBC % (auto) POC Glucose 257 H Medications Administered Current Inpatient Medications Acetaminophen (Acetaminophen 325 Mg Tab) 650 mg PO Q4H PRN PRN Reason: Moderate Pain Stop: 07/04/20 21:52 Last Admin: 06/07/20 19:59 Dose: 650 mg Documented by: Albuterol (Albuterol Hfa 8 Gm Inhaler) 2 puffs INH QID PRN PRN Reason: asthma Stop: 07/04/20 21:52 Last Admin: 06/10/20 08:44 Dose: 2 puffs Documented by: Alendronate Sodium (Alendronate Sodium 70 Mg Tab) 70 mg PO Q7D DUSTIN Stop: 07/06/20 06:29 Last Admin: 06/06/20 06:14 Dose: 70 mg Documented by: Allopurinol (Allopurinol 300 Mg Tab) 300 mg PO QAM DUSTIN Stop: 07/05/20 08:59 Last Admin: 06/10/20 08:25 Dose: 300 mg Documented by: Aspirin (Aspirin 81 Mg Ectab) 81 mg PO QPM DUSTIN Stop: 07/04/20 21:52 Last Admin: 06/09/20 20:35 Dose: 81 mg Documented by: Baclofen (Baclofen 10 Mg Tab) 10 mg PO TID PRN PRN Reason: Muscle Spasm Stop: 07/07/20 20:59 Last Admin: 06/10/20 08:35 Dose: 10 mg Documented by: Bupropion HCl (Bupropion Sr 150 Mg Tabcr) 150 mg PO BID DUSTIN Stop: 07/04/20 21:52 Last Admin: 06/10/20 08:24 Dose: 150 mg Documented by: Colestipol HCl (Colestipol Hcl 1 Gm Tab) 1 gm PO DAILY@1100 [facility] Stop: 07/05/20 10:59 Last Admin: 06/10/20 12:19 Dose: 1 gm Documented by: Dextrose (Dextrose 50% 50 Ml Syringe) 25 - 50 ml IV UD PRN; Protocol PRN Reason: Hypoglycemia Protocol Stop: 07/04/20 21:52 Diclofenac Sodium (Diclofenac Sod 1% Gel 100 Gm Tube) 2 gm EXT BID PRN PRN Reason: Pain Stop: 07/04/20 21:52 Enoxaparin Sodium (Enoxaparin Inj 40 Mg/0.4 Ml Syr) 40 mg SQ Q24H [facility] Stop: 07/07/20 16:59 Last Admin: 06/09/20 16:49 Dose: 40 mg Documented by: Ferrous Sulfate (Ferrous Sulfate 325 Mg Tab) 325 mg PO PM DUSTIN Stop: 07/04/20 22:29 Last Admin: 06/09/20 20:36 Dose: 325 mg Documented by: Fexofenadine HCl (Fexofenadine Hcl 180 Mg Tab) 180 mg PO QAM DUSTIN Stop: 07/05/20 08:59 Last Admin: 06/10/20 08:25 Dose: 180 mg Documented by: Fluticasone Furoate (Fluticasone Furoate 100mcg 14 Puffs/Inhaler) 1 puffs INH QAM [facility] Stop: 07/05/20 08:59 Last Admin: 06/10/20 08:22 Dose: 1 puffs Documented by: Glucagon (Glucagon For Inj 1 Mg Vial) 1 mg SQ UD PRN; Protocol PRN Reason: Hypoglycemia Protocol Stop: 07/04/20 21:52 Glucose (Glucose 10 Tabs/Tube) 4 - 8 tabs PO UD PRN; Protocol PRN Reason: Hypoglycemia Protocol Stop: 07/04/20 21:52 Glucose (Glucose 40% Gel 15 Gm Tube) 15 - 30 gm PO UD PRN; Protocol PRN Reason: Hypoglycemia Protocol Stop: 07/04/20 21:52 Insulin Aspart (Insulin Aspart 100 Units/Ml 3 Ml Pen) 0 units SC ACHS [facility] Stop: 07/04/20 21:52 Last Admin: 06/10/20 12:17 Dose: 9 units Documented by: Insulin Glargine (Insulin Glargine Solostar 100 Units/Ml 3 Ml Pen) 12 units SC QAM [facility] Stop: 07/08/20 08:59 Last Admin: 06/10/20 08:18 Dose: 12 units Documented by: Levothyroxine Sodium (Levothyroxine Sodium 175 Mcg Tablet) 175 mcg PO DAILYBB [facility] Stop: 07/05/20 06:29 Last Admin: 06/10/20 05:10 Dose: 175 mcg Documented by: Lisinopril (Lisinopril 40 Mg Tab) 40 mg PO QAM [facility] Stop: 07/05/20 08:59 Last Admin: 06/10/20 08:23 Dose: 40 mg Documented by: Loperamide HCl (Loperamide Hcl 2 Mg Cap) 4 mg PO QID [facility] Stop: 07/04/20 21:52 Last Admin: 06/10/20 12:57 Dose: 4 mg Documented by: Magnesium Oxide (Magnesium Oxide 400 Mg Tab) 400 mg PO QIDM [facility] Stop: 07/04/20 21:52 Last Admin: 06/10/20 12:19 Dose: 400 mg Documented by: Meloxicam (Meloxicam 7.5 Mg Tab) 15 mg PO QAM PRN PRN Reason: Osteoarthritis Stop: 07/04/20 21:52 Last Admin: 06/05/20 08:05 Dose: 15 mg Documented by: Mirabegron (Mirabegron Er 25 Mg Tab) 25 mg PO PM [facility] Stop: 07/04/20 21:52 Last Admin: 06/09/20 20:37 Dose: 25 mg Documented by: Mirtazapine (Mirtazapine Soltab 15 Mg) 45 mg PO HS [facility] Stop: 07/04/20 21:52 Last Admin: 06/09/20 20:35 Dose: 45 mg Documented by: Miscellaneous (Trospium: Order Awaiting Action) 1 ea N/A QS [facility] Stop: 07/05/20 07:59 Last Admin: 06/10/20 08:25 Dose: Not Given Documented by: Miscellaneous (Carbohydrates For Hypoglycemia ) 15 - 30 gm PO UD PRN PRN Reason: Hypoglycemia Protocol Stop: 07/04/20 21:52 Morphine Sulfate (Morphine Sulfate 2 Mg/Ml Carp) 1 mg IV Q4H PRN PRN Reason: Pain Stop: 06/19/20 08:11 Last Admin: 06/08/20 05:47 Dose: 1 mg Documented by: Multivitamins/Minerals (Cerovite Adv Formula Tab) 1 tab PO BID [facility] Stop: 07/04/20 22:29 Last Admin: 06/10/20 08:25 Dose: 1 tab Documented by: Multivitamins/Minerals (Calcium 600mg + Vit D 400 Iu Tab) 1 tab PO BID [facility] Stop: 07/04/20 22:29 Last Admin: 06/10/20 08:24 Dose: 1 tab Documented by: Nystatin (Nystatin Powder 15gm Btl) 1 appln EXT BID [facility] Stop: 07/04/20 21:52 Last Admin: 06/10/20 08:25 Dose: 1 appln Documented by: Ondansetron HCl (Ondansetron Inj 2 Mg/Ml 2 Ml Vial) 4 mg IV Q4H PRN PRN Reason: Nausea And Vomiting Stop: 07/04/20 20:53 Last Admin: 06/05/20 10:43 Dose: 4 mg Documented by: Oxycodone/Acetaminophen (Oxycodone/Acetaminophen 5mg/325mg Tab) 1 - 2 tab PO Q6H PRN PRN Reason: Moderate-Severe Pain Stop: 06/23/20 10:55 Last Admin: 06/10/20 09:58 Dose: 1 tab Documented by: Pantoprazole Sodium (Pantoprazole 40 Mg Tab) 40 mg PO QAM [facility] Stop: 07/05/20 08:59 Last Admin: 06/10/20 08:25 Dose: 40 mg Documented by: Potassium Chloride (Potassium Chloride 20 Meq Tabcr) 20 meq PO QAM [facility] Stop: 07/09/20 16:29 Last Admin: 06/10/20 08:22 Dose: 20 meq Documented by: Tramadol HCl (Tramadol Hcl 50 Mg Tablet) 50 mg PO Q4H PRN PRN Reason: Pain Stop: 07/05/20 08:11 Last Admin: 06/09/20 19:15 Dose: 50 mg Documented by: Vitamin D (Cholecalciferol 1,000 Units 25 Mcg Tab) 2,000 units PO PM DUSTIN Stop: 07/04/20 21:52 Last Admin: 06/09/20 20:36 Dose: 2,000 units Documented by: PG Care Time/CCT Total # of Minutes Spent Total Time Spent with Patient: Total time spent is greater than 50% in coordination of care (as documented) at patient's floor/unit and/or counseling patient: Coding Level of Care Code 73635 Subseq Hosp Care Lvl 3 Diagnoses SVT (supraventricular tachycardia) I47.1 Syncope R55 Syncope type: unspecified Acute hyponatremia E87.1 Fracture, humerus closed S42.292A Encounter type: initial encounter Fracture alignment: displaced Fracture morphology: other fracture Humerus Location: proximal Laterality: left Type 2 diabetes mellitus E11.9 Hypertension I10 Hyperlipidemia E78.5 Hypothyroidism E03.9 Gastroesophageal reflux disease K21.9 Osteoporosis M81.0 Vitamin D deficiency E55.9 Anemia D64.9 Anxiety F41.9 Depression F32.9 Muscle spasm M62.838 (1) Syncope Syncope type: unspecified Qualified Code(s): R55 - Syncope and collapse (2) Fracture, humerus closed Encounter type: initial encounter Fracture alignment: displaced Fracture morphology: other fracture Humerus Location: proximal Laterality: left Qualified Code(s): S42.292A - Other displaced fracture of upper end of left humerus, initial encounter for closed fracture
[2020-06-10] MEDS: ENOXAPARIN INJ 40 MG/0.4 ML SYR SQ SCH (17:14)
[2020-06-10] MEDS: CHOLECALCIFEROL 1,000 UNITS 25 MCG TAB PO SCH (21:05)
[2020-06-10] MEDS: MIRTAZAPINE SOLTAB 15 MG PO SCH (21:05)
[2020-06-10] MEDS: MIRABEGRON ER 25 MG TAB PO SCH (21:06)
[2020-06-10] MEDS: FERROUS SULFATE 325 MG TAB PO SCH (21:07)
[2020-06-10] MEDS: ASPIRIN 81 MG ECTAB PO SCH (21:07)
[2020-06-11] MEDS: LEVOTHYROXINE SODIUM 175 MCG TABLET PO SCH (05:53)
[2020-06-11 06:59] LABS: Hematocrit (blood only) 29.1 % (37-47); Hemoglobin 9.4 g/dL (12.0-16.0); Mean Corpuscular Hemoglobin 28.6 pg (25-34); Mean Corpuscular Hgb Conc 32.3 g/dL (32-36); Mean Corpuscular Volume 88.4 fL (80-100); Mean Platelet Volume 8.5 fL (7.4-10.4); Nucleated RBC # (auto) 0.02 K/uL (0-0); Nucleated RBC % (auto) 0.2 %; Platelet Count 309 K/uL (130-400); RDW Standard Deviation 62.4 fL (36.4-46.3); Red Blood Count 3.29 M/uL (4.2-5.4)
[2020-06-11 07:33] LABS: BUN Creatinine Ratio 26.4 (10-20); Calcium 8.6 mg/dl (8.5-10.1); Creatinine Clr Calc Pharmacy 87.9 ml/min; Est GFR (Non-African American) 88.8; Potassium 4.6 mmol/L (3.5-5.1)
[2020-06-11] MEDS: POTASSIUM CHLORIDE CRTAB 20 MEQ TABCR PO SCH (08:00)
[2020-06-11] MEDS: lisinopril 40 MG TAB PO SCH (08:00)
[2020-06-11] MEDS: buPROPion SR 150 MG TABCR PO SCH ×2 (08:01→20:36)
[2020-06-11] MEDS: CALCIUM 600MG + VIT D 400 IU TAB PO SCH ×2 (08:01→20:37)
[2020-06-11] MEDS: FEXOFENADINE HCL 180 MG TAB PO SCH (08:01)
[2020-06-11] MEDS: CEROVITE ADV FORMULA TAB PO SCH ×2 (08:01→20:37)
[2020-06-11] MEDS: PANTOprazole 40 MG TAB PO SCH (08:02)
[2020-06-11] MEDS: allopurinoL 300 MG TAB PO SCH (08:02)
[2020-06-11] MEDS: MAGNESIUM OXIDE 400 MG TAB PO SCH ×4 (08:02→20:38)
[2020-06-11] MEDS: LOPERAMIDE HCL 2 MG CAP PO SCH ×4 (08:04→22:42)
[2020-06-11] MEDS: INSULIN GLARGINE SOLOSTAR 100 UNITS/ML 3 ML PEN SC SCH (08:05)
[2020-06-11] MEDS: INSULIN ASPART 100 UNITS/ML 3 ML PEN SC SCH ×4 (08:06→21:00)
[2020-06-11] MEDS: FLUTICASONE FUROATE 100MCG 14 PUFFS/INHALER INH SCH (08:07)
[2020-06-11] MEDS: NYSTATIN POWDER 15GM BTL EXT SCH ×2 (08:11→22:42)
[2020-06-11] MEDS: COLESTIPOL HCL 1 GM TAB PO SCH (11:06)
[2020-06-11] MEDS: ENOXAPARIN INJ 40 MG/0.4 ML SYR SQ SCH (18:20)
[2020-06-11] MEDS: MIRTAZAPINE SOLTAB 15 MG PO SCH (20:37)
[2020-06-11] MEDS: CHOLECALCIFEROL 1,000 UNITS 25 MCG TAB PO SCH (20:38)
[2020-06-11] MEDS: FERROUS SULFATE 325 MG TAB PO SCH (20:38)
[2020-06-11] MEDS: ASPIRIN 81 MG ECTAB PO SCH (20:38)
[2020-06-11] MEDS: MIRABEGRON ER 25 MG TAB PO SCH (20:38)
[2020-06-12] MEDS: LEVOTHYROXINE SODIUM 175 MCG TABLET PO SCH (06:22)
[2020-06-12] MEDS: MAGNESIUM OXIDE 400 MG TAB PO SCH ×5 (08:08→20:37)
[2020-06-12] MEDS: CALCIUM 600MG + VIT D 400 IU TAB PO SCH ×2 (08:08→20:38)
[2020-06-12] MEDS: CEROVITE ADV FORMULA TAB PO SCH ×2 (08:08→20:37)
[2020-06-12] MEDS: buPROPion SR 150 MG TABCR PO SCH ×2 (08:08→20:36)
[2020-06-12] MEDS: FEXOFENADINE HCL 180 MG TAB PO SCH (08:08)
[2020-06-12] MEDS: lisinopril 40 MG TAB PO SCH (08:09)
[2020-06-12] MEDS: PANTOprazole 40 MG TAB PO SCH (08:09)
[2020-06-12] MEDS: POTASSIUM CHLORIDE CRTAB 20 MEQ TABCR PO SCH (08:09)
[2020-06-12] MEDS: allopurinoL 300 MG TAB PO SCH (08:09)
[2020-06-12] MEDS: FLUTICASONE FUROATE 100MCG 14 PUFFS/INHALER INH SCH (08:10)
[2020-06-12] MEDS: INSULIN ASPART 100 UNITS/ML 3 ML PEN SC SCH ×4 (08:10→20:43)
[2020-06-12] MEDS: NYSTATIN POWDER 15GM BTL EXT SCH ×2 (08:11→20:57)
[2020-06-12] MEDS: INSULIN GLARGINE SOLOSTAR 100 UNITS/ML 3 ML PEN SC SCH (08:11)
[2020-06-12] MEDS: LOPERAMIDE HCL 2 MG CAP PO SCH ×4 (08:11→20:43)
--- NOTE | 2020-06-12 08:18 | Hospitalist Progress Note ---
Date of Service June 11, 2020 Assessment & Plan (1) SVT (supraventricular tachycardia): rates in the 180's morning of 06/06, she felt light headed, palpitations, no chest pain resolved with Diltiazem 10mg IV and then Lopressor 5mg IV started on Lopressor 25mg BID appreciate consultation from Dr. Rodriguez, he discussed options with patient such as ablation vs medical therapy he is recommending ablation as this could have been cause of syncope patient and family agree with ablation, Dr. 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 performed HR better today, in 90's for the most part (2) Syncope: seems like most likely cause was SVT with rates in 180's - Check 2 D echo- normal EF - troponin x 3 negative - Imaging per EMR reviewed - negative cervical spine, CT abd/pelvis, tibia/fibula, shoulder, + L humerus fracture - Leukocytosis with WBC 20.11, left shift - improved to 8K and was likely stress response - Follow infectious work-up, UA negative and urine culture clear - Check Blood cultures - no growth PT/OT, patient hoping to return home with home health patient is far too weak to go home, requiring cane for balance, NWB to left arm which is difficult will make referral to [facility], insurance auth still pending (3) Acute hyponatremia: -Sodium 128 on admission, up to normal now (4) Fracture, humerus closed: -Left -Sustained on fall, orthopedics consulted, Dr. Burns continue sling, NWB left arm, can perform PT/OT no plans for surgery follow up with orthopedics in a few weeks, will follow up with Dr. Lazo in office difficulty ambulating due to not being able to use left arm (5) Type 2 diabetes mellitus: -ISS with Accu-Cheks AC at bedtime, holding Metformin and glimepiride patient's sugars still running high despite Lantus 12 and Novolog will increase Lantus to 20 units qAM, working well (6) Hypertension: - Continue lisinopril 40 mg daily gave a dose of Norvasc 5mg on 06/09, BP is now low normal so hold on further dosing (7) Hyperlipidemia: -Continue colestipol, not on statin therapy (8) Hypothyroidism: -Continue levothyroxine 175 mcg daily (9) Gastroesophageal reflux disease: -Continue PPI (10) Osteoporosis: -Continue vitamin D and calcium supplementation (11) Vitamin D deficiency: -Continue supplementation (12) Anemia: -Hemoglobin 12.4, HCT = 37.9 -- dropped to 9.7 on 06/05, likely due to fluid resuscitation but could have some blood loss from humerus fractures and various areas of ecchymosis Hb up to 9.6 today (13) Anxiety: (14) Depression: - Continue Wellbutrin DVT ppx: - teds, scds CODE: Full code Dispo: From home, continue therapy, referral to [facility] (15) Muscle spasm: try some Baclofen 10mg TID PRN Admission and Anticipated Discharge Date Admission Date: June 04, 2020 Subjective patient feeling better today, less weak, less light headed sensation she is eating well, no chest pain, no difficulty breathing less muscle spasms we talked about [facility], she is motivated to get stronger spoke with , insurance auth is still pending reviewed blood pressure, it is well controlled without Norvasc this AM the one dose of Norvasc could have been what caused her to feel weak yesterday spoke with her and her about this Review of Systems Review of Systems: All systems reviewed & are unremarkable except as noted in Subjective Musculoskeletal: + joint pain (left shoulder) Physical Exam Constitutional: well developed and well nourished; no acute distress Neck: trachea midline, no thyromegaly Respiratory: normal respiratory effort, lungs clear to auscultation Cardiovascular: Rate/Rhythm: regular rhythm and + tachycardic Heart Sounds: normal S1 and normal S2; no murmur Vessels: no JVD Extremities: normal capillary refill; no edema Gastrointestinal (Abdomen): normal bowel sounds, soft, nontender, no hepatosplenomegaly Musculoskeletal: no cyanosis or clubbing, extremities motor strength 5/5 Extremities: + extremities abnormal to inspection (left arm in sling) Skin: no rashes, warm and dry (bruising over both shoulders) Neurologic: patellar DTR's 2+ bilat, sensation intact and PERRL, EOMI, accommodation nl, no face palsy, no dysarthria Psychiatric: A+Ox3, euthymic affect Lymphatic: no cervical or axillary lymphadenopathy Results & Data Results & Data ([facility]) Vital Signs (Past 12 Hours) Vital Signs Temp Pulse Pulse Resp BP Pulse Ox 06/12/20 07:46 93 H 06/12/20 07:05 37.0 C 92 H 20 119/69 93 06/12/20 03:57 37 C 99 H 18 98/64 L 94 06/11/20 23:13 37.1 C 105 H 16 112/68 97 PG Care Time/CCT Total # of Minutes Spent Total Time Spent with Patient: Total time spent is greater than 50% in coordination of care (as documented) at patient's floor/unit and/or counseling patient: Coding Level of Care Code 06291 Subseq Hosp Care Lvl 2 Diagnoses SVT (supraventricular tachycardia) I47.1 Syncope R55 Syncope type: unspecified Acute hyponatremia E87.1 Fracture, humerus closed S42.292A Encounter type: initial encounter Fracture alignment: displaced Fracture morphology: other fracture Humerus Location: proximal Laterality: left Type 2 diabetes mellitus E11.9 Hypertension I10 Hyperlipidemia E78.5 Hypothyroidism E03.9 Gastroesophageal reflux disease K21.9 Osteoporosis M81.0 Vitamin D deficiency E55.9 Anemia D64.9 Anxiety F41.9 Depression F32.9 Muscle spasm M62.838 (1) Syncope Syncope type: unspecified Qualified Code(s): R55 - Syncope and collapse (2) Fracture, humerus closed Encounter type: initial encounter Fracture alignment: displaced Fracture morphology: other fracture Humerus Location: proximal Laterality: left Qualified Code(s): S42.292A - Other displaced fracture of upper end of left humerus, initial encounter for closed fracture
[2020-06-12] MEDS: COLESTIPOL HCL 1 GM TAB PO SCH (12:19)
--- NOTE | 2020-06-12 12:29 | Progress Notes ---
DATE: 06/12/2020 SUBJECTIVE: A 75-year-old white female admitted from a syncopal episode with a left proximal humerus fracture. She is in a sling. Her arm is doing pretty well. She is still undergoing a significant cardiac monitoring. She is hoping to get into a [facility]. Arms are really not bothering her much. PHYSICAL EXAMINATION: Left arm reveals sling to be in place. Fairly large soft tissue envelope. There is no visible deformity. She is neurologically intact. ASSESSMENT: A 75-year-old female status post a fall from a syncopal episode, left proximal humerus fracture. The fracture is impacted with minimal displacement. Does not need surgical treatment. She is doing pretty well clinically. PLAN: We will just leave her in the sling for the first 2 weeks. We need to see her back somewhere between 2 and 3 weeks out from her injury date to re-x-ray things then start some gentle pendulum exercises. Any orthopedic questions can be directed to me at [phone]. Once again it will be best for her to be in a dependent position with her head of bed up as much as possible to just help alignment of her arm and help her pain.
--- NOTE | 2020-06-12 14:42 | Hospitalist Progress Note ---
Date of Service June 12, 2020 Assessment & Plan (1) SVT (supraventricular tachycardia): rates in the 180's morning of 06/06, she felt light headed, palpitations, no chest pain resolved with Diltiazem 10mg IV and then Lopressor 5mg IV started on Lopressor 25mg BID appreciate consultation from Dr. Rodriguez, he discussed options with patient such as ablation vs medical therapy he is recommending ablation as this could have been cause of syncope patient and family agree with ablation, Dr. 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 Alcantara recommends AGAINST AV node blocking agents (2) Syncope: seems like most likely cause was SVT with rates in 180's - Check 2 D echo- normal EF - troponin x 3 negative - Imaging per EMR reviewed - negative cervical spine, CT abd/pelvis, tibia/fibula, shoulder, + L humerus fracture - Leukocytosis with WBC 20.11, left shift - improved to 8K and was likely stress response - Follow infectious work-up, UA negative and urine culture clear - Check Blood cultures - no growth PT/OT, patient hoping to return home with home health patient is far too weak to go home, requiring cane for balance, NWB to left arm which is difficult will make referral to [facility], [facility] on 06/12 also denied, however, if no SNF can take patient due to COVID precautions then [facility] could be approved case loader operator will have to reach out to local SNF options to see if someone can take her in a timely manner if a SNF can take her then she will have to do SNF rehab (3) Acute hyponatremia: -Sodium 128 on admission, up to normal now (4) Fracture, humerus closed: -Left -Sustained on fall, orthopedics consulted continue sling, NWB left arm, can perform PT/OT Dr. Lazo recommends patient be upright or have HOB > 30 degrees to promote better anatomical positioning of left arm no plans for surgery follow up with orthopedics in a few weeks, will follow up with Dr. Lazo in office difficulty ambulating due to not being able to use left arm (5) Type 2 diabetes mellitus: -ISS with Accu-Cheks AC at bedtime, holding Metformin and glimepiride patient's sugars still running high despite Lantus 12 and Novolog increased Lantus to 20 units qAM, working better resume Metformin and Glimepiride on discharge (6) Hypertension: - Continue lisinopril 40 mg daily gave a dose of Norvasc 5mg on 06/09, BP dropped to low normal and she felt light headed, hold on further dosing (7) Hyperlipidemia: -Continue colestipol, not on statin therapy (8) Hypothyroidism: -Continue levothyroxine 175 mcg daily (9) Gastroesophageal reflux disease: -Continue PPI (10) Osteoporosis: -Continue vitamin D and calcium supplementation (11) Vitamin D deficiency: -Continue supplementation (12) Anemia: -Hemoglobin 12.4, HCT = 37.9 -- dropped to 9.7 on 06/05, likely due to fluid resuscitation but could have some blood loss from humerus fractures and various areas of ecchymosis Hb has been stable rest of the week (13) Anxiety: (14) Depression: - Continue Wellbutrin DVT ppx: - teds, scds CODE: Full code Dispo: From home, continue therapy, referral to [facility] but denied, need to look into SNF options (15) Muscle spasm: try some Baclofen 10mg TID PRN working well, no drowsiness Admission and Anticipated Discharge Date Admission Date: June 04, 2020 Subjective patient feeling a little worse than yesterday she cannot get comfortable, she says the pain is not severe, just "not comfortable" her appetite is poor today, says she has some indigestion HR is in the low 100's appreciate note from orthopedics CM informed me of denial for [facility], called for peer to peer at this time patient does not meet criteria explained to physician that local SNFs are slow to accept patients due to COVID outbreaks explained that she could be a disposition nightmare, could take days or even the week to find a place she stated that if no SNF can take the patient despite efforts then [facility] could be approved due to lack of options discussed this with case loader operatorcorporate training manager of Systems Review of Systems: All systems reviewed & are unremarkable except as noted in Subjective Physical Exam Constitutional: well developed and well nourished; no acute distress Neck: trachea midline, no thyromegaly Respiratory: normal respiratory effort, lungs clear to auscultation Cardiovascular: Rate/Rhythm: regular rhythm and + tachycardic Heart Sounds: normal S1 and normal S2; no murmur Vessels: no JVD Extremities: normal capillary refill; no edema Gastrointestinal (Abdomen): normal bowel sounds, soft, nontender, no hepatosplenomegaly Musculoskeletal: no cyanosis or clubbing, extremities motor strength 5/5 Extremities: + extremities abnormal to inspection (left arm in sling) Skin: no rashes, warm and dry (bruising over both shoulders) Neurologic: patellar DTR's 2+ bilat, sensation intact and PERRL, EOMI, accommodation nl, no face palsy, no dysarthria Psychiatric: A+Ox3, euthymic affect Lymphatic: no cervical or axillary lymphadenopathy Results & Data Results & Data ([facility]) Vital Signs (Past 12 Hours) Vital Signs Temp Pulse Pulse Resp BP Pulse Ox 06/12/20 11:28 36.5 C 104 H 19 132/73 97 06/12/20 07:46 93 H 06/12/20 07:05 37.0 C 92 H 20 119/69 93 06/12/20 03:57 37 C 99 H 18 98/64 L 94 Laboratory Results Laboratory Results - last 24 hr 06/11/20 06/11/20 06/12/20 16:55 20:42 07:18 POC Glucose 190 H 241 H 180 H 06/12/20 11:11 POC Glucose 249 H Medications Administered Current Inpatient Medications Acetaminophen (Acetaminophen 325 Mg Tab) 650 mg PO Q4H PRN PRN Reason: Moderate Pain Stop: 07/04/20 21:52 Last Admin: 06/07/20 19:59 Dose: 650 mg Documented by: Albuterol (Albuterol Hfa 8 Gm Inhaler) 2 puffs INH QID PRN PRN Reason: asthma Stop: 07/04/20 21:52 Last Admin: 06/10/20 08:44 Dose: 2 puffs Documented by: Alendronate Sodium (Alendronate Sodium 70 Mg Tab) 70 mg PO Q7D [facility] Stop: 07/06/20 06:29 Last Admin: 06/06/20 06:14 Dose: 70 mg Documented by: Allopurinol (Allopurinol 300 Mg Tab) 300 mg PO QAM [facility] Stop: 07/05/20 08:59 Last Admin: 06/12/20 08:09 Dose: 300 mg Documented by: Aspirin (Aspirin 81 Mg Ectab) 81 mg PO QPM [facility] Stop: 07/04/20 21:52 Last Admin: 06/11/20 20:38 Dose: 81 mg Documented by: Baclofen (Baclofen 10 Mg Tab) 10 mg PO TID PRN PRN Reason: Muscle Spasm Stop: 07/07/20 20:59 Last Admin: 06/10/20 08:35 Dose: 10 mg Documented by: Bupropion HCl (Bupropion Sr 150 Mg Tabcr) 150 mg PO BID [facility] Stop: 07/04/20 21:52 Last Admin: 06/12/20 08:08 Dose: 150 mg Documented by: Colestipol HCl (Colestipol Hcl 1 Gm Tab) 1 gm PO DAILY@1100 [facility] Stop: 07/05/20 10:59 Last Admin: 06/12/20 12:19 Dose: 1 gm Documented by: Dextrose (Dextrose 50% 50 Ml Syringe) 25 - 50 ml IV UD PRN; Protocol PRN Reason: Hypoglycemia Protocol Stop: 07/04/20 21:52 Diclofenac Sodium (Diclofenac Sod 1% Gel 100 Gm Tube) 2 gm EXT BID PRN PRN Reason: Pain Stop: 07/04/20 21:52 Enoxaparin Sodium (Enoxaparin Inj 40 Mg/0.4 Ml Syr) 40 mg SQ Q24H [facility] Stop: 07/07/20 16:59 Last Admin: 06/11/20 18:20 Dose: 40 mg Documented by: Ferrous Sulfate (Ferrous Sulfate 325 Mg Tab) 325 mg PO PM [facility] Stop: 07/04/20 22:29 Last Admin: 06/11/20 20:38 Dose: 325 mg Documented by: Fexofenadine HCl (Fexofenadine Hcl 180 Mg Tab) 180 mg PO QAM [facility] Stop: 07/05/20 08:59 Last Admin: 06/12/20 08:08 Dose: 180 mg Documented by: Fluticasone Furoate (Fluticasone Furoate 100mcg 14 Puffs/Inhaler) 1 puffs INH QAM [facility] Stop: 07/05/20 08:59 Last Admin: 06/12/20 08:10 Dose: 1 puffs Documented by: Glucagon (Glucagon For Inj 1 Mg Vial) 1 mg SQ UD PRN; Protocol PRN Reason: Hypoglycemia Protocol Stop: 07/04/20 21:52 Glucose (Glucose 10 Tabs/Tube) 4 - 8 tabs PO UD PRN; Protocol PRN Reason: Hypoglycemia Protocol Stop: 07/04/20 21:52 Glucose (Glucose 40% Gel 15 Gm Tube) 15 - 30 gm PO UD PRN; Protocol PRN Reason: Hypoglycemia Protocol Stop: 07/04/20 21:52 Insulin Aspart (Insulin Aspart 100 Units/Ml 3 Ml Pen) 0 units SC ACHS [facility] Stop: 07/04/20 21:52 Last Admin: 06/12/20 12:20 Dose: 6 units Documented by: Insulin Glargine (Insulin Glargine Solostar 100 Units/Ml 3 Ml Pen) 20 units SC QAM [facility] Stop: 07/11/20 08:59 Last Admin: 06/12/20 08:11 Dose: 20 units Documented by: Levothyroxine Sodium (Levothyroxine Sodium 175 Mcg Tablet) 175 mcg PO DAILYBB [facility] Stop: 07/05/20 06:29 Last Admin: 06/12/20 06:22 Dose: 175 mcg Documented by: Lisinopril (Lisinopril 40 Mg Tab) 40 mg PO QAM [facility] Stop: 07/05/20 08:59 Last Admin: 06/12/20 08:09 Dose: 40 mg Documented by: Loperamide HCl (Loperamide Hcl 2 Mg Cap) 4 mg PO QID [facility] Stop: 07/04/20 21:52 Last Admin: 06/12/20 12:19 Dose: Not Given Documented by: Magnesium Oxide (Magnesium Oxide 400 Mg Tab) 400 mg PO QIDM [facility] Stop: 07/04/20 21:52 Last Admin: 06/12/20 08:08 Dose: 400 mg Documented by: Meloxicam (Meloxicam 7.5 Mg Tab) 15 mg PO QAM PRN PRN Reason: Osteoarthritis Stop: 07/04/20 21:52 Last Admin: 06/05/20 08:05 Dose: 15 mg Documented by: Mirabegron (Mirabegron Er 25 Mg Tab) 25 mg PO PM [facility] Stop: 07/04/20 21:52 Last Admin: 06/11/20 20:38 Dose: 25 mg Documented by: Mirtazapine (Mirtazapine Soltab 15 Mg) 45 mg PO HS [facility] Stop: 07/04/20 21:52 Last Admin: 06/11/20 20:37 Dose: 45 mg Documented by: Miscellaneous (Trospium: Order Awaiting Action) 1 ea N/A QS [facility] Stop: 07/05/20 07:59 Last Admin: 06/12/20 11:34 Dose: Not Given Documented by: Miscellaneous (Carbohydrates For Hypoglycemia ) 15 - 30 gm PO UD PRN PRN Reason: Hypoglycemia Protocol Stop: 07/04/20 21:52 Morphine Sulfate (Morphine Sulfate 2 Mg/Ml Carp) 1 mg IV Q4H PRN PRN Reason: Pain Stop: 06/19/20 08:11 Last Admin: 06/08/20 05:47 Dose: 1 mg Documented by: Multivitamins/Minerals (Cerovite Adv Formula Tab) 1 tab PO BID [facility] Stop: 07/04/20 22:29 Last Admin: 06/12/20 08:08 Dose: 1 tab Documented by: Multivitamins/Minerals (Calcium 600mg + Vit D 400 Iu Tab) 1 tab PO BID [facility] Stop: 07/04/20 22:29 Last Admin: 06/12/20 08:08 Dose: 1 tab Documented by: Nystatin (Nystatin Powder 15gm Btl) 1 appln EXT BID [facility] Stop: 07/04/20 21:52 Last Admin: 06/12/20 08:11 Dose: Not Given Documented by: Ondansetron HCl (Ondansetron Inj 2 Mg/Ml 2 Ml Vial) 4 mg IV Q4H PRN PRN Reason: Nausea And Vomiting Stop: 07/04/20 20:53 Last Admin: 06/05/20 10:43 Dose: 4 mg Documented by: Oxycodone/Acetaminophen (Oxycodone/Acetaminophen 5mg/325mg Tab) 1 - 2 tab PO Q6H PRN PRN Reason: Moderate-Severe Pain Stop: 06/23/20 10:55 Last Admin: 06/10/20 09:58 Dose: 1 tab Documented by: Pantoprazole Sodium (Pantoprazole 40 Mg Tab) 40 mg PO QAM [facility] Stop: 07/05/20 08:59 Last Admin: 06/12/20 08:09 Dose: 40 mg Documented by: Potassium Chloride (Potassium Chloride 20 Meq Tabcr) 20 meq PO QAM [facility] Stop: 07/09/20 16:29 Last Admin: 06/12/20 08:09 Dose: 20 meq Documented by: Tramadol HCl (Tramadol Hcl 50 Mg Tablet) 50 mg PO Q4H PRN PRN Reason: Pain Stop: 07/05/20 08:11 Last Admin: 06/09/20 19:15 Dose: 50 mg Documented by: Vitamin D (Cholecalciferol 1,000 Units 25 Mcg Tab) 2,000 units PO PM [facility] Stop: 07/04/20 21:52 Last Admin: 06/11/20 20:38 Dose: 2,000 units Documented by: PG Care Time/CCT Total # of Minutes Spent Total Time Spent: 40 Total Time Spent with Patient: Total time spent is greater than 50% in coordination of care (as documented) at patient's floor/unit and/or counseling patient: visiting patient, speaking with family, speaking with case loader operator peer to peer phone call reviewing chart and documentation Coding Level of Care Code 53779 Subs Hosp Care Lv 3 Diagnoses SVT (supraventricular tachycardia) I47.1 Syncope R55 Syncope type: unspecified Acute hyponatremia E87.1 Fracture, humerus closed S42.292A Encounter type: initial encounter Fracture alignment: displaced Fracture morphology: other fracture Humerus Location: proximal Laterality: left Type 2 diabetes mellitus E11.9 Hypertension I10 Hyperlipidemia E78.5 Hypothyroidism E03.9 Gastroesophageal reflux disease K21.9 Osteoporosis M81.0 Vitamin D deficiency E55.9 Anemia D64.9 Anxiety F41.9 Depression F32.9 Muscle spasm M62.838 (1) Syncope Syncope type: unspecified Qualified Code(s): R55 - Syncope and collapse (2) Fracture, humerus closed Encounter type: initial encounter Fracture alignment: displaced Fracture morphology: other fracture Humerus Location: proximal Laterality: left Qualified Code(s): S42.292A - Other displaced fracture of upper end of left humerus, initial encounter for closed fracture
[2020-06-12] MEDS: ENOXAPARIN INJ 40 MG/0.4 ML SYR SQ SCH (16:39)
[2020-06-12] MEDS: MIRTAZAPINE SOLTAB 15 MG PO SCH (20:36)
[2020-06-12] MEDS: CHOLECALCIFEROL 1,000 UNITS 25 MCG TAB PO SCH (20:36)
[2020-06-12] MEDS: FERROUS SULFATE 325 MG TAB PO SCH (20:37)
[2020-06-12] MEDS: ASPIRIN 81 MG ECTAB PO SCH (20:37)
[2020-06-12] MEDS: MIRABEGRON ER 25 MG TAB PO SCH (20:38)
[2020-06-13] MEDS: ALENDRONATE SODIUM 70 MG TAB PO SCH (06:22)
[2020-06-13] MEDS: LEVOTHYROXINE SODIUM 175 MCG TABLET PO SCH (06:22)
[2020-06-13 07:48] LABS: Hematocrit (blood only) 29.7 % (37-47); Hemoglobin 9.4 g/dL (12.0-16.0); Mean Corpuscular Hemoglobin 28.8 pg (25-34); Mean Corpuscular Hgb Conc 31.6 g/dL (32-36); Mean Corpuscular Volume 91.1 fL (80-100); Mean Platelet Volume 8.5 fL (7.4-10.4); Platelet Count 375 K/uL (130-400); RDW Standard Deviation 67.6 fL (36.4-46.3); Red Blood Count 3.26 M/uL (4.2-5.4); White Blood Count 8.79 K/uL (4.8-10.8)
[2020-06-13] MEDS: INSULIN ASPART 100 UNITS/ML 3 ML PEN SC SCH ×4 (08:37→21:12)
[2020-06-13] MEDS: POTASSIUM CHLORIDE CRTAB 20 MEQ TABCR PO SCH (08:39)
[2020-06-13] MEDS: MAGNESIUM OXIDE 400 MG TAB PO SCH ×4 (08:40→21:08)
[2020-06-13] MEDS: lisinopril 40 MG TAB PO SCH (08:40)
[2020-06-13] MEDS: buPROPion SR 150 MG TABCR PO SCH ×2 (08:40→21:08)
[2020-06-13] MEDS: CEROVITE ADV FORMULA TAB PO SCH ×2 (08:40→21:08)
[2020-06-13] MEDS: CALCIUM 600MG + VIT D 400 IU TAB PO SCH ×2 (08:40→21:06)
[2020-06-13] MEDS: allopurinoL 300 MG TAB PO SCH (08:41)
[2020-06-13] MEDS: PANTOprazole 40 MG TAB PO SCH (08:41)
[2020-06-13] MEDS: FLUTICASONE FUROATE 100MCG 14 PUFFS/INHALER INH SCH (08:41)
[2020-06-13] MEDS: FEXOFENADINE HCL 180 MG TAB PO SCH (08:42)
[2020-06-13] MEDS: NYSTATIN POWDER 15GM BTL EXT SCH ×2 (08:42→21:09)
[2020-06-13] MEDS: LOPERAMIDE HCL 2 MG CAP PO SCH ×4 (08:42→21:32)
[2020-06-13] MEDS ORDERED: INSULIN GLARGINE SOLOSTAR 100 UNITS/ML 3 ML PEN SC SCH (09:00)
[2020-06-13] MEDS: COLESTIPOL HCL 1 GM TAB PO SCH (12:09)
--- NOTE | 2020-06-13 14:09 | Hospitalist Progress Note ---
Date of Service June 13, 2020 Assessment & Plan (1) SVT (supraventricular tachycardia): rates in the 180's morning of 06/06/20 with associated lightheadedness/palpitations [facility] cardiology felt that SVT could have caused her recent syncope thus, Dr Alcantara performed ablation procedure on 06/09/20 fast/slow tract AVN re-entry circuit found with successful ablation stable on tele since that time cardiology advising against routine use of AV lima agents continue tele monitoring (2) Acute blood loss anemia: 2nd to extensive soft tissue injury in setting of syncope and then a fall backwards on a flight of steps at home Hb settled in 9's repeat H/H in am increase ferrous sulfate to 325mg BID (3) Rib fractures: as seen on rib series today left, x 2 lidoderm patches heat pain meds baclofen prn this is likely cause of left-breast and left back pains (4) Syncope: most likely cause was SVT s/p ablation procedure as noted above echo with preserved EF no evidence of acute MN/ACS no infectious issue found fortunately cervical spine CT, CT abd/pelvis, tibia/fibula films etc negative for acute findings does have left humerus fracture and left-sided rib fractures x 2, however continue pain control continue PT/OT PT/OT advising rehab denied [facility] by insurance previous attending performed [facility] to peer on 06/12 - denial upheld however, if no SNF can take patient due to COVID precautions, then [facility] could be approved potentially [facility] hopefully can take patient. pre-DC COVID test ordered today (5) Acute hyponatremia: Sodium 128 on admission Latest Na level 131 repeat BMP am can't rule out hyponatremia contributed to syncope pre-hospitalization (6) Fracture, humerus closed: Left Sustained on fall, orthopedics consulted -- nonoperative management advised continue sling, NWB left arm, can perform PT/OT Dr. Lazo recommends patient be upright or have HOB > 30 degrees to promote better anatomical positioning of left arm follow up with Dr. Lazo in office 2-3 weeks post-d/c 25-OH vit D level earlier this year wnl (7) Type 2 diabetes mellitus: uncontrolled increase lantus to 25 units qam adjust novolog correction/carb coverage holding Metformin and glimepiride (8) Hypertension: controlled continue lisinopril 40 mg daily (9) Hyperlipidemia: continue colestipol (10) Hypothyroidism: continue levothyroxine 175 mcg daily TSH 12/2019 wnl (11) Gastroesophageal reflux disease: continue PPI (12) Osteoporosis: Continue vitamin D and calcium supplementation 25-OH vit D level 12/2019 was wnl (13) Vitamin D deficiency: continue supplementation previous level 12/2019 wnl (14) Anxiety: (15) Depression: continue Wellbutrin (16) DVT prophylaxis: lovenox 40mg daily Admission and Anticipated Discharge Date Admission Date: June 04, 2020 Subjective tele - no SVT or other dysrhythmia overnight. patient c/o "jabs" and "twinges" of discomfort over left upper back and left breast region. brought on by sudden movement. also with continued pain over left arm. otherwise feeling well - eating ok, moving bowels, no substernal chest pain, no dyspnea. still agreeable to placement for rehab. Review of Systems Constitutional: no fever Respiratory: no cough and no dyspnea Cardiovascular: no chest pain Gastrointestinal: no abdominal pain, no nausea and no vomiting Physical Exam Constitutional: + obese; no acute distress and no altered mental status ENMT: external ear and nose normal, oropharynx normal Respiratory: normal respiratory effort, lungs clear to auscultation Cardiovascular: Rate/Rhythm: regular rhythm and + tachycardic Heart Sounds: normal S1 and normal S2; no murmur Vessels: posterior tibial pulses present and dorsalis pedis pulses present; no JVD Extremities: no edema Gastrointestinal (Abdomen): normal bowel sounds, soft, nontender, no hepatosplenomegaly Musculoskeletal: no tenderness to palpation over lumbar spine; minimal tenderness thoracic spine to palpation; no tenderness over left scapula Skin: extensive ecchymoses right flank, left flank, etc Psychiatric: A+Ox3, euthymic affect Results & Data Results & Data ([facility]) Vital Signs (Past 12 Hours) Vital Signs Temp Pulse Pulse Resp BP Pulse Ox 06/13/20 11:17 36.5 C 95 H 20 111/71 99 06/13/20 07:24 36.6 C 84 18 110/72 98 06/13/20 04:07 36.7 C 84 17 115/70 96 Laboratory Results Laboratory Results - last 24 hr 06/12/20 06/12/20 06/13/20 16:24 19:59 06:59 WBC 8.79 RBC 3.26 L Hgb 9.4 L Hct 29.7 L MCV 91.1 MCH 28.8 MCHC 31.6 L RDW Std Deviation 67.6 H RDW Coeff of Carlyle 21.0 H Plt Count 375 MPV 8.5 POC Glucose 194 H 214 H 06/13/20 06/13/20 07:11 11:31 WBC RBC Hgb Hct MCV MCH MCHC RDW Std Deviation RDW Coeff of Carlyle Plt Count MPV POC Glucose 162 H 238 H PG Care Time/CCT Total # of Minutes Spent Total Time Spent with Patient: Total time spent is greater than 50% in coordination of care (as documented) at patient's floor/unit and/or counseling patient: Coding Level of Care Code 84113 Subseq Hosp Care Lvl 3 Diagnoses SVT (supraventricular tachycardia) I47.1 Acute blood loss anemia D62 Rib fractures S22.39XA Syncope R55 Syncope type: unspecified Acute hyponatremia E87.1 Fracture, humerus closed S42.292A Encounter type: initial encounter Fracture alignment: displaced Fracture morphology: other fracture Humerus Location: proximal Laterality: left Type 2 diabetes mellitus E11.9 Hypertension I10 Hyperlipidemia E78.5 Hypothyroidism E03.9 Gastroesophageal reflux disease K21.9 Osteoporosis M81.0 Vitamin D deficiency E55.9 Anxiety F41.9 Depression F32.9 DVT prophylaxis Z29.9 (1) Fracture, humerus closed Encounter type: initial encounter Fracture alignment: displaced Fracture morphology: other fracture Humerus Location: proximal Laterality: left Qualified Code(s): S42.292A - Other displaced fracture of upper end of left humerus, initial encounter for closed fracture (2) Syncope Syncope type: unspecified Qualified Code(s): R55 - Syncope and collapse
[2020-06-13] MEDS: traMADol HCL 50 MG TABLET PO PRN (15:44)
--- NOTE | 2020-06-13 17:29 | XRay Report ---
XR ribs BI min 4V w CXR1V CLINICAL HISTORY: recent fall, back pain, r/o Fx COMPARISON: Chest radiograph June 04, 2020. FINDINGS: A proximal left humeral fracture is again noted. This is similar in appearance to prior ex am. Note is made of acute minimally displaced fractures of the posterior lateral left seventh and eig hth ribs. No acute right rib fractures are noted. There are several old healed right rib fractures. T here is no pneumothorax or pleural effusion. No consolidation is present to suggest pneumonia. IMPRESSION: 1. Acute appearing mildly displaced left seventh and eighth rib fractures. No pneumothorax. 2. No significant change in a proximal left humeral fracture. ACT 112: Negative or not required by law. Electronically signed by: Polo Christensen M.D. 06/13/2020 5:28 PM
--- NOTE | 2020-06-13 17:34 | XRay Report ---
XR thoracic spine 3V routine CLINICAL HISTORY: fall, back pain, eval compression Fx COMPARISON STUDY: Chest radiograph January 28, 2019. FINDINGS: Alignment of the thoracic spine is anatomic. Vertebral body heights are maintained with the exception of mild loss of height of an upper thoracic vertebral body shown on lateral projection. No acute fracture is noted. There is extensive anterior osteophytosis. There is mild multilevel disc sp felipa narrowing. Cholecystectomy clips are incidentally noted. IMPRESSION: 1. Age indeterminate mild compression fracture of an upper thoracic vertebral body, shown only on lat eral projection. 2. Extensive anterior osteophytosis of the thoracic spine. ACT 112: Negative or not required by law. Electronically signed by: Polo Christensen M.D. 06/13/2020 5:33 PM
[2020-06-13] MEDS: ENOXAPARIN INJ 40 MG/0.4 ML SYR SQ SCH (17:50)
[2020-06-13] MEDS: BACLOFEN 10 MG TAB PO PRN (18:00)
[2020-06-13] MEDS: ASPIRIN 81 MG ECTAB PO SCH (21:07)
[2020-06-13] MEDS: MIRTAZAPINE SOLTAB 15 MG PO SCH (21:07)
[2020-06-13] MEDS: CHOLECALCIFEROL 1,000 UNITS 25 MCG TAB PO SCH (21:08)
[2020-06-13] MEDS: FERROUS SULFATE 325 MG TAB PO SCH (21:09)
[2020-06-13] MEDS: MIRABEGRON ER 25 MG TAB PO SCH (21:09)
[2020-06-13] MEDS: LIDOCAINE 5% 1 PATCH TD SCH (23:12)
[2020-06-14] MEDS: traMADol HCL 50 MG TABLET PO PRN (04:26)
[2020-06-14] MEDS: LEVOTHYROXINE SODIUM 175 MCG TABLET PO SCH (06:27)
[2020-06-14 08:10] LABS: Hematocrit (blood only) 29.8 % (37-47); Hemoglobin 9.2 g/dL (12.0-16.0)
[2020-06-14] MEDS: INSULIN ASPART 100 UNITS/ML 3 ML PEN SC SCH ×4 (08:29→21:50)
[2020-06-14] MEDS: INSULIN GLARGINE SOLOSTAR 100 UNITS/ML 3 ML PEN SC SCH (08:30)
[2020-06-14 08:31] LABS: BUN Creatinine Ratio 24.4 (10-20); Calcium 8.8 mg/dl (8.5-10.1); Creatinine Clr Calc Pharmacy 91.7 ml/min; Est GFR (African American) 104.6; Est GFR (Non-African American) 90.3; Potassium 4.4 mmol/L (3.5-5.1)
[2020-06-14] MEDS: MAGNESIUM OXIDE 400 MG TAB PO SCH ×4 (08:31→22:01)
[2020-06-14] MEDS: buPROPion SR 150 MG TABCR PO SCH ×2 (08:31→22:01)
[2020-06-14] MEDS: lisinopril 40 MG TAB PO SCH (08:31)
[2020-06-14] MEDS: CEROVITE ADV FORMULA TAB PO SCH ×2 (08:31→22:01)
[2020-06-14] MEDS: allopurinoL 300 MG TAB PO SCH (08:31)
[2020-06-14] MEDS: CALCIUM 600MG + VIT D 400 IU TAB PO SCH ×2 (08:31→22:01)
[2020-06-14] MEDS: FEXOFENADINE HCL 180 MG TAB PO SCH (08:32)
[2020-06-14] MEDS: PANTOprazole 40 MG TAB PO SCH (08:32)
[2020-06-14] MEDS: POTASSIUM CHLORIDE CRTAB 20 MEQ TABCR PO SCH (08:33)
[2020-06-14] MEDS: FLUTICASONE FUROATE 100MCG 14 PUFFS/INHALER INH SCH (08:33)
[2020-06-14] MEDS: NYSTATIN POWDER 15GM BTL EXT SCH ×2 (08:34→22:02)
[2020-06-14] MEDS: FERROUS SULFATE 325 MG TAB PO SCH ×2 (09:28→22:01)
[2020-06-14] MEDS: LOPERAMIDE HCL 2 MG CAP PO SCH ×4 (09:28→22:02)
--- NOTE | 2020-06-14 09:57 | Progress Notes ---
DATE: 06/14/2020 SUBJECTIVE: A 75-year-old female admitted status post syncopal episode and left proximal humerus fracture. She seems to be doing better today. She was having some chest pain and x-rays now reveal some rib fractures. Her arm is doing well. She has got a sling in place and denies any real significant pain. OBJECTIVE: VITAL SIGNS: Temperature 36.9. Vital signs stable. GENERAL: Shows a pleasant elderly female. She is sitting up in bed and talking to someone on the phone. EXTREMITIES: Examination of left arm reveals a sling to be in place, but not correctly worn and it is rotated around her body some. Her arm looks well aligned. No real significant bruising. She can flex and extend her fingers appropriately. She is neurologically intact. ASSESSMENT: A 75-year-old white female status post syncopal episode and a proximal humerus fracture. Her shoulder is doing well. Her pain is controlled. She is struggling wearing the sling properly, but seems to be doing okay regardless. PLAN: From the orthopedic standpoint, she just needs to wear the sling for the next couple weeks. I will need to see her back somewhere between 2 and 3 weeks from her injury, date. Any orthopedic questions can be directed at [phone].
[2020-06-14] MEDS: COLESTIPOL HCL 1 GM TAB PO SCH (12:17)
[2020-06-14] MEDS: ENOXAPARIN INJ 40 MG/0.4 ML SYR SQ SCH (17:42)
--- NOTE | 2020-06-14 20:09 | Hospitalist Progress Note ---
Date of Service June 14, 2020 Assessment & Plan (1) SVT (supraventricular tachycardia): rates in the 180's morning of 06/06/20 with associated lightheadedness/palpitations [facility] cardiology felt that SVT could have caused her recent syncope thus, Dr Alcantara performed ablation procedure on 06/09/20 fast/slow tract AVN re-entry circuit found with successful ablation stable on tele since that time no recurrent SVT cardiology advising against routine use of AV lima agents continue tele monitoring (2) Acute blood loss anemia: 2nd to extensive soft tissue injury in setting of syncope and then a fall backwards on a flight of steps at home Hb settled in 9's repeat cbc in am cont ferrous sulfate 325mg BID (3) Rib fractures: as seen on rib series left, x 2 lidoderm patches heat pain meds prn (4) Syncope: most likely cause was SVT s/p ablation procedure as noted above echo with preserved EF no evidence of acute NV/ACS no infectious issue found fortunately cervical spine CT, CT abd/pelvis, tibia/fibula films etc negative for acute findings does have left humerus fracture and left-sided rib fractures x 2, however continue pain control continue PT/OT accepted at [facility] d/c there tomorrow COVID testing negative (5) Acute hyponatremia: Sodium 128 on admission repeat BMP am can't rule out hyponatremia contributed to syncope pre-hospitalization check urine osm, serum osm, uric acid, urine Na to r/o SIADH (6) Fracture, humerus closed: Left Sustained on fall, orthopedics consulted -- nonoperative management advised continue sling, NWB left arm, can perform PT/OT Dr. Lazo recommends patient be upright or have HOB > 30 degrees to promote b blaze anatomical positioning of left arm follow up with Dr. Lazo in office 2-3 weeks post-d/c 25-OH vit D level earlier this year wnl (7) Type 2 diabetes mellitus: improved control cont lantus 30 units qam cont novolog correction/carb coverage holding Metformin and glimepiride (8) Hypertension: controlled continue lisinopril 40 mg daily (9) Hyperlipidemia: continue colestipol (10) Hypothyroidism: continue levothyroxine 175 mcg daily TSH 12/2019 wnl (11) Gastroesophageal reflux disease: continue PPI (12) Osteoporosis: Continue vitamin D and calcium supplementation 25-OH vit D level 12/2019 was wnl (13) Vitamin D deficiency: continue supplementation previous level 12/2019 wnl (14) Anxiety: (15) Depression: continue Wellbutrin (16) DVT prophylaxis: lovenox 40mg daily updated by phone this evening hopefully d/c in am to SNF Admission and Anticipated Discharge Date Admission Date: June 04, 2020 Subjective patient had large BM today. tele with NO SVT. mild head pain. rib pain better w/ heat and lidoderm patches. left arm feeling ok. eating well. no other complaints. Review of Systems Constitutional: no fever Respiratory: no cough and no dyspnea Cardiovascular: no chest pain Gastrointestinal: no abdominal pain, no nausea and no vomiting Physical Exam Constitutional: + obese; no acute distress and no altered mental status ENMT: external ear and nose normal, oropharynx normal Respiratory: normal respiratory effort, lungs clear to auscultation Cardiovascular: Rate/Rhythm: regular rate and regular rhythm Heart Sounds: normal S1 and normal S2; no murmur Vessels: posterior tibial pulses present and dorsalis pedis pulses present; no JVD Extremities: no edema Gastrointestinal (Abdomen): normal bowel sounds, soft, nontender, no hepatosplenomegaly Musculoskeletal: left arm in sling Psychiatric: A+Ox3, euthymic affect Results & Data Results & Data ([facility]) Vital Signs (Past 12 Hours) Vital Signs Temp Pulse Pulse Resp BP Pulse Ox 06/14/20 19:59 37.3 C 107 H 16 141/80 H 96 06/14/20 16:01 96 H 06/14/20 15:25 36.9 C 99 H 20 114/69 94 06/14/20 11:12 36.9 C 99 H 20 143/71 H 96 Laboratory Results Laboratory Results - last 24 hr 06/13/20 06/14/20 06/14/20 20:29 07:27 07:27 Hgb 9.2 L Hct 29.8 L Sodium 131 L Potassium 4.4 Chloride 100 Carbon Dioxide 24 Anion Gap 7.0 BUN 14 Creatinine 0.59 L Est Cr Clr Drug Dosing 91.7 Est GFR ( Amer) 104.6 Est GFR (Non-Af Amer) 90.3 BUN/Creatinine Ratio 24.4 H Glucose 162 H POC Glucose 133 H Calcium 8.8 Magnesium 2.0 06/14/20 06/14/20 06/14/20 07:47 11:28 16:17 Hgb Hct Sodium Potassium Chloride Carbon Dioxide Anion Gap BUN Creatinine Est Cr Clr Drug Dosing Est GFR ( Amer) Est GFR (Non-Af Amer) BUN/Creatinine Ratio Glucose POC Glucose 188 H 211 H 172 H Calcium Magnesium PG Care Time/CCT Total # of Minutes Spent Total Time Spent with Patient: Total time spent is greater than 50% in coordination of care (as documented) at patient's floor/unit and/or counseling patient: Coding Level of Care Code 57963 Subseq Hosp Care Lvl 2 Diagnoses SVT (supraventricular tachycardia) I47.1 Acute blood loss anemia D62 Rib fractures S22.39XA Syncope R55 Syncope type: unspecified Acute hyponatremia E87.1 Fracture, humerus closed S42.292A Encounter type: initial encounter Fracture alignment: displaced Fracture morphology: other fracture Humerus Location: proximal Laterality: left Type 2 diabetes mellitus E11.9 Hypertension I10 Hyperlipidemia E78.5 Hypothyroidism E03.9 Gastroesophageal reflux disease K21.9 Osteoporosis M81.0 Vitamin D deficiency E55.9 Anxiety F41.9 Depression F32.9 DVT prophylaxis Z29.9 (1) Fracture, humerus closed Encounter type: initial encounter Fracture alignment: displaced Fracture morphology: other fracture Humerus Location: proximal Laterality: left Qualified Code(s): S42.292A - Other displaced fracture of upper end of left humerus, initial encounter for closed fracture (2) Syncope Syncope type: unspecified Qualified Code(s): R55 - Syncope and collapse
[2020-06-14] MEDS: CHOLECALCIFEROL 1,000 UNITS 25 MCG TAB PO SCH (22:00)
[2020-06-14] MEDS: ASPIRIN 81 MG ECTAB PO SCH (22:01)
[2020-06-14] MEDS: MIRABEGRON ER 25 MG TAB PO SCH (22:01)
[2020-06-14] MEDS: MIRTAZAPINE SOLTAB 15 MG PO SCH (22:01)
[2020-06-14] MEDS: LIDOCAINE 5% 1 PATCH TD SCH (22:02)
[2020-06-15] MEDS: LEVOTHYROXINE SODIUM 175 MCG TABLET PO SCH (06:15)
[2020-06-15 07:38] LABS: Hematocrit (blood only) 32.6 % (37-47); Hemoglobin 10.2 g/dL (12.0-16.0)
[2020-06-15 07:48] LABS: BUN Creatinine Ratio 19.4 (10-20); Calcium 8.6 mg/dl (8.5-10.1); Creatinine Clr Calc Pharmacy 82.3 ml/min; Est GFR (African American) 100.9; Potassium 4.6 mmol/L (3.5-5.1); Uric Acid 3.2 mg/dl (2.6-7.2)
[2020-06-15] MEDS: FERROUS SULFATE 325 MG TAB PO SCH (08:00)
[2020-06-15] MEDS: CALCIUM 600MG + VIT D 400 IU TAB PO SCH (08:00)
[2020-06-15] MEDS: CEROVITE ADV FORMULA TAB PO SCH (08:01)
[2020-06-15] MEDS: POTASSIUM CHLORIDE CRTAB 20 MEQ TABCR PO SCH (08:01)
[2020-06-15] MEDS: MAGNESIUM OXIDE 400 MG TAB PO SCH ×2 (08:01→11:37)
[2020-06-15] MEDS: buPROPion SR 150 MG TABCR PO SCH (08:01)
[2020-06-15] MEDS: lisinopril 40 MG TAB PO SCH (08:02)
[2020-06-15] MEDS: allopurinoL 300 MG TAB PO SCH (08:02)
[2020-06-15] MEDS: FEXOFENADINE HCL 180 MG TAB PO SCH (08:02)
[2020-06-15] MEDS: FLUTICASONE FUROATE 100MCG 14 PUFFS/INHALER INH SCH (08:03)
[2020-06-15] MEDS: LOPERAMIDE HCL 2 MG CAP PO SCH ×2 (08:04→12:15)
[2020-06-15] MEDS: NYSTATIN POWDER 15GM BTL EXT SCH (08:05)
[2020-06-15] MEDS: INSULIN GLARGINE SOLOSTAR 100 UNITS/ML 3 ML PEN SC SCH (08:06)
[2020-06-15] MEDS: INSULIN ASPART 100 UNITS/ML 3 ML PEN SC SCH ×2 (08:07→11:47)
[2020-06-15] MEDS: PANTOprazole 40 MG TAB PO SCH (09:24)
[2020-06-15] MEDS: COLESTIPOL HCL 1 GM TAB PO SCH (10:55)
--- NOTE | 2020-06-15 10:58 | Discharge Summary ---
Date of Service date of admission - June 04, 2020 date of discharge - June 15, 2020 Admission HPI Per Admitting Provider This is a 75 yo F with PMhx of HTN, HLD, GERD, asthma, anemia, DM II, hypothyroidism, peripheral neuropathy, osteoporosis, vit D deficiency, with hx of nephrolithiasis who presents after a fall sustained around 1pm. Patient was walking from the bottom of her basement steps upstairs and subsequently became lightheaded and dizzy and fell down backwards. She believes that this occurred around 1 PM, however laid on the ground for approximately 3 hours as she was home by herself. She feels quite sore, denies any acute focal areas of pain at this point. She cannot recall the event itself very well. Her is present at bedside and states that she typically helps with laundry going up and down the basement stairs once every 2 weeks. Patient admits to having history of UTIs and kidney stones, but denies any increased frequency, dysuria, hematuria recently. She wears a brief at all times and changes it 4 times per day. She reports her diet has been fine, no changes in intake and felt well prior to this event. She notes that 13 days ago was at dinner with a family member who 2 days after her exposure tested positive for Covid. She denies any respiratory symptoms, afebrile, no diarrhea and has since been isolating at home and symptom monitoring. Principal Diagnosis 1. syncope/fall, likely 2nd to SVT. 2. fall with multiple injuries including left humerus fracture & left-sided rib fractures. Discharge Exam Constitutional + obese; no acute distress and no altered mental status ENMT external ear and nose normal, oropharynx normal Respiratory normal respiratory effort, lungs clear to auscultation Cardiovascular Rate/Rhythm: regular rate and regular rhythm Heart Sounds: normal S1 and normal S2; no murmur Vessels: posterior tibial pulses present and dorsalis pedis pulses present; no JVD Extremities: no edema Gastrointestinal (Abdomen) normal bowel sounds, soft, nontender, no hepatosplenomegaly Musculoskeletal left arm in sling Psychiatric A+Ox3, euthymic affect Discharge Data Allergies Allergy/AdvReac Type Severity Reaction Status Date / Time animal dander Allergy Mild Sneezing Verified 06/04/20 18:46 hyde Allergy Mild Verified 06/04/20 18:46 pollen extracts Allergy Mild sneezing Verified 06/04/20 18:46 cigarette smoke Allergy sneezing Verified 06/04/20 18:46 naproxen Allergy Rash Verified 06/04/20 18:46 [place]ations [facility] [place] [facility] [place], OT Procedures Performed Operation Date: 06/09/20 08:30 Actual Procedures p EPS + Ablation for SVT Flutter - Abad Alcantara MD s Ultrasound Vascular Access - Abad Alcantara MD s Drug Stimulation - Abad Alcantara MD Ordered Studies 06/04/20 17:38 CT cervical spine wo con Stat - no fractures CT head/brain wo con Stat - no fractures, no ICH, no stroke 06/04/20 18:46 CT abd pelvis IV con only Stat IMPRESSION: 1. No acute intra-abdominal or pelvic findings. No evidence of acute intra- abdominal or pelvic injury 2. No evidence of bowel obstruction. No evidence of free air 3. Bilateral nephrolithiasis. No hydronephrosis 4. No acute inflammatory changes Rib series - IMPRESSION: 1. Acute appearing mildly displaced left seventh and eighth rib fractures. No pneumothorax. 2. No significant change in a proximal left humeral fracture. Left humerus - IMPRESSION: Acute proximal humeral fracture. No evidence of dislocation. Echocardiogram - * EF 55-60% * grade 1 diastolic dysfunction * no significant valvular disease Hospital Course (1) SVT (supraventricular tachycardia): On the morning of 06/06/20 the patient had SVT with rates in the 180s. She had associated lightheadedness/palpitations with the SVT. [facility] [place] that the SVT could have caused her recent syncopal event when she fell down her stairs. Thus, Dr Abad Alcantara performed ablation procedure on 06/09/20. A fast/slow tract AVN re-entry circuit was found with successful ablation. Post-ablation she remained stable on telemetry. She had no recurrent SVT episodes. (2) Syncope: Most likely cause was SVT. Echo with preserved EF. No evidence of acute [place]/ACS during this hospitalization. No infectious issue was ever found leading to her syncope. Fortunately cervical spine CT, CT abd/pelvis, tibia/fibula films etc were negative for acute findings. HOWEVER, patient did suffer a left humerus fracture and left-sided rib fractures x 2. (3) Acute blood loss anemia: 2nd to extensive soft tissue injury in setting of syncope and then a fall backwards on a flight of steps at home on day of admission. Hb at presentation was 12.4, falling into the high 8's/low 9's. She never required PRBCs. Discharge Hb level was 10.2. Advised supplementation with ferrous sulfate 325mg BID. (4) Rib fractures: as seen on rib series left, x 2 (7th, 8th) lidoderm patches heat pain meds prn (5) Acute hyponatremia: Sodium 128 on admission Sodium 133 on day of discharge can't rule out hyponatremia contributing to her syncope pre-hospitalization (6) Fracture, humerus closed: Left [facility] Othoped[facility] consulted -- nonoperative management advised Continue sling, NWB left arm Dr. Alexei Lazo recommended patient be upright or have HOB > 30 degrees to promote better anatomical positioning of left arm follow up with Dr. Lazo in office 2-3 weeks post-d/c 25-OH vit D level earlier this year was wnl (7) Type 2 diabetes mellitus: required lantus/novolog while here. at discharge her metformin and glimepiride were resumed in halima of insulin, however. (8) Hypertension: controlled continue lisinopril 40 mg daily (9) Hyperlipidemia: continue colestipol (10) Hypothyroidism: continue levothyroxine 175 mcg daily TSH 12/2019 wnl (11) Gastroesophageal reflux disease: continue PPI (12) Osteoporosis: Continue vitamin D and calcium supplementation 25-OH vit D level 12/2019 was wnl (13) Vitamin D deficiency: continue supplementation previous level 12/2019 wnl (14) Anxiety: (15) Depression: continue Wellbutrin Total Time Total Time Spent Total Time Spent (In Minutes): 45 Total Time Includes: Examination of the Patient, Discharge Planning, Medication Reconciliation and Communication With Other Providers Discharge Plan Discharge Items Patient Disposition: Transfer Nursing Home Fac Reason For Visit: FALL Discharge Diagnosis: 1. Left Proximal Humerus Fracture 2. Left-sided rib fractures x 2 3. SVT, s/p ablation procedure by Dr Abad Alcantara 4. Syncope - likely due to #3 5. hyponatremia - improved; discharge Na level 133 Condition on Discharge: Good Goals: improve strength and mobility Activity: Per Instructions section Lifting Comment: Left arm sling at all times. Bathing: No limitations Exercise/Sports: Gradually increase as tolerated Weightbearing Comment: NWB to the left arm Non-emergency contact: Primary Care Provider and Surgeon Call non-emergency contact if: you have any medication questions, your symptoms worsen, your pain is not controlled and you have a fever Follow-up/Referrals: Placido Garcia MD [Primary Care Provider] - (see Dr Garcia after d/c from [facility] ) Placido Alcantara MD [Physician] - (see Dr Alcantara in 2 weeks - dx - recent ablation procedure for SVT) Alexei Lazo MD [Physician] - (call for appointment. Need to see 2-3 weeks from injury date.) Diet: Carb Consistent or DM2 and Heart Healthy Addtl Attending Provider Instructions: Medications: ULTRAM: take as needed for left shoulder pain from fracture and rib fractures Fall resulting in left humerus fracture, see instructions below, follow up with Dr. 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 Alcantara in 2 weeks Heat as needed to left ribs/back Repeat CBC and BMP in 3-4 days for stability Addtl Trial Consultant Provider Instructions: ORTHOPEDICS: Fall resulting in a pathological fracture of the left proximal humerus secondary to osteoporosis *Sling to left upper extremity *Ice as needed to shoulder for pain and swelling *Pain medication as needed *Avoid weightbearing to left upper extremity, no lifting left upper extremity *Follow-up with patient's orthopedic doctor Dr. Lazo 2-3 weeks from injury date Pending Studies at Discharge: No Stand-Alone Forms: My [facility] [employer] Skilled Items Patient informed of condition?: Yes DNR: No Discharge Level of Care: Skilled Communicable Disease: No Discharge Prognosis: Stable Lines: None Urinary Catheter: No Medications and DC Order Prescriptions: New lidocaine 5 % Adhesive Patch,Medicated 3 patch transdermal HS Qty: 60 RF: 0 tramadol 50 mg tablet 50 mg PO Q6H PRN (Reason: pain) Qty: 30 RF: 0 Continued (DME) Accu-Chek Christy Plus test strp strip See Dose Instructions .ROUTE .MEDSUPPLY Qty: 10 RF: 0 fexofenadine [Sarah Allergy] 180 mg tablet 180 mg PO QAM RF: 0 aspirin 81 mg tablet,delayed release (DR/EC) 81 mg PO QPM RF: 0 turmeric root extract 500 mg capsule 500 mg PO QDL RF: 0 albuterol sulfate [Ventolin HFA] 90 mcg/actuation HFA aerosol inhaler 2 puffs INH QID PRN (Reason: asthma) Qty: 18 RF: 5 colestipol 1 gram tablet 1 gm PO DAILY Qty: 90 RF: 3 nystatin 100,000 unit/gram powder 1 appln TOP BID Qty: 60 RF: 0 alendronate [Fosamax] 70 mg tablet 70 mg PO WEEKLY Qty: 4 RF: 5 magnesium oxide 400 mg (241.3 mg magnesium) tablet 400 mg PO QID 90 Days Qty: 360 RF: 3 cholecalciferol (vitamin D3) 2,000 unit capsule 2,000 units PO PM RF: 0 meloxicam 15 mg tablet 15 mg PO QAM PRN (Reason: Osteoarthritis) Qty: 30 RF: 2 bupropion HCl 150 mg tablet sustained-release 12 hr 150 mg PO BID Qty: 180 RF: 3 allopurinol 300 mg tablet 300 mg PO QAM Qty: 30 RF: 5 trospium 60 mg capsule,extended release 24hr 60 mg PO QAM Qty: 30 RF: 2 PreserVision AREDS [id number] ahwh-in-ywax Capsule 1 cap PO BID RF: 0 diclofenac sodium [Voltaren] 1 % Gel 2 g TOPICAL BID PRN (Reason: Pain) RF: 0 Myrbetriq 25 mg Tablet Extended Release 24 Hr 25 mg PO PM RF: 0 metformin 500 mg tablet 1,000 mg PO BID RF: 0 glimepiride 4 mg tablet 4 mg PO PM RF: 0 omeprazole 20 mg capsule,delayed release(DR/EC) 20 mg PO QAM RF: 0 lisinopril 40 mg tablet 40 mg PO QAM RF: 0 levothyroxine 175 mcg capsule 175 mcg PO QAM RF: 0 loperamide 2 mg Tablet 4 mg PO QID Qty: 60 RF: 0 calcium carbonate-vitamin D3 [Calcium 600 + D(3)] 600 mg(1,500mg) -400 unit Tablet 1 tab PO BID RF: 0 Asmanex Twisthaler 220 mcg (120 doses) aerosol powdr breath activated 1 puffs INH QAM RF: 0 mirtazapine 45 mg tablet 45 mg PO HS RF: 0 Changed ferrous sulfate 325 mg (65 mg iron) tablet 325 mg PO BID Qty: 60 RF: 0 Discharge Orders: Discharge Order (Routine); Ordered 06/15/20 Ordered By: Haroldo Oquendo/Other Patient Handouts: Managing Type 2 Diabetes Admission Data Admit Date/Time: 06/04/20 20:19 Attending Provider: Haroldo Karimi Admit Provider: Hunter Brody Primary Care Provider: Placido Garcia Other Providers: Hunter Brody ; Trevor Burns ; Khoi Arriola ; [employer] [facility] ; Alexei Lazo ; [facility] ; Ruby Maria [facility] Other Interventions: Discharge Summary Assessment (RN) Last Done: 06/15/20 10:56 Coding Level of Care Code D/C Day Management >30 mins Diagnoses SVT (supraventricular tachycardia) I47.1 Syncope R55 Syncope type: unspecified Acute blood loss anemia D62 Rib fractures S22.39XA Acute hyponatremia E87.1 Fracture, humerus closed S42.292A Encounter type: initial encounter Fracture alignment: displaced Fracture morphology: other fracture Humerus Location: proximal Laterality: left Type 2 diabetes mellitus E11.9 Hypertension I10 Hyperlipidemia E78.5 Hypothyroidism E03.9 Gastroesophageal reflux disease K21.9 Osteoporosis M81.0 Vitamin D deficiency E55.9 Anxiety F41.9 Depression F32.9
--- NOTE | 2020-06-28 11:40 | Coding Query ---
To promote full compliance with coding requirements relating to patient care, physician participation is requested in all cases of dining room server uncertainty. Please assist us with the question(s) below: Coding Question(s): 1. It was noted throughout the record that the patient has/is suspected to have osteoporosis. According to coding guidelines "a code for osteoporotic fracture, and not a traumatic fracture, should be used for any patient with known osteoporosis who suffers a fracture, even if the patient had a minor fall or trauma, if that fall or trauma would not usually break a normal, healthy bone.". The Orthopedic Consultation documents, "Fall resulting in a pathological fracture of the left proximal humerus secondary to osteoporosis.". Please specify below, in your clinical opinion. Please indicate below the type of fracture: Physician's Response(s): ( x ) Osteoporotic fracture of Left Proximal Humerus ( ) Traumatic fracture of Left Proximal Humerus ( ) Other, please specify ( ) Unable to be determined 2. It was noted throughout the record that the patient has/is suspected to have osteoporosis. According to coding guidelines "a code for osteoporotic fracture, and not a traumatic fracture, should be used for any patient with known osteoporosis who suffers a fracture, even if the patient had a minor fall or trauma, if that fall or trauma would not usually break a normal, healthy bone.". Documentation of left sided rib fractures begin on 06/13/20. Please indicate below the type of fracture: Physician's Response(s): ( ) Osteoporotic fracture of Left Ribs ( x ) Traumatic fracture of Left Ribs ( ) Other, please specify ( ) Unable to be determined Please also indicate below the POA (present on admission status) of the Left Sided Rib Fractures: ( x) LIKELY POA ( ) Not POA ( ) Unknown if POA MTDD
== END 2020-06-15 13:36 | DRG 274 ==
LOC: ED 17:22 → 2N 20:19 → SUATTDRO 20:19 → 2N 21:01 → 2S 06-06 09:31

== ENCOUNTER 2022-01-01 08:05 | Observation (INO) ==
--- NOTE | 2021-12-27 13:22 | Anesthesiology Consultation ---
Date of Service December 27, 2021 Assessment & Plan (1) Encounter for pre-operative examination: Chart Review Chart Review: Acceptable Risk for Surgery and Patient NOT seen in Pre Admission Testing Consults Requested none History Surgery Operation Date: 12/20/21 08:50 Proposed Procedures p Left Breast Lumpectomy with Localization with [place] Lymph Node Biopsy - Christian Ortiz DO, FACS Operation Date: 01/01/22 09:30 Proposed Procedures p Left Breast Mastectomy with Left Axillary [place] Lymph Node Biopsy - Christian Ortiz DO, FACS Height/Weight Height: 5 ft 4 in Weight: 95.254 kg Allergies Allergy/AdvReac Type Severity Reaction Status Date / Time animal dander Allergy Mild Sneezing Verified 12/27/21 11:17 cigarette smoke Allergy Mild sneezing Verified 12/27/21 11:17 hyde Allergy Mild Sneezing Verified 12/27/21 11:17 naproxen Allergy Mild Rash Verified 12/27/21 11:17 pollen extracts Allergy Mild sneezing Verified 12/27/21 11:17 Medications Home Medications Medication Instructions Recorded Confirmed Last Taken albuterol sulfate 90 mcg/actuation 2 puffs INH QID PRN #18 gm 12/30/18 12/27/21 11/18/21 aerosol inhaler (Ventolin HFA) aspirin 81 mg tablet,delayed 81 mg PO QPM 12/30/18 12/27/21 11/13/21 release blood sugar diagnostic (Accu-Chek #10 ea 12/30/18 12/21/21 Unknown Christy Plus test strp) fexofenadine 180 mg tablet 180 mg PO DAILYBL 12/30/18 12/27/21 11/20/21 08:00 (Sarah Allergy) calcium carbonate 600 mg-vitamin 1 tab PO BID 01/21/19 12/27/21 11/20/21 08:00 D3 10 mcg (400 unit) tablet (Calcium 600 + D(3)) mometasone (Asmanex Twisthaler) 1 puffs INH QAM 01/21/19 12/27/21 11/19/21 08:00 mirtazapine 45 mg tablet 45 mg PO HS 02/11/19 12/27/21 11/19/21 20:00 cholecalciferol (vitamin D3) 50 2,000 units PO PM cap 04/09/19 12/27/21 11/20/21 08:00 mcg (2,000 unit) capsule magnesium oxide 400 mg (241.3 mg 400 mg PO QID 90 Days #360 tab 02/16/20 12/27/21 11/20/21 08:00 magnesium) tablet bupropion HCl 150 mg tablet,12 hr 150 mg PO BID #180 ea 04/12/20 12/27/21 11/20/21 08:00 sustained-release vitamins A,C,V-ymfe-qhzors 14,320 1 cap PO BID 06/04/20 12/27/21 11/20/21 08:00 unit-226 mg-200 unit capsule (PreserVision AREDS) meloxicam 15 mg tablet 15 mg PO QAM PRN #14 tab 02/02/21 12/27/21 Unknown loperamide 2 mg tablet 4 mg PO QID PRN #60 tab 03/29/21 12/27/21 Unknown nystatin 100,000 unit/gram topical 1 applic TOP BID #60 gm 04/27/21 12/27/21 Unknown powder glimepiride 4 mg tablet 4 mg PO BID #180 tab 05/30/21 12/27/21 11/19/21 17:00 allopurinol 300 mg tablet 300 mg PO QAM #90 tab 09/19/21 12/27/21 11/20/21 08:00 CPAP Machine See Rx Instructions .ROUTE 10/12/21 12/27/21 Unknown .COMPLEX #1 ea alendronate 70 mg tablet (Fosamax) 70 mg PO WEEKLY #12 tab 10/17/21 12/27/21 11/13/21 metformin 500 mg tablet 1,000 mg PO BID #360 tab 11/14/21 12/27/21 11/19/21 17:00 amlodipine 10 mg tablet 10 mg PO QAM 11/16/21 12/27/21 11/20/21 08:00 colestipol 1 gram tablet 1 g PO QAM 11/16/21 12/27/21 11/19/21 12:00 hydrochlorothiazide 12.5 mg capsule 12.5 mg PO QAM 11/16/21 12/27/21 11/20/21 08:00 losartan 50 mg tablet 50 mg PO QAM 11/16/21 12/27/21 11/20/21 08:00 mirabegron 50 mg tablet,extended 50 mg PO HS 11/16/21 12/27/21 11/19/21 20:00 release 24 hr (Myrbetriq) pantoprazole 40 mg tablet,delayed 40 mg PO QAM 11/16/21 12/27/21 11/20/21 08:00 release trospium 60 mg capsule,extended 60 mg PO QAM 11/16/21 12/27/21 11/19/21 08:00 release 24 hr amoxicillin 500 mg tablet 2,000 mg PO ONCE #4 tab 11/21/21 12/27/21 Unknown buspirone 5 mg tablet 5 mg PO TID 12/01/21 12/27/21 Unknown levothyroxine 175 mcg capsule 175 mcg PO .COMPLEX #90 cap 12/13/21 12/27/21 Unknown fluconazole 150 mg tablet 150 mg PO Q3D PRN 12/27/21 12/27/21 Unknown Past Medical History Medical History Anxiety Asthma controlled w/ inhalers Depression Diabetes mellitus, type 2 Environmental allergies Fracture, humerus closed HX- fell and fx GERD (gastroesophageal reflux disease) Gout was seen and treated [place] prednisone 1 week ago. History of COVID-19 08/23/2021 runny nose and aches History of diverticulitis History of kidney stones Hx of intestinal obstruction Hyperlipidemia Hypertension Hypothyroidism Invasive ductal carcinoma of left breast Macular degeneration both Osteoporosis Seasonal allergies Type 2 diabetes mellitus Past Family History Family History Father Family history of diabetes mellitus Alcohol abuse Cardiac disorder Diabetes Hypertension Myocardial infarction Grandmother (Paternal) Family history of diabetes mellitus Grandmother (Maternal) Family history of diabetes mellitus Breast cancer Sister Family history of diabetes mellitus Mother Anxiety Depression Lung disease Brother Colonic polyp Denies family history of Ovarian cancer Prostate cancer Colorectal cancer Past Surgical History Surgical History H/O cardiac radiofrequency ablation 2019-DONE [facility]- HAS NOT FOLLOWED UP W/ SINCE ABLATION -NO ISSUES SINCE H/O colonoscopy 2021 History of bowel resection History of cholecystectomy also had appy at same surgery Hx of appendectomy Hx of cataract extraction both eyes Hx of hernia repair Hx of lithotripsy Hx of tubal ligation S/P tonsillectomy Status post right knee replacement Social History Smoking Status: Never smoker Do You Dip or Chew Tobacco: No Hx Alcohol Use: No Alcohol type: wine alcohol intake frequency: holidays/special occasions only Hx Substance Use: No substance use type: does not use Testing Electrocardiogram Date: 12/22/21 Findings: + NSR @ (1st degree AV block) Echocardiogram Date: 06/06/20 EF: 55 LV Function: normal Valvular Disease: + no significant valvular disease
[~2022-01-01 08:05] MED LIST changes: -ACETAMINOPHEN 500 MG TAB PO SCH; -BUPIVACAINE LIPOSOME/PF 266 MG, BUPIVACAINE/EPINEPHRINE 50 ML, SODIUM CHLORIDE 0.9% 30 ... INFIL SCH; -CEFAZOLIN 2000MG 2,000 MG/15 ML SYR IV SCH; -FAMOTIDINE 20 MG TAB PO SCH; -GABAPENTIN 300 MG CAP PO SCH; +LR 15ML/HR IV SCH; -LR 500ML BOLUS, THEN 15ML/HR IV SCH; -LR 60ML/HR IV SCH; -METOCLOPRAMIDE HCL 10 MG TABLET PO SCH; -TRANEXAMIC ACID 1,000 MG **IV Pre-op IV SCH
[2022-01-01] MEDS ORDERED: ISOSULFAN BLUE 10 MG/ML VIAL 5 ML ONE (09:57)
[2022-01-01] MEDS ORDERED: BUPIVACAINE 0.5 % 5 MG/1 ML MPF 30ML VIAL ONE (09:57)
--- NOTE | 2022-01-01 10:06 | Nuclear Medicine Report ---
LYMPHOSCINTIGRAPHY CLINICAL HISTORY: Left breast cancer. PROCEDURE: Using standard sterile technique, 4 intradermal periareolar and one deep injection of 481. 76 mCi of Lymphoseek was placed in the left breast. The patient tolerated the procedure well. There w ere no immediate complications. The patient was imaged at 15 minutes following the injection and a le ft axillary node was marked for the surgeon. The patient was subsequently transported to the surgical suite. IMPRESSION: Injection of 481.76 mCi of Lymphoseek into the left breast as above. ACT 112: Negative or not required by law. Electronically signed by: Zain Dasilva M.D. 01/01/2022 10:05 AM
--- NOTE | 2022-01-01 10:52 | History & Physical Bridge Note ---
Date of Service January 01, 2022 History & Physical Bridge Note I have examined the patient, reviewed the History & Physical and in the interval since the performance of the History & Physical I have noted the following changes of clinical significance: [place] node injection. no changes noted
[2022-01-01] MEDS ORDERED: ONDANSETRON INJ 2 MG/ML 2 ML VIAL IV PRN ×2 (11:34→15:55)
[2022-01-01] MEDS ORDERED: FLUMAZENIL 0.1 MG/1 ML 10 ML VIAL IV PRN (11:34)
[2022-01-01] MEDS ORDERED: NALOXONE HCL 0.4 MG/1 ML VIAL/CARP IV PRN (11:34)
[2022-01-01] MEDS ORDERED: ATROPINE SULFATE 0.1 MG/ML 10ML SYR IV PRN (11:34)
[2022-01-01] MEDS ORDERED: LABETALOL HCL IV 5 MG/ML 20ML IV PRN (11:34)
[2022-01-01] MEDS ORDERED: PROMETHAZINE HCL 12.5 MG in SODIUM CHLORIDE 0.9% 50 ML IV PRN (11:34)
[2022-01-01] MEDS ORDERED: ePHEDrine sulfate 50 MG/ML AMP IV PRN (11:34)
[2022-01-01] MEDS ORDERED: PROPOFOL IV EMULSION 10 MG/ML 20 ML VIAL IV ONE (11:46)
[2022-01-01] MEDS ORDERED: MIDAZOLAM HCL 1 MG/ML 2ML VIAL ONE (11:48)
[2022-01-01] MEDS ORDERED: fentaNYL citrate 100 MCG/2 ML VIAL ONE ×2 (11:49→13:06)
[2022-01-01] MEDS: ceFAZolin 2000MG 2,000 MG/15 ML SYR IV SCH ×2 (11:51→12:19)
--- NOTE | 2022-01-01 14:02 | Post Operative Brief Note ---
PG Immediate Post Op with CF Date of Surgery January 01, 2022 Pre & Post Diagnosis Operation Date: 01/01/22 11:00 Pre-Op Diagnosis: Invasive Ductal Carcinoma of the Left Breast Post-Op Diagnosis: Invasive Ductal Carcinoma of the Left Breast I identified the patient and participated in the time-out.: Yes Procedure Operation Date: 01/01/22 11:00 Actual Procedures p Left Breast Mastectomy with Left Axillary [place] Lymph Node Biopsy(Left) - Christian Ortiz DO, FACS Surgeon Christian Ortiz DO, FACS Cemetery Manager Taylor Cotter Estimated Blood Loss 50 Findings Consistent with Post-Op Diagnosis Specimens Specimen Description: A. [place] Lymph Node B. Left Breast Mastectomy Short Stitch Superior, Long Stitch Lateral C. Left Inferior Skin Flap Drains [place]Romo Drain Anesthesia Type General Complications none Disposition Accompanied Patient To Recovery: No Disposition: Recovery Room
--- NOTE | 2022-01-01 14:12 | Operative Report ---
PG Post Operative Report Pre & Post Diagnosis Operation Date: 01/01/22 11:00 Pre-Op Diagnosis: Invasive Ductal Carcinoma of the Left Breast Post-Op Diagnosis: Invasive Ductal Carcinoma of the Left Breast I identified the patient and participated in the time-out.: Yes Procedure Operation Date: 01/01/22 11:00 Actual Procedures p Left Breast Mastectomy with Left Axillary [place] Lymph Node Biopsy(Left) - Christian Ortiz DO, ELOISA Surgeon Christian Ortiz DO, ELOISA Mica Spreader Taylor Cotter Estimated Blood Loss 50 Findings Consistent with Post-Op Diagnosis Single axillary sentinel node identified and removed. Axilla silent. Left breast simple mastectomy performed, good hemostasis. Healthy appearing flaps. Specimens Left axillary sentinel lymph node Left breast mastectomy Inferior skin flap Drains 10 mm VINAYAK drain in mastectomy bed Anesthesia Type General Complications none Disposition Accompanied Patient To Recovery: No Disposition: Recovery Room Indications 76-year-old female with invasive ductal carcinoma and extensive DCIS and atypical ductal hyperplasia. After discussion of her options we agreed to left breast mastectomy and sentinel lymph node biopsy. The risks of the procedure were discussed, all questions were answered, and the patient agreed to proceed with surgery as planned. Description of Procedure Patient had a sentinel lymph node injection performed prior to the procedure. Lymphoscintigraphy was performed and confirmed uptake in the axilla and the site was marked. The axilla was examined with a gamma probe in the operating room and confirmed uptake into the axilla. The patient was properly identified, consented, and taken to the operating room where she was placed in the supine position. General endotracheal anesthesia was induced. SCDs and a safety belt were placed. Preoperative antibiotics were administered. The patient's bilateral chest was prepped and draped in the standard sterile fashion. Surgical timeout was performed and all parties were in agreement that this was the correct patient and procedure to be performed and we continued as planned. An incision was made in the left axilla in a natural skin crease and deepened down to subcutaneous tissue with electrocautery. The gamma probe was used to localize the sentinel lymph node which read 650 ex vivo. The axilla was explored with the gamma probe and was silent. The wound was irrigated and hemostasis was good. The wound was packed and attention turned to the breast lesion. A transversely oriented elliptical incision was made over the left breast to encompass the nipple areolar complex. This was deepened down through the subcutaneous tissue with electrocautery. Flaps were then raised in all directions. The dissection continued from the sternum medially to the clavicle superiorly to the serratus muscle inferiorly and to the latissimus dorsi laterally including the axillary tail. Once the dissection was completed the breast tissue and fascia was lifted off the pectoralis muscle from medial to lateral. Specimen was removed, oriented, and passed off the table. The wound was irrigated and hemostasis was confirmed. There was redundant skin tissue and an inferior skin flap was removed. A 10 mm VINAYAK drain was then placed in the mastectomy bed and exited through a separate incision. This was secured into place with a 2-0 nylon suture. The skin of both incisions was closed with interrupted 3-0 Vicryl deep dermal sutures, followed by 4-0 Monocryl running subcuticular suture. Dermabond was placed over the wounds. Drain sponge was placed. Fluffed gauze, an ABD, and an Med wrap was placed. The patient was extubated in the operating room and taken to the PACU where she recovered without apparent incident. All sponge, instrument and needle counts were correct at the conclusion of the procedure. The patient tolerated the procedure well. The physician's evaluation assistant was present and scrubbed for the entirety of the case. She was critical in positioning the patient, prepping and draping, retraction and exposure, removal of the breast tissue, closure the incisions, and placement of dressings. I attest to the content of the Intraoperative Record and any orders documented therein. Any exceptions are noted below.
--- NOTE | 2022-01-01 14:13 | XRay Report ---
SINGLE VIEW CHEST CLINICAL HISTORY: Breast surgery. Incomplete instrument count. FINDINGS: An AP, portable, supine chest radiograph is compared to study dated 12/22/2021. A surgical d rain projects over the left lower chest. The heart is top normal for projection noting atheroscleroti c calcification of the thoracic aorta. The pulmonary vasculature is noncongested. Chronic interstitia l thickening is similar to previous. There is bibasilar scarring/atelectasis. No airspace consolidati on or large pleural effusion is identified. No pneumothorax is seen. The skeletal structures are oste openic. The bony thorax is grossly intact. Soft tissue gas projects over the left chest wall. Surgica l clips are seen in the right upper quadrant. IMPRESSION: 1. There is no radiographic evidence of retained surgical implement. 2. A surgical drain projects over the left lower chest and soft tissue gas or on the left chest wall is expected postoperative finding. 3. There is no airspace consolidation or large pleural effusion. ACT 112: Negative or not required by law. Electronically signed by: Zain Dasilva M.D. 01/01/2022 2:10 PM
[2022-01-01] MEDS: fentaNYL citrate 100 MCG/2 ML VIAL IV PRN ×3 (14:38→14:55)
--- NOTE | 2022-01-01 15:16 | Anesthesiology Progress Note ---
Date of Service January 01, 2022 Anesthesia Post Procedure Vital Signs Vital Signs: Temp Pulse Pulse Resp BP Pulse Ox 01/01/22 15:10 36.2 C L 83 18 130/95 93 01/01/22 15:00 83 20 149/74 H 93 01/01/22 14:50 80 18 152/72 H 95 01/01/22 14:40 79 18 116/82 99 01/01/22 14:30 78 24 128/79 100 01/01/22 14:20 76 20 145/76 H 100 01/01/22 14:16 36.0 C L 77 24 146/69 H 99 01/01/22 09:41 36.9 C 98 H 18 157/73 H 97 Pain Intensity Left Breast: Pain Intensity: 3 Transfer of Care Handoff Completed per policy Notes Mental Status: alert / awake / arousable Patient Amnestic to Procedure: Yes Nausea / Vomiting: adequately controlled Pain: adequately controlled Airway Patency, RR, SpO2: stable & adequate BP & HR: stable & adequate Hydration State: stable & adequate Anesthetic Complications: no major complications apparent
[2022-01-01] MEDS ORDERED: GLUCOSE 10 TABS/TUBE PO PRN (15:55)
[2022-01-01] MEDS ORDERED: GLUCAGON FOR INJ 1 MG VIAL SQ PRN (15:55)
[2022-01-01] MEDS ORDERED: MoRPHine SULFATE 2 MG/ML CARP IV PRN (15:55)
[2022-01-01] MEDS ORDERED: PHARMACY GLYCEMIC MGMT CONSULT PRN (15:55)
[2022-01-01] MEDS ORDERED: CARBOHYDRATES FOR HYPOGLYCEMIA PO PRN (15:55)
[2022-01-01] MEDS ORDERED: DEXTROSE 50% 50 ML SYRINGE IV PRN (15:55)
[2022-01-01] MEDS ORDERED: oxyCODONE HCL IR 5 MG TAB (IMMEDIATE RELEASE) PO PRN ×2 (15:55)
[2022-01-01] MEDS ORDERED: ALBUTEROL HFA 8 GM INHALER INH PRN (15:55)
[2022-01-01] MEDS ORDERED: NON-FORMULARY MEDICATION (Cpap Machine misc) SCH (15:55)
[2022-01-01] MEDS ORDERED: GLUCOSE 40% GEL 15 GM TUBE PO PRN (15:55)
[2022-01-01] MEDS ORDERED: MoRPHine SULFATE 4 MG/ML 1 ML CARP\\VIAL IV PRN (15:55)
[2022-01-01] MEDS: LACTATED RINGER'S 1,000 ML IV SCH (16:23)
[2022-01-01] MEDS: INSULIN ASPART PER UNIT SC SCH ×3 (17:48→23:57)
[2022-01-01] MEDS: ACETAMINOPHEN 325 MG TAB PO PRN (17:49)
[2022-01-01] MEDS ORDERED: MIRABEGRON ER 25 MG TAB PO SCH (21:00)
[2022-01-01] MEDS ORDERED: MIRTAZAPINE SOLTAB 15 MG PO SCH (21:00)
[2022-01-01] MEDS: busPIRone 5 MG TAB PO SCH (21:49)
[2022-01-01] MEDS: buPROPion SR 150 MG TABCR PO SCH (21:49)
[2022-01-01] MEDS: NYSTATIN POWDER 15GM BTL EXT SCH (21:53)
[2022-01-02] MEDS ORDERED: COUGH DROP (SUGAR FREE) LOZ 24 LOZ/1 BOX BUCCAL ONE (03:47)
[2022-01-02] MEDS: LACTATED RINGER'S 1,000 ML IV SCH (03:49)
[2022-01-02] MEDS: INSULIN ASPART PER UNIT SC SCH ×3 (04:00→12:44)
[2022-01-02] MEDS ORDERED: LEVOTHYROXINE SODIUM 175 MCG TABLET PO SCH (06:30)
[2022-01-02 07:09] LABS: Basophils # (auto) 0.02 K/uL (0-0.2); Basophils % (auto) 0.2 %; Eosinophils # (auto) 0.11 K/uL (0-0.5); Eosinophils % (auto) 1.2 %; Hematocrit (blood only) 33.3 % (37-47); Immature Granulocytes # (auto) 0.02 K/uL (0.00-0.02); Immature Granulocytes % (auto) 0.2 %; Lymphocytes # (auto) 2.19 K/uL (1.2-3.4); Lymphocytes % (auto) 23.6 %; Mean Corpuscular Hemoglobin 31.3 pg (25-34); Mean Corpuscular Volume 94.6 fL (80-100); Mean Platelet Volume 8.9 fL (7.4-10.4); Monocytes # (auto) 1.23 K/uL (0.11-0.59); Monocytes % (auto) 13.2 %; Neutrophils # (auto) 5.72 K/uL (1.4-6.5); Neutrophils % (auto) 61.6 %; Platelet Count 222 K/uL (130-400); RDW Coefficient of Variation 13.9 % (11.5-14.5); RDW Standard Deviation 48.2 fL (36.4-46.3); Red Blood Count 3.52 M/uL (4.2-5.4); White Blood Count 9.29 K/uL (4.8-10.8)
[2022-01-02 07:22] LABS: Estimated Average Glucose 154 mg/dl
[2022-01-02 07:35] LABS: BUN Creatinine Ratio 19.2 (10-20); Calcium 8.5 mg/dl (8.5-10.1); Creatinine Clr Calc Pharmacy 104.6 ml/min; Est GFR (African American) 108.3 ml/min; Est GFR (Non-African American) 93.5 ml/min; Potassium 3.5 mmol/L (3.5-5.1)
--- NOTE | 2022-01-02 07:59 | Surgery Progress Note ---
Date of Service January 02, 2022 Assessment & Plan (1) Invasive ductal carcinoma of left breast: Plan: POD#1 Left breast mastectomy with sentinel lymph node biopsy WBC 9.2, Hbg 11. VSS VINAYAK drain ~60cc documented Wounds are c/d/i with dermabond glue overtop, no signs of infection Plan for discharge to home today with drain. RN to perform drain teaching She is to call the office on Saturday with drain output and f/u in about [address] Ortiz Dispo instructions reviewed, may continue DANNY bandage with gauze padding or a compressive bra at home Admission and Anticipated Discharge Date Admission Date: January 01, 2022 Subjective Patient is feeling well. Noticing a little bit more pain this AM, but it has been tolerable with tylenol. She is eating. Physical Exam Physical Exam: awake/alert Chest (Breasts): Additional Comments: L breast & L axillary wound c/d/i with dermabond overtop. gauze dressing with danny bandage overtop. VINAAYK drain with documented 60cc serosang output Results & Data ([facility]) Vital Signs (Past 12 Hours) Vital Signs Temp Pulse Pulse Resp BP Pulse Ox 01/02/22 07:44 37.0 C 89 18 144/75 H 92 01/02/22 03:46 36.8 C 90 20 114/66 91 01/01/22 22:24 36.8 C 83 16 107/63 94 PG Care Time/CCT Total # of Minutes Spent Total Time Spent with Patient: Total time spent is greater than 50% in coordination of care (as documented) at patient's floor/unit and/or counseling patient: Coding Level of Care Code None Diagnoses Invasive ductal carcinoma of left breast C50.912
[2022-01-02] MEDS: buPROPion SR 150 MG TABCR PO SCH (08:52)
[2022-01-02] MEDS: busPIRone 5 MG TAB PO SCH ×2 (08:52→14:35)
[2022-01-02] MEDS: NYSTATIN POWDER 15GM BTL EXT SCH (08:53)
[2022-01-02] MEDS ORDERED: CEROVITE ADV FORMULA TAB PO SCH (09:00)
[2022-01-02] MEDS ORDERED: allopurinoL 300 MG TAB PO SCH (09:00)
[2022-01-02] MEDS ORDERED: PANTOprazole 40 MG TAB PO SCH (09:00)
[2022-01-02] MEDS ORDERED: amLODIPine BESYLATE 5 MG TAB PO SCH (09:00)
[2022-01-02] MEDS: ACETAMINOPHEN 325 MG TAB PO PRN (09:02)
[2022-01-02] MEDS ORDERED: FEXOFENADINE HCL 180 MG TAB PO SCH (10:30)
--- NOTE | 2022-01-02 12:58 | Discharge Summary ---
Date of Service January 02, 2022 Principal Diagnosis invasive ductal carcinoma of left breast s/p left breast mastectomy Discharge Exam awake/alert, no distress Chest (Breasts) Additional Comments: left breast and axillary wounds are c/d/i, skin glue overtop incisions, no signs of infection Randell drain 60cc documented Discharge Data Allergies Allergy/AdvReac Type Severity Reaction Status Date / Time animal dander Allergy Mild Sneezing Verified 01/01/22 10:02 cigarette smoke Allergy Mild sneezing Verified 01/01/22 10:02 hyde Allergy Mild Sneezing Verified 01/01/22 10:02 naproxen Allergy Mild Rash Verified 01/01/22 10:02 pollen extracts Allergy Mild sneezing Verified 01/01/22 10:02 Procedures Performed Operation Date: 12/20/21 08:50 <No data on this case meets the specified criteria> Operation Date: 01/01/22 11:00 Actual Procedures p Left Breast Mastectomy with Left Axillary [place] Lymph Node Biopsy(Left) - Christian Ortiz, , FACS Ordered Studies 01/01/22 05:00 US - OR guided needle placemen Routine Hospital Course (1) Invasive ductal carcinoma of left breast: This is a 76yF who presented to the [facility] on [facility]22 for a scheduled L breast mastectomy and axillary sentinel lymph node biopsy for breast cancer. This was performed by Dr. Ortiz in the OR without event. See op note for full details. The patient recovered in the PACU and was sent to the med/surg floor for observation in stable condition. Post operatively the patient's diet was advanced, pain was controlled on prn medications, and wound remained c/d/i. On POD#1 she was given instructions on how to care for her RANDELL drain. It was putting out serosang. fluid and wounds looked well. Pain controlled. She was deemed stable for discharge to home with plans to call our office next week for follow up and drain check. Total Time Total Time Spent Total Time Spent (In Minutes): 10 Discharge Plan Discharge Items Patient Disposition: Home - Self-Care Reason For Visit: S/P L MASTECTOMY AND LYMPH NODE BIOPSY Discharge Diagnosis: left breast mastectomy sentinel lymph node biopsy Activity: Per Instructions section Lifting: No more than 10 pounds Bathing Comment: may shower; no soaking in tubs/pools Exercise/Sports: Wait until after follow-up appointment Driving/Machine Use: wait until pain free Non-emergency contact: Surgeon Call non-emergency contact if: you have any medication questions, your symptoms worsen, your pain is not controlled, your pain is concerning for you, you have a fever, your temperature is above 101.5, your wound has increased redness, your wound has increased drainage and your wound pain has increased Follow-up/Referrals: Abad Garcia MD [Primary Care Provider] - Christian Ortiz DO, FACS [Physician] - 01/16/22 9:00 am (Please call the office on 01/08/22, with the daily record of your drain output. You should follow up in the clinic otherwise in 1-2 weeks) Diet: Carb Consistent or DM2 Addtl Attending Provider Instructions: Please care for your surgical drains as you have been instructed prior to discharge from the hospital. Empty drain 2-3x/daily and record output. Please call Dr. Perdomo's office on 01/08/22, with the record of your daily drain outputs since discharge You should wear a compressive bra with gauze padding inside for comfort or continue to wear the Med bandage at home If you do not require the narcotic Percocet for pain you may take plain Tylenol purchased over the counter. Do not take Percocet and Tylenol concurrently as they both contain Acetaminophen and you should not exceed >3grams of Acetaminophen within a 24 hour time period. Pending Studies at Discharge: Yes Studies:: surgical pathology Stand-Alone Forms: [facility] Medications and DC Order Prescriptions: New oxycodone-acetaminophen [Percocet] 5-325 mg tablet 1 - 2 tab PO .q4-6h PRN (Reason: pain, for initial therapy, max 6 tabs per day) Qty: 12 RF: 0 Continued (DME) Accu-Chek Christy Plus test strp strip See Dose Instructions .ROUTE .MEDSUPPLY Qty: 10 RF: 0 fexofenadine [Sarah Allergy] 180 mg tablet 180 mg PO DAILYBL RF: 0 aspirin 81 mg tablet,delayed release (DR/EC) 81 mg PO QPM RF: 0 albuterol sulfate [Ventolin HFA] 90 mcg/actuation HFA aerosol inhaler 2 puffs INH QID PRN (Reason: asthma) Qty: 18 RF: 5 magnesium oxide 400 mg (241.3 mg magnesium) tablet 400 mg PO QID 90 Days Qty: 360 RF: 3 meloxicam 15 mg tablet 15 mg PO QAM PRN (Reason: Osteoarthritis) Qty: 14 RF: 0 allopurinol 300 mg tablet 300 mg PO QAM Qty: 90 RF: 3 metformin 500 mg tablet 1,000 mg PO BID Qty: 360 RF: 3 amoxicillin 500 mg tablet 2,000 mg PO ONCE Qty: 4 RF: 3 levothyroxine 175 mcg capsule 175 mcg PO .COMPLEX Qty: 90 RF: 3 glimepiride 4 mg tablet 4 mg PO BID Qty: 180 RF: 3 nystatin 100,000 unit/gram powder 1 applic TOP BID Qty: 60 RF: 3 CPAP Machine Misc See Rx Instructions .ROUTE .COMPLEX Qty: 1 RF: 0 buspirone 5 mg tablet 5 mg PO TID RF: 0 alendronate [Fosamax] 70 mg tablet 70 mg PO WEEKLY Qty: 12 RF: 3 cholecalciferol (vitamin D3) 2,000 unit capsule 2,000 units PO PM RF: 0 bupropion HCl 150 mg tablet sustained-release 12 hr 150 mg PO BID Qty: 180 RF: 3 loperamide 2 mg tablet 4 mg PO QID PRN (Reason: loose stool) Qty: 60 RF: 0 PreserVision AREDS [id number] Capsule 1 cap PO BID RF: 0 calcium carbonate-vitamin D3 [Calcium 600 + D(3)] 600 mg(1,500mg) -400 unit Tablet 1 tab PO BID RF: 0 Asmanex Twisthaler 220 mcg (120 doses) aerosol powdr breath activated 1 puffs INH QAM RF: 0 mirtazapine 45 mg tablet 45 mg PO HS RF: 0 losartan 50 mg tablet 50 mg PO QAM RF: 0 amlodipine 10 mg tablet 10 mg PO QAM RF: 0 pantoprazole 40 mg tablet,delayed release (DR/EC) 40 mg PO QAM RF: 0 hydrochlorothiazide 12.5 mg capsule 12.5 mg PO QAM RF: 0 colestipol 1 gram tablet 1 g PO QAM RF: 0 trospium 60 mg capsule,extended release 24hr 60 mg PO QAM RF: 0 Myrbetriq 50 mg tablet extended release 24 hr 50 mg PO HS RF: 0 Discharge Orders: Discharge Order (Routine); Ordered 01/02/22 Ordered By: Taylor Oquendo/Other Patient Handouts: Nutrition for Wound Healing, Managing Type 2 Diabetes, Mastectomy: After Surgery, Mastectomy: Healing at Home Admission Data Admit Date/Time: 01/01/22 14:21 Attending Provider: Christian Ortiz Admit Provider: Christian Ortiz Primary Care Provider: Abad Garcia Other Interventions: Discharge Summary Assessment (RN) Last Done: 01/02/22 12:22 Coding Level of Care Code D/C DAY MANAGEMENT <30 MINS Diagnoses Invasive ductal carcinoma of left breast C50.912
== END 2022-01-02 15:04 | disposition home or self-care (01) ==
LOC: 3N 08:05 → ASU 08:05

== ENCOUNTER 2024-07-14 12:04 | Inpatient (IN) ==
--- NOTE | 2024-07-14 14:13 | XRay Report ---
XR chest 1V portable CLINICAL HISTORY: Bacteremia. COMPARISON STUDY: Chest CT June 19, 2023. Chest radiograph May 24, 2022. FINDINGS: Lung volumes are normal. Lungs are clear. There is no pneumothorax or pleural effusion. Car diac size is normal. Mediastinal contours are normal. There is no evidence for pulmonary edema. An ol d, healed proximal left humeral fracture is incidentally noted. IMPRESSION: No acute cardiopulmonary findings. ACT 112: Negative or not required by law. Electronically signed by: Polo Christensen M.D. 07/14/2024 2:12 PM
--- NOTE | 2024-07-14 14:47 | History & Physical Report ---
Date of Service July 14, 2024 Assessment & Plan (1) Open wound of finger: Plan: Patient presented on 07/14 at the behest of her PCP after (+) outpatient blood culture for gram-positive cocci drawn on 07/13 Blood culture drawn due to lesions on her right second finger and right breast with concern for septic emboli Will complete workup for endocarditis On arrival, black lesions noted on the tip of the second right finger; patient reports these are not painful; ?Janeway lesions No leukocytosis; afebrile on arrival X-ray of the right fingers ordered as osteomyelitis is within differential Procalcitonin ordered, pending Repeat blood cultures ordered, pending Echocardiogram ordered, pending Will defer NOAH while repeat blood cultures pending Empiric vancomycin 1000 mg IV q12h DDx on arrival includes septic emboli, [place]ay lesion, psoriatic erythroderma, peripheral cyanosis secondary to Raynaud's syndrome, and osteomyelitis (among other etiologies) (2) Open wound of right breast: Plan: Patient reports purulent drainage from the lesion on her right breast No h/o MRSA infections to her knowledge She has been following with the wound care clinic for this M/W/F since April 2024 Daily wound care Wound care nurse consult appreciated (3) Hypomagnesemia: Plan: Continue repletion P.o. supplementation TID Hold Protonix for now (4) Diarrhea: Plan: Diarrhea times several weeks Patient reports she was on antibiotics (amoxicillin) for recent dental procedure She takes this due to history of knee replacement C. difficile/PCR stool ordered, pending (5) Diabetes mellitus, type 2: Plan: Last A1c at 5.3% on 06/12/2025 Hold Rybelsus, metformin SSI; with target BSG range 110-140mg/dL, CF 50, carb ratio 15 T2DM diet BSG ACHS Adjust regimen as needed (6) CAD (coronary artery disease): Plan: No history of heart stents Continue aspirin, atorvastatin, and metoprolol (7) Sleep apnea: Plan: Not currently on CPAP (8) Raynaud phenomenon: (9) Positive CAMELIA (antinuclear antibody): (10) Hypothyroidism: (11) Hx of gout: (12) Hyperlipidemia: (13) Bacteremia: Plan Disposition: Continued stay on PCU telemetry DNR/DNI Heart healthy, T2DM diet VTE PPx: Lovenox 40 mg SQ q24h Admission and Anticipated Discharge Date Admission Date: July 14, 2024 History of Present Illness Chief Complaint: Abnormal outpatient labs/diagnostic testing Primary Care Provider: Abad Garcia MD Chelsie is a 79-year-old female with PMH of HFpEF, CAD, sleep apnea, IPMN, chondrocalcinosis, mixed incontinence, asthma, T2DM, gout, HLD, celiac disease, and Raynaud's. She presented as a direct admit on 07/14 at the behest of Dr. Garcai out of concern for bacteremia after blood culture drawn on 07/13 grew gram-positive cocci in clusters. The patient had blood cultures drawn due to concern for wound/lesions on her right finger as well as her right breast. Patient has been going to the wound clinic outpatient since April for these lesions. They are dressed regularly on //. No pain in her right second finger; wound on the right third finger has largely healed. They have been applying Betadine at home to the wounds. Her main concern is that she has purulent drainage from a superficial wound on the right upper quadrant of her right breast. She is unsure what caused these lesions in the first place. No weeping or serosanguineous drainage. No history of MRSA infections to her knowledge. Patient reports she has lost around 60 pounds over the past year. Her (Prakash) at bedside believes this might be secondary to Rybelsus; she is recently started cutting her 7 mg dose in half which has improved her appetite. No sick contacts. Additionally, the patient reports that she has had diarrhea for the past several weeks. No history of C. difficile infections. However, she was on antibiotics recently (amoxicillin x 4 tablets) for a dental procedure; she was told she needs to take this after every dental procedure due to history of a knee replacement. No prior history of heart stents or heart valve replacements. She denies prior history of osteomyelitis or endocarditis. Patient reports her only medication allergy is naproxen (mild rash). She denies smoking, tobacco use, or recent alcohol use. Patient's vitals are stable at time of admission. ROS: Patient endorses cold intolerance, loss of appetite, intermittent nausea, right second finger wound, purulent drainage from wound on right breast, and diarrhea x 3 weeks. Patient denies fever, chills, night sweats, chest pain, chest palpitations, pleuritic CP, cough, SOB, abdominal pain, N/V/D, blood in the urine or stool, or melena. Allergies Allergy/AdvReac Type Severity Reaction Status Date / Time animal dander Allergy Mild Sneezing Verified 07/13/24 09:30 cigarette smoke Allergy Mild sneezing Verified 07/13/24 09:30 hyde Allergy Mild Sneezing Verified 07/13/24 09:30 naproxen Allergy Mild Rash Verified 07/14/24 15:35 pollen extracts Allergy Mild sneezing Verified 07/13/24 09:30 Home Medications Medication Instructions Recorded Confirmed Type aspirin 81 mg tablet,delayed 81 mg PO QPM 12/30/18 07/14/24 History release fexofenadine 180 mg tablet 180 mg PO DAILYBL 12/30/18 07/14/24 History (Sarah Allergy) calcium 600 mg (as 1 tab PO BID 01/21/19 07/14/24 History carbonate)-vitamin D3 10 mcg (400 unit) tablet (Calcium 600 + D(3)) cholecalciferol (vitamin D3) 50 2,000 units PO PM 04/09/19 07/14/24 History mcg (2,000 unit) capsule vitamins A,C,D-nckc-wsbewt 4,296 1 cap PO BID 06/04/20 07/14/24 History mcg-226 mg-90 mg capsule (PreserVision AREDS) albuterol sulfate 90 mcg/actuation 2 puff inhalation QID PRN asthma 06/04/22 07/14/24 Rx aerosol inhaler (Ventolin HFA) #18 grams cyanocobalamin (vitamin B-12) 1,000 mcg PO DAILY 08/15/22 07/14/24 History 1,000 mcg capsule diclofenac sodium 1 % topical gel 2 g topical BID PRN pain 08/15/22 07/14/24 History (Voltaren Arthritis Pain) turmeric root extract 500 mg tablet 500 mg PO DAILY 08/15/22 07/14/24 History tamoxifen 20 mg tablet 20 mg PO DAILY 10/17/22 07/14/24 History blood sugar diagnostic (OneTouch #100 ea 10/19/22 07/13/24 Rx Verio test strips) buspirone 5 mg tablet 7.5 mg PO TID 12/03/22 07/14/24 History pen needle, diabetic 31 gauge x #100 ea 02/04/23 07/13/24 Rx 3/16" (Pen Needle) magnesium chloride 64 mg 256 mg (4 x 64 mg) PO TID #1,080 09/05/23 07/14/24 Rx (magnesium chloride) tabs tablet,delayed release colestipol 1 gram tablet 1 g PO QAM #90 tabs 09/30/23 07/14/24 Rx clkirjaa-lfd-ZV-lycopen-lutein PO DAILY 11/01/23 07/13/24 History [Adults 50 Plus] metformin 500 mg tablet 1,000 mg (2 x 500 mg) PO BID #360 11/14/23 07/14/24 Rx tabs semaglutide 7 mg tablet 7 mg PO DAILY #30 tabs 02/04/24 07/14/24 Rx blood-glucose sensor (FreeStyle #6 ea 02/10/24 07/13/24 Rx Zaki 3 Sensor device) pantoprazole 40 mg tablet,delayed 40 mg PO QAM gerd #90 tabs 03/16/24 07/14/24 Rx release trospium 60 mg capsule,extended 60 mg PO DAILY #90 caps 04/06/24 07/14/24 Rx release 24 hr levothyroxine 125 mcg tablet 125 mcg PO DAILY #90 tabs 05/28/24 07/14/24 Rx atorvastatin 80 mg tablet 80 mg PO DAILY #90 tabs 06/04/24 07/14/24 Rx denosumab 60 mg/mL subcutaneous 60 mg subcut Q6MO #1 mL 06/15/24 07/14/24 Rx syringe (Prolia) sacubitril 97 mg-valsartan 103 mg 1 tab PO BID #180 tabs 07/02/24 07/14/24 Rx tablet (Entresto) metoprolol succinate 25 mg 25 mg PO QAM #90 tabs 07/07/24 07/14/24 Rx tablet,extended release 24 hr mirtazapine 30 mg tablet (Remeron) 30 mg PO HS 07/14/24 07/14/24 History mometasone 220 mcg/actuation(120 1 inh inhalation QAM PRN Wheezing 07/14/24 07/14/24 History doses)breath activated powder inhaler (Asmanex Twisthaler) Past Med/Surg History Problem List (Updated 07/15/24 @ 06:47 by Haroldo Mayberry MD) Bacteremia Diarrhea Positive CAMELIA (antinuclear antibody) Raynaud phenomenon Open wound of right breast (Acute) Open wound of finger (Acute) Nocturia Celiac disease Pulmonary nodule Abnormal CT scan of lung Diabetes mellitus, type 2 Hypothyroidism History of kidney stones Osteoporosis Hx of gout Hyperlipidemia Hypomagnesemia Insomnia (Acute) Gout (Acute) Gallstones (Acute) Diverticulosis (Acute) Diabetic peripheral neuropathy (Acute) Asthma (Acute) Anemia (Acute) Allergic rhinitis (Acute) Status post right knee replacement Mixed incontinence History of paroxysmal supraventricular tachycardia 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 Invasive ductal carcinoma of left breast History of COVID-19 08/23/2021 runny nose and aches SVT (supraventricular tachycardia) Pancreatic cyst Fracture, humerus closed HX- fell and fx Type 2 diabetes mellitus GERD (gastroesophageal reflux disease) Hx of intestinal obstruction History of diverticulitis Macular degeneration both Depression Anxiety Hypertension Asthma controlled w/ inhalers Seasonal allergies Surgical History H/O cardiac radiofrequency ablation 2019-DONE [facility]- HAS NOT FOLLOWED UP W/ SINCE ABLATION -NO ISSUES SINCE H/O colonoscopy 2021 Hx of appendectomy S/P tonsillectomy History of cholecystectomy also had appy at same surgery Hx of tubal ligation Hx of lithotripsy History of bowel resection Hx of hernia repair Hx of cataract extraction both eyes Family History (Updated 07/13/24 @ 00:19 by JOSETTE Locke) Father Family history of diabetes mellitus Alcohol abuse Cardiac disorder Diabetes Hypertension Myocardial infarction Grandmother (Paternal) Family history of diabetes mellitus Grandmother (Maternal) Family history of diabetes mellitus Breast cancer Sister Family history of diabetes mellitus Mother Anxiety Depression Lung disease Osteoporosis Brother Colonic polyp Denies family history of Ovarian cancer Prostate cancer Colorectal cancer Social History (Updated 06/16/24 @ 14:40 by SOPHIA Doherty) Smoking Status: Never smoker Second Hand Exposure: No; Do You Dip or Chew Tobacco: No; Hx Alcohol Use: No Hx Substance Use: No Preferred Language: Pashto Communication Ability: Effective Visual Impairment: No Limitations Statistical Clerk Required: No Beliefs That Will Affect Care: Mandaen Mandaen Beliefs: L[employer] Day marital status: Current Living Situation: Spouse current occupational status: retired How many Children do You have: 2 Other Information That Helps Us Care for You: No Feels Safe at Home: Yes Safety Concerns: Feels Safe At This Time Childhood Exposure to Second-Hand Smoke: Yes Diet: diabetic caffeine: Yes during the past year weight has: remained stable Dental Care, Regularly: Yes Physical Activity Frequency: Does not Exercise Seatbelt Use: always Sunscreen Use: Yes Assistive Devices: Cane Review of Systems 2 Review of Systems: See HPI above Physical Exam 2 Physical Exam: General: no acute distress; pleasant affect; at bedside; non-toxic appearing; cooperative; SpO2 100% on RA HEENT: normocephalic, atraumatic; no scleral icterus; PERRLA; vision and hearing grossly intact Neck: supple; no lymphadenopathy; trachea midline Skin: warm, dry without signs of tenting; no cyanosis; no rashes or erythema noted Right upper extremity: 2 superficial lesions with eschar versus bruised appearance on the tip of the right second finger; healing lesion on the tip of the third right finger Right breast: Superficial ring shaped lesion approximately 1 cm in diameter on the right upper breast; does exhibit mild purulent drainage and eschar around the ring CV: chest wall NTP; RRR; S1/S2 normal; no murmurs/rubs/gallops; pulses intact and symmetric at radial, DP, and PT Lungs: no acute respiratory distress; symmetrical chest wall expansion; clear breath sounds across all lung carpenter w/o adventitious sounds; no wheezing ABD: Soft, NTP; BS present; no rebound/guarding; no distention MSK: no tics or fasciculations; no edema noted in the LEs b/l, nonerythematous Neuro: A&Ox3; normal mood and affect; fluent speech; no focal deficits; sensation intact and symmetric in lower extremities bilaterally Results & Data Results & Data Vital Signs (Past 12 Hours) Vital Signs Temp Pulse Resp BP Pulse Ox O2 Del Method 07/14/24 13:40 36.8 C 18 115/67 100 Room Air 07/14/24 12:10 77 Laboratory Results Abnormal lab results 07/14/24 Range/Units 14:41 RBC 3.10 L (4.20-5.40) M/uL Hgb 10.1 L (12.0-16.0) g/dl Hct 31.2 L (37.0-47.0) % MCV 100.6 H (80.0-100.0) fL RDW Std Deviation 57.0 H (36.4-46.3) fL RDW Coeff of Carlyle 15.5 H (11.5-14.5) % PT 12.1 H (9.0-12.0) Seconds Chloride 110 H (98-107) mmol/L Glucose 111 H (70-99(Fasting)) mg/dl Magnesium 1.4 L (1.7-2.4) mg/dl Alkaline Phosphatase 26 L (34-104) U/L Total Protein 5.7 L (6.0-8.3) gm/dl Globulin 2.3 L (2.5-4.0) gm/dl TSH 0.100 L (0.300-4.500) uIu/ml Diagnostic Findings Chest X-Ray 07/14/24 13:29 XR chest 1V portable CLINICAL HISTORY: Bacteremia. COMPARISON STUDY: Chest CT June 19, 2023. Chest radiograph May 24, 2022. FINDINGS: Lung volumes are normal. Lungs are clear. There is no pneumothorax or pleural effusion. Cardiac size is normal. Mediastinal contours are normal. There is no evidence for pulmonary edema. An old, healed proximal left humeral fracture is incidentally noted. IMPRESSION: No acute cardiopulmonary findings. ACT 112: Negative or not required by law. Electronically signed by: Polo Christensen M.D. 07/14/2024 2:12 PM ECG Additional Comments: ECG revealed NSR at 75 bpm; QTc 433 Code Status & VTE Plan Code Status DNR/DNI (discussed with both patient and patient's at bedside) VTE Prophylaxis Plan VTE Prophylaxis will be ordered: Yes Supervising Physician Co-Signing Physician Notes I personally saw and examined the patient. I independently reviewed the labs, EKG, imaging, problem list, medication list, past medical history and family history. I verified all harrington points and agree with Kyrei Sibley PA-C with the following exceptions and/or additions: 79 year old female direct admission due to unspecified wounds concerning for embolic phenomena with positive outpatient blood cultures. Apart from the lesion on her finger and breast she is asymptomatic at this time. O/E Wounds on 2nd finger right hand and upper lateral right breast as seen below HS RRR, no murmur, Chest CTAB, Abdo SNT A/P Bacteremia - I suspect this will just be a contamination however her wounds are very consistent with thromboembolic events and even if not septic I feel needs further workup. Negative CRP/ESR/procalcitonin and only 1/2 cultures being positive heavily favors these are non-septic emboli but until repeat cultures are back we will place on IV vancomycin. US arterial doppler of upper extremity although with the breast tissue lesion if thromboembolic is the cause this would suggest a more proximal place of origin. TTE with bubble study to assess for ASD. Will consult cardiology to consider NOAH if this is negative. Could also consider CT aorta angio but will defer this pending US/TTE result and cardiology consult as if these give us our answer no further imaging may be necessary. No symptoms/sign of stroke. Tamoxifen increases risk of thromboembolic events and should be held pending further workup. I do not see any evidence of bullous disease as mentioned as possible differential in prior notes. Agree with rheumatology note this appears most consistent with vascular/embolic events. PG Care Time/CCT Total # of Minutes Spent Total Time Spent with Patient: Total time spent is greater than 50% in coordination of care (as documented) at patient's floor/unit and/or counseling patient: [place] [address] INT INP/OBS CARE 3/75MIN Patient Type New Medical Decision Making High Complexity Diagnoses Open wound of finger, initial encounter S61.209A Encounter type: initial encounter Open wound of right breast, initial encounter S21.001A Encounter type: initial encounter Hypomagnesemia E83.42 Diarrhea R19.7 Type 2 diabetes mellitus without complication, without long-term current use of insulin E11.9 Diabetes mellitus complication status: without complication Diabetes mellitus halfway insulin use: without ocean transportation intermediary use Coronary artery disease due to calcified coronary lesion I25.10; I25.84 Coronary Disease-Associated Artery/Lesion type: due to calcified coronary lesion Sleep apnea G47.30 Raynaud's phenomenon without gangrene I73.00 Raynaud?s-associated gangrene presence: without gangrene Positive CAMELIA (antinuclear antibody) R76.8 Hypothyroidism, unspecified type E03.9 Hypothyroidism type: unspecified Hx of gout Z87.39 Mixed hyperlipidemia E78.2 Hyperlipidemia type: mixed hyperlipidemia Bacteremia R78.81 (1) Open wound of finger Encounter type: initial encounter Qualified Code(s): S61.209A - Unspecified open wound of unspecified finger without damage to nail, initial encounter (2) Open wound of right breast Encounter type: initial encounter Qualified Code(s): S21.001A - Unspecified open wound of right breast, initial encounter (5) Diabetes mellitus, type 2 Diabetes mellitus complication status: without complication Diabetes mellitus ocean transportation intermediary insulin use: without ocean transportation intermediary use Qualified Code(s): E11.9 - Type 2 diabetes mellitus without complications (6) CAD (coronary artery disease) Coronary Disease-Associated Artery/Lesion type: due to calcified coronary lesion Qualified Code(s): I25.10 - Atherosclerotic heart disease of [place] coronary artery without angina pectoris; I25.84 - Coronary atherosclerosis due to calcified coronary lesion (8) Raynaud phenomenon Raynaud?s-associated gangrene presence: without gangrene Qualified Code(s): I 73.00 - Raynaud's syndrome without gangrene (10) Hypothyroidism Hypothyroidism type: unspecified Qualified Code(s): E03.9 - Hypothyroidism, unspecified (12) Hyperlipidemia Hyperlipidemia type: mixed hyperlipidemia Qualified Code(s): E78.2 - Mixed hyperlipidemia
[2024-07-14 15:01] LABS: Basophils # (auto) 0.03 K/uL (0.00-0.20); Basophils % (auto) 0.5 %; Eosinophils # (auto) 0.06 K/uL (0.00-0.50); Eosinophils % (auto) 1.1 %; Hematocrit (blood only) 31.2 % (37.0-47.0); Hemoglobin 10.1 g/dl (12.0-16.0); Immature Granulocytes # (auto) 0.01 K/uL (0.01-0.20); Immature Granulocytes % (auto) 0.2 %; Lymphocytes # (auto) 2.03 K/uL (1.20-3.40); Lymphocytes % (auto) 36.9 %; Mean Corpuscular Hemoglobin 32.6 pg (25.0-34.0); Mean Corpuscular Hgb Conc 32.4 g/dL (32.0-36.0); Mean Corpuscular Volume 100.6 fL (80.0-100.0); Mean Platelet Volume 9.6 fL (9.4-12.4); Monocytes # (auto) 0.54 K/uL (0.11-0.59); Monocytes % (auto) 9.8 %; Neutrophils # (auto) 2.83 K/uL (1.40-6.50); Neutrophils % (auto) 51.5 %; Platelet Count 178 K/uL (130-400); RDW Coefficient of Variation 15.5 % (11.5-14.5)
[2024-07-14 15:19] LABS: Alanine Aminotransferase 9 U/L (7-52); Albumin Globulin Ratio 1.5 (0.9-2); Albumin Level 3.4 gm/dl (3.4-5.0); Alkaline Phosphatase 26 U/L (34-104); Anion Gap 7 (3-11); Aspartate Aminotransferase 18 U/L (13-39); BUN Creatinine Ratio 13.3 (10-20); Bilirubin,Total 0.8 mg/dl (0.2-1.0); Blood Urea Nitrogen 8 mg/dl (6-23); C Reactive Protein < 0.50 mg/dl (0-0.5); Calcium 8.7 mg/dl (8.6-10.3); Carbon Dioxide 21 mmol/L (21-32); Chloride 110 mmol/L (98-107); Creatinine Clr Calc Pharmacy 71.4 ml/min; Globulin 2.3 gm/dl (2.5-4.0); Glucose 111 mg/dl (70-99(Fasting)); Magnesium 1.4 mg/dl (1.7-2.4); Potassium 4.9 mmol/L (3.5-5.1); Sodium 138 mmol/L (136-145); Total Protein 5.7 gm/dl (6.0-8.3)
[2024-07-14 15:33] LABS: INR 1.1 (0.9-1.1); Partial Thromboplastin Ratio 0.9; Partial Thromboplastin Time 25 Seconds (21-31); Prothrombin Time 12.1 Seconds (9.0-12.0)
[2024-07-14] MEDS ORDERED: DICLOFENAC SOD 1% GEL 100 GM TUBE EXT PRN (15:47)
[2024-07-14] MEDS ORDERED: ALBUTEROL HFA 8 GM INHALER INH PRN (15:52)
[2024-07-14] MEDS ORDERED: GLUCAGON FOR INJ 1 MG VIAL SQ PRN (15:56)
[2024-07-14] MEDS ORDERED: GLUCOSE 40% GEL 15 GM TUBE PO PRN (15:56)
[2024-07-14] MEDS ORDERED: CARBOHYDRATES FOR HYPOGLYCEMIA PO PRN (15:56)
[2024-07-14] MEDS ORDERED: DEXTROSE 50% 50 ML SYRINGE IV PRN (15:56)
[2024-07-14] MEDS ORDERED: GLUCOSE 10 TAB/TUBE PO PRN (15:56)
[2024-07-14] MEDS ORDERED: VANCOMYCIN CONSULT ACTIVE PRN (16:06)
[2024-07-14] MEDS: MAGNESIUM SULFATE / D5W 1 GM/100 ML BAG IV ONE (16:28)
[2024-07-14] MEDS: VANCOMYCIN HCL 1,000 MG in SODIUM CHLORIDE 0.9% 250 ML IV SCH (17:06)
[2024-07-14] MEDS: INSULIN ASPART PER UNIT CHARGE SC SCH (17:06)
[2024-07-14] MEDS: VANCOMYCIN 1,250mg in D5W 250mL (Use w/ NSS Shortage) IV ONE (17:13)
--- NOTE | 2024-07-14 18:07 | XRay Report ---
EXAM: Radiographs of the Right Second Finger 3 Views INDICATION: Evaluate for osteomyelitis. TECHNIQUE: 3 views right second finger. COMPARISON: Partial comparison to 05/11/2024 FINDINGS: Mild diffuse soft tissue swelling noted. No soft tissue gas collection. No radiopaque foreign body noted. Stable periarticular soft tissue calcifications noted. Stable narrowing of the interphalangeal joints. There is no acute osseous abnormality such as periosteal reaction or destruction. No acute fracture. IMPRESSION: No plain radiographic evidence of osteomyelitis of the right second finger. ACT 112: Negative or not required by law. Electronically signed by Ana Toney 07-14-2024 6:06 PM
--- NOTE | 2024-07-14 19:44 | Pharmacy Report ---
Pharmacy PK ABX Note - Date of Service July 14, 2024 - Assessment and Plan Assessment 79 year old F who presented as direct admission from PCP for concerns of bacteremia, r/o endocarditis. Per H&P, patient has lesions on her right second finger and right breast. Patient reports purulent drainage from right breast. She has been following with wound care clinic since April 2024. Pertinent microbiologic data includes: * 07/13 BC - 1 of 2 growing gram positive cocci in clusters (BCID2 detected Staph sp.) * 07/14 BC - pending Plan Vancomycin * Loading dose: 1250 mg IV x 1 * Maintenance dose: 1000 mg IV every 12 hours * Regimen is predicted to achieve target AUC/OTTONIEL of 400-600 mg/L.hr * predicted AUC at steady state: 599 * Vanc level will be obtained if therapy is extended beyond 48 hours Pharmacy will continue to follow and will adjust dose/frequency as necessary. Thank you.
[2024-07-14] MEDS: ENOXAPARIN INJ 40 MG/0.4 ML SYR SQ SCH (20:21)
[2024-07-14] MEDS: ASPIRIN 81 MG ECTAB PO SCH (20:21)
[2024-07-14] MEDS: busPIRone 7.5 MG TAB PO SCH (20:22)
[2024-07-14] MEDS: MIRTAZAPINE TAB 15 MG TAB PO SCH (20:22)
[2024-07-14] MEDS: MAGNESIUM CHLORIDE W/CALCIUM 64MG DELAYED REL TAB PO SCH (20:22)
[2024-07-14] MEDS: VALSARTAN/SACUBITRIL 103/97MG TAB PO SCH (20:25)
[2024-07-14] MEDS: MAGNESIUM SULFATE / D5W 1 GM/100 ML BAG IV SCH (23:47)
--- NOTE | 2024-07-14 23:51 | Ultrasound Report ---
Exam(s): US ARTERIAL RIGHT UPPER EXTREMITY EXAM: US Duplex Right Upper Extremity Arteries CLINICAL HISTORY: finger embolic appearing wounds ?arterial thrombus. TECHNIQUE: Real-time duplex ultrasound scan of the right upper extremity arteries integrating B-mode two-dimensional vascular structure, Doppler spectral analysis and color flow Doppler imaging. COMPARISON: No relevant prior studies available. FINDINGS: Right subclavian artery: No acute abnormality. No occlusion or significant stenosis on color flow and spectral Doppler imaging. Triphasic waveform. Right axillary artery: No acute abnormality. No occlusion or significant stenosis on color flow and spectral Doppler imaging. Triphasic waveform. Right brachial artery: No acute abnormality. No occlusion or significant stenosis on color flow and spectral Doppler imaging. Triphasic waveform. Right radial artery: No acute abnormality. No occlusion or significant stenosis on color flow and spectral Doppler imaging. Triphasic waveform. Right ulnar artery: No acute abnormality. No occlusion or significant stenosis on color flow and spectral Doppler imaging. Triphasic waveform. Soft tissues: 1.5 x 0.8 x 1 cm complex cystic avascular lesion in the medial aspect of the right wrist. IMPRESSION: No vascular abnormality. No significant plaque or thrombosis. Nonspecific system medial aspect of the right wrist. Electronically signed by: Giles Olivares M.D. 07/14/24 23:51 PM
[2024-07-15] MEDS: VANCOMYCIN HCL 1,000 MG in SODIUM CHLORIDE 0.9% 250 ML IV SCH (03:42)
[2024-07-15] MEDS: LEVOTHYROXINE SODIUM 125 MCG TABLET PO SCH (05:30)
[2024-07-15] MEDS: INSULIN ASPART PER UNIT CHARGE SC SCH ×2 (05:46→20:34)
--- NOTE | 2024-07-15 06:11 | Electrocardiogram Report ---
Test Reason : Blood Pressure : */* mmHG Vent. Rate : 75 BPM Atrial Rate : 75 BPM P-R Int : 202 ms QRS Dur : 86 ms QT Int : 388 ms P-R-T Axes : -16 -3 47 degrees QTcB Int : 433 ms Normal sinus rhythm Low voltage QRS Borderline ECG When compared with ECG of 23-May-2022 05:47, Non-specific change in ST segment in Anterior leads Nonspecific T wave abnormality no longer evident in Inferior leads T wave inversion no longer evident in Anterior leads Confirmed by Fermin Mahoney ([id number]) on 07/15/2024 6:10:53 AM Referred By: Haroldo Mayberry Confirmed By: Fermin Mahoney
[2024-07-15] MEDS: TAMOXIFEN CITRATE 10 MG TABLET PO SCH (08:04)
[2024-07-15] MEDS: ATORVASTATIN 40 MG TAB PO SCH (08:05)
[2024-07-15] MEDS: METOPROLOL SUCC 25MG EXT REL TAB PO SCH (08:05)
[2024-07-15 08:13] LABS: Basophils # (auto) 0.04 K/uL (0.00-0.20); Basophils % (auto) 0.8 %; Eosinophils # (auto) 0.13 K/uL (0.00-0.50); Eosinophils % (auto) 2.6 %; Hematocrit (blood only) 32.2 % (37.0-47.0); Hemoglobin 10.8 g/dl (12.0-16.0); Lymphocytes # (auto) 2.44 K/uL (1.20-3.40); Lymphocytes % (auto) 48.5 %; Mean Corpuscular Hemoglobin 32.9 pg (25.0-34.0); Mean Corpuscular Hgb Conc 33.5 g/dL (32.0-36.0); Mean Corpuscular Volume 98.2 fL (80.0-100.0); Mean Platelet Volume 9.2 fL (9.4-12.4); Monocytes # (auto) 0.45 K/uL (0.11-0.59); Monocytes % (auto) 8.9 %; Neutrophils # (auto) 1.97 K/uL (1.40-6.50); Neutrophils % (auto) 39.2 %; Platelet Count 173 K/uL (130-400); RDW Coefficient of Variation 15.1 % (11.5-14.5); RDW Standard Deviation 54.3 fL (36.4-46.3); Red Blood Count 3.28 M/uL (4.20-5.40); White Blood Count 5.03 K/ul (4.8-10.8)
[2024-07-15 08:30] LABS: BUN Creatinine Ratio 9.5 (10-20); Calcium 8.6 mg/dl (8.6-10.3); Creatinine Clr Calc Pharmacy 67.8 ml/min; Potassium 4.3 mmol/L (3.5-5.1)
[2024-07-15] MEDS: FEXOFENADINE HCL 180 MG TAB PO SCH (10:40)
[2024-07-15] MEDS: COLESTIPOL HCL 1 GM TAB PO SCH (10:40)
--- NOTE | 2024-07-15 11:12 | Hospitalist Progress Note ---
Date of Service July 15, 2024 Assessment & Plan (1) Bacteremia: Plan: Patient presented on 07/14 at the behest of her PCP after (+) outpatient blood culture for gram-positive cocci drawn on 07/13 Blood culture drawn due to lesions on her right second finger and right breast with concern for septic emboli Will complete workup for endocarditis On arrival, black lesions noted on the tip of the second right finger, they look like thrombo embolic spots CRP, procal and other markers of inflammation wnl X-ray of the right fingers did not show any evidence of osteomyelits Repeat blood cultures ordered, pending Echocardiogram ordered, pending Continue Empiric vancomycin 1000 mg IV q12h (2) Open wound of right breast: Plan: Patient reports purulent drainage from the lesion on her right breast No h/o MRSA infections to her knowledge She has been following with the wound care clinic for this M/W/F since April 2024 Daily wound care Wound care nurse consult appreciated (3) Hypomagnesemia: Plan: Continue repletion P.o. supplementation TID Hold Protonix for now (4) Open wound of finger: Plan: hey look like thrombo embolic spots (5) Diarrhea: Plan: Diarrhea times several weeks Patient reports she was on antibiotics (amoxicillin) for recent dental procedure She takes this due to history of knee replacement C. difficile/PCR stool ordered, pending (6) Diabetes mellitus, type 2: Plan: Last A1c at 5.3% on 06/12/2025 Hold Rybelsus, metformin SSI; with target BSG range 110-140mg/dL, CF 50, carb ratio 15 T2DM diet BSG ACHS Adjust regimen as needed (7) CAD (coronary artery disease): Plan: No history of heart stents Continue aspirin, atorvastatin, and metoprolol (8) Sleep apnea: Plan: Not currently on CPAP (9) Raynaud phenomenon: (10) Positive CAMELIA (antinuclear antibody): (11) Hypothyroidism: (12) Hx of gout: (13) Hyperlipidemia: Plan Disposition: Continued stay on PCU telemetry DNR/DNI Heart healthy, T2DM diet VTE PPx: Lovenox 40 mg SQ q24h Admission and Anticipated Discharge Date Admission Date: July 14, 2024 Subjective patient seen and examined, denies chills Review of Systems Review of Systems: The patient is awake, alert and oriented 3, well developed and well nourished, normocephalic and atraumatic, lying in bed and in no acute distress. HEENT--PERRL, EOMI, mucous membranes and oropharynx mildly dry Neck--supple. No JVD. No bruits. Thyroid normal, trachea midline, no adenopathy. Heart--normal S1 and S2. No murmurs, rubs or gallops. Lungs--clear bilaterally, no respiratory distress, no accessory muscle use. Abdomen--normal bowel sounds and soft. Extremities--no cyanosis or clubbing. No edema. Dermatologic--normal skin turgor, normal color, no abnormal lymph nodes, no ra sh. Neurologic--cranial nerves II through XII grossly intact. Rheumatologic--normal range of motion. Psychiatric--normal affect. Results & Data Results & Data Vital Signs (Past 12 Hours) Vital Signs Temp Pulse Resp BP Pulse Ox O2 Del Method 07/15/24 07:30 97.7 F 62 18 101/65 95 Room Air 07/15/24 03:55 97.9 F 70 20 96/63 L 94 Room Air 07/14/24 23:13 98.1 F 65 18 97/68 L 94 Room Air PG Care Time/CCT Total # of Minutes Spent Total Time Spent with Patient: Total time spent is greater than 50% in coordination of care (as documented) at patient's floor/unit and/or counseling patient: Coding Level of Care Code 55459 SUB INP/OBS CARE 2/35MIN Diagnoses Bacteremia R78.81 Open wound of right breast, initial encounter S21.001A Encounter type: initial encounter Hypomagnesemia E83.42 Open wound of finger, initial encounter S61.209A Encounter type: initial encounter Diarrhea R19.7 Type 2 diabetes mellitus without complication, without long-term current use of insulin E11.9 Diabetes mellitus mcc insulin use: without exterminator helper termite use Diabetes mellitus complication status: without complication Coronary artery disease due to calcified coronary lesion I25.10; I25.84 Coronary Disease-Associated Artery/Lesion type: due to calcified coronary lesion Sleep apnea G47.30 Raynaud's phenomenon without gangrene I73.00 Raynaud?s-associated gangrene presence: without gangrene Positive CAMELIA (antinuclear antibody) R76.8 Hypothyroidism, unspecified type E03.9 Hypothyroidism type: unspecified Hx of gout Z87.39 Mixed hyperlipidemia E78.2 Hyperlipidemia type: mixed hyperlipidemia Time Spent (min) 35 (2) Open wound of right breast Encounter type: initial encounter Qualified Code(s): S21.001A - Unspecified open wound of right breast, initial encounter (4) Open wound of finger Encounter type: initial encounter Qualified Code(s): S61.209A - Unspecified open wound of unspecified finger without damage to nail, initial encounter (6) Diabetes mellitus, type 2 Diabetes mellitus exterminator helper termite insulin use: without mcc use Diabetes mellitus complication status: without complication Qualified Code(s): E11.9 - Type 2 diabetes mellitus without complications (7) CAD (coronary artery disease) Coronary Disease-Associated Artery/Lesion type: due to calcified coronary lesion Qualified Code(s): I25.10 - Atherosclerotic heart disease of [place] c oronary artery without angina pectoris; I25.84 - Coronary atherosclerosis due to calcified coronary lesion (9) Raynaud phenomenon Raynaud?s-associated gangrene presence: without gangrene Qualified Code(s): I73.00 - Raynaud's syndrome without gangrene (11) Hypothyroidism Hypothyroidism type: unspecified Qualified Code(s): E03.9 - Hypothyroidism, unspecified (13) Hyperlipidemia Hyperlipidemia type: mixed hyperlipidemia Qualified Code(s): E78.2 - Mixed hyperlipidemia
--- NOTE | 2024-07-15 14:40 | Infectious Disease Consult ---
Date of Consultation July 15, 2024 Assessment & Plan (1) Bacteremia: (2) Open wound of right breast: (3) Open wound of finger: (4) Diabetes mellitus, type 2: Plan 79yo F with h/o T2DM, HFpEF, CAD, IPMN, asthma, gout, Raynauds, right knee replacement who presented on 07/14 after outpatient BCx returned positive for GPC. She had the BCx drawn due to the concerns for the lesions on her right finger and right breast, for which she has been seeing wound care. She did have a complaint of some purulent drainage from the right breast wound. She also reported diarrhea for a few weeks. Recently had taken amoxicillin for a dental procedure. Here she has been afebrile, vss. Initial labs with WBC wnl, Cr 0.6, AST/ALT wnl. PCT 0.03. CXR negative. XR of right finger negative for acute findings. Arterial duplex of upper extremities negative. She has been started on vancomycin. TTE is technically, mild MR moderate mitral annular calcification, no vegetation. ID consulted 07/15. BCX positive from 1 of 4 bottles and speciated to Staph warneri. Await follow up BCx. If repeat cx are negative, then this is likely a contaminant. TTE is ordered, patient said it was done this morning. Right breast wound has some minimal surrounding erythema and some drainage. Since she noted some purulent drainage there, we can treat empirically for mild superimposed infection at this site. # BCx positive for GPC (Staph by BCID) # Right finger lesion # Right breast wound with some drainage # h/o T2DM - f/u blood cx from 07/14 - continue vancomycin pharmacy dosed protocol for now pending cx results - if BCx are negative, then unlikely to have bacteremia and can de-escalate abx for possible mild SSTI around breast lesion ID will continue to follow. If questions or concerns, contact via [employer] or Infectious Disease Call Center . Ruchi Perez MD [facility], Division of Infectious Diseases [employer]: [phone] Consultation Information Consultation was provided via telemedicine using two-way real-time interactive telecommunication between the patient and the telemedicine provider. For the duration of the visit, the provider was performing the assessment from a different facility than the patient. This includesuse of blue777 Davisoth stethoscope forauscultationperformed by the telepresenter that the telemedicine provider can hear if described in the physical exam. Manager Building contact information: Please call [facility] Call Center [phone]. (Phone Number For Physician Use Only) After establishing a telemedicine visit, patient was: Patient was verified with two unique identifiers, Patient/authorized rep acknowledged consent and understanding and Gave permission to continue telehealth session Time Spent with Patient: Initial => 75 min History of Present Illness Reason for Consultation: bacteremia Attending Physician: Adebayo Castro MD History of Present Illness 79yo F with h/o T2DM, HFpEF, CAD, IPMN, asthma, gout, Raynauds, right knee replacement who presented on 07/14 after outpatient BCx returned positive for GPC. She had the BCx drawn due to the concerns for the lesions on her right finger and right breast, for which she has been seeing wound care. No pain on the wounds. She did have a complaint of some purulent drainage from the right breast wound. She also reported diarrhea for a few weeks. Recently had taken amoxicillin for a dental procedure. Here she has been afebrile, vss. Initial labs with WBC wnl, Cr 0.6, AST/ALT wnl. PCT 0.03. CXR negative. XR of right finger negative for acute findings. Arterial duplex of upper extremities negative. She has been started on vancomycin. TTE is neg for vegetations. ID consulted 07/15. On evaluation, patient reports feeling well. She has not had any fevers or chills. She is unaware of how she developed the wounds on her finger and breast, but they have been present for about 6 weeks. No injuries. She has been seeing wound care and she feels that the wounds are improving. No pain in any joints or swelling, no rashes, no back pain. Diarrhea is resolved. Allergies Allergy/AdvReac Type Severity Reaction Status Date / Time animal dander Allergy Mild Sneezing Verified 07/13/24 09:30 cigarette smoke Allergy Mild sneezing Verified 07/13/24 09:30 hyde Allergy Mild Sneezing Verified 07/13/24 09:30 naproxen Allergy Mild Rash Verified 07/14/24 15:35 pollen extracts Allergy Mild sneezing Verified 07/13/24 09:30 Home Medications Medication Instructions Recorded Confirmed Type aspirin 81 mg tablet,delayed 81 mg PO QPM 12/30/18 07/14/24 History release fexofenadine 180 mg tablet 180 mg PO DAILYBL 12/30/18 07/14/24 History (Sarah Allergy) calcium 600 mg (as 1 tab PO BID 01/21/19 07/14/24 History carbonate)-vitamin D3 10 mcg (400 unit) tablet (Calcium 600 + D(3)) cholecalciferol (vitamin D3) 50 2,000 units PO PM 04/09/19 07/14/24 History mcg (2,000 unit) capsule vitamins A,C,L-pzpe-nfbxuo 4,296 1 cap PO BID 06/04/20 07/14/24 History mcg-226 mg-90 mg capsule (PreserVision AREDS) albuterol sulfate 90 mcg/actuation 2 puff inhalation QID PRN asthma 06/04/22 07/14/24 Rx aerosol inhaler (Ventolin HFA) #18 grams cyanocobalamin (vitamin B-12) 1,000 mcg PO DAILY 08/15/22 07/14/24 History 1,000 mcg capsule diclofenac sodium 1 % topical gel 2 g topical BID PRN pain 08/15/22 07/14/24 History (Voltaren Arthritis Pain) turmeric root extract 500 mg tablet 500 mg PO DAILY 08/15/22 07/14/24 History tamoxifen 20 mg tablet 20 mg PO DAILY 10/17/22 07/14/24 History blood sugar diagnostic (OneTouch #100 ea 10/19/22 07/13/24 Rx Verio test strips) buspirone 5 mg tablet 7.5 mg PO TID 12/03/22 07/14/24 History pen needle, diabetic 31 gauge x #100 ea 02/04/23 07/13/24 Rx 3/16" (Pen Needle) magnesium chloride 64 mg 256 mg (4 x 64 mg) PO TID #1,080 09/05/23 07/14/24 Rx (magnesium chloride) tabs tablet,delayed release colestipol 1 gram tablet 1 g PO QAM #90 tabs 09/30/23 07/14/24 Rx zjyqnpci-ovy-EX-lycopen-lutein PO DAILY 11/01/23 07/13/24 History [Adults 50 Plus] metformin 500 mg tablet 1,000 mg (2 x 500 mg) PO BID #360 11/14/23 07/14/24 Rx tabs semaglutide 7 mg tablet 7 mg PO DAILY #30 tabs 02/04/24 07/14/24 Rx blood-glucose sensor (FreeStyle #6 ea 02/10/24 07/13/24 Rx Zaki 3 Sensor device) pantoprazole 40 mg tablet,delayed 40 mg PO QAM gerd #90 tabs 03/16/24 07/14/24 Rx release trospium 60 mg capsule,extended 60 mg PO DAILY #90 caps 04/06/24 07/14/24 Rx release 24 hr levothyroxine 125 mcg tablet 125 mcg PO DAILY #90 tabs 05/28/24 07/14/24 Rx atorvastatin 80 mg tablet 80 mg PO DAILY #90 tabs 06/04/24 07/14/24 Rx denosumab 60 mg/mL subcutaneous 60 mg subcut Q6MO #1 mL 06/15/24 07/14/24 Rx syringe (Prolia) sacubitril 97 mg-valsartan 103 mg 1 tab PO BID #180 tabs 07/02/24 07/14/24 Rx tablet (Entresto) metoprolol succinate 25 mg 25 mg PO QAM #90 tabs 07/07/24 07/14/24 Rx tablet,extended release 24 hr mirtazapine 30 mg tablet (Remeron) 30 mg PO HS 07/14/24 07/14/24 History mometasone 220 mcg/actuation(120 1 inh inhalation QAM PRN Wheezing 07/14/24 07/14/24 History doses)breath activated powder inhaler (Asmanex Twisthaler) Patient History Medical History Gout was seen and treated in ri er with prednisone 1 week ago. Invasive ductal carcinoma of left breast History of COVID-19 08/23/2021 runny nose and aches SVT (supraventricular tachycardia) Pancreatic cyst Fracture, humerus closed HX- fell and fx Type 2 diabetes mellitus GERD (gastroesophageal reflux disease) Hx of intestinal obstruction History of diverticulitis Macular degeneration both Depression Anxiety Hypertension Asthma controlled w/ inhalers Seasonal allergies Surgical History H/O cardiac radiofrequency ablation 2019-DONE [facility]- HAS NOT FOLLOWED UP W/ SINCE ABLATION -NO ISSUES SINCE H/O colonoscopy 2021 Hx of appendectomy S/P tonsillectomy History of cholecystectomy also had appy at same surgery Hx of tubal ligation Hx of lithotripsy History of bowel resection Hx of hernia repair Hx of cataract extraction both eyes Family History (Updated 07/13/24 @ 00:19 by JOSETTE Locke) Father Family history of diabetes mellitus Alcohol abuse Cardiac disorder Diabetes Hypertension Myocardial infarction Grandmother (Paternal) Family history of diabetes mellitus Grandmother (Maternal) Family history of diabetes mellitus Breast cancer Sister Family history of diabetes mellitus Mother Anxiety Depression Lung disease Osteoporosis Brother Colonic polyp Denies family history of Ovarian cancer Prostate cancer Colorectal cancer Social History (Updated 06/16/24 @ 14:40 by SOPHIA Doherty) Smoking Status: Never smoker Second Hand Exposure: No; Do You Dip or Chew Tobacco: No; Hx Alcohol Use: No Hx Substance Use: No Preferred Language: Samoan Communication Ability: Effective Visual Impairment: No Limitations Agent Producer Required: No Beliefs That Will Affect Care: Presybeterian Presybeterian Beliefs: Anabaptism marital status: Current Living Situation: Spouse current occupational status: retired How many Children do You have: 2 Other Information That Helps Us Care for You: No Feels Safe at Home: Yes Safety Concerns: Feels Safe At This Time Childhood Exposure to Second-Hand Smoke: Yes Diet: diabetic caffeine: Yes during the past year weight has: remained stable Dental Care, Regularly: Yes Physical Activity Frequency: Does not Exercise Seatbelt Use: always Sunscreen Use: Yes Assistive Devices: Cane Review of System 10-point review of systems reviewed and are negative except for as above. Physical Exam Physical Exam: General: Awake, alert, no acute distress HEENT: NC/AT, EOMI, mmm Neck: supple Lungs: CTA bl, no w/c/r Heart: regular, nl S1/S2 Abdomen: soft, NT/ND Back: no spinal tenderness, no sacral lesions Ext: no LE edema, right knee without swelling or redness Skin: right finger with dark discolored wound, right breast with open circular wound very minimal surrounding erythema Neuro: moving all extremities Results & Data Vital Signs (Past 12 Hours) Vital Signs Temp Pulse Resp BP Pulse Ox O2 Del Method 12/18/24 11:50 36.6 C 74 18 114/74 95 Room Air 07/15/24 07:30 36.5 C 62 18 101/65 95 Room Air 07/15/24 03:55 36.6 C 70 20 96/63 L 94 Room Air Laboratory Results Labs reviewed. Diagnostic Findings Imaging reviewed. (2) Open wound of right breast Encounter type: initial encounter Qualified Code(s): S21.001A - Unspecified open wound of right breast, initial encounter (3) Open wound of finger Encounter type: initial encounter Qualified Code(s): S61.209A - Unspecified open wound of unspecified finger without damage to nail, initial encounter (4) Diabetes mellitus, type 2 Diabetes mellitus halfway insulin use: without equipment operator intermodal yard use Diabetes mellitus complication status: without complication Qualified Code(s): E11.9 - Type 2 diabetes mellitus without complications
--- NOTE | 2024-07-15 14:56 | XCELERA ---
[id number] \\[id number]
--- NOTE | 2024-07-15 14:57 | Cardiology Consultation ---
Date of Consultation July 15, 2024 Assessment & Plan (1) Bacteremia: (2) CAD (coronary artery disease): (3) NYHA class 1 heart failure with preserved ejection fraction, with improvement of ejection fraction from prior measurement: (4) Cardiomyopathy: (5) Hypertension: (6) Hyperlipidemia: Plan ASSESSMENT/PLAN: 1. Bacteremia: [place] to be possibly contaminant. ID is following. 2. Finger/breast lesion: Given that he 1 abnormal blood culture suggest contaminant, endocarditis less likely. Current cultures are pending. Rheumatology believes that these findings are consistent with embolic event. Did not recommend NOAH at the time of initial consultation earlier today, while awaiting echo results and ID consultation. Will discuss with patient tomorrow potentially pursuing NOAH to evaluate not only for intracardiac source of emboli, but also the visualized portions of thoracic aorta as per admitting hospitalist/rheumatology's concerns. N.p.o. after midnight to allow for the possibility of transesophageal echo tomorrow after further discussion. 3. CAD: Severe RCA CAD which was heavily calcified and unable to advance balloon across the lesion in the past. No angina. Continue medical therapy. Continue aspirin, high intensity statin therapy, beta-diogenes. If refractory angina in the future, could consider PCI attempt at tertiary care center with possible atherectomy. 4. Heart failure with improved EF: LV systolic function has normalized. She ap pears euvolemic. She has not required loop diuretic in the outpatient setting. NYHA class I. Continue metoprolol succinate and Entresto. Spironolactone discontinued in the past due to hyperkalemia. Not on SGLT2 inhibitor due to recurrent UTI. Low-sodium diet. Daily weights. Follows in the heart failure program. 5. Cardiomyopathy: Nonischemic. LV systolic function has since normalized. Possible Takotsubo. Continue medical therapy. 6. Dyslipidemia: Continue high intensity statin therapy. LDL is excellent. 7. Hypertension: Blood pressure well-controlled. Continue current regimen. 8. Disposition: Cardiology will continue to follow. Thank you for allowing me to participate in the care of your patient. Please call for any other questions or concerns. Sincerely, Antonio Mahoney M.D. History of Present Illness Reason for Consultation: Wounds Requesting Physician: Dr. Mayberry Attending Physician: Adebayo Castro MD History of Present Illness Mrs. 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 She has had the following studies/procedures: 1. Echo 06/06/2020: Normal LV systolic function. EF 55 to 60%. Normal wall motion. Mild left atrial dilation. No significant valvular abnormalities. 2. SVT ablation 06/09/2020 (Dr. Alcantara): AVNRT successfully ablated. Inadvertent injury to fast pathway of the AV node resulting in first-degree AV block. 3. Echo 05/21/2022: Top normal LV size. Moderately reduced systolic function. EF 35 to 40%. Severe hypokinesis to akinesis of the apex. Otherwise, global hypokinesis with relative sparing of the basal segments. No significant valvular abnormalities. Normal RVSP. 4. Cardiac catheterization 05/22/2022 [facility]: Diffuse prox LAD 10%. Mid LAD 40%. First septal ostial 50%. Co dominant system. Distal circumflex 50%. Small to medium caliber OM to proximal 50-70%. Large RCA. Prox RCA 40%. Mid RCA 90-95%. Late mid RCA 60-70%. LVEDP 36. No . PCWP 32. PA 41/17 with mean 25. CO 4.17 and CI 2.04 via thermodilution. PVR 1.68. Interventional Cardiology unable to advance balloon across RCA stenosis, which was heavily calcified. Could consider tertiary care center for possible atherectomy if refr actory angina on medical therapy. 5. Echo 07/05/2022 [facility]: Normal LV size, wall motion, systolic function. EF 60-65%. Limited 2D echo. She is here today for routine cardiology appointment. She has lost 32 pounds since last visit on 04/08/2023. She has been on semaglutide. She feels much better with weight loss. She is sleeping better, eating healthier, and has more energy. She is more active. She can walk up 2 flights of stairs without dyspnea. She denies chest pain, shortness of breath, syncope, near syncope, palpitations, edema, or bleeding. She has labs done with multiple providers. She was admitted to [facility] on 07/14/2024 for concerns of embolic events and positive blood culture. She was directly admitted at the request of Dr. Garcia, her PCP. In April, an open wound began at the tip of her right third finger, without known trauma. She then developed an open sore involving her right breast. She has been followed at the wound clinic. More recently, she had another wound involving the distal portion of her second right finger. She denies fevers, chills, chest pain, syncope, shortness of breath, palpitations, edema, or bleeding. She had blood cultures on 07/13/2024 and 1 of 2 grew Staphylococcus warneri, while the other has remained negative thus far. She had repeat cultures drawn on 07/14/2024. She has been evaluated by rheumatology in the outpatient setting on 07/10/2024 who is concerned that these findings are more consistent with a vascular/embolic event. She was evaluated by infectious disease today. Review of systems:As above. Family history:Father at 53 from [place]. 3 younger siblings without known CAD. Social history:She denies tobacco or drug abuse. Occasional alcohol. Lives at home with her , Prakash. Has 2 daughters, Daphne and Taylor. 7 grandchildren (5 Daphne/2 Taylor). She was accompanied today by her and daughter (Daphne). Allergies Allergy/AdvReac Type Severity Reaction Status Date / Time animal dander Allergy Mild Sneezing Verified 07/13/24 09:30 cigarette smoke Allergy Mild sneezing Verified 07/13/24 09:30 hyde Allergy Mild Sneezing Verified 07/13/24 09:30 naproxen Allergy Mild Rash Verified 07/14/24 15:35 pollen extracts Allergy Mild sneezing Verified 07/13/24 09:30 Home Medications Medication Instructions Recorded Confirmed Type aspirin 81 mg tablet,delayed 81 mg PO QPM 12/30/18 07/14/24 History release fexofenadine 180 mg tablet 180 mg PO DAILYBL 12/30/18 07/14/24 History (Sarah Allergy) calcium 600 mg (as 1 tab PO BID 01/21/19 07/14/24 History carbonate)-vitamin D3 10 mcg (400 unit) tablet (Calcium 600 + D(3)) cholecalciferol (vitamin D3) 50 2,000 units PO PM 04/09/19 07/14/24 History mcg (2,000 unit) capsule vitamins A,C,W-ueor-eeqqdc 4,296 1 cap PO BID 06/04/20 07/14/24 History mcg-226 mg-90 mg capsule (PreserVision AREDS) albuterol sulfate 90 mcg/actuation 2 puff inhalation QID PRN asthma 06/04/22 07/14/24 Rx aerosol inhaler (Ventolin HFA) #18 grams cyanocobalamin (vitamin B-12) 1,000 mcg PO DAILY 08/15/22 07/14/24 History 1,000 mcg capsule diclofenac sodium 1 % topical gel 2 g topical BID PRN pain 08/15/22 07/14/24 History (Voltaren Arthritis Pain) turmeric root extract 500 mg tablet 500 mg PO DAILY 08/15/22 07/14/24 History tamoxifen 20 mg tablet 20 mg PO DAILY 10/17/22 07/14/24 History blood sugar diagnostic (OneTouch #100 ea 10/19/22 07/13/24 Rx Verio test strips) buspirone 5 mg tablet 7.5 mg PO TID 12/03/22 07/14/24 History pen needle, diabetic 31 gauge x #100 ea 02/04/23 07/13/24 Rx 3/16" (Pen Needle) magnesium chloride 64 mg 256 mg (4 x 64 mg) PO TID #1,080 09/05/23 07/14/24 Rx (magnesium chloride) tabs tablet,delayed release colestipol 1 gram tablet 1 g PO QAM #90 tabs 09/30/23 07/14/24 Rx bioxneml-dny-OL-lycopen-lutein PO DAILY 11/01/23 07/13/24 History [Adults 50 Plus] metformin 500 mg tablet 1,000 mg (2 x 500 mg) PO BID #360 11/14/23 07/14/24 Rx tabs semaglutide 7 mg tablet 7 mg PO DAILY #30 tabs 02/04/24 07/14/24 Rx blood-glucose sensor (FreeStyle #6 ea 02/10/24 07/13/24 Rx Zaki 3 Sensor device) pantoprazole 40 mg tablet,delayed 40 mg PO QAM gerd #90 tabs 03/16/24 07/14/24 Rx release trospium 60 mg capsule,extended 60 mg PO DAILY #90 caps 04/06/24 07/14/24 Rx release 24 hr levothyroxine 125 mcg tablet 125 mcg PO DAILY #90 tabs 05/28/24 07/14/24 Rx atorvastatin 80 mg tablet 80 mg PO DAILY #90 tabs 06/04/24 07/14/24 Rx denosumab 60 mg/mL subcutaneous 60 mg subcut Q6MO #1 mL 06/15/24 07/14/24 Rx syringe (Prolia) sacubitril 97 mg-valsartan 103 mg 1 tab PO BID #180 tabs 07/02/24 07/14/24 Rx tablet (Entresto) metoprolol succinate 25 mg 25 mg PO QAM #90 tabs 07/07/24 07/14/24 Rx tablet,extended release 24 hr mirtazapine 30 mg tablet (Remeron) 30 mg PO HS 07/14/24 07/14/24 History mometasone 220 mcg/actuation(120 1 inh inhalation QAM PRN Wheezing 07/14/24 07/14/24 History doses)breath activated powder inhaler (Asmanex Twisthaler) Problem List Bacteremia Diarrhea Positive [place]EL[place] (antinuclear antibody) Raynaud phenomenon Open wound of right breast (Acute) Open wound of finger (Acute) Nocturia Celiac disease Pulmonary nodule Abnormal CT scan of lung Diabetes mellitus, type 2 Hypothyroidism History of kidney stones Osteoporosis Hx of gout Hyperlipidemia Hypomagnesemia Insomnia (Acute) Gout (Acute) Gallstones (Acute) Diverticulosis (Acute) Diabetic peripheral neuropathy (Acute) Asthma (Acute) Anemia (Acute) Allergic rhinitis (Acute) Status post right knee replacement Mixed incontinence History of paroxysmal supraventricular tachycardia ablation of typical AVNRT 05/2020 Hypertension Arthritis of knee, left Chondrocalcinosis IPMN (intraductal papillary mucinous neoplasm) Sleep apnea Obesity History of colon polyps H/O total mastectomy of left breast (~01/01/22) Left Breast Mastectomy with Left Axillary [place] Lymph Node Biopsy(Left) - Christian Ortiz, DO, FACS Cardiomyopathy CAD (coronary artery disease) Multiple pulmonary nodules NYHA class 1 heart failure with preserved ejection fraction, with improvement of ejection fraction from prior measurement Patient History Medical History Gout was seen and treated in [facility] with prednisone 1 week ago. Invasive ductal carcinoma of left breast History of COVID-19 08/23/2021 runny nose and aches SVT (supraventricular tachycardia) Pancreatic cyst Fracture, humerus closed HX- fell and fx Type 2 diabetes mellitus GERD (gastroesophageal reflux disease) Hx of intestinal obstruction History of diverticulitis Macular degeneration both Depression Anxiety Hypertension Asthma controlled w/ inhalers Seasonal allergies Surgical History H/O cardiac radiofrequency ablation 2019-DONE [facility]- HAS NOT FOLLOWED UP W/ SINCE ABLATION -NO ISSUES SINCE H/O colonoscopy 2021 Hx of appendectomy S/P tonsillectomy History of cholecystectomy also had appy at same surgery Hx of tubal ligation Hx of lithotripsy History of bowel resection Hx of hernia repair Hx of cataract extraction both eyes Family History (Updated 07/13/24 @ 00:19 by JOSETTE Locke) Father Family history of diabetes mellitus Alcohol abuse Cardiac disorder Diabetes Hypertension Myocardial infarction Grandmother (Paternal) Family history of diabetes mellitus Grandmother (Maternal) Family history of diabetes mellitus Breast cancer Sister Family history of diabetes mellitus Mother Anxiety Depression Lung disease Osteoporosis Brother Colonic polyp Denies family history of Ovarian cancer Prostate cancer Colorectal cancer Social History (Updated 06/16/24 @ 14:40 by SOPHIA Doherty) Smoking Status: Never smoker Second Hand Exposure: No; Do You Dip or Chew Tobacco: No; Hx Alcohol Use: No Hx Substance Use: No Preferred Language: Georgian Communication Ability: Effective Visual Impairment: No Limitations Landmen Required: No Beliefs That Will Affect Care: Mosque Mosque Beliefs: Sikh marital status: Current Living Situation: Spouse current occupational status: retired How many Children do You have: 2 Other Information That Helps Us Care for You: No Feels Safe at Home: Yes Safety Concerns: Feels Safe At This Time Childhood Exposure to Second-Hand Smoke: Yes Diet: diabetic caffeine: Yes during the past year weight has: remained stable Dental Care, Regularly: Yes Physical Activity Frequency: Does not Exercise Seatbelt Use: always Sunscreen Use: Yes Assistive Devices: Cane Physical Exam Physical Exam: Gen.: No acute distress. Alert and oriented. HEENT: Anicteric sclera. Neck: No appreciable JVD. Cardiac: Regular. No ectopy. Normal S1-S2. No murmurs, rubs, or gallops. Pulmonary: Clear to auscultation bilaterally. Abdomen: Soft, nontender, nondistended, with normoactive bowel sounds. No bruits noted. Extremities: 2+ radial pulses bilaterally. 2+ posterior tibialis pulses bilaterally. Trace bilateral lower extremity edema. No cyanosis. Purple les ions involving the distal right second finger. Psychiatric: Affect appears appropriate. Results & Data Vital Signs (Past 12 Hours) Vital Signs Temp Pulse Resp BP Pulse Ox O2 Del Method 07/15/24 11:50 36.6 C 74 18 114/74 95 Room Air 07/15/24 07:30 36.5 C 62 18 101/65 95 Room Air 07/15/24 03:55 36.6 C 70 20 96/63 L 94 Room Air Laboratory Results Laboratory Results - last 24 hr 07/14/24 07/14/24 07/14/24 14:41 16:04 19:56 WBC 5.50 RBC 3.10 L Hgb 10.1 L Hct 31.2 L MCV 100.6 H MCH 32.6 MCHC 32.4 RDW Std Deviation 57.0 H RDW Coeff of Carlyle 15.5 H Plt Count 178 MPV 9.6 Immature Gran % (Auto) 0.2 Neut % (Auto) 51.5 Lymph % (Auto) 36.9 Gage % (Auto) 9.8 Eos % (Auto) 1.1 Baso % (Auto) 0.5 Neut # (Auto) 2.83 Lymph # (Auto) 2.03 Gage # (Auto) 0.54 Eos # (Auto) 0.06 Baso # (Auto) 0.03 Immature Gran # (Auto) 0.01 ESR 1 PT 12.1 H INR 1.1 APTT 25 PTT Ratio 0.9 Sodium 138 Potassium 4.9 Chloride 110 H Carbon Dioxide 21 Anion Gap 7 BUN 8 Creatinine 0.60 Est Cr Clr Drug Dosing 71.4 eGFR 91.82 BUN/Creatinine Ratio 13.3 Glucose 111 H POC Glucose 109 H 99 Calcium 8.7 Magnesium 1.4 L Total Bilirubin 0.8 AST 18 ALT 9 Alkaline Phosphatase 26 L C-Reactive Protein < 0.50 Total Protein 5.7 L Albumin 3.4 Globulin 2.3 L Albumin/Globulin Ratio 1.5 Procalcitonin 0.03 TSH 0.100 L Prolactin Cancelled 07/15/24 07/15/24 07/15/24 05:39 07:12 07:50 WBC 5.03 RBC 3.28 L Hgb 10.8 L Hct 32.2 L MCV 98.2 MCH 32.9 MCHC 33.5 RDW Std Deviation 54.3 H RDW Coeff of Carlyle 15.1 H Plt Count 173 MPV 9.2 L Immature Gran % (Auto) 0.0 Neut % (Auto) 39.2 Lymph % (Auto) 48.5 Gage % (Auto) 8.9 Eos % (Auto) 2.6 Baso % (Auto) 0.8 Neut # (Auto) 1.97 Lymph # (Auto) 2.44 Gage # (Auto) 0.45 Eos # (Auto) 0.13 Baso # (Auto) 0.04 Immature Gran # (Auto) 0.00 L ESR PT INR APTT PTT Ratio Sodium 140 Potassium 4.3 Chloride 111 H Carbon Dioxide 22 Anion Gap 7 BUN 6 Creatinine 0.63 Est Cr Clr Drug Dosing 67.8 eGFR 90.74 BUN/Creatinine Ratio 9.5 L Glucose 98 POC Glucose 105 H 81 Calcium 8.6 Magnesium 2.0 Total Bilirubin AST ALT Alkaline Phosphatase C-Reactive Protein Total Protein Albumin Globulin Albumin/Globulin Ratio Procalcitonin TSH Prolactin 07/15/24 11:23 WBC RBC Hgb Hct MCV MCH MCHC RDW Std Deviation RDW Coeff of Carlyle Plt Count MPV Immature Gran % (Auto) Neut % (Auto) Lymph % (Auto) Gage % (Auto) Eos % (Auto) Baso % (Auto) Neut # (Auto) Lymph # (Auto) Gage # (Auto) Eos # (Auto) Baso # (Auto) Immature Gran # (Auto) ESR PT INR APTT PTT Ratio Sodium Potassium Chloride Carbon Dioxide Anion Gap BUN Creatinine Est Cr Clr Drug Dosing eGFR BUN/Creatinine Ratio Glucose POC Glucose 111 H Calcium Magnesium Total Bilirubin AST ALT Alkaline Phosphatase C-Reactive Protein Total Protein Albumin Globulin Albumin/Globulin Ratio Procalcitonin TSH Prolactin Diagnostic Findings Telemetry personally reviewed: Sinus rhythm. No arrhythmia. ECG personally reviewed 07/14/2024: Sinus rhythm 75 bpm. Labs reviewed and notable for normal renal function, normal potassium, mild anemia, normal transaminase levels, low TSH. History and physical report reviewed. Right upper extremity arterial duplex 07/14/2024: No vascular abnormality. No thrombus. Chest x-ray 07/14/2024: No acute findings per radiology. Rheumatology outpatient note reviewed. Infectious disease consultation report reviewed. ECHO 07/15/24: 1. Normal left ventricular size and systolic function. EF 65-70%. No regional wall motion abnormalities. No left ventricular hypertrophy. 2. Mild mitral regurgitation. 3. Moderate mitral annular calcification. 4. Top normal estimated right ventricular systolic pressure. 5. No visualized vegetation. 6. Technically difficult study, enhanced with IV Definity. 7. Compared to limited study on 07/05/2022, LV systolic function remains stable. Medications Administered Current Inpatient Medications Albuterol (Albuterol Hfa 8 Gm Inhaler) 2 puffs INH QID PRN PRN Reason: asthma Stop: 08/13/24 15:51 Aspirin (Aspirin 81 Mg Ectab) 81 mg PO QPM DUSTIN Stop: 08/13/24 20:59 Last Admin: 07/14/24 20:21 Dose: 81 mg Atorvastatin Calcium (Atorvastatin 40 Mg Tab) 80 mg PO DAILY DUSTIN Stop: 08/14/24 08:59 Last Admin: 07/15/24 08:05 Dose: 80 mg Buspirone HCl (Buspirone 7.5 Mg Tab) 7.5 mg PO TID DUSTIN Stop: 08/13/24 20:59 Last Admin: 07/15/24 08:03 Dose: 7.5 mg Colestipol HCl (Colestipol Hcl 1 Gm Tab) 1 gm PO Q24H DUSTIN Stop: 08/14/24 09:59 Last Admin: 07/15/24 10:40 Dose: 1 gm Dextrose (Dextrose 50% 50 Ml Syringe) 25 - 50 ml IV UD PRN; Protocol PRN Reason: Hypoglycemia Protocol Stop: 08/13/24 15:55 Diclofenac Sodium (Diclofenac Sod 1% Gel 100 Gm Tube) 2 gm EXT BID PRN; Protocol PRN Reason: pain Stop: 08/13/24 15:46 Enoxaparin Sodium (Enoxaparin Inj 40 Mg/0.4 Ml Syr) 40 mg SQ QPM DUSTIN Stop: 08/13/24 20:59 Last Admin: 07/14/24 20:21 Dose: 40 mg Fexofenadine HCl (Fexofenadine Hcl 180 Mg Tab) 180 mg PO DAILYBL [facility] Stop: 08/14/24 10:29 Last Admin: 07/15/24 10:40 Dose: 180 mg Glucagon (Glucagon For Inj 1 Mg Vial) 1 mg SQ UD PRN; Protocol PRN Reason: Hypoglycemia Protocol Stop: 08/13/24 15:55 Glucose (Glucose 40% Gel 15 Gm Tube) 15 - 30 gm PO UD PRN; Protocol PRN Reason: Hypoglycemia Protocol Stop: 08/13/24 15:55 Glucose (Glucose 10 Tab/Tube) 4 - 8 tab PO UD PRN; Protocol PRN Reason: Hypoglycemia Protocol Stop: 08/13/24 15:55 Vancomycin HCl 1,000 mg/ (Sodium Chloride) 270 mls @ 200 mls/hr IV Q12H DUSTIN Stop: 07/16/24 16:59 Last Infusion: 07/15/24 05:03 Dose: Infused Insulin Aspart (Insulin Aspart Per Unit Charge) 0 units SC Q6 DUSTIN Stop: 08/14/24 05:59 Last Admin: 07/15/24 12:00 Dose: Not Given Levothyroxine Sodium (Levothyroxine Sodium 125 Mcg Tablet) 125 mcg PO DAILYBB [facility] Stop: 08/14/24 06:29 Last Admin: 07/15/24 05:30 Dose: 125 mcg Magnesium Chloride (Magnesium Chloride W/Calcium 64mg Delayed Rel Tab) 256 mg PO TID DUSTIN Stop: 08/13/24 20:59 Last Admin: 07/15/24 08:04 Dose: 256 mg Metoprolol Succinate (Metoprolol Succ 25mg Ext Rel Tab) 25 mg PO QAM DUSTIN Stop: 08/14/24 08:59 Last Admin: 07/15/24 08:05 Dose: 25 mg Mirtazapine (Mirtazapine Tab 15 Mg Tab) 30 mg PO HS [facility] Stop: 08/13/24 20:59 Last Admin: 07/14/24 20:22 Dose: 30 mg Miscellaneous (Carbohydrates For Hypoglycemia ) 15 - 30 gm PO UD PRN PRN Reason: Hypoglycemia Protocol Stop: 08/13/24 15:55 Miscellaneous Information (Vancomycin Consult Active) 1 each N/A UD PRN PRN Reason: Consult Stop: 08/13/24 16:05 Sacubitril/Valsartan (Valsartan/Sacubitril 103/97mg Tab) 1 tab PO BID DUSTIN Stop: 08/13/24 20:59 Last Admin: 07/15/24 08:03 Dose: 1 tab Tamoxifen Citrate (Tamoxifen Citrate 10 Mg Tablet) 20 mg PO DAILY DUSTIN Stop: 08/14/24 08:59 Last Admin: 07/15/24 08:04 Dose: 20 mg PG Care Time/CCT Total # of Minutes Spent Total Time Spent with Patient: Total time spent is greater than 50% in coordination of care (as documented) at patient's floor/unit and/or counseling patient: Coding Level of Care Code 12246 INT INP/OBS CARE 3/75MIN Diagnoses Bacteremia R78.81 Coronary artery disease due to calcified coronary lesion I25.10; I25.84 Coronary Disease-Associated Artery/Lesion type: due to calcified coronary lesion NYHA class 1 heart failure with preserved ejection fraction, with improvement of ejection fraction from prior measurement I50.30 Cardiomyopathy I42.9 Primary hypertension I10 Hypertension type: primary hypertension Mixed hyperlipidemia E78.2 Hyperlipidemia type: mixed hyperlipidemia (2) CAD (coronary artery disease) Coronary Disease-Associated Artery/Lesion type: due to calcified coronary lesion Qualified Code(s): I25.10 - Atherosclerotic heart disease of [place] coronary artery without angina pectoris; I25.84 - Coronary atherosclerosis due to calcified coronary lesion (5) Hypertension Hypertension type: primary hypertension Qualified Code(s): I10 - Essential (primary) hypertension (6) Hyperlipidemia Hyperlipidemia type: mixed hyperlipidemia Qualified Code(s): E78.2 - Mixed hyperlipidemia
[2024-07-16] MEDS: INSULIN ASPART PER UNIT CHARGE SC SCH ×2 (05:54→20:50)
[2024-07-16 07:18] LABS: Hematocrit (blood only) 29.6 % (37.0-47.0); Hemoglobin 9.8 g/dl (12.0-16.0); Mean Corpuscular Hemoglobin 32.6 pg (25.0-34.0); Mean Corpuscular Hgb Conc 33.1 g/dL (32.0-36.0); Mean Corpuscular Volume 98.3 fL (80.0-100.0); Mean Platelet Volume 9.5 fL (9.4-12.4); Platelet Count 151 K/uL (130-400); RDW Coefficient of Variation 15.3 % (11.5-14.5); RDW Standard Deviation 54.7 fL (36.4-46.3); Red Blood Count 3.01 M/uL (4.20-5.40); White Blood Count 5.43 K/ul (4.8-10.8)
[2024-07-16 07:44] LABS: BUN Creatinine Ratio 10.3 (10-20); Calcium 8.3 mg/dl (8.6-10.3); Creatinine Clr Calc Pharmacy 73.6 ml/min; Potassium 4.3 mmol/L (3.5-5.1)
[2024-07-16 08:02] LABS: Basophils # (auto) 0.04 K/uL (0.00-0.20); Basophils % (auto) 0.7 %; Eosinophils # (auto) 0.13 K/uL (0.00-0.50); Eosinophils % (auto) 2.4 %; Immature Granulocytes # (auto) 0.01 K/uL (0.01-0.20); Immature Granulocytes % (auto) 0.2 %; Lymphocytes # (auto) 2.77 K/uL (1.20-3.40); Monocytes # (auto) 0.58 K/uL (0.11-0.59); Monocytes % (auto) 10.7 %
--- NOTE | 2024-07-16 08:57 | Infectious Disease Progress Nt ---
Date of Service July 16, 2024 Assessment & Plan (1) Positive blood culture: (2) Open wound of right breast: (3) Open wound of finger: (4) Diabetes mellitus, type 2: Plan 79yo F with h/o T2DM, HFpEF, CAD, IPMN, asthma, gout, Raynauds, right knee replacement who presented on 07/14 after outpatient BCx returned positive for GPC. She had the BCx drawn due to the concerns for the lesions on her right finger and right breast, for which she has been seeing wound care. She did have a complaint of some purulent drainage from the right breast wound. She also reported diarrhea for a few weeks. Recently had taken amoxicillin for a dental procedure. Here she has been afebrile, vss. Initial labs with WBC wnl, Cr 0.6, AST/ALT wnl. PCT 0.03. ESR/CRP neg. CXR negative. XR of right finger negative for acute findings. Arterial duplex of upper extremities negative. She has been started on vancomycin. TTE is technically, mild MR moderate mitral annular calcification, no vegetation. ID consulted 07/15. BCX with coag neg staph. Patient planned for NOAH. BCX positive from 1 of 4 bottles and speciated to Staph warneri, which is coag negative staph. Await follow up BCx. She is planned for NOAH, will await results. Otherwise, she has not had any fevers, no elevation in inflammatory markers. # Staph warneri in BCX # Right finger lesion # Right breast wound with some drainage # h/o T2DM - f/u NOAH - f/u blood cx from 07/14 - continue vancomycin pharmacy dosed protocol for now pending cx results ID will continue to follow. If questions or concerns, contact via BringMeThat or Infectious Disease Call Center . Ruchi Perez MD [facility], Division of Infectious Diseases Admission and Anticipated Discharge Date Admission Date: July 14, 2024 Subjective Subsequent visit was provided via telemedicine using two-way real-time interactive telecommunication between the patient and the telemedicine provider. For the duration of the visit, the provider was performing the assessment from a different facility than the patient. This includesuse of bluetooth stethoscope forauscultationperformed by the telepresenter that the telemedici ne provider can hear if described in the physical exam. Mold Stripper contact information: Please call [facility] Call Center . (Phone Number For Physician Use Only) After establishing a telemedicine visit, patient was: Patient was verified with two unique identifiers, Patient/authorized rep acknowledged consent and unde rstanding and Gave permission to continue telehealth session Time Spent with Patient: Subsequent => 55 min Patient reports feeling well. No SOB, abdominal pain, chest pain, v/d. Physical Exam Physical Exam: General: Awake, alert, no acute distress HEENT: NC/AT, EOMI, mmm Neck: supple Lungs: respirations non-labored Heart: nl peripheral perfusion Abdomen: soft, NT/ND Ext: no LE edema Skin: right finger with discolored lesion, left thumb with dark area under nailbed, right breast with circular lesion with some drainage and surrounding erythema, feet without lesions Results & Data Vital Signs (Past 12 Hours) Vital Signs Temp Pulse Pulse Resp BP BP Pulse Ox 07/16/24 07:56 80 07/16/24 07:25 36.5 C 79 18 122/74 97 07/15/24 22:38 36.9 C 72 18 95/59 L 95 07/15/24 21:53 75 O2 Del Method 07/16/24 07:56 07/16/24 07:25 Room Air 07/15/24 22:38 Room Air 07/15/24 21:53 Laboratory Results Labs reviewed. Diagnostic Findings Imaging reviewed. (2) Open wound of right breast Encounter type: initial encounter Qualified Code(s): S21.001A - Unspecified open wound of right breast, initial encounter (3) Open wound of finger Encounter type: initial encounter Qualified Code(s): S61.209A - Unspecified open wound of unspecified finger without damage to nail, initial encounter (4) Diabetes mellitus, type 2 Diabetes mellitus complication status: without complication Diabetes mellitus bed bug exterminator insulin use: without bed bug exterminator use Qualified Code(s): E11.9 - Type 2 diabetes mellitus without complications
--- NOTE | 2024-07-16 10:44 | Anesthesiology Consultation ---
Date of Service July 16, 2024 Assessment & Plan (1) Encounter for pre-operative examination: Chart Review Chart Review: Acceptable Risk for Surgery History Surgery Operation Date: 07/16/24 14:00 Proposed Procedures p Transesophageal Echo w/Anesthesia - Fermin Mahoney MD Height/Weight Height: 5 ft 3 in Weight: 67.3 kg Allergies Allergy/AdvReac Type Severity Reaction Status Date / Time animal dander Allergy Mild Sneezing Verified 07/13/24 09:30 cigarette smoke Allergy Mild sneezing Verified 07/13/24 09:30 hyde Allergy Mild Sneezing Verified 07/13/24 09:30 naproxen Allergy Mild Rash Verified 07/14/24 15:35 pollen extracts Allergy Mild sneezing Verified 07/13/24 09:30 Medications Home Medications Medication Instructions Recorded Confirmed Last Taken aspirin 81 mg tablet,delayed 81 mg PO QPM 12/30/18 07/14/24 12/28/21 release fexofenadine 180 mg tablet 180 mg PO DAILYBL 12/30/18 07/14/24 12/31/21 08:30 (Sarah Allergy) calcium 600 mg (as 1 tab PO BID 01/21/19 07/14/24 12/31/21 12:00 carbonate)-vitamin D3 10 mcg (400 unit) tablet (Calcium 600 + D(3)) cholecalciferol (vitamin D3) 50 2,000 units PO PM 04/09/19 07/14/24 12/31/21 23:55 mcg (2,000 unit) capsule vitamins A,C,J-njuf-qtddzd 4,296 1 cap PO BID 06/04/20 07/14/24 12/31/21 23:55 mcg-226 mg-90 mg capsule (PreserVision AREDS) albuterol sulfate 90 mcg/actuation 2 puff inhalation QID PRN asthma 06/04/22 07/14/24 Unknown aerosol inhaler (Ventolin HFA) #18 grams cyanocobalamin (vitamin B-12) 1,000 mcg PO DAILY 08/15/22 07/14/24 Unknown 1,000 mcg capsule diclofenac sodium 1 % topical gel 2 g topical BID PRN pain 08/15/22 07/14/24 Unknown (Voltaren Arthritis Pain) turmeric root extract 500 mg tablet 500 mg PO DAILY 08/15/22 07/14/24 Unknown tamoxifen 20 mg tablet 20 mg PO DAILY 10/17/22 07/14/24 Unknown blood sugar diagnostic (OneTouch #100 ea 10/19/22 07/13/24 Unknown Verio test strips) buspirone 5 mg tablet 7.5 mg PO TID 12/03/22 07/14/24 Unknown pen needle, diabetic 31 gauge x #100 ea 02/04/23 07/13/24 Unknown 10/11" (Pen Needle) magnesium chloride 64 mg 256 mg (4 x 64 mg) PO TID #1,080 09/05/23 07/14/24 Unknown (magnesium chloride) tabs tablet,delayed release colestipol 1 gram tablet 1 g PO QAM #90 tabs 09/30/23 07/14/24 Unknown jxfssgwc-vqm-LR-lycopen-lutein PO DAILY 11/01/23 07/13/24 Unknown [Adults 50 Plus] metformin 500 mg tablet 1,000 mg (2 x 500 mg) PO BID #360 11/14/23 07/14/24 Unknown tabs semaglutide 7 mg tablet 7 mg PO DAILY #30 tabs 02/04/24 07/14/24 Unknown blood-glucose sensor (FreeStyle #6 ea 02/10/24 07/13/24 Unknown Zaki 3 Sensor device) pantoprazole 40 mg tablet,delayed 40 mg PO QAM gerd #90 tabs 03/16/24 07/14/24 Unknown release trospium 60 mg capsule,extended 60 mg PO DAILY #90 caps 04/06/24 07/14/24 Unknown release 24 hr levothyroxine 125 mcg tablet 125 mcg PO DAILY #90 tabs 05/28/24 07/14/24 Unknown atorvastatin 80 mg tablet 80 mg PO DAILY #90 tabs 06/04/24 07/14/24 Unknown denosumab 60 mg/mL subcutaneous 60 mg subcut Q6MO #1 mL 06/15/24 07/14/24 Unknown syringe (Prolia) sacubitril 97 mg-valsartan 103 mg 1 tab PO BID #180 tabs 07/02/24 07/14/24 Unknown tablet (Entresto) metoprolol succinate 25 mg 25 mg PO QAM #90 tabs 07/07/24 07/14/24 Unknown tablet,extended release 24 hr mirtazapine 30 mg tablet (Remeron) 30 mg PO HS 07/14/24 07/14/24 Unknown mometasone 220 mcg/actuation(120 1 inh inhalation QAM PRN Wheezing 07/14/24 07/14/24 Unknown doses)breath activated powder inhaler (Asmanex Twisthaler) Active Medications Generic Name Dose Route Start Last Admin Trade Name Freq PRN Reason Stop Dose Admin Aspirin 81 mg 07/14/24 21:00 07/15/24 20:34 Aspirin 81 Mg Ectab PO 08/13/24 20:59 81 mg QPM DUSTIN Administration Atorvastatin Calcium 80 mg 07/15/24 09:00 07/16/24 09:16 Atorvastatin 40 Mg Tab PO 08/14/24 08:59 80 mg DAILY DUSTIN Administration Buspirone HCl 7.5 mg 07/14/24 21:00 07/16/24 09:16 Buspirone 7.5 Mg Tab PO 08/13/24 20:59 7.5 mg TID DUSTIN Administration Colestipol HCl 1 gm 07/15/24 10:00 07/15/24 10:40 Colestipol Hcl 1 Gm Tab PO 08/14/24 09:59 1 gm Q24H DUSTIN Administration Enoxaparin Sodium 40 mg 07/14/24 21:00 07/15/24 20:33 Enoxaparin Inj 40 Mg/0.4 Ml Syr SQ 08/13/24 20:59 40 mg QPM DUSTIN Administration Fexofenadine HCl 180 mg 07/15/24 10:30 07/16/24 09:16 Fexofenadine Hcl 180 Mg Tab PO 08/14/24 10:29 180 mg DAILYBL DUSTIN Administration Vancomycin HCl 1,000 mg/ 270 mls @ 200 mls/hr 07/15/24 04:00 07/16/24 04:45 Sodium Chloride IV 07/16/24 16:59 Infused Q12H DUSTIN Infusion Insulin Aspart 0 units 07/16/24 06:00 07/16/24 05:54 Insulin Aspart Per Unit Charge SC 08/15/24 05:59 Not Given Q6 DUSTIN Levothyroxine Sodium 125 mcg 07/15/24 06:30 07/16/24 05:54 Levothyroxine Sodium 125 Mcg Tablet PO 08/14/24 06:29 125 mcg DAILYBB DUSTIN Administration Magnesium Chloride 256 mg 07/14/24 21:00 07/16/24 09:15 Magnesium Chloride W/Calcium 64mg Delayed Rel Tab PO 08/13/24 20:59 256 mg TID DUSTIN Administration Metoprolol Succinate 25 mg 07/15/24 09:00 07/16/24 09:16 Metoprolol Succ 25mg Ext Rel Tab PO 08/14/24 08:59 25 mg QAM DUSTIN Administration Mirtazapine 30 mg 07/14/24 21:00 07/15/24 20:35 Mirtazapine Tab 15 Mg Tab PO 08/13/24 20:59 30 mg HS DUSTIN Administration Sacubitril/Valsartan 1 tab 07/14/24 21:00 07/16/24 09:16 Valsartan/Sacubitril 103/97mg Tab PO 08/13/24 20:59 1 tab BID DUSTIN Administration Tamoxifen Citrate 20 mg 07/15/24 09:00 07/15/24 08:04 Tamoxifen Citrate 10 Mg Tablet PO 08/14/24 08:59 20 mg DAILY DUSTIN Administration Past Medical History Medical History (Updated 07/16/24 @ 10:44 by Sanju Rojas MD) Sleep apnea Anemia Gout was seen and [place] prednisone 1 week ago. Invasive ductal carcinoma of left breast History of COVID-19 08/23/2021 runny nose and aches SVT (supraventricular tachycardia) Pancreatic cyst Fracture, humerus closed HX- fell and fx Type 2 diabetes mellitus GERD (gastroesophageal reflux disease) Hx of intestinal obstruction History of diverticulitis Macular degeneration both Depression Anxiety Hypertension Asthma controlled w/ inhalers Seasonal allergies Past Family History Family History Father Family history of diabetes mellitus Alcohol abuse Cardiac disorder Diabetes Hypertension Myocardial infarction Grandmother (Paternal) Family history of diabetes mellitus Grandmother (Maternal) Family history of diabetes mellitus Breast cancer Sister Family history of diabetes mellitus Mother Anxiety Depression Lung disease Osteoporosis Brother Colonic polyp Denies family history of Ovarian cancer Prostate cancer Colorectal cancer Past Surgical History Surgical History H/O cardiac radiofrequency ablation 2019-DONE [facility]- HAS NOT FOLLOWED UP W/ SINCE ABLATION -NO ISSUES SINCE H/O colonoscopy 2021 Hx of appendectomy S/P tonsillectomy History of cholecystectomy also had appy at same surgery Hx of tubal ligation Hx of lithotripsy History of bowel resection Hx of hernia repair Hx of cataract extraction both eyes Social History Smoking Status: Never smoker Do You Dip or Chew Tobacco: No Hx Alcohol Use: No Alcohol type: wine alcohol intake frequency: holidays/special occasions only Hx Substance Use: No substance use type: does not use Physical Exam Vital Signs Last Vital Signs Temp 36.5 C 07/16/24 07:25 Pulse 80 07/16/24 09:13 Resp 18 07/16/24 07:25 BP 122/74 07/16/24 07:25 Pulse Ox 97 07/16/24 07:25 O2 Del Method Room Air 07/16/24 07:25 Testing Laboratory Results 07/16/24 06:56 07/16/24 06:56 PT 12.1 Seconds (9.0-12.0) H 07/14/24 14:41 INR 1.1 (0.9-1.1) 07/14/24 14:41 APTT 25 Seconds (21-31) 07/14/24 14:41 07/14/24 14:34 Aerobic Blood Culture - Preliminary Blood No growth in Aerobic bottle after 24 hours. Anaerobic Blood Culture - Preliminary No growth in Anaerobic bottle after 24 hours. 07/14/24 14:41 Aerobic Blood Culture - Preliminary Blood No growth in Aerobic bottle after 24 hours. Anaerobic Blood Culture - Preliminary No growth in Anaerobic bottle after 24 hours. 07/16/24 05:53 POC Glucose 92 Electrocardiogram Date: 07/14/24 Findings: + NSR @ (75) Echocardiogram Date: 07/15/24 EF: 65-70% LV Function: normal Valvular Disease: + no significant valvular disease
--- NOTE | 2024-07-16 11:41 | Hospitalist Progress Note ---
Date of Service July 16, 2024 Assessment & Plan (1) Bacteremia: Plan: Patient presented on 07/14 at the behest of her PCP after (+) outpatient blood culture for gram-positive cocci drawn on 07/13 Blood culture drawn due to lesions on her right second finger and right breast with concern for septic emboli Will complete workup for endocarditis On arrival, black lesions noted on the tip of the second right finger, they look like thrombo embolic spots CRP, procal and other markers of inflammation wnl X-ray of the right fingers did not show any evidence of osteomyelits Repeat blood cultures negative so far Echocardiogram did not suggest vegetaions, plan for NOAH today Continue Empiric vancomycin 1000 mg IV q12h (2) Open wound of right breast: Plan: Patient reports purulent drainage from the lesion on her right breast No h/o MRSA infections to her knowledge She has been following with the wound care clinic for this M/W/F since April 2024 Daily wound care Wound care nurse consult appreciated (3) Hypomagnesemia: Plan: Continue repletion P.o. supplementation TID Hold Protonix for now (4) Open wound of finger: Plan: hey look like thrombo embolic spots (5) Diarrhea: Plan: now resolved (6) Diabetes mellitus, type 2: Plan: Last A1c at 5.3% on 06/12/2025 Hold Rybelsus, metformin SSI; with target BSG range 110-140mg/dL, CF 50, carb ratio 15 T2DM diet BSG ACHS Adjust regimen as needed (7) CAD (coronary artery disease): Plan: No history of heart stents Continue aspirin, atorvastatin, and metoprolol (8) Sleep apnea: Plan: Not currently on CPAP (9) Raynaud phenomenon: (10) Positive CAMELIA (antinuclear antibody): (11) Hypothyroidism: (12) Hx of gout: (13) Hyperlipidemia: (14) NYHA class 1 heart failure with preserved ejection fraction, with improvement of ejection fraction from prior measurement: Plan Disposition: Continued stay on PCU telemetry DNR/DNI Heart healthy, T2DM diet VTE PPx: Lovenox 40 mg SQ q24h Admission and Anticipated Discharge Date Admission Date: July 14, 2024 Subjective patient seen and examined, no new complaints Review of Systems Review of Systems: All systems reviewed are negative, apart from the ones contained in the history. Physical Exam Physical Exam: The patient is awake, alert and oriented 3, well developed and well nourished, normocephalic and atraumatic, lying in bed and in no acute distress. HEENT--PERRL, EOMI, mucous membranes and oropharynx mildly dry Neck--supple. No JVD. No bruits. Thyroid normal, trachea midline, no adenopathy. Heart--normal S1 and S2. No murmurs, rubs or gallops. Lungs--clear bilaterally, no respiratory distress, no accessory muscle use. Abdomen--normal bowel sounds and soft. Extremities--no cyanosis or clubbing. No edema. Dermatologic--normal skin turgor, normal color, no abnormal lymph nodes, no rash. Neurologic--cranial nerves II through XII grossly intact. Rheumatologic--normal range of motion. Psychiatric--normal affect. Results & Data Results & Data Vital Signs (Past 12 Hours) Vital Signs Temp Pulse Pulse Resp BP Pulse Ox O2 Del Method 07/16/24 10:41 97.9 F 83 18 136/78 98 Room Air 07/16/24 09:13 80 07/16/24 07:56 80 07/16/24 07:25 97.7 F 79 18 122/74 97 Room Air PG Care Time/CCT Total # of Minutes Spent Total Time Spent with Patient: Total time spent is greater than 50% in coordination of care (as documented) at patient's floor/unit and/or counseling patient: Coding Level of Care Code 11347 SUB INP/OBS CARE 2/35MIN Diagnoses Bacteremia R78.81 Open wound of right breast, initial encounter S21.001A Encounter type: initial encounter Hypomagnesemia E83.42 Open wound of finger, initial encounter S61.209A Encounter type: initial encounter Diarrhea R19.7 Type 2 diabetes mellitus without complication, without long-term current use of insulin E11.9 Diabetes mellitus roasterman insulin use: without roasterman use Diabetes mellitus complication status: without complication Coronary artery disease due to calcified coronary lesion I25.10; I25.84 Coronary Disease-Associated Artery/Lesion type: due to calcified coronary lesion Sleep apnea G47.30 Raynaud's phenomenon without gangrene I73.00 Raynaud?s-associated gangrene presence: without gangrene Positive CAMELIA (antinuclear antibody) R76.8 Hypothyroidism, unspecified type E03.9 Hypothyroidism type: unspecified Hx of gout Z87.39 Mixed hyperlipidemia E78.2 Hyperlipidemia type: mixed hyperlipidemia NYHA class 1 heart failure with preserved ejection fraction, with improvement of ejection fraction from prior measurement I50.30 Time Spent (min) 35 (2) Open wound of right breast Encounter type: initial encounter Qualified Code(s): S21.001A - Unspecified open wound of right breast, initial encounter (4) Open wound of finger Encounter type: initial encounter Qualified Code(s): S61.209A - Unspecified open wound of unspecified finger without damage to nail, initial encounter (6) Diabetes mellitus, type 2 Diabetes mellitus roasterman insulin use: without penitentiary use Diabetes mellitus complication status: without complication Qualified Code(s): E11.9 - Type 2 diabetes mellitus without complications (7) CAD (coronary artery disease) Coronary Disease-Associated Artery/Lesion type: due to calcified coronary lesion Qualified Code(s): I25.10 - Atherosclerotic heart disease of [place] coronary artery without angina pectoris; I25.84 - Coronary atherosclerosis due to calcified coronary lesion (9) Raynaud phenomenon Raynaud?s-associated gangrene presence: without gangrene Qualified Code(s): I73.00 - Raynaud's syndrome without gangrene (11) Hypothyroidism Hypothyroidism type: unspecified Qualified Code(s): E03.9 - Hypothyroidism, unspecified (13) Hyperlipidemia Hyperlipidemia type: mixed hyperlipidemia Qualified Code(s): E78.2 - Mixed hyperlipidemia
[2024-07-16 14:41] LABS: Adenovirus F 40/41 PCR Not Detected (NotDetected); Astrovirus PCR Not Detected (NotDetected); Campylobacter PCR Not Detected (NotDetected); Cryptosporidium PCR Not Detected (NotDetected); Cyclospora cayetanensis PCR Not Detected (NotDetected); Entamoeba histolytica PCR Not Detected (NotDetected); Enteroaggregative E.coli(EAEC) Not Detected (NotDetected); Enteropathogenic E.coli (EPEC) Not Detected (NotDetected); Enterotoxigenic E.coli (ETEC) Not Detected (NotDetected); Giardia lamblia PCR Not Detected (NotDetected); Norovirus GI/GII PCR Not Detected (NotDetected); Plesiomonas shigelloides PCR Not Detected (NotDetected); Rotavirus A PCR Not Detected (NotDetected); Salmonella PCR Not Detected (NotDetected); Sapovirus PCR Not Detected (NotDetected); Shiga-like Toxin E.coli (STEC) Not Detected (NotDetected); Shigella/Enteroinvasive E.coli Not Detected (NotDetected); Vibrio cholerae PCR Not Detected (NotDetected); Vibrio species PCR Not Detected (NotDetected); Yersinia enterocolitica PCR Not Detected (NotDetected)
--- NOTE | 2024-07-16 15:16 | Post Operative Brief Note ---
Cardiology Brief Post Op Date of Surgery July 16, 2024 Pre & Post Diagnosis Operation Date: 07/16/24 14:00 <No data on this case meets the specified criteria> Procedure NOAH Group Product Manager Fermin Mahoney MD Cruise Counselor [place] Estimated Blood Loss 0 Findings See Below No vegetation. Moderate MR. Full report to follow formal review. Complications none
--- NOTE | 2024-07-16 15:24 | Cardiology Progress Note ---
Date of Service July 16, 2024 Assessment & Plan (1) Bacteremia: (2) CAD (coronary artery disease): (3) NYHA class 1 heart failure with preserved ejection fraction, with improvement of ejection fraction from prior measurement: (4) Cardiomyopathy: (5) Hypertension: (6) Hyperlipidemia: Plan ASSESSMENT/PLAN: 1. Bacteremia: [place] to be possibly contaminant. ID is following. 1 of 4 bottles positive. 2. Finger/breast lesion: Given that he 1 abnormal blood culture suggest contaminant, endocarditis less likely. Current cultures are pending. Rheumatology believes that these findings are consistent with embolic event. Discussed transesophageal echo today. She was agreeable. Risk and benefits were discussed with her in detail. If unremarkable and still concern for embolic event, could consider CT angiogram of the thoracic aorta/ right subclavian. 3. CAD: Severe RCA CAD which was heavily calcified and unable to advance balloon across the lesion in the past. No angina. Continue medical therapy. Continue aspirin, high intensity statin therapy, beta-diogenes. If refractory angina in the future, could consider PCI attempt at tertiary care center with possible atherectomy. 4. Heart failure with improved EF: LV systolic function has normalized. She a ppears euvolemic. She has not required loop diuretic in the outpatient setting. NYHA class I. Continue metoprolol succinate and Entresto. Spironolactone discontinued in the past due to hyperkalemia. Not on SGLT2 inhibitor due to recurrent UTI. Low-sodium diet. Daily weights. Follows in the heart failure program. 5. Cardiomyopathy: Nonischemic. LV systolic function has since normalized. Possible Takotsubo. Continue medical therapy. 6. Dyslipidemia: Continue high intensity statin therapy. LDL is excellent. 7. Hypertension: Blood pressure well-controlled. Continue current regimen. Mild hypotension while in bed sleeping overnight. Asymptomatic. 8. Disposition: Cardiology will continue to follow. Patient care communicated with primary hospitalist, Dr. Castro. No further cardiology studies necessary at this time. Could consider CT angiogram as above if primary service feels strongly about embolic events causing the right finger and right breast lesions. Cardiology will sign off at this time. She can be discharged home from a cardiology perspective once recovered from transesophageal echo. Addendum: Transesophageal echo completed this afternoon. Moderate mitral regurgitation on preliminary review. No obvious vegetation noted. Atherosclerosis noted within the descending thoracic aorta. Aneurysmal interatrial septum without evidence of [id number] interatrial shunt. Patient tolerated procedure well. Her and daughter were updated of findings. Admission and Anticipated Discharge Date Admission Date: July 14, 2024 Subjective Patient seen this morning. She denies chest pain, shortness of breath, syncope, near syncope, palpitations, edema, or bleeding. Her daughter, Daphne, was present at the bedside. Physical Exam Physical Exam: Gen.: No acute distress. Alert and oriented. HEENT: Anicteric sclera. Neck: No appreciable JVD. Cardiac: Regular. No ectopy. Normal S1-S2. No murmurs, rubs, or gallops. Pulmonary: Clear to auscultation bilaterally. Abdomen: Soft, nontender, nondistended, with normoactive bowel sounds. No bruits noted. Extremities: 2+ radial pulses bilaterally. 2+ posterior tibialis pulses alex aterally. No significant edema. No cyanosis. Purple lesion involving the distal right second finger. Psychiatric: Affect appears appropriate. Results & Data Vital Signs (Past 12 Hours) Vital Signs Temp Pulse Pulse Resp BP Pulse Ox O2 Del Method 07/16/24 14:40 93 H 14 134/67 97 Room Air 07/16/24 14:08 80 07/16/24 10:41 36.6 C 83 18 136/78 98 Room Air 07/16/24 09:13 80 07/16/24 07:56 80 07/16/24 07:25 36.5 C 79 18 122/74 97 Room Air Laboratory Results Laboratory Results - last 24 hr 07/15/24 07/15/24 07/16/24 16:12 19:47 05:53 WBC RBC Hgb Hct MCV MCH MCHC RDW Std Deviation RDW Coeff of Carlyle Plt Count MPV Immature Gran % (Auto) Neut % (Auto) Lymph % (Auto) [place] % (Auto) Eos % (Auto) Baso % (Auto) Neut # (Auto) Lymph # (Auto) [place] # (Auto) Eos # (Auto) Baso # (Auto) Immature Gran # (Auto) Sodium Potassium Chloride Carbon Dioxide Anion Gap BUN Creatinine Est Cr Clr Drug Dosing eGFR BUN/Creatinine Ratio Glucose POC Glucose 122 H 169 H 92 Calcium Stl C. [place]ayetanensis PCR Stool Rotavirus A PCR Stl Adenov F 40/41 PCR Stool Astrovirus (PCR) Stool Campylobacter PCR Stool Cryptosporidium PCR Stl E.coli Shiga Tox PCR Stl Enterotoxigenic E PCR Stool EPEC (PCR) Stool EAEC (PCR) Stl E. histolytica PCR Stool Giardia Lamblia PCR Stool Salmonella PCR Stool Sapovirus (PCR) Stl P. shigelloides PCR Stl Shigella/EIEC PCR St Y.enterocolitica PCR Stool Vibrio (PCR) Stl Vibrio cholerae PCR Stl Norovirus GI/GII PCR 07/16/24 07/16/24 07/16/24 06:56 11:55 12:21 WBC 5.43 RBC 3.01 L Hgb 9.8 L Hct 29.6 L MCV 98.3 MCH 32.6 MCHC 33.1 RDW Std Deviation 54.7 H RDW Coeff of Carlyle 15.3 H Plt Count 151 MPV 9.5 Immature Gran % (Auto) 0.2 Neut % (Auto) 35.0 Lymph % (Auto) 51.0 [place] % (Auto) 10.7 Eos % (Auto) 2.4 Baso % (Auto) 0.7 Neut # (Auto) 1.90 Lymph # (Auto) 2.77 [place] # (Auto) 0.58 Eos # (Auto) 0.13 Baso # (Auto) 0.04 Immature Gran # (Auto) 0.01 Sodium 141 Potassium 4.3 Chloride 113 H Carbon Dioxide 23 Anion Gap 5 BUN 6 Creatinine 0.58 L Est Cr Clr Drug Dosing 73.6 eGFR 92.57 BUN/Creatinine Ratio 10.3 Glucose 94 POC Glucose 99 Calcium 8.3 L Stl C. cayetanensis PCR Not Detected Stool Rotavirus A PCR Not Detected Stl Adenov F 40/41 PCR Not Detected Stool Astrovirus (PCR) Not Detected Stool Campylobacter PCR Not Detected Stool Cryptosporidium PCR Not Detected Stl E.coli Shiga Tox PCR Not Detected Stl Enterotoxigenic E PCR Not Detected Stool EPEC (PCR) Not Detected Stool EAEC (PCR) Not Detected Stl E. histolytica PCR Not Detected Stool Giardia Lamblia PCR Not Detected Stool Salmonella PCR Not Detected Stool Sapovirus (PCR) Not Detected Stl P. shigelloides PCR Not Detected Stl Shigella/EIEC PCR Not Detected St Y.enterocolitica PCR Not Detected Stool Vibrio (PCR) Not Detected Stl Vibrio cholerae PCR Not Detected Stl Norovirus GI/GII PCR Not Detected Diagnostic Findings Telemetry personally reviewed: Sinus rhythm. No arrhythmia. Labs reviewed from 07/16/2024: Normal potassium, stable renal function, anemia. Blood cultures from 07/14/2024 negative x 2. Infectious disease note reviewed. Medications Administered Current Inpatient Medications Albuterol (Albuterol Hfa 8 Gm Inhaler) 2 puffs INH QID PRN PRN Reason: asthma Stop: 08/13/24 15:51 Aspirin (Aspirin 81 Mg Ectab) 81 mg PO QPM DUSTIN Stop: 08/13/24 20:59 Last Admin: 07/15/24 20:34 Dose: 81 mg Atorvastatin Calcium (Atorvastatin 40 Mg Tab) 80 mg PO DAILY DUSTIN Stop: 08/14/24 08:59 Last Admin: 07/16/24 09:16 Dose: 80 mg Buspirone HCl (Buspirone 7.5 Mg Tab) 7.5 mg PO TID DUSTIN Stop: 08/13/24 20:59 Last Admin: 07/16/24 13:51 Dose: 7.5 mg Colestipol HCl (Colestipol Hcl 1 Gm Tab) 1 gm PO Q24H DUSITN Stop: 08/14/24 09:59 Last Admin: 07/16/24 11:06 Dose: 1 gm Dextrose (Dextrose 50% 50 Ml Syringe) 25 - 50 ml IV UD PRN; Protocol PRN Reason: Hypoglycemia Protocol Stop: 08/13/24 15:55 Diclofenac Sodium (Diclofenac Sod 1% Gel 100 Gm Tube) 2 gm EXT BID PRN; Protocol PRN Reason: pain Stop: 08/13/24 15:46 Enoxaparin Sodium (Enoxaparin Inj 40 Mg/0.4 Ml Syr) 40 mg SQ QPM DUSTIN Stop: 08/13/24 20:59 Last Admin: 07/15/24 20:33 Dose: 40 mg Fexofenadine HCl (Fexofenadine Hcl 180 Mg Tab) 180 mg PO DAILYBL DUSTIN Stop: 08/14/24 10:29 Last Admin: 07/16/24 09:16 Dose: 180 mg Glucagon (Glucagon For Inj 1 Mg Vial) 1 mg SQ UD PRN; Protocol PRN Reason: Hypoglycemia Protocol Stop: 08/13/24 15:55 Glucose (Glucose 40% Gel 15 Gm Tube) 15 - 30 gm PO UD PRN; Protocol PRN Reason: Hypoglycemia Protocol Stop: 08/13/24 15:55 Glucose (Glucose 10 Tab/Tube) 4 - 8 tab PO UD PRN; Protocol PRN Reason: Hypoglycemia Protocol Stop: 08/13/24 15:55 Vancomycin HCl 1,000 mg/ (Sodium Chloride) 270 mls @ 200 mls/hr IV Q12H DUSTIN Stop: 07/18/24 16:59 Last Infusion: 07/16/24 04:45 Dose: Infused Insulin Aspart (Insulin Aspart Per Unit Charge) 0 units SC Q6 DUSTIN Stop: 08/15/24 05:59 Last Admin: 07/16/24 11:52 Dose: Not Given Levothyroxine Sodium (Levothyroxine Sodium 125 Mcg Tablet) 125 mcg PO DAILYBB [facility] Stop: 08/14/24 06:29 Last Admin: 07/16/24 05:54 Dose: 125 mcg Magnesium Chloride (Magnesium Chloride W/Calcium 64mg Delayed Rel Tab) 256 mg PO TID DUSTIN Stop: 08/13/24 20:59 Last Admin: 07/16/24 09:15 Dose: 256 mg Metoprolol Succinate (Metoprolol Succ 25mg Ext Rel Tab) 25 mg PO QAM DUSTIN Stop: 08/14/24 08:59 Last Admin: 07/16/24 09:16 Dose: 25 mg Mirtazapine (Mirtazapine Tab 15 Mg Tab) 30 mg PO HS [facility] Stop: 08/13/24 20:59 Last Admin: 07/15/24 20:35 Dose: 30 mg Miscellaneous (Carbohydrates For Hypoglycemia ) 15 - 30 gm PO UD PRN PRN Reason: Hypoglycemia Protocol Stop: 08/13/24 15:55 Miscellaneous Information (Vancomycin Consult Active) 1 each N/A UD PRN PRN Reason: Consult Stop: 08/13/24 16:05 Sacubitril/Valsartan (Valsartan/Sacubitril 103/97mg Tab) 1 tab PO BID [facility] Stop: 08/13/24 20:59 Last Admin: 07/16/24 09:16 Dose: 1 tab Tamoxifen Citrate (Tamoxifen Citrate 10 Mg Tablet) 20 mg PO DAILY [facility] Stop: 08/14/24 08:59 Last Admin: 07/15/24 08:04 Dose: 20 mg PG Care Time/CCT Total # of Minutes Spent Total Time Spent with Patient: Total time spent is greater than 50% in coordination of care (as documented) at patient's floor/unit and/or counseling patient: Coding Level of Care Code 56625 SUB INP/OBS CARE MIN Diagnoses Bacteremia R78.81 Coronary artery disease due to calcified coronary lesion I25.10; I25.84 Coronary Disease-Associated Artery/Lesion type: due to calcified coronary lesion NYHA class 1 heart failure with preserved ejection fraction, with improvement of ejection fraction from prior measurement I50.30 Cardiomyopathy I42.9 Primary hypertension I10 Hypertension type: primary hypertension Mixed hyperlipidemia E78.2 Hyperlipidemia type: mixed hyperlipidemia (2) CAD (coronary artery disease) Coronary Disease-Associated Artery/Lesion type: due to calcified coronary lesion Qualified Code(s): I25.10 - Atherosclerotic heart disease of [place] coronary artery without angina pectoris; I25.84 - Coronary atherosclerosis due to calcified coronary lesion (5) Hypertension Hypertension type: primary hypertension Qualified Code(s): I10 - Essential (primary) hypertension (6) Hyperlipidemia Hyperlipidemia type: mixed hyperlipidemia Qualified Code(s): E78.2 - Mixed hyperlipidemia
--- NOTE | 2024-07-16 15:29 | Anesthesiology Progress Note ---
Date of Service July 16, 2024 Anesthesia Post Procedure Vital Signs Vital Signs: Temp Pulse Pulse Resp BP BP Pulse Ox 07/16/24 14:40 93 H 14 134/67 97 07/16/24 14:08 80 07/16/24 10:41 36.6 C 83 18 136/78 98 07/16/24 09:13 80 07/16/24 07:56 80 07/16/24 07:25 36.5 C 79 18 122/74 97 07/15/24 22:38 36.9 C 72 18 95/59 L 95 07/15/24 21:53 75 07/15/24 19:07 36.7 C 77 18 113/67 95 07/15/24 15:54 36.7 C 81 20 108/63 96 O2 Del Method 07/16/24 14:40 Room Air 07/16/24 14:08 07/16/24 10:41 Room Air 07/16/24 09:13 07/16/24 07:56 07/16/24 07:25 Room Air 07/15/24 22:38 Room Air 07/15/24 21:53 07/15/24 19:07 Room Air 07/15/24 15:54 Room Air Transfer of Care Handoff Completed per policy Notes Mental Status: alert / awake / arousable Patient Amnestic to Procedure: Yes Nausea / Vomiting: adequately controlled Pain: adequately controlled Airway Patency, RR, SpO2: stable & adequate BP & HR: stable & adequate Hydration State: stable & adequate Anesthetic Complications: no major complications apparent
[2024-07-16] MEDS: PROPOFOL IV EMULSION 10 MG/ML 20 ML VIAL IV ONE (16:43)
[2024-07-16] MEDS: LIDOCAINE 2% 2 ML VIAL/AMP(20MG/ML) INFIL ONE (16:43)
[2024-07-16] MEDS: BENZOCAINE/TETRACAIN/BUTAM 50 APPLN/5 GM CAN EXT ONE (16:44)
--- NOTE | 2024-07-16 18:57 | XCELERA ---
[id number] [id number]
[2024-07-16] MEDS: cephALEXin 500 MG CAP PO SCH (20:05)
[2024-07-17] MEDS ORDERED: VANCOMYCIN LEVEL ONE (02:00)
[2024-07-17 02:28] LABS: Basophils # (auto) 0.02 K/uL (0.00-0.20); Basophils % (auto) 0.4 %; Eosinophils # (auto) 0.16 K/uL (0.00-0.50); Eosinophils % (auto) 2.8 %; Hematocrit (blood only) 29.6 % (37.0-47.0); Hemoglobin 9.8 g/dl (12.0-16.0); Immature Granulocytes # (auto) 0.01 K/uL (0.01-0.20); Immature Granulocytes % (auto) 0.2 %; Lymphocytes # (auto) 1.87 K/uL (1.20-3.40); Lymphocytes % (auto) 33.2 %; Mean Corpuscular Hemoglobin 32.7 pg (25.0-34.0); Mean Corpuscular Hgb Conc 33.1 g/dL (32.0-36.0); Mean Corpuscular Volume 98.7 fL (80.0-100.0); Mean Platelet Volume 9.6 fL (9.4-12.4); Monocytes # (auto) 0.53 K/uL (0.11-0.59); Monocytes % (auto) 9.4 %; Neutrophils # (auto) 3.04 K/uL (1.40-6.50); Platelet Count 157 K/uL (130-400); RDW Coefficient of Variation 15.4 % (11.5-14.5); RDW Standard Deviation 55.7 fL (36.4-46.3); White Blood Count 5.63 K/ul (4.8-10.8)
[2024-07-17 02:41] LABS: BUN Creatinine Ratio 12.7 (10-20); Calcium 8.4 mg/dl (8.6-10.3); Creatinine Clr Calc Pharmacy 77.7 ml/min; Potassium 4.3 mmol/L (3.5-5.1)
--- NOTE | 2024-07-17 08:42 | Infectious Disease Progress Nt ---
Date of Service July 17, 2024 Assessment & Plan (1) Positive blood culture: (2) Open wound of right breast: (3) Open wound of finger: (4) Diabetes mellitus, type 2: Plan 79yo F with h/o T2DM, HFpEF, CAD, IPMN, asthma, gout, Raynauds, right knee replacement who presented on 07/14 after outpatient BCx returned positive for GPC. She had the BCx drawn due to the concerns for the lesions on her right finger and right breast, for which she has been seeing wound care. She did have a complaint of some purulent drainage from the right breast wound. She also reported diarrhea for a few weeks. Recently had taken amoxicillin for a dental procedure. Here she has been afebrile, vss. Initial labs with WBC wnl, Cr 0.6, AST/ALT wnl. PCT 0.03. ESR/CRP neg. CXR negative. XR of right finger negative for acute findings. Arterial duplex of upper extremities negative. She has been started on vancomycin. TTE is technically, mild MR moderate mitral annular calcification, no vegetation. ID consulted 07/15. BCX with coag neg staph with follow up neg. NOAH negative. BCX positive from 1 of 4 bottles and speciated to Staph warneri, which is coag negative staph. This is likely a contaminant given negative follow up BCX. Otherwise, she has not had any fevers, no elevation in inflammatory markers. Both TTE and NOAH are negative for vegetations. Given some purulent drainage that was noted from breast lesion, I did change her abx to Keflex yesterday for SSTI coverage. Can complete a short course. # Staph warneri in BCX - contaminant # Right breast wound with some drainage mild superimposed SSTI # Right finger lesion # h/o T2DM - I stopped vanc yesterday and started Keflex 500mg PO qid - can continue abx for 5 days to complete a short course of superimposed SSTI of breast lesion ID will discontinue active follow up at this time. Please do not hesitate to reconsult the Infectious Diseases service as needed. Ruchi Perez MD [facility], Division of Infectious Diseases IDConnect: [phone] Admission and Anticipated Discharge Date Admission Date: July 14, 2024 Subjective This patient recommendation is based on a telemedicine consult request which was completed asynchronously through chart review and information provided by the primary physician. The patient was not seen or examined today. The evaluation is consultative in nature and all patient care and treatment decisions can either be accepted or rejected by the patient's primary hospital-based treating physician using their own independent medical judgment for their patient. Time Spent Reviewing Chart: 21 - 30 minutes Results & Data Vital Signs (Past 12 Hours) Vital Signs Temp Pulse Pulse Resp BP Pulse Ox O2 Del Method 07/17/24 07:10 36.8 C 77 17 106/55 L 96 Room Air 07/17/24 03:28 37 C 75 16 93/51 L 94 Room Air 07/16/24 23:27 36.6 C 80 16 92/63 L 98 Room Air 07/16/24 22:57 81 Laboratory Results Labs reviewed. Diagnostic Findings Imaging reviewed. 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
[2024-07-17 11:03] LABS: Cdiff Toxin B Gene (2yr or >) Positive Cdiff Gene (Neg)
[2024-07-17 11:04] LABS: Cdiff Antigen Negative; Cdiff Toxin A+B Negative Cdiff Toxin (Negative)
[2024-07-17 11:43] VITALS: BP 98/64; PULSE 72; RESP 18; TEMP 97.9; O2SAT 99
[2024-07-17 13:40] LABS: Acanthocytes 2+
--- NOTE | 2024-07-17 14:21 | Discharge Summary ---
Date of Service July 17, 2024 Admission HPI Per Admitting Provider Chelsie is a 79-year-old female with PMH of HFpEF, CAD, sleep apnea, IPMN, chondrocalcinosis, mixed incontinence, asthma, T2DM, gout, HLD, celiac disease, and Raynaud's. She presented as a direct admit on 07/14 at the behest of Dr. Garcia out of concern for bacteremia after blood culture drawn on 07/13 grew gram-positive cocci in clusters. The patient had blood cultures drawn due to concern for wound/lesions on her right finger as well as her right breast. Patient has been going to the wound clinic outpatient since April for these lesions. They are dressed regularly on //. No pain in her right second finger; wound on the right third finger has largely healed. They have been applying Betadine at home to the wounds. Her main concern is that she has purulent drainage from a superficial wound on the right upper quadrant of her right breast. She is unsure what caused these lesions in the first place. No weeping or serosanguineous drainage. No history of MRSA infections to her knowledge. Patient reports she has lost around 60 pounds over the past year. Her (Prakash) at bedside believes this might be secondary to Rybelsus; she is recently started cutting her 7 mg dose in half which has improved her appetite. No sick contacts. Additionally, the patient reports that she has had diarrhea for the past several weeks. No history of C. difficile infections. However, she was on antibiotics recently (amoxicillin x 4 tablets) for a dental procedure; she was told she needs to take this after every dental procedure due to history of a knee replacement. No prior history of heart stents or heart valve replacements. She denies prior history of osteomyelitis or endocarditis. Patient reports her only medication allergy is naproxen (mild rash). She denies smoking, tobacco use, or recent alcohol use. Patient's vitals are stable at time of admission. ROS: Patient endorses cold intolerance, loss of appetite, intermittent nausea, right second finger wound, purulent drainage from wound on right breast, and diarrhea x 3 weeks. Patient denies fever, chills, night sweats, chest pain, chest palpitations, pleuritic CP, cough, SOB, abdominal pain, N/V/D, blood in the urine or stool, or melena. Admission Exam (Per Admitting) Constitutional The patient is awake, alert and oriented 3, well developed and well nourished, normocephalic and atraumatic, lying in bed and in no acute distress. HEENT--PERRL, EOMI, mucous membranes and oropharynx mildly dry Neck--supple. No JVD. No bruits. Thyroid normal, trachea midline, no adenopathy. Heart--normal S1 and S2. No murmurs, rubs or gallops. Lungs--clear bilaterally, no respiratory distress, no accessory muscle use. Abdomen--normal bowel sounds and soft. Extremities--no cyanosis or clubbing. No edema. Dermatologic--normal skin turgor, normal color, no abnormal lymph nodes, no rash. Neurologic--cranial nerves II through XII grossly intact. Rheumatologic--normal range of motion. Psychiatric--normal affect. Discharge Data Consultations 07/14/24 20:10 Consult Cardiology Routine 07/15/24 07:44 Consult Infectious Diseases Routine 07/16/24 10:23 Consult Anesthesiology Routine Procedures Performed Operation Date: 07/16/24 14:00 Actual Procedures s Transesophageal Echo - Fermin Mahoney MD p Echo Doppler Complete - Fermin Mahoney MD s Echo Color Flow - Fermin Mahoney MD Hospital Course (1) Bacteremia: Patient presented on 07/14 at the behest of her PCP after (+) outpatient blood c ulture for gram-positive cocci drawn on 07/13 Blood culture drawn due to lesions on her right second finger and right breast with concern for septic emboli Will complete workup for endocarditis On arrival, black lesions noted on the tip of the second right finger, they look like thrombo embolic spots CRP, procal and other markers of inflammation wnl X-ray of the right fingers did not show any evidence of osteomyelits Repeat blood cultures negative so far Echocardiogram did not suggest vegetaions, NOAH was also normal Discontinued abx Give PO Cephaklexin for the breast cellulitis (2) Open wound of right breast: Patient reports purulent drainage from the lesion on her right breast No h/o MRSA infections to her knowledge She has been following with the wound care clinic for this M/W/F since April 2024 Daily wound care Wound care nurse consult appreciated PO cephalexin for 5 days (3) Hypomagnesemia: Continue repletion P.o. supplementation TID Hold Protonix for now (4) Open wound of finger: hey look like thrombo embolic spots (5) Diarrhea: now resolved (6) Diabetes mellitus, type 2: Last A1c at 5.3% on 06/12/2025 Hold Rybelsus, metformin SSI; with target BSG range 110-140mg/dL, CF 50, carb ratio 15 T2DM diet BSG ACHS Adjust regimen as needed (7) CAD (coronary artery disease): No history of heart stents Continue aspirin, atorvastatin, and metoprolol (8) Sleep apnea: Not currently on CPAP (9) Raynaud phenomenon: (10) Positive CAMELIA (antinuclear antibody): (11) Hypothyroidism: (12) Hx of gout: (13) Hyperlipidemia: (14) NYHA class 1 heart failure with preserved ejection fraction, with improvement of ejection fraction from prior measurement: Plan Disposition: Continued stay on PCU telemetry DNR/DNI Heart healthy, T2DM diet VTE PPx: Lovenox 40 mg SQ q24h Coding Level of Care Code 92373 INP/OBS DISCH >30 MIN Diagnoses Bacteremia R78.81 Open wound of right breast, initial encounter S21.001A Encounter type: initial encounter Hypomagnesemia E83.42 Open wound of finger, initial encounter S61.209A Encounter type: initial encounter Diarrhea R19.7 Type 2 diabetes mellitus without complication, without long-term current use of insulin E11.9 Diabetes mellitus detention insulin use: without detention use Diabetes mellitus complication status: without complication Coronary artery disease due to calcified coronary lesion I25.10; I25.84 Coronary Disease-Associated Artery/Lesion type: due to calcified coronary lesion Sleep apnea G47.30 Raynaud's phenomenon without gangrene I73.00 Raynaud?s-associated gangrene presence: without gangrene Positive CAMELIA (antinuclear antibody) R76.8 Hypothyroidism, unspecified type E03.9 Hypothyroidism type: unspecified Hx of gout Z87.39 Mixed hyperlipidemia E78.2 Hyperlipidemia type: mixed hyperlipidemia NYHA class 1 heart failure with preserved ejection fraction, with improvement of ejection fraction from prior measurement I50.30 Time Spent (min) 35
== END 2024-07-17 12:19 | disposition home or self-care (01) | DRG 300 ==
LOC: 2S 13:12 → SUATTDRO 13:12